=== PATIENT | female | born 1950 | race Caucasian/White ===

== ENCOUNTER 2018-08-28 10:23 | Inpatient (IN) ==
[2018-08-28] MEDS ORDERED: fentaNYL 100 MCG/2 ML VIAL IV PRN (11:18)
[2018-08-28] MEDS ORDERED: 0.9 % SODIUM CHLORIDE 1,000 ML IV SCH (11:30)
[2018-08-28] MEDS ORDERED: FLUCONAZOLE 200 MG/100 ML BAG IV SCH (11:30)
[2018-08-28 12:35] LABS: ALT/SGPT 15 U/l (0-40); Albumin 3.6 gm/dL (3.2-5.2); Albumin/Globulin Ratio 1.1 (1.0-2.3); Alkaline Phosphatase 148 U/L (39-117); Blood Urea Nitrogen 41 mg/dl (8-23)
[2018-08-28 12:42] LABS: Basophils # (Auto) 0 K/mcL (0.0-0.3); Basophils % (Auto) 0.2 % (0.0-2.0); Eosinophils # (Auto) 0.2 K/mcL (0.0-0.7); Eosinophils % (Auto) 0.9 % (0.0-7.0); Granulocytes % (Auto) 79.1 % (38.0-78.0); Lymphocytes # (Auto) 2.8 K/mcL (1.5-4.8); Lymphocytes % (Auto) 11.7 % (15.5-49.0); Mean Cell Volume 90.1 fL (80.0-100.0); Mean Corpuscular HGB Conc 33.9 g/dL (31.0-36.0); Mean Corpuscular Hemoglobin 30.5 pg (26.0-34.0); Monocytes # (Auto) 1.9 K/mcL (0.1-0.9); Monocytes % (Auto) 8.1 % (1.0-12.0); Platelet Count 369 K/mcL (140-440); RBC 3.56 M/mcL (4.00-5.20); Red Cell Distribution Width 12.4 % (11.5-14.5)
[2018-08-28] MEDS ORDERED: cefTRIAXone 1 GM VIAL IV ONE (12:51)
--- NOTE | 2018-08-28 13:04 | Emergency Department Note ---
Skin/Abscess/FB HPI - General Chief complaint: Skin/Abscess/Foreign Body Stated complaint: Cat scratch, sore butt, yeast infection. Time Seen by Provider: 08/28/18 11:17 Source: patient Mode of arrival: ambulatory Limitations: no limitations - History of Present Illness HPI Narrative: 68-year-old female patient was sent over from dialysis for further evaluation. States she has a very bad yeast infection to her pannus. Is very red and tender. This is been going for a few days at least and she is unsure exactly how long because she cannot see underneath it. States she has had yeast infections here before but does not get this very frequently. She also has a red, inflamed area to the right fourth finger, palmar surface distal tip which she believes is infected from a cat scratch. Unclear when this cat scratch occurred. She also has wounds to the right buttocks or some sort of pressure ulcer possibly. Again she cannot see this area but she has a caregiver that comes in a couple times a week and she is concerned about the wound to her buttocks. The caregiver states the patient is way too much work for her to be able to care for at home and she will oftentimes will not allow her to take care of her and the patient is unable to care for herself. No fever or chills. No nausea, vomiting, or diarrhea. No cough or cold symptoms. Patient is due for dialysis this afternoon - Related Data Home Medications Medication Instructions Recorded Confirmed albuterol sulfate 200 mcg capsules 180 mcg INHALATION .Q4-6HR PRN 11/19/1506/07 for inhalation blood sugar diagnostic strips See Dose Instructions .ROUTE 11/19/15 06/07/17 .MEDSUPPLY blood-glucose meter kit See Dose Instructions .ROUTE 11/19/15 06/07/17 .MEDSUPPLY fluoxetine 20 mg capsule 20 mg PO QDAY 11/19/15 06/07/17 lancets See Dose Instructions .ROUTE 11/19/15 06/07/17 .MEDSUPPLY clopidogrel 75 mg tablet 75 mg PO QDAY 90 Days #90 tab 05/16/17 06/07/17 cinacalcet 30 mg tablet 60 mg PO QDAY 30 Days #60 tab 07/26/18 acetaminophen 325 mg tablet 325 mg PO Q4H PRN tab 08/02/18 amlodipine 2.5 mg tablet 2.5 mg PO QDAY 08/02/18 calcium carbonate 200 mg calcium 200 mg PO ONCE PRN tab 08/02/18 (500 mg) chewable tablet cholecalciferol (vitamin D3) 1,000 1,000 unit PO QDAY 08/02/18 unit capsule clonidine HCl 0.1 mg tablet 0.1 mg PO .dialysis day PRN tab 08/02/18 darbepoetin cal 25 mcg/mL in 25 mcg IV QWEEK ml 08/02/18 polysorbate injection hydroxyzine HCl 10 mg tablet 10 mg PO Q6H PRN tab 08/02/18 loperamide 2 mg tablet 2 mg PO Q2-4H PRN 08/02/18 losartan 25 mg tablet 25 mg PO QDAY 08/02/18 mannitol See Label Instructions .ROUTE 08/02/18 .COMPLEX montelukast 10 mg tablet 10 mg PO QPM 08/02/18 niacin 500 mg tablet 500 mg PO QDAY 08/02/18 nut.tx impaired renal function, each PO .3xweekly 08/02/18 soy oral liquid ondansetron HCl 2 mg/mL 4 mg IV ONCE PRN ml 08/02/18 intravenous solution vitamin B complex-vitamin C-folic 1 tab PO QDAY 08/02/18 acid 0.8 mg tablet Previous Rx's Medication Instructions Recorded sevelamer carbonate 800 mg tablet See Label Instructions .ROUTE 07/26/18 .COMPLEX #330 tab Allergies Allergy/AdvReac Type Severity Reaction Status Date / Time ciprofloxacin [From Cipro] Allergy Unknown Unknown Verified 10/01/17 09:53 codeine Allergy Unknown Unknown Verified 10/01/17 09:53 gemfibrozil [From Lopid] Allergy Unknown Unknown Verified 10/01/17 09:53 meperidine [From Demerol] Allergy Unknown Unknown Verified 10/01/17 09:53 Review of Systems All systems ED: reviewed and negative except as stated. Past Medical History - Past Medical History [facility] Narrative: Medical History (Last Reviewed 06/07/17 @ 11:40 by Rbeekah Zaidi CMA) Leukocytosis (Acute) CKD (chronic kidney disease) stage 3, GFR 30-59 ml/min (Acute) Renal osteodystrophy (Chronic) Hyperkalemia (Chronic) Metabolic acidosis (Chronic) Type 2 diabetes mellitus (Chronic) Anemia (Chronic) Hypertensive renal disease (Chronic) Encounter for adjustment or management of vascular access device (Acute) Anxiety and depression (Chronic) Asthma (Chronic) CHF (congestive heart failure) (Chronic) Cellulitis, leg (Chronic) DM (diabetes mellitus), type 2 with peripheral vascular complications (Chronic) Gout (Chronic) Hallux valgus, acquired (Chronic) Hypercholesterolemia (Chronic) Hypertension (Chronic) Hypertensive heart and chronic kidney disease with heart failure and stage 1 through stage 4 chronic kidney disease, or chronic kidney disease (Chronic) Iron deficiency anemia (Chronic) Obesity (Chronic) Onychomycosis (Chronic) Open wound of right buttock (Chronic) Ovarian dysfunction, unspecified (Chronic) PVD (peripheral vascular disease) (Chronic) Paresthesia of both feet (Chronic) Peripheral edema (Chronic) Pneumonia due to other specified infectious organisms (Chronic) Pulmonary hypostasis (Chronic) RLS (restless legs syndrome) (Chronic) Renal failure (Chronic) Tinea pedis (Chronic) Past Surgical History (Last Reviewed 05/16/17 @ 13:21 by Karl Goodman MD) H/O kidney removal (Acute) S/P bilateral breast reduction (Acute) Status post cataract extraction (Acute) Medical history: Reports: DM, hypertension, peripheral artery disease, renal disease, other Surgical history ED: Reports: cataract, other (Breast reduction, dialysis catheter, nephrectomy) - Social History smoking status: Never smoker Alcohol use: Reports: None Drug use: Reports: none Physical Exam Limitations: no limitations General appearance: alert, in no apparent distress Head: atraumatic, normocephalic, normal inspection Eye: Present: normal appearance. Absent: conjunctival injection ENT: mucous membranes moist Chest: Present: symmetric chest wall rise Respiratory: Present: normal lung sounds bilaterally. Absent: respiratory distress, rales/crackles, wheezes, accessory muscle use Cardiovascular: Present: regular rate, normal heart sounds Abdominal: Present: soft, normal bowel sounds, other (large/obese abdomen, underneath panis with beefy red rash and excessive moisture to panis and groins bilat, severe redness and skin breakdown consistent with yeast infection- very tender). Absent: distention External: Present: other (please see urine dip) Neurological: Present: alert, oriented X3 Psychiatric: Present: normal affect, normal mood Skin: Present: warm, dry, normal color, erythema (Please see GI assessment. Right fourth finger distal tip palmar surface with a 1.5 cm area of redness and 1 cm area in the center that has purulent drainage under the skin surface. Tender to palpation. Full range of motion intact the affected finger. Numbed with 1% lidocaine without epi and approximately 1 mm light drainage expelled. Culture obtained, sent, and pending), other (Right medial buttocks with 2 stage II pressure ulcers 3 cm in diameter each. Mild redness around the wound borders. No induration or drainage) Course Course Narrative: At 1420 I did speak with hospitalist, Dr. Camarillo who agrees to accept the patient. Vital Signs Temperature 99.1 F H 08/28/18 10:24 Pulse Rate 84 08/28/18 10:24 Respiratory Rate 18 08/28/18 10:24 Blood Pressure 132/77 08/28/18 10:24 Pulse Oximetry (%) 100 08/28/18 10:24 Temperature 99.1 F H 08/28/18 10:24 Pulse Rate 101 H 08/28/18 14:16 Respiratory Rate 20 08/28/18 14:16 Blood Pressure 130/62 08/28/18 14:16 Pulse Oximetry (%) 99 08/28/18 14:16 Skin/Abscess/Foreign Body - Lab Data Lab results reviewed: Yes I reviewed the patient's lab results. Result diagrams: 08/28/18 12:22 08/28/18 11:37 Lab Results 08/28/18 08/28/18 08/28/18 Range/Units 11:37 11:37 12:22 WBC 23.8 H (4.5-11.0) K/mcL RBC 3.56 L (4.00-5.20) M/mcL Hgb 10.9 L (12.0-15.0) g/dL Hct 32.1 L (36.0-48.0) % MCV 90.1 (80.0-100.0) fL MCH 30.5 (26.0-34.0) pg MCHC 33.9 (31.0-36.0) g/dL RDW 12.4 (11.5-14.5) % Plt Count 369 (140-440) K/mcL MPV 8.0 (7.4-10.4) fL Gran % 79.1 H (38.0-78.0) % Lymph % (Auto) 11.7 L (15.5-49.0) % [place] % (Auto) 8.1 (1.0-12.0) % Eos % (Auto) 0.9 (0.0-7.0) % Baso % (Auto) 0.2 (0.0-2.0) % Gran # 18.8 H (1.8-8.0) K/mcL Lymph # (Auto) 2.8 (1.5-4.8) K/mcL [place] # (Auto) 1.9 H (0.1-0.9) K/mcL Eos # (Auto) 0.2 (0.0-0.7) K/mcL Baso # (Auto) 0 (0.0-0.3) K/mcL VBG Lactic Acid 1.1 (0.5-2.0) mmol/L Sodium 134 (133-145) mmol/L Potassium 4.1 (3.3-5.1) mmol/L Chloride 92 L (96-108) mmol/L Carbon Dioxide 26 (22-30) mmol/L Anion Gap 16.0 (8-16) BUN 41 H (8-23) mg/dl Creatinine 5.7 H* (0.6-1.1) mg/dl GFR Calculation 7 Glucose 92 (70-105) mg/dL Calcium 8.7 (8.6-10.4) mg/dl Total Bilirubin 0.4 (0.0-1.0) mg/dL AST 18 (0-37) U/l ALT 15 (0-40) U/l Alkaline Phosphatase 148 H (39-117) U/L Total Protein 6.8 (5.9-8.4) gm/dL Albumin 3.6 (3.2-5.2) gm/dL Globulin 3.2 (2.2-3.7) gm/dL Albumin/Globulin Ratio 1.1 (1.0-2.3) - Radiology Data Radiology results reviewed: Yes I reviewed the patient's radiology results. Disposition Pt seen by COMMUNICATIONS ENGINEER/PA only: Yes Clinical Impression: Urinary tract infection, Pressure ulcer, buttock, Yeast infection of the skin, Abscess of finger, Self-care deficit for bathing and hygiene Disposition: Xfer As Inpt ([facility]) Condition: Fair Referrals: Apolonia Fernando ARNP [Primary Care Provider] -
--- NOTE | 2018-08-28 14:14 | XRay Report ---
INDICATION: Elevated white blood cell count. Weakness. TECHNIQUE: AP chest x-ray, portable upright COMPARISON: 10/01/2017, 05/17/2017, 11/20/2015 FINDINGS: No focal pulmonary parenchymal infiltrate or mass. No pulmonary congestion. No pulmonary edema. Thelma and mediastinum are negative. No acute abnormality or significant interval change IMPRESSION: Negative AP chest x-ray Interpreted and Authenticated by: Cristian Hidalgo 08/28/18
--- NOTE | 2018-08-28 14:23 | Nephrology Consult Note ---
History of Present Illness - Reason for Consult Patient information: Note initiated : 08/28/18 at 2:21 pm Teri Olson is a 68-year-old female, admitted on 08/28/18. Chief Complaint: Wound Consult date: 08/28/18 end stage renal disease Requesting physician: Homero Montaño - Chief Complaint Wound - History of Present Illness Teri Olson is a 68-year-old female with end-stage renal disease on chronic hemodialysis (through left arm AV graft, at [facility], on MWF, followed by Dr. Wiley) , secondary hyperparathyroidism of renal origin, chronic anemia due to kidney disease, history of renal cell carcinoma s/p left nephrectomy in 2011, diabetes mellitus type 2, hypertension, admitted on 08/28/18. Pannus is red and tender for a few days. She has had yeast infections of pannus. Her right fourth finger is red and tender as well. Review of Systems Constitutional: weakness, no anorexia Nose, mouth and throat: no nasal congestion, no sore throat Cardiovascular: no chest pain, no palpatations Respiratory: no cough, no dyspnea Gastrointestinal: nausea, vomiting, no abdominal pain Genitourinary: no dysuria, no hematuria Musculoskeletal: no back pain, no neck pain Integumentary: wounds, no rash Neurological: no confusion, no focal weakness Psychiatric: no anxiety, no panic attacks Endocrine: no cold intolerance, no heat intolerance Hematologic/Lymphatic: no easy bleeding, no easy bruising Allergic/Immunologic: no tongue swelling, no uticaria Past History Past medical history: Medical History (Last Updated 08/28/18 @ 13:46 by Marshal De La Cruz MD) Leukocytosis (Acute) Renal osteodystrophy (Chronic) Type 2 diabetes mellitus (Chronic) Anemia (Chronic) Encounter for adjustment or management of vascular access device (Acute) Anxiety and depression (Chronic) Asthma (Chronic) CHF (congestive heart failure) (Chronic) Cellulitis, leg (Chronic) DM (diabetes mellitus), type 2 with peripheral vascular complications (Chronic) Gout (Chronic) Hallux valgus, acquired (Chronic) Hypercholesterolemia (Chronic) Hypertension (Chronic) Hypertensive heart and chronic kidney disease with heart failure and stage 1 through stage 4 chronic kidney disease, or chronic kidney disease (Chronic) Iron deficiency anemia (Chronic) Obesity (Chronic) Onychomycosis (Chronic) Open wound of right buttock (Chronic) Ovarian dysfunction, unspecified (Chronic) PVD (peripheral vascular disease) (Chronic) Paresthesia of both feet (Chronic) Peripheral edema (Chronic) Pneumonia due to other specified infectious organisms (Chronic) Pulmonary hypostasis (Chronic) RLS (restless legs syndrome) (Chronic) Renal failure (Chronic) Tinea pedis (Chronic) Past surgical history: Past Surgical History (Last Reviewed 05/16/17 @ 13:21 by Karl Goodman MD) H/O kidney removal (Acute) S/P bilateral breast reduction (Acute) Status post cataract extraction (Acute) Past family history: Family History (Last Reviewed 06/07/17 @ 11:46 by Rebekah Zaidi CMA) Mother Alzheimer's disease Father Malignant neoplasm of lung Glaucoma Past social history: Social History (Last Reviewed 06/07/17 @ 11:46 by Rebekah Zaidi CMA) No Social History Section defined Medications and Allergies Home Medications Medication Instructions Recorded Confirmed Type albuterol sulfate 200 mcg capsules 180 mcg INHALATION .Q4-6HR PRN 11/19/1508/28 History for inhalation blood sugar diagnostic strips See Dose Instructions .ROUTE 11/19/15 06/07/17 History .MEDSUPPLY blood-glucose meter kit See Dose Instructions .ROUTE 11/19/15 06/07/17 History .MEDSUPPLY fluoxetine 20 mg capsule 20 mg PO QDAY 11/19/15 06/07/17 History lancets See Dose Instructions .ROUTE 11/19/15 06/07/17 History .MEDSUPPLY cinacalcet 30 mg tablet 60 mg PO QDAY 30 Days #60 tab 07/26/18 08/28/18 History sevelamer carbonate 800 mg tablet See Label Instructions .ROUTE 07/26/18 Rx .COMPLEX #330 tab acetaminophen 325 mg tablet 325 mg PO Q4H PRN tab 08/02/18 08/28/18 History amlodipine 2.5 mg tablet 2.5 mg PO QDAY 08/02/18 08/28/18 History calcium carbonate 200 mg calcium 200 mg PO ONCE tab 08/02/18 08/28/18 History (500 mg) chewable tablet cholecalciferol (vitamin D3) 1,000 1,000 unit PO QDAY 08/02/18 08/28/18 History unit capsule clonidine HCl 0.1 mg tablet 0.1 mg PO .dialysis day PRN tab 08/02/18 History darbepoetin cal 25 mcg/mL in 25 mcg IV QWEEK ml 08/02/18 History polysorbate injection hydroxyzine HCl 10 mg tablet 10 mg PO Q6H PRN tab 08/02/18 History loperamide 2 mg tablet 2 mg PO Q2-4H PRN 08/02/18 History losartan 25 mg tablet 25 mg PO QDAY 08/02/18 History mannitol See Label Instructions .ROUTE 08/02/18 History .COMPLEX montelukast 10 mg tablet 10 mg PO QPM 08/02/18 History niacin 500 mg tablet 500 mg PO QDAY 08/02/18 History nut.tx impaired renal function, each PO .3xweekly 08/02/18 History soy oral liquid ondansetron HCl 2 mg/mL 4 mg IV ONCE PRN ml 08/02/18 History intravenous solution vitamin B complex-vitamin C-folic 1 tab PO QDAY 08/02/18 History acid 0.8 mg tablet Aspirin [Elias Chewable Aspirin] 81 mg PO DAILY 08/28/18 08/28/18 History Allergies Allergy/AdvReac Type Severity Reaction Status Date / Time ciprofloxacin [From Cipro] Allergy Unknown Unknown Verified 10/01/17 09:53 codeine Allergy Unknown Unknown Verified 10/01/17 09:53 gemfibrozil [From Lopid] Allergy Unknown Unknown Verified 10/01/17 09:53 meperidine [From Demerol] Allergy Unknown Unknown Verified 10/01/17 09:53 Exam - Vital Signs Vital signs: Temp Pulse Resp BP Pulse Ox 99.1 F H 101 H 20 130/62 99 08/28/18 10:24 08/28/18 14:16 08/28/18 14:16 08/28/18 14:16 08/28/18 14:16 - General Appearance General appearance: chronically ill, frail EENT: mucous membranes moist Neck: supple Respiratory: clear Cardiology: no edema Gastrointestinal: no tenderness Integumentary: no rash, ulcer Neurologic: no focal deficit, alert and oriented x3 Musculoskeletal: no deformities Psychiatric: mood/affect appropriate, cooperative Results - Lab Results 08/28/18 12:22 08/28/18 11:37 Most recent lab results Calcium 8.7 mg/dl (8.6-10.4) 08/28/18 11:37 Assessment and Plan (1) ESRD (end stage renal disease) on dialysis Teri Olson is a 68-year-old female with end-stage renal disease on chronic hemodialysis (through left arm AV graft, at [facility], on MWF, followed by Dr. Wiley) , secondary hyperparathyroidism of renal origin, chronic anemia due to kidney disease, history of renal cell carcinoma s/p left nephrectomy in 2011, diabetes mellitus type 2, hypertension, admitted on 08/28/18. Plan: Hemodialysis today with Revaclear 400 dialyzer for 3 hours, QB/QD 400/ 800, dialysate (Potassium 3, Bicarbonate 35, Calcium 2.5, Sodium 140), UF target 2000 ml, Heparin 2000 unit bolus, 1000 unit per hour. Status: Chronic Priority: Medium
[2018-08-28 14:47] LABS: Appearance,Urine HAZY; Bacteria,Urine FEW /hpf (0); Bilirubin,Urine NEG (NEG); Color,Urine YELLOW; Glucose,Urine (UA) NEGATIVE (NEG); Leukocyte Esterase,Urine 500 /uL (NEG); Mucus,Urine FEW /hpf (0); Protein,Urine 100 mg/dL (NEG); Specific Gravity,Urine 1.015 (1.000-1.035); Urine Blood 0.2 mg/dL (<0.03); Urine RBC 48 /hpf (0-1); Urine Squamous Epithelial Cell 1 /hpf (0-4); Urine Transitional Epi Cells 3 /hpf (0-2); Urine WBC > 182 /hpf (0-4); Urobilinogen,Urine NEG (NEG)
[2018-08-28] MEDS ORDERED: PIPERACILLIN SODIUM/TAZOBACTAM 3.375 GM in DEXTROSE 5% IN WATER 50 ML IV SCH (15:00)
--- NOTE | 2018-08-28 15:00 | Internal Med History&Physical ---
Medical - H&P: [facility] Patient information: Note initiated : 08/28/18 at 3:00 pm Service Date, if different from initiated Date: [] Patient: Teri Olson a 68 y/o F admitted on for Cat Scratch, Sore Butt, Yeast Infection. Chief Complaint: [] History of present illness: Ms. Olson is a 68 year old F With diabetes and end-stage renal disease who resides at home and is cared for by home health child caregiver who states to nursing staff and family independence case manager that she is unable to care for this patient given the difficulty with this particular individual in their size. She was brought in today by the urging of the home health child caregiver because of infections in her skin pressure ulcers and infection of the finger. Patient states she was feeling fine until this weekend yesterday specifically and she started to feel weak and fatigued. She did feel like she had some fevers and chills yesterday. She says got a scratch on her finger by her cat on her right fourth finger which is now red and swollen at the tip. She also states she has a yeast infection in between her pannus which is been there for about a week. She states her urine is a little malodorous darker than usual but she does not typically urinate very much anyway. Denies any nausea vomiting chest pain or stomach pain or diarrhea In the ER she was evaluated and also found to have a pressure ulcers on her buttocks. The abscess in the tip of her right finger was incised in 1 mL of purulent drainage was expressed and cultures were obtained. Review of Systems: Positive for generalized weakness and fatigue/fever/chills. Denies headache/ nausea/vomiting/chest or abdominal pain/cough/dyspnea/diarrhea. Remaining 10 point review of systems reviewed negative Medical - H&P: [facility] Medical history: Medical History (Last Updated 08/28/18 @ 13:46 by Marshal De La Cruz MD) Leukocytosis (Acute) Renal osteodystrophy (Chronic) Type 2 diabetes mellitus (Chronic) Anemia (Chronic) Encounter for adjustment or management of vascular access device (Acute) Anxiety and depression (Chronic) Asthma (Chronic) CHF (congestive heart failure) (Chronic) Cellulitis, leg (Chronic) DM (diabetes mellitus), type 2 with peripheral vascular complications (Chronic) Gout (Chronic) Hallux valgus, acquired (Chronic) Hypercholesterolemia (Chronic) Hypertension (Chronic) Hypertensive heart and chronic kidney disease with heart failure and stage 1 through stage 4 chronic kidney disease, or chronic kidney disease (Chronic) Iron deficiency anemia (Chronic) Obesity (Chronic) Onychomycosis (Chronic) Open wound of right buttock (Chronic) Ovarian dysfunction, unspecified (Chronic) PVD (peripheral vascular disease) (Chronic) Paresthesia of both feet (Chronic) Peripheral edema (Chronic) Pneumonia due to other specified infectious organisms (Chronic) Pulmonary hypostasis (Chronic) RLS (restless legs syndrome) (Chronic) Renal failure (Chronic) Tinea pedis (Chronic) Past Surgical History (Last Reviewed 05/16/17 @ 13:21 by Kalr Goodman MD) H/O kidney removal (Acute) S/P bilateral breast reduction (Acute) Status post cataract extraction (Acute) Family History (Last Reviewed 06/07/17 @ 11:46 by Rebekah Zaidi CMA) Mother Alzheimer's disease Father Malignant neoplasm of lung Glaucoma Social History (Last Reviewed 06/07/17 @ 11:46 by Rebekah Zaidi CMA) Denies tobacco, alcohol Ambulates with a walker Lives at home by herself has a home health child caregiver 3 days a week Medical - H&P: Meds Home Medications Medication Instructions Recorded Confirmed Type albuterol sulfate 200 mcg capsules 180 mcg INHALATION .Q4-6HR PRN 11/19/1508/28 History for inhalation blood sugar diagnostic strips See Dose Instructions .ROUTE 11/19/15 06/07/17 History .MEDSUPPLY blood-glucose meter kit See Dose Instructions .ROUTE 11/19/15 06/07/17 History .MEDSUPPLY fluoxetine 20 mg capsule 20 mg PO QDAY 11/19/15 06/07/17 History lancets See Dose Instructions .ROUTE 11/19/15 06/07/17 History .MEDSUPPLY clopidogrel 75 mg tablet 75 mg PO QDAY 90 Days #90 tab 05/16/17 06/07/17 History cinacalcet 30 mg tablet 60 mg PO QDAY 30 Days #60 tab 07/26/18 08/28/18 History sevelamer carbonate 800 mg tablet See Label Instructions .ROUTE 07/26/18 Rx .COMPLEX #330 tab acetaminophen 325 mg tablet 325 mg PO Q4H PRN tab 08/02/18 08/28/18 History amlodipine 2.5 mg tablet 2.5 mg PO QDAY 08/02/18 08/28/18 History calcium carbonate 200 mg calcium 200 mg PO ONCE tab 08/02/18 08/28/18 History (500 mg) chewable tablet cholecalciferol (vitamin D3) 1,000 1,000 unit PO QDAY 08/02/18 08/28/18 History unit capsule clonidine HCl 0.1 mg tablet 0.1 mg PO .dialysis day PRN tab 08/02/18 History darbepoetin cal 25 mcg/mL in 25 mcg IV QWEEK ml 08/02/18 History polysorbate injection hydroxyzine HCl 10 mg tablet 10 mg PO Q6H PRN tab 08/02/18 History loperamide 2 mg tablet 2 mg PO Q2-4H PRN 08/02/18 History losartan 25 mg tablet 25 mg PO QDAY 08/02/18 History mannitol See Label Instructions .ROUTE 08/02/18 History .COMPLEX montelukast 10 mg tablet 10 mg PO QPM 08/02/18 History niacin 500 mg tablet 500 mg PO QDAY 08/02/18 History nut.tx impaired renal function, each PO .3xweekly 08/02/18 History soy oral liquid ondansetron HCl 2 mg/mL 4 mg IV ONCE PRN ml 08/02/18 History intravenous solution vitamin B complex-vitamin C-folic 1 tab PO QDAY 08/02/18 History acid 0.8 mg tablet Allergies Allergy/AdvReac Type Severity Reaction Status Date / Time ciprofloxacin [From Cipro] Allergy Unknown Unknown Verified 10/01/17 09:53 codeine Allergy Unknown Unknown Verified 10/01/17 09:53 gemfibrozil [From Lopid] Allergy Unknown Unknown Verified 10/01/17 09:53 meperidine [From Demerol] Allergy Unknown Unknown Verified 10/01/17 09:53 Medical - H&P: Exam - Constitutional Vitals: Temp Pulse Resp BP Pulse Ox 99.1 F H 101 H 20 130/62 99 08/28/18 10:24 08/28/18 14:16 08/28/18 14:16 08/28/18 14:16 08/28/18 14:16 Exam: General: Alert, Awake, No acute Distress HEENT: EOMI, neck supple, normocephalic atraumatic, dry mucous members CV: RRR, 2/6 SM Pulm: Clear b/l, no wheezing/rhonchi/rales Abd: soft, nontender, +BS x4, obese, intertrigo between the large pannus folds Ext: no clubbing/cyanosis, trace bilateral lower extremity edema, right fourth fingertip with swelling and erythema status post incision and drainage of abscess with 1 cc of purulent drainage per ER notes Neuro: Alert, no focal deficits, moves all extremities Skin: warm/dry Medical - H&P: [facility] - Labs CBC & Chem 7: 08/28/18 12:22 08/28/18 11:37 Labs: Short CBC 08/28/18 Range/Units 12:22 WBC 23.8 H (4.5-11.0) K/mcL Hgb 10.9 L (12.0-15.0) g/dL Hct 32.1 L (36.0-48.0) % Plt Count 369 (140-440) K/mcL BMP 08/28/18 11:37 Sodium 134 Potassium 4.1 Chloride 92 L Carbon Dioxide 26 BUN 41 H Creatinine 5.7 H* Glucose 92 Calcium 8.7 Liver Function 08/28/18 Range/Units 11:37 Total Bilirubin 0.4 (0.0-1.0) mg/dL AST 18 (0-37) U/l ALT 15 (0-40) U/l Alkaline Phosphatase 148 H (39-117) U/L Albumin 3.6 (3.2-5.2) gm/dL Urine 08/28/18 Range/Units 14:23 Urine Color Yellow Urine Appearance Hazy Urine pH 7.0 (5.0-9.0) Ur Specific [place] 1.015 (1.000-1.035) Urine Protein 100 A (NEG) mg/dL Urine Glucose (UA) Negative (NEG) mg/dL Medical - H&P: A/P - Narrative A/P Narrative: A: *Cellulitis of the right fourth finger tip: Status post I&D in the ED *?UTI: Urine dip with leukocytes, patient with malodorous urine *Intertriginous candidiasis: *Sepsis: Secondary to above *Pressure ulcers to the buttocks *Inability to care for self: Also has home health child caregiver he states she is unable to care for the patient at this point *Obesity *Diabetes *End-stage renal disease: Follows with Dr. Wiley -States does not produce much urine *Chronic anemia *PVD: Has seen Dr. Vargas no stents placed *HTN: norvasc/losartan/clonidine at home *Depression *Obesity: P: -[place] with IV fluids -IV antibiotics, Wound blood cultures pending -Ketoconazole cream -Urinalysis -Nephrology for HD -Wound care consult -PT/OT - -Case management for placement -ppx: heparin
[2018-08-28 16:48] LABS: Band Neutrophils % 7 % (0-10); Eosinophils % (Manual) 2 % (0-7); Lymphocytes % 9 % (15-49); Monocytes % (Manual) 5 % (1-12); Platelet Estimate NORMAL (NORMAL); RBC Morphology NORMAL (NORMAL); Segmented Neutrophils % 77 % (38-78)
[2018-08-28] MEDS ORDERED: IPRATROPIUM/ALBUTEROL 3 ML AMPUL.NEB NEB PRN (16:48)
[2018-08-28] MEDS ORDERED: ALBUTEROL SULFATE 1 PUFF INHALER INH PRN (16:55)
[2018-08-28] MEDS ORDERED: cloNIDine HCL 0.1 MG TABLET PO PRN (17:33)
[2018-08-28] MEDS ORDERED: hydrOXYzine 10 MG TABLET PO PRN (17:33)
[2018-08-28] MEDS ORDERED: ACETAMINOPHEN 325 MG TABLET PO PRN (17:33)
[2018-08-28] MEDS: CALCIUM CARBONATE 500 MG TAB.CHEW PO SCH (17:37)
[2018-08-28] MEDS: PIPERACILLIN SODIUM/TAZOBACTAM 2.25 GM in DEXTROSE 5% IN WATER 50 ML IV SCH (17:37)
[2018-08-28] MEDS: SEVELAMER 800 MG TABLET PO SCH (18:31)
[2018-08-28] MEDS: 0.9 % SODIUM CHLORIDE 10 ML SYRINGE IV SCH (22:12)
[2018-08-28] MEDS: HEPARIN 5,000 UNIT/ML VIAL SQ SCH (22:12)
[2018-08-28] MEDS: ACETAMINOPHEN 325 MG TABLET PO PRN (22:25)
--- NOTE | 2018-08-28 22:51 | Emergency Department Note ---
ED Note Addendum Note Addendum: I saw this dialysis patient with Verenice DURAN. I agree with her evaluation management documentation. In particular I saw her yeasty red rash/ panniculitis and recommended admission for her multiple medical issues
[2018-08-29] MEDS: 0.9 % SODIUM CHLORIDE 10 ML SYRINGE IV SCH ×3 (05:04→20:41)
--- NOTE | 2018-08-29 05:38 | Nephrology Progress Note ---
Subjective Patient information: Note initiated : 08/29/18 at 5:36 am Teri Olson is a 68-year-old female, admitted on 08/28/18. Chief Complaint: Wound Principal diagnosis: Sepsis; ESRD on HD Interval history: Hemodialysis on 08/28/18 Pertinent ROS: Multiple wounds Weakness No shortness of breath No abdominal pain Objective - Vital Signs Vital signs: Vital Signs Temp Pulse Pulse Resp BP BP Pulse Ox 08/29/18 04:00 97.8 F 75 16 112/67 97 08/29/18 00:00 98.5 F 88 16 112/50 95 08/28/18 23:41 16 08/28/18 21:44 99.5 F H 80 110/53 08/28/18 21:12 73 128/52 08/28/18 20:43 74 118/49 08/28/18 20:31 105/45 08/28/18 20:16 80 115/48 08/28/18 19:44 80 120/53 08/28/18 19:18 80 122/62 08/28/18 18:45 99.3 F H 80 138/63 08/28/18 18:42 80 138/63 08/28/18 16:48 98.3 F 20 158/65 99 08/28/18 16:11 95 H 114/66 08/28/18 15:54 94 H 20 130/57 96 08/28/18 14:16 101 H 20 130/62 99 08/28/18 12:04 75 18 152/71 98 08/28/18 10:24 99.1 F H 84 18 132/77 100 Intake and Output 08/28/18 08/28/18 08/29/18 13:59 21:59 05:59 Intake Total 100 / 100 540 / 540 240 / 240 Output Total 100 / 100 1600 / 1600 60 / 60 Balance 0 / 0 -1060 / -1060 180 / 180 Intake: IV 100 / 100 300 / 300 Sodium Chloride 0.9% 1,000 ml @ 300 / 300 125 mls/hr IV .Q8H [facility] Rx#: [id number] Oral 240 / 240 240 / 240 Output: Urine Catheter Amount 60 / 60 Void Amount 100 / 100 Uretheral (Ceron) 100 / 100 Hemodialysis UF 1600 / 1600 Other: Meal Dinner Percent of Meal Consumed 75% Feeding Ability Independent Urine Appearance Clear Uretheral (Ceron) Cloudy Cloudy Sediment Sediment Urine Color Straw Uretheral (Ceron) Dark Yellow Dark Yellow Urine Odor Normal Uretheral (Ceron) Strong Strong Weight 185 lb 183 lb Patient Weight 08/29/18 05:59 Weight 183 lb Intake & Output: Intake & Output 08/28/18 08/28/18 08/29/18 13:59 21:59 05:59 Intake Total 100 / 100 540 / 540 240 / 240 Output Total 100 / 100 1600 / 1600 60 / 60 Balance 0 / 0 -1060 / -1060 180 / 180 Weight 185 lb 183 lb Intake: IV 100 / 100 300 / 300 Sodium Chloride 0.9% 1,000 ml @ 300 / 300 125 mls/hr IV .Q8H [facility] Rx#: [id number] Oral 240 / 240 240 / 240 Output: Urine Catheter Amount 60 / 60 Void Amount 100 / 100 Uretheral (Ceron) 100 / 100 Hemodialysis UF 1600 / 1600 Other: Meal Dinner Percent of Meal Consumed 75% Feeding Ability Independent Urine Appearance Clear Uretheral (Ceron) Cloudy Cloudy Sediment Sediment Urine Color Straw Uretheral (Ceron) Dark Yellow Dark Yellow Urine Odor Normal Uretheral (Ceron) Strong Strong - General Appearance General appearance: chronically ill, frail EENT: mucous membranes moist Neck: supple Respiratory: clear Cardiology: no edema Gastrointestinal: no tenderness Integumentary: ulcer Neurologic: no focal deficit, alert and oriented x3 Musculoskeletal: no deformities Psychiatric: mood/affect appropriate, cooperative - Lab 08/28/18 12:22 08/28/18 11:37 Most recent lab results Calcium 8.7 mg/dl (8.6-10.4) 08/28/18 11:37 Assessment and Plan (1) ESRD (end stage renal disease) on dialysis Teri Olson is a 68-year-old female with end-stage renal disease on chronic hemodialysis (through left arm AV graft, at [facility], on MW, followed by Dr. Wiley) , secondary hyperparathyroidism of renal origin, chronic anemia due to kidney disease, history of renal cell carcinoma s/p left nephrectomy in 2011, diabetes mellitus type 2, hypertension, admitted on 08/28/18. Plan: Hemodialysis on MWF Status: Chronic Priority: Medium
[2018-08-29 06:11] LABS: Basophils # (Auto) 0 K/mcL (0.0-0.3); Basophils % (Auto) 0.3 % (0.0-2.0); Eosinophils # (Auto) 0.3 K/mcL (0.0-0.7); Eosinophils % (Auto) 1.8 % (0.0-7.0); Granulocytes % (Auto) 73.5 % (38.0-78.0); Lymphocytes # (Auto) 2.8 K/mcL (1.5-4.8); Mean Cell Volume 89.6 fL (80.0-100.0); Mean Corpuscular HGB Conc 34.1 g/dL (31.0-36.0); Mean Corpuscular Hemoglobin 30.5 pg (26.0-34.0); Monocytes # (Auto) 1.8 K/mcL (0.1-0.9); Monocytes % (Auto) 9.4 % (1.0-12.0); Platelet Count 348 K/mcL (140-440); RBC 3.23 M/mcL (4.00-5.20); Red Cell Distribution Width 12.3 % (11.5-14.5)
[2018-08-29 06:54] LABS: ALT/SGPT 17 U/l (0-40); Albumin 3.2 gm/dL (3.2-5.2); Albumin/Globulin Ratio 1.1 (1.0-2.3); Alkaline Phosphatase 154 U/L (39-117); Bilirubin,Direct < 0.2 mg/dL (0.0-0.3); Blood Urea Nitrogen 17 mg/dl (8-23); Gamma Glutamyl Transpeptidase 21 U/L (5-36); Uric Acid 2.9 mg/dL (2.5-8.0)
--- NOTE | 2018-08-29 07:26 | Internal Med Progress Note ---
Medical - PN: Subj Patient information: Note initiated : 08/29/18 at 7:22 am Service Date, if different from initiated Date: [] Patient: Teri Olson a 68 y/o F admitted on 08/28/18 for Cat Scratch, Sore Butt, Yeast Infection. Chief Complaint: [] Interval history: Ms. Olson is a 68 year old F With diabetes and end-stage renal disease who resides at home and is cared for by home health rn care transition who states to nursing staff and case hardener that she is unable to care for this patient given the difficulty with this particular individual in their size. She was brought in today by the urging of the home health rn care transition because of infections in her skin pressure ulcers and infection of the finger. Patient states she was feeling fine until this weekend yesterday specifically and she started to feel weak and fatigued. She did feel like she had some fevers and chills yesterday. She says got a scratch on her finger by her cat on her right fourth finger which is now red and swollen at the tip. She also states she has a yeast infection in between her pannus which is been there for about a week. She states her urine is a little malodorous darker than usual but she does not typically urinate very much anyway. Denies any nausea vomiting chest pain or stomach pain or diarrhea In the ER she was evaluated and also found to have a pressure ulcers on her buttocks. The abscess in the tip of her right finger was incised in 1 mL of purulent drainage was expressed and cultures were obtained. 08/29 Feeling better, no new complaints other than poor sleep. She states she is not on any diabetic medications that she is diet controlled. Review of Systems: denies headache/fever/chills/nausea/vomiting/chest or abdominal pain/cough/ dyspnea/diarrhea. Otherwise see above. - Constitutional Vitals: Vital Signs Temp Pulse Resp BP Pulse Ox 97.8 F 75 16 112/67 97 08/29/18 04:00 08/29/18 04:00 08/29/18 04:00 08/29/18 04:00 08/29/18 04:00 Period Temp Pulse Resp BP Sys/Barnard Pulse Ox Last 24 Hr 97.8 F-99.5 F 73-101 16-20 105-158/45-77 95-100 Intake and Output 08/28/18 08/29/18 08/29/18 21:59 05:59 13:59 Intake Total 540 / 540 240 / 240 Output Total 1600 / 1600 60 / 60 Balance -1060 / -1060 180 / 180 Weight 83.007 kg Intake & Output: Intake & Output 08/28/18 08/29/18 08/29/18 21:59 05:59 13:59 Intake Total 540 / 540 240 / 240 Output Total 1600 / 1600 60 / 60 Balance -1060 / -1060 180 / 180 Weight 83.007 kg Intake: IV 300 / 300 Sodium Chloride 0.9% 1,000 ml @ 300 / 300 125 mls/hr IV .Q8H [facility] Rx#: [id number] Oral 240 / 240 240 / 240 Output: Urine Catheter Amount 60 / 60 Hemodialysis UF 1600 / 1600 Other: Meal Dinner Percent of Meal Consumed 75% Feeding Ability Independent Urine Appearance Clear Uretheral (Ceron) Cloudy Sediment Urine Color Straw Uretheral (Ceron) Dark Yellow Urine Odor Normal Uretheral (Ceron) Strong Exam: General: Alert, Awake, No acute Distress HEENT: EOMI, neck supple, CV: RRR, 2/6 SM Pulm: Clear b/l, no wheezing/rhonchi/rales Abd: soft, nontender, +BS x4, obese, intertrigo between the large pannus folds Ext: no clubbing/cyanosis, trace bilateral lower extremity edema, right fourth fingertip with swelling and erythema status post incision and drainage Neuro: Alert, no focal deficits, moves all extremities Skin: warm/dry Medical - PN: Obj Da - Labs CBC & Chem 7: 08/29/18 04:40 08/29/18 04:40 Labs: Abnormal Lab Results 08/29/18 08/29/18 08/28/18 04:40 04:40 14:23 WBC 18.7 H RBC 3.23 L Hgb 9.9 L Hct 29.0 L Gran % Lymph % (Auto) 15.0 L Gran # 13.8 H Greene # (Auto) 1.8 H Lymphocytes % Chloride BUN Creatinine 3.1 H Alkaline Phosphatase 154 H Triglycerides 259 H Urine Protein 100 A Urine Occult Blood 0.2 A Ur Leukocyte Esterase 500 A Urine RBC 48 H Urine WBC > 182 H Ur Transition Epith Cell 3 H Urine Bacteria Few A 11/10/0308/28/18 08/28/18 12:22 11:37 11:36 WBC 23.8 H RBC 3.56 L Hgb 10.9 L Hct 32.1 L Gran % 79.1 H Lymph % (Auto) 11.7 L Gran # 18.8 H Greene # (Auto) 1.9 H Lymphocytes % 9 L Chloride 92 L BUN 41 H Creatinine 5.7 H* Alkaline Phosphatase 148 H Triglycerides Urine Protein Urine Occult Blood Ur Leukocyte Esterase Urine RBC Urine WBC Ur Transition Epith Cell Urine Bacteria Meds: Medications Acetaminophen (Tylenol) 650 mg PO Q6HP PRN PRN Reason: PAIN/FEVER > 101 Last Admin: 08/28/18 22:25 Dose: 650 mg Albuterol Sulfate (Ventolin) 1 puff INH Q4HP PRN PRN Reason: Shortness Of Breath Albuterol/Ipratropium (Duoneb) 3 ml NEB Q4HRT PRN PRN Reason: Dyspnea Amlodipine Besylate (Norvasc) 2.5 mg PO DAILY [facility] Aspirin (Aspirin) 81 mg PO DAILY [facility] Calcium Carbonate/Glycine (Tums) 200 mg PO ONCE [facility] Last Admin: 08/28/18 17:37 Dose: 200 mg Cinacalcet (Sensipar) 60 mg PO QDAY [facility] Clonidine HCl (Catapres) 0.1 mg PO DAILYP PRN PRN Reason: DIALYSIS DAYS Fluoxetine HCl (Prozac) 20 mg PO QDAY [facility] Heparin Sodium (Porcine) (Heparin) 5,000 unit SQ Q12 [facility] Last Admin: 08/28/18 22:12 Dose: 5,000 unit Hydroxyzine HCl (Vistaril) 10 mg PO Q6H PRN PRN Reason: Blood Pressure - High Piperacillin Sod/Tazobactam (Sod 2.25 gm/ Dextrose) 50 mls @ 100 mls/hr IV Q12H [facility] Last Admin: 08/28/18 17:37 Dose: 100 mls/hr Ketoconazole (Nizoral 2% Top Crm) 1 dose TOPICAL DAILY [facility] Ondansetron HCl (Zofran) 4 mg IV Q4HP PRN PRN Reason: Nausea And Vomiting Sevelamer Carbonate (Renvela) 2,400 mg PO TIDCC [facility] Last Admin: 08/28/18 18:31 Dose: Not Given Sodium Chloride (Saline Flush) 10 ml IV Q8 [facility] Last Admin: 08/29/18 05:04 Dose: 10 ml Vitamin D (Vitamin D3) 1,000 unit PO DAILY [facility] Medical - PN: A/P - Time Spent With Patient Total time spent is greater than 50% in coordination of care (as documented) at patient's floor/unit and/or counseling patient: - Narrative A/P Narrative: A: *Cellulitis of the right fourth finger tip: Status post I&D in the ED *UTI: *Intertriginous candidiasis: *Sepsis: Secondary to above -leukocytosis improving, no bandemia *Pressure ulcers to the buttocks *Inability to care for self: Also has home health rn care transition he states she is unable to care for the patient at this point *Obesity: *Diabetes II: *End-stage renal disease (h/o RCC w/left nephrectomy 2011): Follows with Dr. Wiley -States does not produce much urine *Chronic anemia: *PVD: Has seen Dr. Vargas, no stents placed *HTN: norvasc/losartan/clonidine at home *Depression *Obesity: P: -Caution with IV fluids -IV antibiotics, WC/BC/UC pending -Ketoconazole cream -Nephrology for HD -Wound care consult -PT/OT -SSI, clarify home DM meds -Case management for placement -ppx: heparin
[2018-08-29] MEDS: SEVELAMER 800 MG TABLET PO SCH ×3 (09:08→17:32)
[2018-08-29] MEDS: HEPARIN 5,000 UNIT/ML VIAL SQ SCH ×2 (09:10→20:40)
[2018-08-29] MEDS: ASPIRIN 81 MG TAB.CHEW PO SCH (09:11)
[2018-08-29] MEDS: CINACALCET 30 MG TABLET PO SCH (09:12)
[2018-08-29] MEDS: FLUoxetine HCL 20 MG CAPSULE PO SCH (09:13)
[2018-08-29] MEDS: VITAMIN D3 1,000 UNIT TABLET PO SCH (09:13)
[2018-08-29] MEDS: PIPERACILLIN SODIUM/TAZOBACTAM 2.25 GM in DEXTROSE 5% IN WATER 50 ML IV SCH (09:13)
[2018-08-29] MEDS: KETOCONAZOLE 2% TOP CRM 15GM TUBE TOPICAL SCH (09:16)
[2018-08-29] MEDS: amLODIPine 5 MG TABLET PO SCH ×2 (10:22→13:31)
[2018-08-29] MEDS: cefTRIAXone 1 GM VIAL IV SCH (11:43)
[2018-08-29] MEDS: LACTOBACILLUS 1 CAPSULE PO SCH ×2 (11:43→20:41)
[2018-08-29] MEDS ORDERED: CLINDAMYCIN 600 MG in DEXTROSE 5% IN WATER 50 ML IV SCH (12:00)
[2018-08-29] MEDS: ONDANSETRON 4 MG/2 ML VIAL IV PRN (12:47)
[2018-08-29] MEDS ORDERED: VANCOMYCIN PER PHARMACY IV SCH (12:52)
[2018-08-29] MEDS: CLINDAMYCIN 600 MG in DEXTROSE 5% IN WATER 50 ML IV SCH ×2 (13:06→20:41)
[2018-08-29] MEDS ORDERED: VANCOMYCIN 1,250 MG in 0.9 % SODIUM CHLORIDE 500 ML IV ONE (13:15)
[2018-08-29] MEDS: CALCIUM CARBONATE 500 MG TAB.CHEW PO SCH (17:31)
[2018-08-29] MEDS: diphenhydrAMINE 25 MG CAPSULE PO PRN (20:41)
[2018-08-30] MEDS: CLINDAMYCIN 600 MG in DEXTROSE 5% IN WATER 50 ML IV SCH ×3 (05:51→22:08)
[2018-08-30] MEDS: 0.9 % SODIUM CHLORIDE 10 ML SYRINGE IV SCH ×3 (05:51→22:01)
--- NOTE | 2018-08-30 07:05 | Nephrology Progress Note ---
Subjective Patient information: Note initiated : 08/30/18 at 7:03 am Teri Olson is a 68-year-old female, admitted on 08/28/18. Chief Complaint: Multiple wounds Principal diagnosis: Sepsis; ESRD on HD Interval history: Hemodialysis on 08/28/18 Pertinent ROS: Multiple wounds Weakness No shortness of breath No abdominal pain Objective - Vital Signs Vital signs: Vital Signs Temp Pulse Resp BP BP Pulse Ox 08/30/18 04:00 97.4 F 79 12 115/61 94 08/30/18 00:00 97.5 F 63 12 112/50 96 08/29/18 20:00 97.7 F 69 12 120/54 97 08/29/18 15:40 97.6 F 75 16 107/53 95 08/29/18 11:59 97.5 F 80 18 121/67 97 08/29/18 07:22 97.4 F 75 14 109/45 96 Intake and Output 08/29/18 08/30/18 08/30/18 21:59 05:59 13:59 Intake Total 174 / 174 300 / 300 54 / 54 Output Total 50 / 50 25 / 25 Balance 124 / 124 275 / 275 54 / 54 Intake: IV 54 / 54 54 / 54 Cleocin 600 mg In Dextrose 5% 54 / 54 54 / 54 in Water 50 ml @ 100 mls/hr IV Q8H [facility] Rx#:[id number] Oral 120 / 120 300 / 300 Output: Urine Catheter Amount 50 / 50 25 / 25 Other: Meal Dinner Percent of Meal Consumed 75% Feeding Ability Independent Urine Appearance Cloudy Clear Uretheral (Ceron) Clear Urine Color Dark Yellow Straw Uretheral (Ceron) Dark Yellow Urine Odor Normal Normal Weight 185 lb Intake & Output: Intake & Output 08/29/18 08/30/18 08/30/18 21:59 05:59 13:59 Intake Total 174 / 174 300 / 300 54 / 54 Output Total 50 / 50 25 / 25 Balance 124 / 124 275 / 275 54 / 54 Weight 185 lb Intake: IV 54 / 54 54 / 54 Cleocin 600 mg In Dextrose 5% 54 / 54 54 / 54 in Water 50 ml @ 100 mls/hr IV Q8H [facility] Rx#:[id number] Oral 120 / 120 300 / 300 Output: Urine Catheter Amount 50 / 50 25 / 25 Other: Meal Dinner Percent of Meal Consumed 75% Feeding Ability Independent Urine Appearance Cloudy Clear Uretheral (Ceron) Clear Urine Color Dark Yellow Straw Uretheral (Ceron) Dark Yellow Urine Odor Normal Normal - General Appearance General appearance: chronically ill, frail EENT: mucous membranes moist Neck: supple Respiratory: clear Cardiology: no edema Gastrointestinal: no tenderness Integumentary: ulcer Neurologic: no focal deficit, alert and oriented x3 Musculoskeletal: no deformities Psychiatric: mood/affect appropriate, cooperative - Lab 08/30/18 07:40 08/30/18 07:40 Most recent lab results Calcium 8.7 mg/dl (8.6-10.4) 08/29/18 04:40 Phosphorus 3.4 mg/dL (2.7-4.5) 08/29/18 04:40 Magnesium 2.0 mg/dL (1.6-2.5) 08/29/18 04:40 Assessment and Plan (1) ESRD (end stage renal disease) on dialysis Teri Olson is a 68-year-old female with end-stage renal disease on chronic hemodialysis (through left arm AV graft, at [facility], on MW, followed by Dr. Wiley) , secondary hyperparathyroidism of renal origin, chronic anemia due to kidney disease, history of renal cell carcinoma s/p left nephrectomy in 2011, diabetes mellitus type 2, hypertension, admitted on 08/28/18. Plan: Hemodialysis today with Revaclear 400 dialyzer for 3 hours, QB/QD 400/ 800, dialysate (Potassium 3, Bicarbonate 35, Calcium 2.5, Sodium 140), UF target 2000 ml, Heparin 2000 unit bolus, 1000 unit per hour. The patient seen and evaluated during hemodialysis at 10:45. Next hemodialysis on tuesday as inpatient or outpatient. Status: Chronic Priority: Medium
--- NOTE | 2018-08-30 07:20 | Internal Med Progress Note ---
Medical - PN: Subj Patient information: Note initiated : 08/30/18 at 7:15 am Service Date, if different from initiated Date: [] Patient: Teri Olson a 68 y/o F admitted on 08/28/18 for UTI, Buttock ulcer, finger abscess. Chief Complaint: [] Interval history: Ms. Olson is a 68 year old F With diabetes and end-stage renal disease who resides at home and is cared for by home health acute care occupational therapist who states to nursing staff and rifle case repairer that she is unable to care for this patient given the difficulty with this particular individual in their size. She was brought in today by the urging of the home health acute care occupational therapist because of infections in her skin pressure ulcers and infection of the finger. Patient states she was feeling fine until this weekend yesterday specifically and she started to feel weak and fatigued. She did feel like she had some fevers and chills yesterday. She says got a scratch on her finger by her cat on her right fourth finger which is now red and swollen at the tip. She also states she has a yeast infection in between her pannus which is been there for about a week. She states her urine is a little malodorous darker than usual but she does not typically urinate very much anyway. Denies any nausea vomiting chest pain or stomach pain or diarrhea In the ER she was evaluated and also found to have a pressure ulcers on her buttocks. The abscess in the tip of her right finger was incised in 1 mL of purulent drainage was expressed and cultures were obtained. 08/29 Feeling better, no new complaints other than poor sleep. She states she is not on any diabetic medications that she is diet controlled. 08/30 Did have a episode of nausea vomiting after medication last evening, but otherwise no events overnight and slept well feeling better. Review of Systems: denies headache/fever/chills/chest or abdominal pain/cough/dyspnea/diarrhea. Otherwise see above. - Constitutional Vitals: Vital Signs Temp Pulse Resp BP Pulse Ox 97.4 F 79 12 115/61 94 08/30/18 04:00 08/30/18 04:00 08/30/18 04:00 08/30/18 04:00 08/30/18 04:00 Period Temp Pulse Resp BP Sys/Barnard Pulse Ox Last 24 Hr 97.4 F-97.7 F 63-80 -18 107-121/45-67 94-97 Intake and Output 08/29/18 08/30/18 08/30/18 21:59 05:59 13:59 Intake Total 174 / 174 300 / 300 54 / 54 Output Total 50 / 50 25 / 25 Balance 124 / 124 275 / 275 54 / 54 Weight 83.915 kg Intake & Output: Intake & Output 08/29/18 08/30/18 08/30/18 21:59 05:59 13:59 Intake Total 174 / 174 300 / 300 54 / 54 Output Total 50 / 50 25 / 25 Balance 124 / 124 275 / 275 54 / 54 Weight 83.915 kg Intake: IV 54 / 54 Cleocin 600 mg In Dextrose 5% 54 54 in Water 50 ml @ 100 mls/hr IV Q8H [facility] Rx#:[id number] Oral 120 / 120 300 / 300 Output: Urine Catheter Amount 50 / 50 25 / 25 Other: Meal Dinner Percent of Meal Consumed 75% Feeding Ability Independent Urine Appearance Cloudy Clear Uretheral (Ceron) Clear Urine Color Dark Yellow Straw Uretheral (Ceron) Dark Yellow Urine Odor Normal Normal Exam: General: Alert, Awake, No acute Distress HEENT: EOMI, neck supple, CV: RRR, 2/6 SM Pulm: Clear b/l, no wheezing/rhonchi/rales Abd: soft, nontender, +BS x4, obese, intertrigo between the large pannus folds improving Ext: no clubbing/cyanosis, trace bilateral lower extremity edema, right fourth fingertip with swelling and erythema status post incision and drainage improving Neuro: Alert, no focal deficits, moves all extremities Skin: warm/dry Medical - PN: Obj Da - Labs CBC & Chem 7: 08/29/18 04:40 08/29/18 04:40 Labs: Abnormal Lab Results 08/29/18 08/29/18 08/28/18 04:40 04:40 14:23 WBC 18.7 H RBC 3.23 L Hgb 9.9 L Hct 29.0 L Gran % Lymph % (Auto) 15.0 L Gran # 13.8 H [place] # (Auto) 1.8 H Lymphocytes % Chloride BUN Creatinine 3.1 H Alkaline Phosphatase 154 H Triglycerides 259 H Urine Protein 100 A Urine Occult Blood 0.2 A Ur Leukocyte Esterase 500 A Urine RBC 48 H Urine WBC > 182 H Ur Transition Epith Cell 3 H Urine Bacteria Few A 08/28/18 08/28/18 08/28/18 12:22 11:37 11:36 WBC 23.8 H RBC 3.56 L Hgb 10.9 L Hct 32.1 L Gran % 79.1 H Lymph % (Auto) 11.7 L Gran # 18.8 H [place] # (Auto) 1.9 H Lymphocytes % 9 L Chloride 92 L BUN 41 H Creatinine 5.7 H* Alkaline Phosphatase 148 H Triglycerides Urine Protein Urine Occult Blood Ur Leukocyte Esterase Urine RBC Urine WBC Ur Transition Epith Cell Urine Bacteria Meds: Medications Acetaminophen (Tylenol) 650 mg PO Q6HP PRN PRN Reason: PAIN/FEVER > 101 Last Admin: 08/28/18 22:25 Dose: 650 mg Albuterol Sulfate (Ventolin) 1 puff INH Q4HP PRN PRN Reason: Shortness Of Breath Albuterol/Ipratropium (Duoneb) 3 ml NEB Q4HRT PRN PRN Reason: Dyspnea Amlodipine Besylate (Norvasc) 2.5 mg PO DAILY [facility] Last Admin: 08/29/18 13:31 Dose: 2.5 mg Aspirin (Aspirin) 81 mg PO DAILY [facility] Last Admin: 08/29/18 09:11 Dose: 81 mg Calcium Carbonate/Glycine (Tums) 200 mg PO ONCE [facility] Last Admin: 08/29/18 17:31 Dose: Not Given Ceftriaxone Sodium (Rocephin) 1 gm IV DAILY [facility] Last Admin: 08/29/18 11:43 Dose: 1 gm Cinacalcet (Sensipar) 60 mg PO QDAY [facility] Last Admin: 08/29/18 09:12 Dose: 60 mg Clonidine HCl (Catapres) 0.1 mg PO DAILYP PRN PRN Reason: DIALYSIS DAYS Diphenhydramine HCl (Benadryl) 25 mg PO HSP PRN PRN Reason: Insomnia Last Admin: 08/29/18 20:41 Dose: 25 mg Fluoxetine HCl (Prozac) 20 mg PO QDAY [facility] Last Admin: 08/29/18 09:13 Dose: 20 mg Heparin Sodium (Porcine) (Heparin) 5,000 unit SQ Q12 [facility] Last Admin: 08/29/18 20:40 Dose: 5,000 unit Hydroxyzine HCl (Vistaril) 10 mg PO Q6H PRN PRN Reason: Blood Pressure - High Clindamycin Phosphate 600 mg/ (Dextrose) 54 mls @ 100 mls/hr IV Q8H [facility] Stop: 08/31/18 11:59 Last Infusion: 08/30/18 06:26 Dose: Infused Ketoconazole (Nizoral 2% Top Crm) 1 dose TOPICAL DAILY [facility] Last Admin: 08/29/18 09:16 Dose: Not Given Lactobacillus Rhamnosus (Culturelle) 1 cap PO BID [facility] Last Admin: 08/29/18 20:41 Dose: 1 cap Ondansetron HCl (Zofran) 4 mg IV Q4HP PRN PRN Reason: Nausea And Vomiting Last Admin: 08/29/18 12:47 Dose: 4 mg Sevelamer Carbonate (Renvela) 2,400 mg PO TIDCC [facility] Last Admin: 08/29/18 17:32 Dose: 2,400 mg Sodium Chloride (Saline Flush) 10 ml IV Q8 [facility] Last Admin: 08/30/18 05:51 Dose: 10 ml Vancomycin HCl (Vancomycin Per Pharmacy) 1 order IV UD [facility] Vitamin D (Vitamin D3) 1,000 unit PO DAILY [facility] Last Admin: 08/29/18 09:13 Dose: 1,000 unit Medical - PN: A/P - Time Spent With Patient Total time spent is greater than 50% in coordination of care (as documented) at patient's floor/unit and/or counseling patient: - Narrative A/P Narrative: A: *Cellulitis of the right fourth finger tip: Status post I&D in the ED -improving *Positive BC (10/18 [facility]): *UTI: *Intertriginous candidiasis: improving *Sepsis: Secondary to above -leukocytosis improving, no bandemia *Pressure ulcers to the buttocks *Inability to care for self: Also has home health acute care occupational therapist he states she is unable to care for the patient at this point *Obesity: *Diabetes II: diet controlled *End-stage renal disease (h/o RCC w/left nephrectomy 2011): Follows with Dr. Wiley -States does not produce much urine *Chronic anemia: *PVD: Has seen Dr. Vargas, no stents placed *HTN: norvasc/losartan/clonidine at home *Depression *Obesity: P: -IV antibiotics, WC/BC/UC pending -echo if BC growing Staph -Ketoconazole cream -Nephrology for HD -Wound care consult -PT/OT -SSI, -Case management for placement -ppx: heparin
[2018-08-30] MEDS: SEVELAMER 800 MG TABLET PO SCH ×3 (08:36→18:11)
[2018-08-30 08:39] LABS: Basophils # (Auto) 0 K/mcL (0.0-0.3); Basophils % (Auto) 0.1 % (0.0-2.0); Eosinophils # (Auto) 0.9 K/mcL (0.0-0.7); Eosinophils % (Auto) 6.6 % (0.0-7.0); Granulocytes % (Auto) 69.4 % (38.0-78.0); Lymphocytes # (Auto) 2.2 K/mcL (1.5-4.8); Lymphocytes % (Auto) 15.8 % (15.5-49.0); Mean Cell Volume 89.6 fL (80.0-100.0); Mean Corpuscular HGB Conc 33.3 g/dL (31.0-36.0); Mean Corpuscular Hemoglobin 29.8 pg (26.0-34.0); Monocytes # (Auto) 1.1 K/mcL (0.1-0.9); Monocytes % (Auto) 8.1 % (1.0-12.0); Platelet Count 340 K/mcL (140-440); RBC 2.93 M/mcL (4.00-5.20); Red Cell Distribution Width 12.4 % (11.5-14.5)
[2018-08-30 08:59] LABS: Vancomycin,Random 21.4 ug/mL
[2018-08-30 09:05] LABS: Blood Urea Nitrogen 31 mg/dl (8-23)
--- NOTE | 2018-08-30 09:24 | Discharge Summary ---
Medical - DS: Prov Patient information: Note initiated : 08/30/18 at 9:22 am Service Date, if different from initiated Date: [] Patient: Teri Olson 68 y/o F admitted on 08/28/18 for UTI, Buttock ulcer, finger abscess. Chief Complaint: [] Date of admission: 08/28/18 16:18 Primary care physician: Apolonia Fernando Consults: 08/28/18 Consult to Physician [CONS] Stat Comment: Consulting Provider: Marshal De La Cruz Reason For Exam: Physician to Consult 08/28/18 14:27 Consult to Physician [CONS] Stat Comment: Consulting Provider: Charli Camarillo Reason For Exam: Physician to Consult Medical - DS: Meds - Discharge Medications Prescriptions: Ketoconazole 2% Top Crm [Nizoral 2% Top Crm] 1 dose TOPICAL DAILY #1 tube Active and Home Medications: Home Medications albuterol sulfate 200 mcg capsules for inhalation 180 mcg INHALATION .Q4-6HR PRN 11/19/15 [History Confirmed 08/28/18 Last Taken 08/26/18 08:00] blood sugar diagnostic strips See Dose Instructions .ROUTE .MEDSUPPLY 11/19/15 [ History Confirmed 08/28/18 Last Taken 08/28/18 06:00] blood-glucose meter kit See Dose Instructions .ROUTE .MEDSUPPLY 11/19/15 [ History Confirmed 08/28/18 Last Taken 08/28/18 06:00] fluoxetine 20 mg capsule 20 mg PO QDAY 11/19/15 [History Confirmed 08/28/18 Last Taken 08/27/18 08:00] lancets See Dose Instructions .ROUTE .MEDSUPPLY 11/19/15 [History Confirmed 10/03 Last Taken 08/28/18 06:00] cinacalcet 30 mg tablet 60 mg PO QDAY 30 Days #60 tab 07/26/18 [History Confirmed 08/28/18 Last Taken 08/27/18 08:00] sevelamer carbonate 800 mg tablet See Label Instructions .ROUTE .COMPLEX #330 tab 07/26/18 [Rx Confirmed 08/28/18 Last Taken 08/27/18 17:00] acetaminophen 325 mg tablet 325 mg PO Q4H PRN tab 08/02/18 [History Confirmed 08/28/18 Last Taken 08/26/18 07:00] amlodipine 2.5 mg tablet 2.5 mg PO QDAY 08/02/18 [History Confirmed 08/28/18 Last Taken 08/27/18 08:00] calcium carbonate 200 mg calcium (500 mg) chewable tablet 200 mg PO ONCE tab [History Confirmed 08/28/18 Last Taken Unknown] cholecalciferol (vitamin D3) 1,000 unit capsule 1,000 unit PO QDAY 08/02/18 [ History Confirmed 08/28/18 Last Taken 08/27/18 08:00] clonidine HCl 0.1 mg tablet 0.1 mg PO .dialysis day PRN tab 08/02/18 [History Confirmed 08/28/18 Last Taken Unknown] darbepoetin cal 25 mcg/mL in polysorbate injection 25 mcg IV QWEEK ml [History Confirmed 08/28/18 Last Taken 08/23/18 17:00] hydroxyzine HCl 10 mg tablet 10 mg PO Q6H PRN tab 08/02/18 [History Confirmed 08/28/18 Last Taken Unknown] loperamide 2 mg tablet 2 mg PO Q2-4H PRN 08/02/18 [History Confirmed 08/28/18 Last Taken Unknown] losartan 25 mg tablet 25 mg PO QDAY 08/02/18 [History Confirmed 08/28/18 Last Taken 08/27/18 08:00] mannitol See Label Instructions .ROUTE .COMPLEX 08/02/18 [History Confirmed 10/03 Last Taken Unknown] nut.tx impaired renal function, soy oral liquid 1 each PO .3xweekly 08/02/18 [ History Confirmed 08/28/18 Last Taken Unknown] vitamin B complex-vitamin C-folic acid 0.8 mg tablet 1 tab PO QDAY 08/02/18 [ History Confirmed 08/28/18 Last Taken 08/27/18 08:00] Aspirin [Elias Chewable Aspirin] 81 mg PO DAILY 08/28/18 [History Confirmed 10/03 Last Taken 08/27/18 08:00] Medical - DS: Hosp Hospital course: Ms. Olson is a 68 year old F With diabetes and end-stage renal disease who resides at home and is cared for by home health pet care assistant who states to nursing staff and binder caser that she is unable to care for this patient given the difficulty with this particular individual in their size. She was brought in today by the urging of the home health pet care assistant because of infections in her skin pressure ulcers and infection of the finger. Patient states she was feeling fine until this weekend yesterday specifically and she started to feel weak and fatigued. She did feel like she had some fevers and chills yesterday. She says got a scratch on her finger by her cat on her right fourth finger which is now red and swollen at the tip. She also states she has a yeast infection in between her pannus which is been there for about a week. She states her urine is a little malodorous darker than usual but she does not typically urinate very much anyway. Denies any nausea vomiting chest pain or stomach pain or diarrhea In the ER she was evaluated and also found to have a pressure ulcers on her buttocks. The abscess in the tip of her right finger was incised in 1 mL of purulent drainage was expressed and cultures were obtained. 08/29 Feeling better, no new complaints other than poor sleep. She states she is not on any diabetic medications that she is diet controlled. 08/30 Did have a episode of nausea vomiting after medication last evening, but otherwise no events overnight and slept well feeling better. 08/31 Discharge diagnosis: Cellulitis of finger UTI sepsis intertrigo - Time Spent with Patient Total time spent providing and/or coordinating discharge services: Greater than 30 minutes Medical - DS: Exam - Constitutional Vitals: Vital Signs Temp Pulse Resp BP BP Pulse Ox 08/30/18 04:00 97.4 F 79 12 115/61 94 08/30/18 00:00 97.5 F 63 12 112/50 96 08/29/18 20:00 97.7 F 69 12 120/54 97 08/29/18 15:40 97.6 F 75 16 107/53 95 08/29/18 11:59 97.5 F 80 18 121/67 97 Intake and Output 08/29/18 08/30/18 08/30/18 21:59 05:59 13:59 Intake Total 174 / 174 300 / 300 54 / 54 Output Total 50 / 50 25 / 25 25 / 25 Balance 124 / 124 275 / 275 29 / 29 Intake: IV 54 54 54 / 54 Cleocin 600 mg In Dextrose 5% 54 / 54 in Water 50 ml @ 100 mls/hr IV Q8H [facility] Rx#:[id number] Oral 120 / 120 300 / 300 Output: Urine Catheter Amount 50 / 50 25 / 25 Void Amount 25 / 25 Other: Meal Dinner Percent of Meal Consumed 75% Feeding Ability Independent Urine Appearance Cloudy Clear Sediment Uretheral (Ceron) Clear Urine Color Dark Yellow Straw Light Yuly Uretheral (Ceron) Dark Yellow Urine Odor Normal Normal Weight 83.915 kg Medical - DS: Data Labs on day of discharge: Labs from last 24 hours 08/30/18 08/30/18 08/30/18 07:40 07:40 07:40 WBC 13.8 H RBC 2.93 L Hgb 8.7 L Hct 26.2 L MCV 89.6 MCH 29.8 MCHC 33.3 RDW 12.4 Plt Count 340 MPV 8.0 Gran % 69.4 Lymph % (Auto) 15.8 [place] % (Auto) 8.1 Eos % (Auto) 6.6 Baso % (Auto) 0.1 Gran # 9.6 H Lymph # (Auto) 2.2 [place] # (Auto) 1.1 H Eos # (Auto) 0.9 H Baso # (Auto) 0 Sodium 134 Potassium 4.1 Chloride 94 L Carbon Dioxide 26 Anion Gap 14.0 BUN 31 H Creatinine 4.9 H GFR Calculation 8 Glucose 83 Calcium 7.8 L Random Vancomycin 21.4 Vancomycin Dose Not Reportable Vanco Last Dose Time Not Reportable Preliminary micro results at discharge 08/28/18 11:37 Wound Culture - Preliminary Finger - Second Staphylococcus aureus Strep pyogenes (grp a) 08/28/18 11:36 Blood Culture - Preliminary Blood Gram positive cocci 08/28/18 12:15 Blood Culture - Preliminary Blood 08/28/18 14:22 Urine Culture - Preliminary Urine - Catheterized Medical - DS: A/P - Patient/Caregiver Discharge Instructions Activity: as per physical therapy Diet: Renal/Consistent Carbs Additional Instructions: f/u with wound care outpt 3-10 days - Follow up Plan Follow up with: Apolonia Fernando ARNP [Primary Care Provider] - Michell Wiley MD [Physician] - Disposition: Xfer SNF Prognosis: Fair Rehab Potential: Fair I certify that the patient requires SNF services: Yes
[2018-08-30] MEDS ORDERED: VANCOMYCIN 500 MG in 0.9 % SODIUM CHLORIDE 100 ML IV ONE (13:00)
[2018-08-30] MEDS: FLUoxetine HCL 20 MG CAPSULE PO SCH (13:10)
[2018-08-30] MEDS: CINACALCET 30 MG TABLET PO SCH (13:10)
[2018-08-30] MEDS: ASPIRIN 81 MG TAB.CHEW PO SCH (13:11)
[2018-08-30] MEDS: VITAMIN D3 1,000 UNIT TABLET PO SCH (13:11)
[2018-08-30] MEDS: amLODIPine 5 MG TABLET PO SCH (13:11)
[2018-08-30] MEDS: LACTOBACILLUS 1 CAPSULE PO SCH ×2 (13:11→21:58)
[2018-08-30] MEDS: cefTRIAXone 1 GM VIAL IV SCH (13:16)
[2018-08-30] MEDS: HEPARIN 5,000 UNIT/ML VIAL SQ SCH ×2 (13:16→22:00)
[2018-08-30] MEDS: KETOCONAZOLE 2% TOP CRM 15GM TUBE TOPICAL SCH (14:25)
[2018-08-30] MEDS: CALCIUM CARBONATE 500 MG TAB.CHEW PO PRN (18:11)
[2018-08-30] MEDS: diphenhydrAMINE 25 MG CAPSULE PO PRN (22:01)
[2018-08-31] MEDS: CLINDAMYCIN 600 MG in DEXTROSE 5% IN WATER 50 ML IV SCH (05:43)
[2018-08-31] MEDS: 0.9 % SODIUM CHLORIDE 10 ML SYRINGE IV SCH ×3 (05:49→20:45)
[2018-08-31 06:30] LABS: Basophils # (Auto) 0.1 K/mcL (0.0-0.3); Basophils % (Auto) 0.4 % (0.0-2.0); Eosinophils # (Auto) 0.7 K/mcL (0.0-0.7); Granulocytes % (Auto) 58.9 % (38.0-78.0); Lymphocytes # (Auto) 3.5 K/mcL (1.5-4.8); Lymphocytes % (Auto) 25.1 % (15.5-49.0); Mean Cell Volume 90.6 fL (80.0-100.0); Mean Corpuscular HGB Conc 33.8 g/dL (31.0-36.0); Mean Corpuscular Hemoglobin 30.6 pg (26.0-34.0); Monocytes # (Auto) 1.5 K/mcL (0.1-0.9); Monocytes % (Auto) 10.6 % (1.0-12.0); Platelet Count 401 K/mcL (140-440); RBC 2.96 M/mcL (4.00-5.20); Red Cell Distribution Width 12.2 % (11.5-14.5)
[2018-08-31 07:39] LABS: Blood Urea Nitrogen 21 mg/dl (8-23)
--- NOTE | 2018-08-31 08:34 | Nephrology Progress Note ---
Subjective Patient information: Note initiated : 08/31/18 at 6:35 am Teri Olson is a 68-year-old female, admitted on 08/28/18. Chief Complaint: Multiple wounds Principal diagnosis: Sepsis; ESRD on HD Interval history: Hemodialysis on 08/28/18 and 08/30/18 Pertinent ROS: Multiple wounds Weakness No shortness of breath No abdominal pain Objective - Vital Signs Vital signs: Vital Signs Temp Pulse Pulse Resp BP BP Pulse Ox 08/31/18 04:00 97.7 F 74 12 121/65 94 08/31/18 00:00 98.2 F 85 12 142/65 93 08/30/18 20:00 98.5 F 79 12 116/57 94 08/30/18 16:00 98.7 F 76 12 121/63 91 08/30/18 12:58 97.8 F 67 120/64 08/30/18 12:10 97.3 F 69 110/47 08/30/18 12:00 97.5 F 60 12 94 08/30/18 11:39 97.6 F 60 117/51 08/30/18 11:08 97.7 F 60 120/58 08/30/18 10:40 97.7 F 60 110/47 08/30/18 10:07 97.6 F 42 L 107/45 08/30/18 09:44 97.4 F 54 L 104/47 08/30/18 08:00 97.6 F 69 12 106/55 94 Intake and Output 08/30/18 08/31/18 08/31/18 21:59 05:59 13:59 Intake Total 514 / 514 454 / 454 54 / 54 Balance 514 / 514 454 / 454 54 / 54 Intake: IV 154 / 154 54 / 54 54 / 54 Cleocin 600 mg In Dextrose 5% 54 / 54 in Water 50 ml @ 100 mls/hr IV Q8H [facility] Rx#:[id number] Oral 360 / 360 400 / 400 Other: Meal Dinner Percent of Meal Consumed 25% Feeding Ability Independent Weight 183 lb Intake & Output: Intake & Output 08/30/18 08/31/18 08/31/18 21:59 05:59 13:59 Intake Total 514 / 514 454 / 454 54 / 54 Balance 514 / 514 454 / 454 54 / 54 Weight 183 lb Intake: IV 154 / 154 54 / 54 54 / 54 Cleocin 600 mg In Dextrose 5% in Water 50 ml @ 100 mls/hr IV Q8H [facility] Rx#:[id number] Oral 360 / 360 400 / 400 Other: Meal Dinner Percent of Meal Consumed 25% Feeding Ability Independent - General Appearance General appearance: chronically ill, fatigue EENT: mucous membranes moist Neck: supple Respiratory: clear Cardiology: edema Gastrointestinal: no tenderness Integumentary: no rash, warm and dry Neurologic: no focal deficit, alert and oriented x3 Musculoskeletal: no deformities Psychiatric: mood/affect appropriate, cooperative - Lab 08/31/18 04:40 08/31/18 04:40 Most recent lab results Calcium 7.8 mg/dl (8.6-10.4) L 08/30/18 07:40 Phosphorus 3.4 mg/dL (2.7-4.5) 08/29/18 04:40 Magnesium 2.0 mg/dL (1.6-2.5) 08/29/18 04:40 Assessment and Plan (1) ESRD (end stage renal disease) on dialysis Teri Olson is a 68-year-old female with end-stage renal disease on chronic hemodialysis (through left arm AV graft, at [facility], on MWF, followed by Dr. iWley) , secondary hyperparathyroidism of renal origin, chronic anemia due to kidney disease, history of renal cell carcinoma s/p left nephrectomy in 2011, diabetes mellitus type 2, hypertension, admitted on 08/28/18. Plan: Next hemodialysis on Tuesday with Revaclear 400 dialyzer for 3 hours, QB/ QD 400/800, dialysate (Potassium 3, Bicarbonate 35, Calcium 2.5, Sodium 140), UF target 2000 ml, Heparin 2000 unit bolus, 1000 unit per hour. Status: Chronic Priority: Medium
--- NOTE | 2018-08-31 08:34 | Internal Med Progress Note ---
Medical - PN: Subj Patient information: Note initiated : 08/31/18 at 7:19 am Service Date, if different from initiated Date: [] Patient: Teri Olson a 68 y/o F admitted on 08/28/18 for UTI, Buttock ulcer, finger abscess. Chief Complaint: [] Interval history: Ms. Olson is a 68 year old F With diabetes and end-stage renal disease who resides at home and is cared for by home health care partner who states to nursing staff and manager of case management that she is unable to care for this patient given the difficulty with this particular individual in their size. She was brought in today by the urging of the home health care partner because of infections in her skin pressure ulcers and infection of the finger. Patient states she was feeling fine until this weekend yesterday specifically and she started to feel weak and fatigued. She did feel like she had some fevers and chills yesterday. She says got a scratch on her finger by her cat on her right fourth finger which is now red and swollen at the tip. She also states she has a yeast infection in between her pannus which is been there for about a week. She states her urine is a little malodorous darker than usual but she does not typically urinate very much anyway. Denies any nausea vomiting chest pain or stomach pain or diarrhea In the ER she was evaluated and also found to have a pressure ulcers on her buttocks. The abscess in the tip of her right finger was incised in 1 mL of purulent drainage was expressed and cultures were obtained. 08/29 Feeling better, no new complaints other than poor sleep. She states she is not on any diabetic medications that she is diet controlled. 08/30 Did have a episode of nausea vomiting after medication last evening, but otherwise no events overnight and slept well feeling better. 08/31 Both blood culture draws came back with gram-positive cocci yesterday. Otherwise doing well slept well. No overnight events. No new complaints Review of Systems: denies headache/fever/chills/chest or abdominal pain/cough/dyspnea/diarrhea. Otherwise see above. - Constitutional Vitals: Vital Signs Temp Pulse Resp BP Pulse Ox 97.7 F 74 12 121/65 94 08/31/18 04:00 08/31/18 04:00 08/31/18 04:00 08/31/18 04:00 08/31/18 04:00 Period Temp Pulse Resp BP Sys/Barnard Pulse Ox Last 24 Hr 97.3 F-98.7 F 42-85 12-12 104-142/45-65 91-94 Intake and Output 08/30/18 08/31/18 08/31/18 21:59 05:59 13:59 Intake Total 514 / 514 454 / 454 54 / 54 Balance 514 / 514 454 / 454 54 / 54 Weight 83.007 kg Intake & Output: Intake & Output 08/30/18 08/31/18 08/31/18 21:59 05:59 13:59 Intake Total 514 / 514 454 / 454 54 / 54 Balance 514 / 514 454 / 454 54 / 54 Weight 83.007 kg Intake: IV 154 / 154 / 54 54 / 54 Cleocin 600 mg In Dextrose 5% 54 54 / 54 in Water 50 ml @ 100 mls/hr IV Q8H [facility] Rx#:[id number] Oral 360 / 360 400 / 400 Other: Meal Dinner Percent of Meal Consumed 25% Feeding Ability Independent Exam: General: Alert, Awake, No acute Distress HEENT: EOMI, neck supple, CV: RRR, 2/6 SM Pulm: Clear b/l, no wheezing/rhonchi/rales Abd: soft, nontender, +BS x4, obese, intertrigo between the large pannus folds improving Ext: no clubbing/cyanosis, trace bilateral lower extremity edema, right fourth fingertip with swelling and erythema status post incision and drainage now healing well Neuro: Alert, no focal deficits, moves all extremities Skin: warm/dry Medical - PN: Obj Da - Labs CBC & Chem 7: 08/31/18 04:40 08/31/18 04:40 Labs: Abnormal Lab Results 08/31/18 08/30/18 08/30/18 04:40 07:40 07:40 WBC 14.1 H 13.8 H RBC 2.96 L 2.93 L Hgb 9.1 L 8.7 L Hct 26.8 L 26.2 L Gran % Lymph % (Auto) Gran # 8.3 H 9.6 H Brown # (Auto) 1.5 H 1.1 H Eos # (Auto) 0.9 H Lymphocytes % Chloride 94 L BUN 31 H Creatinine 4.9 H Calcium 7.8 L Alkaline Phosphatase Triglycerides Urine Protein Urine Occult Blood Ur Leukocyte Esterase Urine RBC Urine WBC Ur Transition Epith Cell Urine Bacteria 08/29/18 08/29/18 08/28/18 04:40 04:40 14:23 WBC 18.7 H RBC 3.23 L Hgb 9.9 L Hct 29.0 L Gran % Lymph % (Auto) 15.0 L Gran # 13.8 H Brown # (Auto) 1.8 H Eos # (Auto) Lymphocytes % Chloride BUN Creatinine 3.1 H Calcium Alkaline Phosphatase 154 H Triglycerides 259 H Urine Protein 100 A Urine Occult Blood 0.2 A Ur Leukocyte Esterase 500 A Urine RBC 48 H Urine WBC > 182 H Ur Transition Epith Cell 3 H Urine Bacteria Few A 08/28/18 08/28/18 08/28/18 12:22 11:37 11:36 WBC 23.8 H RBC 3.56 L Hgb 10.9 L Hct 32.1 L Gran % 79.1 H Lymph % (Auto) 11.7 L Gran # 18.8 H Brown # (Auto) 1.9 H Eos # (Auto) Lymphocytes % 9 L Chloride 92 L BUN 41 H Creatinine 5.7 H* Calcium Alkaline Phosphatase 148 H Triglycerides Urine Protein Urine Occult Blood Ur Leukocyte Esterase Urine RBC Urine WBC Ur Transition Epith Cell Urine Bacteria Meds: Medications Acetaminophen (Tylenol) 650 mg PO Q6HP PRN PRN Reason: PAIN/FEVER > 101 Last Admin: 08/28/18 22:25 Dose: 650 mg Albuterol Sulfate (Ventolin) 1 puff INH Q4HP PRN PRN Reason: Shortness Of Breath Albuterol/Ipratropium (Duoneb) 3 ml NEB Q4HRT PRN PRN Reason: Dyspnea Amlodipine Besylate (Norvasc) 2.5 mg PO DAILY [facility] Last Admin: 08/30/18 13:11 Dose: 2.5 mg Aspirin (Aspirin) 81 mg PO DAILY [facility] Last Admin: 08/30/18 13:11 Dose: 81 mg Calcium Carbonate/Glycine (Tums) 500 mg PO PRN PRN PRN Reason: Heartburn Last Admin: 08/30/18 18:11 Dose: 500 mg Ceftriaxone Sodium (Rocephin) 1 gm IV DAILY [facility] Last Admin: 08/30/18 13:16 Dose: 1 gm Cinacalcet (Sensipar) 60 mg PO QDAY [facility] Last Admin: 08/30/18 13:10 Dose: 60 mg Clonidine HCl (Catapres) 0.1 mg PO DAILYP PRN PRN Reason: DIALYSIS DAYS Diphenhydramine HCl (Benadryl) 25 mg PO HSP PRN PRN Reason: Insomnia Last Admin: 08/30/18 22:01 Dose: 25 mg Fluoxetine HCl (Prozac) 20 mg PO QDAY [facility] Last Admin: 08/30/18 13:10 Dose: 20 mg Heparin Sodium (Porcine) (Heparin) 5,000 unit SQ Q12 [facility] Last Admin: 08/30/18 22:00 Dose: 5,000 unit Hydroxyzine HCl (Vistaril) 10 mg PO Q6H PRN PRN Reason: Blood Pressure - High Clindamycin Phosphate 600 mg/ (Dextrose) 54 mls @ 100 mls/hr IV Q8H [facility] Stop: 08/31/18 11:59 Last Infusion: 08/31/18 06:33 Dose: Infused Lactobacillus Rhamnosus (Culturelle) 1 cap PO BID [facility] Last Admin: 08/30/18 21:58 Dose: 1 cap Ondansetron HCl (Zofran) 4 mg IV Q4HP PRN PRN Reason: Nausea And Vomiting Last Admin: 08/29/18 12:47 Dose: 4 mg Sevelamer Carbonate (Renvela) 2,400 mg PO TIDCC [facility] Last Admin: 08/30/18 18:11 Dose: 2,400 mg Sodium Chloride (Saline Flush) 10 ml IV Q8 [facility] Last Admin: 08/31/18 05:49 Dose: 10 ml Vancomycin HCl (Vancomycin Per Pharmacy) 1 order IV UD [facility] Vitamin D (Vitamin D3) 1,000 unit PO DAILY [facility] Last Admin: 08/30/18 13:11 Dose: 1,000 unit Medical - PN: A/P - Time Spent With Patient Total time spent is greater than 50% in coordination of care (as documented) at patient's floor/unit and/or counseling patient: - Narrative A/P Narrative: A: *Cellulitis of the right fourth finger tip: Status post I&D in the ED -improved -culture growing Staph aureua and Strep pyogenes *Bacteremia (GPC): 2/2 above *UTI: *Intertriginous candidiasis: improving *Sepsis: Secondary to above, Improved -leukocytosis improving, no bandemia *Pressure ulcers to the buttocks *Inability to care for self: Also has home health care partner he states she is unable to care for the patient at this point *Obesity: *Diabetes II: diet controlled *End-stage renal disease (h/o RCC w/left nephrectomy 2011): Follows with Dr. Wiley -States does not produce much urine *Chronic anemia: *PVD: Has seen Dr. Vargas, no stents placed *HTN: norvasc/losartan/clonidine at home *Depression *Obesity: P: -IV Vanco/Rocephin, d/c clinda, WC/BC/UC pending -echo if BC growing Staph then 2 weeks IV therapy, awaiting repeat negative BC's -Ketoconazole cream -Nephrology for HD -Wound care consult -PT/OT -SSI, -Case management for placement -ppx: heparin
[2018-08-31] MEDS: amLODIPine 5 MG TABLET PO SCH (09:51)
[2018-08-31] MEDS: LACTOBACILLUS 1 CAPSULE PO SCH ×2 (09:52→20:48)
[2018-08-31] MEDS: ASPIRIN 81 MG TAB.CHEW PO SCH (09:52)
[2018-08-31] MEDS: VITAMIN D3 1,000 UNIT TABLET PO SCH (09:52)
[2018-08-31] MEDS: CINACALCET 30 MG TABLET PO SCH (09:52)
[2018-08-31] MEDS: FLUoxetine HCL 20 MG CAPSULE PO SCH (09:52)
[2018-08-31] MEDS: cefTRIAXone 1 GM VIAL IV SCH (09:52)
[2018-08-31] MEDS: SEVELAMER 800 MG TABLET PO SCH ×3 (09:52→16:52)
[2018-08-31] MEDS: HEPARIN 5,000 UNIT/ML VIAL SQ SCH ×2 (09:56→20:48)
[2018-08-31] MEDS ORDERED: ceFAZolin 1 GM VIAL IV SCH (13:30)
--- NOTE | 2018-08-31 17:25 | Infectious Disease Consult ---
History of Present Illness Patient information: Note initiated : 08/31/18 at 5:17 pm Service Date, if different from initiated Date: [] Patient: Teri Olson 68 y/o F admitted on 08/28/18 for UTI, Buttock ulcer, finger abscess. Chief Complaint: [] Consult date: 08/31/18 Requesting Physician: Charli Camarillo Reason for Consult: Staph aureus bacteremia Chief complaint: I had a finger wound infection History of present illness: 68-year-old lady with past medical history pertinent for: ESRD on intermittent hemodialysis through left arm AV graft, follows with Dr. Wiley Type 2 diabetes Obesity Patient was admitted on 08/28 from the ER where she had gone because of swelling of the right ring finger tip. Patient was scratched by her cat in that area a few days ago following which the fingertip swelled up. Patient endorsed having some fevers and chills at home. In addition she was concerned about having a yeast infection in between her belly skin folds for last week and her urine having a foul smell. Patient denied any nausea, vomiting, diarrhea, belly pain. She makes very little urine because of her end-stage renal disease. Patient was admitted to [facility] for multiple medical issues. In the ED she was also found to have a pressure sore on her buttocks. The tip of the right ring finger was incised and drained with culture sent for microbiology. 2 sets of blood cultures were also sent. The wound cultures came back positive for MSSA and group A strep, while the 1 out of 2 blood cultures came back positive for staph aureus with negative mecA gene, and other positive for staph epidermidis. Patient was started on IV vancomycin on 08/29 and ceftriaxone 1 g every 24 hours. ID was consulted to help with management of staph aureus bacteremia . Patient confirmed the above history, added she does not have any pain or redness or swelling around the area of left AV graft and it has been working fine during dialysis. She did mention that a few months ago it had gotten clotted but got better after treatment. She denies any joint pain except for right knee which is chronic due to osteoarthritis. Review of Systems All systems PM: reviewed and no additional remarkable complaints except as stated Past History Past medical history: Secondary hyper parathyroidism Chronic anemia due to kidney disease History of RCC status post left nephrectomy in 2011 Hypertension Past family history: Not pertinent to current medical presentation Medications and Allergies Home Medications Medication Instructions Recorded Confirmed Type albuterol sulfate 200 mcg capsules 180 mcg INHALATION .Q4-6HR PRN 11/19/1508/28 History for inhalation blood sugar diagnostic strips See Dose Instructions .ROUTE 11/19/15 08/28/18 History .MEDSUPPLY blood-glucose meter kit See Dose Instructions .ROUTE 11/19/15 08/28/18 History .MEDSUPPLY fluoxetine 20 mg capsule 20 mg PO QDAY 11/19/15 08/28/18 History lancets See Dose Instructions .ROUTE 11/19/15 08/28/18 History .MEDSUPPLY cinacalcet 30 mg tablet 60 mg PO QDAY 30 Days #60 tab 07/26/18 08/28/18 History sevelamer carbonate 800 mg tablet See Label Instructions .ROUTE 07/26/18 Rx .COMPLEX #330 tab acetaminophen 325 mg tablet 325 mg PO Q4H PRN tab 08/02/18 08/28/18 History amlodipine 2.5 mg tablet 2.5 mg PO QDAY 08/02/18 08/28/18 History calcium carbonate 200 mg calcium 200 mg PO ONCE tab 08/02/18 08/28/18 History (500 mg) chewable tablet cholecalciferol (vitamin D3) 1,000 1,000 unit PO QDAY 08/02/18 08/28/18 History unit capsule clonidine HCl 0.1 mg tablet 0.1 mg PO .dialysis day PRN tab 08/02/18 08/28/18 History darbepoetin cal 25 mcg/mL in 25 mcg IV QWEEK ml 08/02/18 08/28/18 History polysorbate injection hydroxyzine HCl 10 mg tablet 10 mg PO Q6H PRN tab 08/02/18 08/28/18 History loperamide 2 mg tablet 2 mg PO Q2-4H PRN 08/02/18 08/28/18 History losartan 25 mg tablet 25 mg PO QDAY 08/02/18 08/28/18 History mannitol See Label Instructions .ROUTE 08/02/18 08/28/18 History .COMPLEX nut.tx impaired renal function, 1 each PO .3xweekly 08/02/18 08/28/18 History soy oral liquid vitamin B complex-vitamin C-folic 1 tab PO QDAY 08/02/18 08/28/18 History acid 0.8 mg tablet Aspirin [Elias Chewable Aspirin] 81 mg PO DAILY 08/28/18 08/28/18 History Ketoconazole 2% Top Crm [Nizoral 1 dose TOPICAL DAILY #1 tube 08/30/18 Rx 2% Top Crm] Allergies Allergy/AdvReac Type Severity Reaction Status Date / Time codeine Allergy Intermediate Hives Verified 08/28/18 17:02 gemfibrozil [From Lopid] Allergy Intermediate Muscle Pain Verified 08/28/18 17: 02 meperidine [From Demerol] Allergy Intermediate Hives Verified 08/28/18 17:02 ciprofloxacin [From Cipro] Allergy Mild Nausea Verified 08/28/18 17:02 Physical Examination Vital signs: Temp Pulse Resp BP Pulse Ox 36.5 C 69 12 115/65 95 08/31/18 16:00 08/31/18 16:00 08/31/18 16:00 08/31/18 16:00 08/31/18 16:00 General appearance: no acute distress Eyes pulmonary: nonicteric ENT: oropharynx moist Auscultation: bilateral: clear Cardiovascular: regular rate and rhythm, murmur noted (Has a ejection systolic murmur at the right second intercostal space without any radiation to the neck) , other (JVD elevated up until the middle of the neck) Gastrointestinal: normoactive bowel sounds Integumentary: normal Extremities: no cyanosis, no edema, pink and warm, other (Right ring finger: The tip is still red and slightly swollen but there is no pus drainage on expression or otherwise, nontender. The AV graft in the left arm has both palpable and auscultated bruit with no local signs of inflammation) Results - Laboratory Findings CBC and BMP: 09/01/18 05:00 09/01/18 05:00 Abnormal lab findings: Abnormal Labs 08/28/18 08/28/18 08/28/18 11:36 11:37 12:22 WBC 23.8 H RBC 3.56 L Hgb 10.9 L Hct 32.1 L Gran % 79.1 H Lymph % (Auto) 11.7 L Gran # 18.8 H Warrick # (Auto) 1.9 H Eos # (Auto) Lymphocytes % 9 L Chloride 92 L BUN 41 H Creatinine 5.7 H* Calcium Alkaline Phosphatase 148 H Triglycerides Urine Protein Urine Occult Blood Ur Leukocyte Esterase Urine RBC Urine WBC Ur Transition Epith Cell Urine Bacteria 08/28/18 08/29/18 08/29/18 14:23 04:40 04:40 WBC 18.7 H RBC 3.23 L Hgb 9.9 L Hct 29.0 L Gran % Lymph % (Auto) 15.0 L Gran # 13.8 H Warrick # (Auto) 1.8 H Eos # (Auto) Lymphocytes % Chloride BUN Creatinine 3.1 H Calcium Alkaline Phosphatase 154 H Triglycerides 259 H Urine Protein 100 A Urine Occult Blood 0.2 A Ur Leukocyte Esterase 500 A Urine RBC 48 H Urine WBC > 182 H Ur Transition Epith Cell 3 H Urine Bacteria Few A 08/30/18 08/30/18 08/31/18 07:40 07:40 04:40 WBC 13.8 H 14.1 H RBC 2.93 L 2.96 L Hgb 8.7 L 9.1 L Hct 26.2 L 26.8 L Gran % Lymph % (Auto) Gran # 9.6 H 8.3 H Warrick # (Auto) 1.1 H 1.5 H Eos # (Auto) 0.9 H Lymphocytes % Chloride 94 L BUN 31 H Creatinine 4.9 H Calcium 7.8 L Alkaline Phosphatase Triglycerides Urine Protein Urine Occult Blood Ur Leukocyte Esterase Urine RBC Urine WBC Ur Transition Epith Cell Urine Bacteria 08/31/18 04:40 WBC RBC Hgb Hct Gran % Lymph % (Auto) Gran # Warrick # (Auto) Eos # (Auto) Lymphocytes % Chloride 95 L BUN Creatinine 3.6 H Calcium 7.9 L Alkaline Phosphatase Triglycerides Urine Protein Urine Occult Blood Ur Leukocyte Esterase Urine RBC Urine WBC Ur Transition Epith Cell Urine Bacteria Microbiology: Microbiology 08/28/18 12:15 Blood Blood Culture - Preliminary Staphylococcus aureus 08/28/18 11:37 Finger - Second Gram Stain - Final 08/28/18 11:37 Finger - Second Wound Culture - Final Staphylococcus aureus Strep pyogenes (grp a) 08/30/18 11:39 Blood Blood Culture - Preliminary 08/30/18 11:33 Blood Blood Culture - Preliminary 08/28/18 14:22 Urine - Catheterized Urine Culture - Final Strep agalactiae - (group b) 08/28/18 11:36 Blood Blood Culture - Preliminary Gram positive cocci Assessment and Plan - Narrative A/P Narrative: Assessment: 1. Staph aureus bacteremia with right ring finger tip abscess: Status post drainage of abscess Likely source of bacteremia is the right finger abscess Repeat blood cultures from 08/30 and 08/31 are no growth till date 2. No sepsis Recommendations: As both the staph aureus isolates are mecA gene negative; vancomycin can be stopped -Repeat blood cultures every other day until negative. Will ask dialysis techs to send a blood culture from the AV graft as well on dialysis day -Will start patient on IV cefazolin 2 g after HD on Tuesday, 2 g after HD on Tuesday and 3 g after HD on Tuesday. Will give her a 2 gm dose of Cefazolin tonight Once negative cultures were obtained, will add rifampin 300 mg twice daily to be continued for the same duration of cefazolin Recommend doing a TTE Recommend doing an ultrasound and Doppler study of left upper extremity AV graft to rule out any concern for infection Will discuss with spudder about options of leaving the AV graft in while treating the patient for at least 4 weeks with IV antibiotics, and repeating cultures off antibiotics to demonstrate that patient does not have seeding of AV graft. Alternatively will also bring up the option of AV graft removal, if patient continues to have persistent bacteremia or symptoms of AV graft infection -Will order a MRSA nasal PCR We will follow while inpatient Lamont Aldridge MD Infectious disease
[2018-08-31] MEDS ORDERED: ceFAZolin 1 GM VIAL IV ONE (18:00)
--- NOTE | 2018-08-31 18:37 | Ultrasound Report ---
CLINICAL INFORMATION: Renal failure with arteriovenous fistula. Bacteremia TECHNIQUE: Grayscale and color flow Doppler spectral imaging COMPARISON: None. FINDINGS: There is a dialysis arteriovenous graft extending from the left brachial artery to the axillary vein. This graft is patent without thrombus or stenosis. The anastomoses are normal. No anastomotic stenosis. There is no pseudoaneurysm. There is a small complex collection adjacent to the graft in the upper arm. This measures 2.0 x 1.3 cm. This appears to be at the puncture site. Appearance is most consistent with a small hematoma. There is no flow within this. Small abscess is not excluded based upon its sonographic appearance. No other focal abnormality. IMPRESSION: 1. Patent dialysis graft from the left brachial artery to the axillary vein. No stenosis, occlusion, or pseudoaneurysm 2. 2 cm complex abnormality adjacent to the graft. This appears to be at the puncture site. This is nonspecific and probably represents a small hematoma. Abscess is not excluded based only upon its sonographic appearance. Interpreted and Authenticated by: Cristian Hidalgo 08/31/18
[2018-08-31] MEDS: CALCIUM CARBONATE 500 MG TAB.CHEW PO PRN (19:46)
[2018-08-31] MEDS: diphenhydrAMINE 25 MG CAPSULE PO PRN (20:48)
[2018-09-01] MEDS: 0.9 % SODIUM CHLORIDE 10 ML SYRINGE IV SCH ×3 (06:00→21:41)
[2018-09-01 06:28] LABS: Basophils # (Auto) 0 K/mcL (0.0-0.3); Basophils % (Auto) 0.3 % (0.0-2.0); Eosinophils # (Auto) 0.5 K/mcL (0.0-0.7); Eosinophils % (Auto) 4.4 % (0.0-7.0); Granulocytes % (Auto) 61.7 % (38.0-78.0); Lymphocytes # (Auto) 3.1 K/mcL (1.5-4.8); Lymphocytes % (Auto) 24.5 % (15.5-49.0); Mean Cell Volume 89.3 fL (80.0-100.0); Mean Corpuscular Hemoglobin 30.4 pg (26.0-34.0); Monocytes # (Auto) 1.1 K/mcL (0.1-0.9); Monocytes % (Auto) 9.1 % (1.0-12.0); Platelet Count 400 K/mcL (140-440); RBC 2.94 M/mcL (4.00-5.20); Red Cell Distribution Width 12.2 % (11.5-14.5)
--- NOTE | 2018-09-01 06:34 | Nephrology Progress Note ---
Subjective Patient information: Note initiated : 09/01/18 at 6:32 am Teri Olson is a 68-year-old female, admitted on 08/28/18. Chief Complaint: Multiple wounds Principal diagnosis: Sepsis; ESRD on HD Interval history: Hemodialysis on 08/28/18 and 08/30/18 Pertinent ROS: Multiple wounds Weakness No shortness of breath No abdominal pain Objective - Vital Signs Vital signs: Vital Signs Temp Pulse Resp BP Pulse Ox 09/01/18 04:00 97.6 F 68 18 97/45 95 09/01/18 00:00 97.7 F 76 18 118/51 95 08/31/18 20:00 98 F 68 20 122/54 98 08/31/18 16:00 97.7 F 69 12 115/65 95 08/31/18 12:00 97.5 F 65 12 109/63 96 08/31/18 08:00 97.3 F 69 12 112/61 94 Intake and Output 08/31/18 09/01/18 09/01/18 21:59 05:59 13:59 Intake Total 220 / 220 200 / 200 Output Total 25 / 25 75 / 75 Balance 195 / 195 125 / 125 Intake: Oral 220 / 220 200 / 200 Output: Void Amount 25 / 25 75 / 75 Other: Meal Dinner Percent of Meal Consumed 50% Urine Appearance Clear Urine Color Dark Yellow # Bowel Movements 1 Weight 182 lb Intake & Output: Intake & Output 08/31/18 09/01/18 09/01/18 21:59 05:59 13:59 Intake Total 220 / 220 200 / 200 Output Total 25 / 25 75 / 75 Balance 195 / 195 125 / 125 Weight 182 lb Intake: Oral 220 / 220 200 / 200 Output: Void Amount 25 / 25 75 / 75 Other: Meal Dinner Percent of Meal Consumed 50% Urine Appearance Clear Urine Color Dark Yellow # Bowel Movements 1 - General Appearance General appearance: chronically ill, frail EENT: mucous membranes moist Neck: supple Respiratory: clear Cardiology: edema Gastrointestinal: no tenderness Integumentary: warm and dry Neurologic: no focal deficit, alert and oriented x3 Musculoskeletal: no deformities Psychiatric: mood/affect appropriate, cooperative - Lab 09/01/18 05:00 09/01/18 05:00 Most recent lab results Calcium 7.9 mg/dl (8.6-10.4) L 08/31/18 04:40 Phosphorus 3.4 mg/dL (2.7-4.5) 08/29/18 04:40 Magnesium 2.0 mg/dL (1.6-2.5) 08/29/18 04:40 Assessment and Plan (1) ESRD (end stage renal disease) on dialysis Teri Olson is a 68-year-old female with end-stage renal disease on chronic hemodialysis (through left arm AV graft, at [facility], on MWF, followed by Dr. Wiley) , secondary hyperparathyroidism of renal origin, chronic anemia due to kidney disease, history of renal cell carcinoma s/p left nephrectomy in 2011, diabetes mellitus type 2, hypertension, admitted on 08/28/18. Progress: MSSA bacteremia with a small collection near the left arm AV graft. Plan: Hemodialysis today with Revaclear 400 dialyzer for 3 hours, QB/QD 400/ 800, dialysate (Potassium 3, Bicarbonate 35, Calcium 2.5, Sodium 140), UF target 2000 ml, Heparin 2000 unit bolus, 1000 unit per hour. The patient seen and evaluated during hemodialysis at 9:35. ID would like to tap the collection near left arm AV graft. I will ask Dr. Vega (vascular surgery) his input. Status: Chronic Priority: Medium
[2018-09-01 06:55] LABS: Vancomycin,Random 19.5 ug/mL
[2018-09-01 06:56] LABS: ALT/SGPT 9 U/l (0-40); Alkaline Phosphatase 123 U/L (39-117); Bilirubin,Direct < 0.2 mg/dL (0.0-0.3); Blood Urea Nitrogen 29 mg/dl (8-23); Gamma Glutamyl Transpeptidase 24 U/L (5-36); Uric Acid 4.9 mg/dL (2.5-8.0)
[2018-09-01] MEDS: CINACALCET 30 MG TABLET PO SCH (08:08)
[2018-09-01] MEDS: SEVELAMER 800 MG TABLET PO SCH ×3 (08:08→17:15)
[2018-09-01] MEDS: LACTOBACILLUS 1 CAPSULE PO SCH ×2 (08:08→21:30)
[2018-09-01] MEDS: FLUoxetine HCL 20 MG CAPSULE PO SCH (08:08)
[2018-09-01] MEDS: HEPARIN 5,000 UNIT/ML VIAL SQ SCH ×2 (08:08→21:30)
[2018-09-01] MEDS: VITAMIN D3 1,000 UNIT TABLET PO SCH (08:09)
[2018-09-01] MEDS: ASPIRIN 81 MG TAB.CHEW PO SCH (08:09)
[2018-09-01] MEDS: amLODIPine 5 MG TABLET PO SCH (08:09)
--- NOTE | 2018-09-01 11:53 | Internal Med Progress Note ---
Medical - PN: Subj Patient information: Note initiated : 09/01/18 at 11:51 am Service Date, if different from initiated Date: [] Patient: Teri Olson a 68 y/o F admitted on 08/28/18 for UTI, Buttock ulcer, finger abscess. Chief Complaint: [] Interval history: Ms. Olson is a 68 year old F With diabetes and end-stage renal disease who resides at home and is cared for by home health health care facilities inspector who states to nursing staff and lining caser that she is unable to care for this patient given the difficulty with this particular individual in their size. She was brought in today by the urging of the home health health care facilities inspector because of infections in her skin pressure ulcers and infection of the finger. Patient states she was feeling fine until this weekend yesterday specifically and she started to feel weak and fatigued. She did feel like she had some fevers and chills yesterday. She says got a scratch on her finger by her cat on her right fourth finger which is now red and swollen at the tip. She also states she has a yeast infection in between her pannus which is been there for about a week. She states her urine is a little malodorous darker than usual but she does not typically urinate very much anyway. Denies any nausea vomiting chest pain or stomach pain or diarrhea In the ER she was evaluated and also found to have a pressure ulcers on her buttocks. The abscess in the tip of her right finger was incised in 1 mL of purulent drainage was expressed and cultures were obtained. 08/29 Feeling better, no new complaints other than poor sleep. She states she is not on any diabetic medications that she is diet controlled. 08/30 Did have a episode of nausea vomiting after medication last evening, but otherwise no events overnight and slept well feeling better. 08/31 Both blood culture draws came back with gram-positive cocci yesterday. Otherwise doing well slept well. No overnight events. No new complaints 09/01 patient seen and examined, she has staph aureus positive blood cultures. Echo results pending, duplex ultrasound of the left arm graft shows a 2 cm collection, likely hematoma but cannot rule out an abscess especially in light of bacteremia. Plan of care reviewed with Dr. Aldridge and Dr. De La Cruz. Plan is to see if he can tap the fluid collection, the free lance artist will consult with vascular surgeon to see if he has any other suggestions. The patient has no chest pain shortness of breath no fever no chills. Pertinent ROS: Denies headache, dizziness Denies chest pain, palpitations Denies cough or shortness of breath Denies abdominal pain, nausea or vomiting. - Constitutional Vitals: Vital Signs Temp Pulse Resp BP Pulse Ox 97.6 F 68 18 134/64 96 09/01/18 10:33 09/01/18 11:31 09/01/18 08:00 09/01/18 11:31 09/01/18 08:00 Period Temp Pulse Resp BP Sys/Barnard Pulse Ox Last 24 Hr 97.5 F-98 F 60-77 12-20 97-137/45-65 95-98 Intake and Output 08/31/18 09/01/18 09/01/18 21:59 05:59 13:59 Intake Total 220 / 220 200 / 200 Output Total 25 / 25 75 / 75 Balance 195 / 195 125 / 125 Weight 182 lb 182 lb Patient Weight 09/02/18 05:59 Weight 182 lb Intake & Output: Intake & Output 08/31/18 09/01/18 09/01/18 21:59 05:59 13:59 Intake Total 220 / 220 200 / 200 Output Total 25 / 25 75 / 75 Balance 195 / 195 125 / 125 Weight 182 lb 182 lb Intake: Oral 220 / 220 200 / 200 Output: Void Amount 25 / 25 75 / 75 Other: Meal Dinner Percent of Meal Consumed 50% Urine Appearance Clear Urine Color Dark Yellow # Bowel Movements 1 Exam: Constitutional; Afebrile, cooperative, alert, not in distress. Respiratory system: Air Entry equal on both sides, No crackles or wheezing, no rhonchi. CVS- Rate rhythm regular, S1,S2 heard, no gallop, no rub. Abdomen- Soft nontender abdomen, no organomegaly, no tenderness, no guarding or rigidity, RN ACCESS- AOOx3, moving all extremities, no gross focal deficit noted. Right hand finger/ infection much resolved Medical - PN: Obj Da - Labs CBC & Chem 7: 09/01/18 05:00 09/01/18 05:00 Labs: Abnormal Lab Results 09/01/18 09/01/18 08/31/18 05:00 05:00 04:40 WBC 12.5 H RBC 2.94 L Hgb 8.9 L Hct 26.3 L Gran # Desha # (Auto) 1.1 H Eos # (Auto) Chloride 94 L 95 L BUN 29 H Creatinine 4.8 H 3.6 H Calcium 7.9 L 7.9 L Alkaline Phosphatase 123 H Albumin 3.0 L Triglycerides 246 H 08/31/18 08/30/18 08/30/18 04:40 07:40 07:40 WBC 14.1 H 13.8 H RBC 2.96 L 2.93 L Hgb 9.1 L 8.7 L Hct 26.8 L 26.2 L Gran # 8.3 H 9.6 H Desha # (Auto) 1.5 H 1.1 H Eos # (Auto) 0.9 H Chloride 94 L BUN 31 H Creatinine 4.9 H Calcium 7.8 L Alkaline Phosphatase Albumin Triglycerides Meds: Medications Acetaminophen (Tylenol) 650 mg PO Q6HP PRN PRN Reason: PAIN/FEVER > 101 Last Admin: 08/28/18 22:25 Dose: 650 mg Albuterol Sulfate (Ventolin) 1 puff INH Q4HP PRN PRN Reason: Shortness Of Breath Albuterol/Ipratropium (Duoneb) 3 ml NEB Q4HRT PRN PRN Reason: Dyspnea Amlodipine Besylate (Norvasc) 2.5 mg PO DAILY [facility] Last Admin: 09/01/18 08:09 Dose: 2.5 mg Aspirin (Aspirin) 81 mg PO DAILY [facility] Last Admin: 09/01/18 08:09 Dose: 81 mg Calcium Carbonate/Glycine (Tums) 500 mg PO PRN PRN PRN Reason: Heartburn Last Admin: 08/31/18 19:46 Dose: 500 mg Cefazolin Sodium (Ancef) 2 gm IV MoWe@1600 [facility] Cefazolin Sodium (Ancef) 3 gm IV Fr@1600 [facility] Cinacalcet (Sensipar) 60 mg PO QDAY [facility] Last Admin: 09/01/18 08:08 Dose: 60 mg Clonidine HCl (Catapres) 0.1 mg PO DAILYP PRN PRN Reason: DIALYSIS DAYS Diphenhydramine HCl (Benadryl) 25 mg PO HSP PRN PRN Reason: Insomnia Last Admin: 08/31/18 20:48 Dose: 25 mg Fluoxetine HCl (Prozac) 20 mg PO QDAY [facility] Last Admin: 09/01/18 08:08 Dose: 20 mg Heparin Sodium (Porcine) (Heparin) 5,000 unit SQ Q12 [facility] Last Admin: 09/01/18 08:08 Dose: 5,000 unit Hydroxyzine HCl (Vistaril) 10 mg PO Q6H PRN PRN Reason: Blood Pressure - High Lactobacillus Rhamnosus (Culturelle) 1 cap PO BID [facility] Last Admin: 09/01/18 08:08 Dose: 1 cap Ondansetron HCl (Zofran) 4 mg IV Q4HP PRN PRN Reason: Nausea And Vomiting Last Admin: 08/29/18 12:47 Dose: 4 mg Sevelamer Carbonate (Renvela) 2,400 mg PO TIDCC [facility] Last Admin: 09/01/18 08:08 Dose: 2,400 mg Sodium Chloride (Saline Flush) 10 ml IV Q8 [facility] Last Admin: 09/01/18 06:00 Dose: 10 ml Vitamin D (Vitamin D3) 1,000 unit PO DAILY [facility] Last Admin: 09/01/18 08:09 Dose: 1,000 unit Medical - PN: A/P - Time Spent With Patient Total time spent is greater than 50% in coordination of care (as documented) at patient's floor/unit and/or counseling patient: - Narrative A/P Narrative: A: Cellulitis of the right fourth finger tip: Status post I&D in the ED -improved -culture growing Staph aureua and Strep pyogenes - on anceph per ID, (MSSA) Bacteremia (GPC): 2/2 above, MSSA bactermia, on anceph per ID Fluid collection near left arm- Plan to aspirate same, if hematoma (which is more likely ) will just complete course, if abscess will need to be transferred to another center. Await input from Dr De La Cruz/Dr Vega. Intertriginous candidiasis: improving Sepsis: Secondary to above, Improved -leukocytosis improving, no bandemia Pressure ulcers to the buttocks Inability to care for self: Also has home health health care facilities inspector he states she is unable to care for the patient at this point, wound care to follow Obesity: outpatient follow up Diabetes II: diet controlled End-stage renal disease (h/o RCC w/left nephrectomy 2011): Follows with Dr. Wiley -States does not produce much urine Chronic anemia: due to anemia, infection PVD: Has seen Dr. Vargas, no stents placed HTN: norvasc/losartan/clonidine at home Depression stable DVT hep sq Full code.
[2018-09-01] MEDS ORDERED: ceFAZolin 1 GM VIAL IV SCH (16:00)
--- NOTE | 2018-09-01 16:37 | Infectious Disease Prog Note ---
Subjective Patient information: Note initiated : 09/01/18 at 4:34 pm Service Date, if different from initiated Date: [] Patient: Teri Olson 68 y/o F admitted on 08/28/18 for UTI, Buttock ulcer, finger abscess. Chief Complaint: [] Principal diagnosis: Sepsis; ESRD on HD Interval history: Pt doing well. denied any fever, chills, n/v, diarrhea. Undergoing dialysis at time of visit through left arm AVF. Pt denied any symptoms at site of AVF. Objective Objective Narrative: ao x 3, in nad no thrush chest cta s1 s2 normal, +2/6 chapis murmur at Rt 2nd ICS bs ++ nttd Lt arm AVF beng used for HD at time of visit - Vital Signs Vital signs: Vital Signs Temp Pulse Pulse Resp BP BP Pulse Ox 09/01/18 12:26 36.4 C 66 121/55 09/01/18 12:00 117/46 09/01/18 11:59 36.4 C 60 117/46 09/01/18 11:31 68 134/64 09/01/18 11:00 60 137/55 09/01/18 10:33 36.4 C 60 137/55 09/01/18 10:02 36.4 C 66 136/62 09/01/18 09:38 36.4 C 77 123/50 09/01/18 08:00 36.4 C 18 122/62 96 09/01/18 04:00 36.4 C 68 18 97/45 95 09/01/18 00:00 36.5 C 76 18 118/51 95 08/31/18 20:00 36.6 C 68 20 122/54 98 Intake and Output 09/01/18 09/01/18 09/01/18 05:59 13:59 21:59 Intake Total 200 / 200 Output Total 75 / 75 2500 / 2500 Balance 125 / 125 -2500 / -2500 Intake: Oral 200 / 200 Output: Void Amount 75 / 75 Hemodialysis UF 2500 / 2500 Other: Weight 82.554 kg Patient Weight 09/02/18 05:59 Weight 82.554 kg Intake & Output: Intake & Output 09/01/18 09/01/18 09/01/18 05:59 13:59 21:59 Intake Total 200 / 200 Output Total 75 / 75 2500 / 2500 Balance 125 / 125 -2500 / -2500 Weight 82.554 kg Intake: Oral 200 / 200 Output: Void Amount 75 / 75 Hemodialysis UF 2500 / 2500 - Lab 09/01/18 05:00 09/01/18 05:00 Most recent lab results Calcium 7.9 mg/dl (8.6-10.4) L 09/01/18 05:00 Phosphorus 3.3 mg/dL (2.7-4.5) 09/01/18 05:00 Magnesium 2.2 mg/dL (1.6-2.5) 09/01/18 05:00 Microbiology 08/31/18 14:02 Blood Blood Culture - Preliminary 08/31/18 13:14 Blood Blood Culture - Preliminary 08/30/18 11:39 Blood Blood Culture - Preliminary 08/30/18 11:33 Blood Blood Culture - Preliminary 08/31/18 19:25 Nose - Both Right and Left MRSA (PCR) - Final 08/28/18 12:15 Blood Blood Culture - Preliminary Staphylococcus aureus 08/28/18 11:37 Finger - Second Gram Stain - Final 08/28/18 11:37 Finger - Second Wound Culture - Final Staphylococcus aureus Strep pyogenes (grp a) 08/28/18 14:22 Urine - Catheterized Urine Culture - Final Strep agalactiae - (group b) 08/28/18 11:36 Blood Blood Culture - Preliminary Gram positive cocci Medications Active Medications: Acetaminophen (Tylenol) 650 mg PO Q6HP PRN PRN Reason: PAIN/FEVER > 101 Last Admin: 08/28/18 22:25 Dose: 650 mg Albuterol Sulfate (Ventolin) 1 puff INH Q4HP PRN PRN Reason: Shortness Of Breath Albuterol/Ipratropium (Duoneb) 3 ml NEB Q4HRT PRN PRN Reason: Dyspnea Amlodipine Besylate (Norvasc) 2.5 mg PO DAILY [facility] Last Admin: 09/01/18 08:09 Dose: 2.5 mg Admin: 08/31/18 09:51 Dose: 2.5 mg Admin: 08/30/18 13:11 Dose: 2.5 mg Admin: 08/29/18 13:31 Dose: 2.5 mg Admin: 08/29/18 10:22 Dose: Not Given Non-Admin Reason: Decreased Blood Pressure Aspirin (Aspirin) 81 mg PO DAILY [facility] Last Admin: 09/01/18 08:09 Dose: 81 mg Admin: 08/31/18 09:52 Dose: 81 mg Admin: 08/30/18 13:11 Dose: 81 mg Admin: 08/29/18 09:11 Dose: 81 mg Calcium Carbonate/Glycine (Tums) 500 mg PO PRN PRN PRN Reason: Heartburn Last Admin: 08/31/18 19:46 Dose: 500 mg Admin: 08/30/18 18:11 Dose: 500 mg Cefazolin Sodium (Ancef) 2 gm IV MoWe@1600 [facility] Cefazolin Sodium (Ancef) 3 gm IV Fr@1600 [facility] Cinacalcet (Sensipar) 60 mg PO QDAY [facility] Last Admin: 09/01/18 08:08 Dose: 60 mg Admin: 08/31/18 09:52 Dose: 60 mg Admin: 08/30/18 13:10 Dose: 60 mg Admin: 08/29/18 09:12 Dose: 60 mg Clonidine HCl (Catapres) 0.1 mg PO DAILYP PRN PRN Reason: DIALYSIS DAYS Diphenhydramine HCl (Benadryl) 25 mg PO HSP PRN PRN Reason: Insomnia Last Admin: 08/31/18 20:48 Dose: 25 mg Admin: 08/30/18 22:01 Dose: 25 mg Admin: 08/29/18 20:41 Dose: 25 mg Fluoxetine HCl (Prozac) 20 mg PO QDAY [facility] Last Admin: 09/01/18 08:08 Dose: 20 mg Admin: 08/31/18 09:52 Dose: 20 mg Admin: 08/30/18 13:10 Dose: 20 mg Admin: 08/29/18 09:13 Dose: 20 mg Heparin Sodium (Porcine) (Heparin) 5,000 unit SQ Q12 [facility] Last Admin: 09/01/18 08:08 Dose: 5,000 unit Admin: 08/31/18 20:48 Dose: 5,000 unit Admin: 08/31/18 09:56 Dose: 5,000 unit Admin: 08/30/18 22:00 Dose: 5,000 unit Admin: 08/30/18 13:16 Dose: 5,000 unit Admin: 08/29/18 20:40 Dose: 5,000 unit Admin: 08/29/18 09:10 Dose: 5,000 unit Admin: 08/28/18 22:12 Dose: 5,000 unit Hydroxyzine HCl (Vistaril) 10 mg PO Q6H PRN PRN Reason: Blood Pressure - High Lactobacillus Rhamnosus (Culturelle) 1 cap PO BID [facility] Last Admin: 09/01/18 08:08 Dose: 1 cap Admin: 08/31/18 20:48 Dose: 1 cap Admin: 08/31/18 09:52 Dose: 1 cap Admin: 08/30/18 21:58 Dose: 1 cap Admin: 08/30/18 13:11 Dose: 1 cap Admin: 08/29/18 20:41 Dose: 1 cap Admin: 08/29/18 11:43 Dose: 1 cap Ondansetron HCl (Zofran) 4 mg IV Q4HP PRN PRN Reason: Nausea And Vomiting Last Admin: 08/29/18 12:47 Dose: 4 mg Sevelamer Carbonate (Renvela) 2,400 mg PO TIDCC [facility] Last Admin: 09/01/18 14:14 Dose: 2,400 mg Admin: 09/01/18 08:08 Dose: 2,400 mg Admin: 08/31/18 16:52 Dose: 2,400 mg Admin: 08/31/18 12:54 Dose: 2,400 mg Admin: 08/31/18 09:52 Dose: 2,400 mg Admin: 08/30/18 18:11 Dose: 2,400 mg Admin: 08/30/18 13:10 Dose: 2,400 mg Admin: 08/30/18 08:36 Dose: 2,400 mg Admin: 08/29/18 17:32 Dose: 2,400 mg Admin: 08/29/18 12:46 Dose: 2,400 mg Admin: 08/29/18 09:08 Dose: 2,400 mg Admin: 08/28/18 18:31 Dose: Sodium Chloride (Saline Flush) 10 ml IV Q8 [facility] Last Admin: 09/01/18 14:15 Dose: 10 ml Admin: 09/01/18 06:00 Dose: 10 ml Admin: 08/31/18 20:45 Dose: 10 ml Admin: 08/31/18 13:30 Dose: 10 ml Admin: 08/31/18 05:49 Dose: 10 ml Admin: 08/30/18 22:01 Dose: 10 ml Admin: 08/30/18 15:39 Dose: 10 ml Admin: 08/30/18 05:51 Dose: 10 ml Admin: 08/29/18 20:41 Dose: 10 ml Admin: 08/29/18 12:50 Dose: 10 ml Admin: 08/29/18 05:04 Dose: 10 ml Admin: 08/28/18 22:12 Dose: 10 ml Vitamin D (Vitamin D3) 1,000 unit PO DAILY [facility] Last Admin: 09/01/18 08:09 Dose: 1,000 unit Admin: 08/31/18 09:52 Dose: 1,000 unit Admin: 08/30/18 13:11 Dose: 1,000 unit Admin: 08/29/18 09:13 Dose: 1,000 unit Assessment and Plan - Narrative A/P Narrative: Assessment: 1. MSSA bacteremia with right ring finger tip abscess: Status post drainage of abscess Likely source of bacteremia is the right finger abscess Repeat blood cultures from 08/30 and 08/31 are no growth till date 2. Lt AV graft hematoma, 2cm on Ultrasound: - no signs of infection externally - Recommendations: - Continue IV cefazolin 2 g after HD on Tuesday, 2 g after HD on Tuesday and 3 g after HD on Tuesday. will suggest adding rifampin 300 mg twice daily to be continued for the same duration of cefazolin await TTE Ideally the hematoma around the AVF should be aspirated to r/o any seeding which is quite common with Staph aureus. If AVF continues to be in situ, will plan for at least 4 weeks of IV antibiotics, and repeating cultures off antibiotics to demonstrate that patient does not have seeding of AV graft. will follow Lamont Aldridge MD Infectious disease
[2018-09-01] MEDS ORDERED: LIDOCAINE 1% 20 ML VIAL SQ ONE (16:58)
--- NOTE | 2018-09-01 17:04 | Ultrasound Report ---
CLINICAL INFORMATION: Small complex abnormality near the access point of this patient's dialysis graft. Patient has a history of bacteremia TECHNIQUE: Informed consent was obtained. Routine ChloraPrep skin cleansing. 1% lidocaine injected. Ultrasound guidance was utilized. There is a small hypoechoic abnormality consistent with fluid. An 18-gauge needle was placed within this small abnormality. Approximately 2 mL bloody material was removed. Some of this clotted. Was added to a small amount of saline and sent to the laboratory for culture and sensitivity. Purulent material was not aspirated IMPRESSION: 1. Ultrasound-guided aspiration of a small complex cyst abnormality at the access point to the dialysis graft 2. Small amount of bloody material was removed and sent to the laboratory Interpreted and Authenticated by: Cristian Hidalgo 09/01/18
[2018-09-01] MEDS: diphenhydrAMINE 25 MG CAPSULE PO PRN (21:41)
[2018-09-02] MEDS: 0.9 % SODIUM CHLORIDE 10 ML SYRINGE IV SCH ×3 (05:30→21:01)
[2018-09-02 06:20] LABS: Basophils # (Auto) 0 K/mcL (0.0-0.3); Basophils % (Auto) 0.3 % (0.0-2.0); Eosinophils # (Auto) 0.5 K/mcL (0.0-0.7); Eosinophils % (Auto) 3.4 % (0.0-7.0); Granulocytes % (Auto) 63.3 % (38.0-78.0); Lymphocytes # (Auto) 3.2 K/mcL (1.5-4.8); Lymphocytes % (Auto) 21.9 % (15.5-49.0); Mean Corpuscular HGB Conc 33.3 g/dL (31.0-36.0); Monocytes # (Auto) 1.6 K/mcL (0.1-0.9); Monocytes % (Auto) 11.1 % (1.0-12.0); Platelet Count 428 K/mcL (140-440); RBC 3.18 M/mcL (4.00-5.20); Red Cell Distribution Width 12.1 % (11.5-14.5)
[2018-09-02 06:31] LABS: ALT/SGPT < 5 U/l (0-40); Albumin 3.3 gm/dL (3.2-5.2); Albumin/Globulin Ratio 1.1 (1.0-2.3); Alkaline Phosphatase 134 U/L (39-117); Bilirubin,Direct < 0.2 mg/dL (0.0-0.3); Blood Urea Nitrogen 16 mg/dl (8-23); Gamma Glutamyl Transpeptidase 30 U/L (5-36); Uric Acid 3.2 mg/dL (2.5-8.0)
[2018-09-02] MEDS ORDERED: RIFAMPIN 300 MG CAPSULE PO SCH (07:00)
--- NOTE | 2018-09-02 07:06 | Nephrology Progress Note ---
Subjective Patient information: Note initiated : 09/02/18 at 7:04 am Teri Olson is a 68-year-old female, admitted on 08/28/18. Chief Complaint: Multiple wounds Principal diagnosis: Sepsis; ESRD on HD Interval history: Hemodialysis on 08/28/18, 08/30/18 and 09/01/18 Pertinent ROS: Feeling better Multiple wounds Weakness No shortness of breath No abdominal pain Objective - Vital Signs Vital signs: Vital Signs Temp Pulse Pulse Resp BP BP Pulse Ox 09/02/18 06:51 97.3 F 65 14 119/57 95 09/02/18 03:47 97.4 F 62 16 118/57 93 09/01/18 23:53 97.9 F 70 16 139/67 95 09/01/18 20:00 97.9 F 74 18 134/63 99 09/01/18 16:00 97.7 F 20 140/65 97 09/01/18 12:26 97.6 F 66 121/55 09/01/18 12:00 117/46 09/01/18 11:59 97.6 F 60 117/46 09/01/18 11:31 68 134/64 09/01/18 11:00 60 137/55 09/01/18 10:33 97.6 F 60 137/55 09/01/18 10:02 97.6 F 66 136/62 09/01/18 09:38 97.6 F 77 123/50 09/01/18 08:00 97.6 F 18 122/62 96 Intake and Output 09/01/18 09/02/18 09/02/18 21:59 05:59 13:59 Intake Total 500 / 500 50 / 50 Output Total 50 / 50 Balance 450 / 450 50 / 50 Intake: Oral 500 / 500 50 / 50 Output: Void Amount 50 / 50 Other: Meal Dinner Percent of Meal Consumed 25% Urine Color Bright Yellow Stool Size Moderate Stool Color Brown Stool Consistency Formed # Voids 1 # Bowel Movements 1 Weight 184 lb Intake & Output: Intake & Output 09/01/18 09/02/18 09/02/18 21:59 05:59 13:59 Intake Total 500 / 500 50 / 50 Output Total 50 / 50 Balance 450 / 450 50 / 50 Weight 184 lb Intake: Oral 500 / 500 50 / 50 Output: Void Amount 50 / 50 Other: Meal Dinner Percent of Meal Consumed 25% Urine Color Bright Yellow Stool Size Moderate Stool Color Brown Stool Consistency Formed # Voids 1 # Bowel Movements 1 - General Appearance General appearance: chronically ill, fatigue EENT: mucous membranes moist Neck: supple Respiratory: clear Cardiology: no edema Gastrointestinal: no tenderness Integumentary: warm and dry, ulcer Neurologic: no focal deficit, alert and oriented x3 Musculoskeletal: no deformities Psychiatric: mood/affect appropriate, cooperative - Lab 09/02/18 04:50 09/02/18 04:50 Most recent lab results Calcium 8.2 mg/dl (8.6-10.4) L 09/02/18 04:50 Phosphorus 2.5 mg/dL (2.7-4.5) L 09/02/18 04:50 Magnesium 2.1 mg/dL (1.6-2.5) 09/02/18 04:50 Assessment and Plan (1) ESRD (end stage renal disease) on dialysis Teri Olson is a 68-year-old female with end-stage renal disease on chronic hemodialysis (through left arm AV graft, at [facility], on MWF, followed by Dr. Wiley) , secondary hyperparathyroidism of renal origin, chronic anemia due to kidney disease, history of renal cell carcinoma s/p left nephrectomy in 2011, diabetes mellitus type 2, hypertension, admitted on 08/28/18. Progress: MSSA bacteremia with a small collection near the left arm AV graft which was tapped and sent for culture on 09/01/18. I sent a message to Dr. Vega (vascular surgeon). Plan: Next hemodialysis on Tuesday. Status: Chronic Priority: Medium
[2018-09-02] MEDS: LACTOBACILLUS 1 CAPSULE PO SCH ×2 (09:05→21:01)
[2018-09-02] MEDS: HEPARIN 5,000 UNIT/ML VIAL SQ SCH ×2 (09:05→21:01)
[2018-09-02] MEDS: CINACALCET 30 MG TABLET PO SCH (09:05)
[2018-09-02] MEDS: VITAMIN D3 1,000 UNIT TABLET PO SCH (09:05)
[2018-09-02] MEDS: amLODIPine 5 MG TABLET PO SCH (09:05)
[2018-09-02] MEDS: FLUoxetine HCL 20 MG CAPSULE PO SCH (09:05)
[2018-09-02] MEDS: ASPIRIN 81 MG TAB.CHEW PO SCH (09:05)
[2018-09-02] MEDS: SEVELAMER 800 MG TABLET PO SCH ×3 (09:05→17:50)
[2018-09-02] MEDS: ONDANSETRON 4 MG/2 ML VIAL IV PRN (12:27)
--- NOTE | 2018-09-02 13:06 | Internal Med Progress Note ---
Medical - PN: Subj Patient information: Note initiated : 09/02/18 at 1:03 pm Service Date, if different from initiated Date: [] Patient: Teri Olson a 68 y/o F admitted on 08/28/18 for UTI, Buttock ulcer, finger abscess. Chief Complaint: [] Interval history: Ms. Olson is a 68 year old F With diabetes and end-stage renal disease who resides at home and is cared for by home health urgent care physician assistant who states to nursing staff and showcase trimmer that she is unable to care for this patient given the difficulty with this particular individual in their size. She was brought in today by the urging of the home health urgent care physician assistant because of infections in her skin pressure ulcers and infection of the finger. Patient states she was feeling fine until this weekend yesterday specifically and she started to feel weak and fatigued. She did feel like she had some fevers and chills yesterday. She says got a scratch on her finger by her cat on her right fourth finger which is now red and swollen at the tip. She also states she has a yeast infection in between her pannus which is been there for about a week. She states her urine is a little malodorous darker than usual but she does not typically urinate very much anyway. Denies any nausea vomiting chest pain or stomach pain or diarrhea In the ER she was evaluated and also found to have a pressure ulcers on her buttocks. The abscess in the tip of her right finger was incised in 1 mL of purulent drainage was expressed and cultures were obtained. 08/29 Feeling better, no new complaints other than poor sleep. She states she is not on any diabetic medications that she is diet controlled. 08/30 Did have a episode of nausea vomiting after medication last evening, but otherwise no events overnight and slept well feeling better. 08/31 Both blood culture draws came back with gram-positive cocci yesterday. Otherwise doing well slept well. No overnight events. No new complaints 09/01 patient seen and examined, she has staph aureus positive blood cultures. Echo results pending, duplex ultrasound of the left arm graft shows a 2 cm collection, likely hematoma but cannot rule out an abscess especially in light of bacteremia. Plan of care reviewed with Dr. Aldridge and Dr. De La Cruz. Plan is to see if he can tap the fluid collection, the dismantler will consult with vascular surgeon to see if he has any other suggestions. The patient has no chest pain shortness of breath no fever no chills. 09/02 Pt seen examine,d no acute overnight issues fluid around AV graft tapped, no wbc noted, culture pending. pt on IV anceph Rifampin was tried, but did not tolerate the medication and vomited after taking same. will hold off for now. Await nephrology input regards to future plans for AV graft . Pt otherwise has no acute complaints or concerns. Pertinent ROS: Denies headache, dizziness Denies chest pain, palpitations Denies cough or shortness of breath Denies abdominal pain, nausea or vomiting. - Constitutional Vitals: Vital Signs Temp Pulse Resp BP Pulse Ox 98.2 F 70 16 120/59 96 09/02/18 11:32 09/02/18 11:32 09/02/18 11:32 09/02/18 11:32 09/02/18 11:32 Period Temp Pulse Resp BP Sys/Barnard Pulse Ox Last 24 Hr 97.3 F-98.2 F 62-74 14-20 118-140/57-67 93-99 Intake and Output 09/01/18 09/02/18 09/02/18 21:59 05:59 13:59 Intake Total 500 / 500 50 / 50 Output Total 50 / 50 325 / 325 Balance 450 / 450 50 / 50 -325 / -325 Weight 184 lb Intake & Output: Intake & Output 09/01/18 09/02/18 09/02/18 21:59 05:59 13:59 Intake Total 500 / 500 50 / 50 Output Total 50 / 50 325 / 325 Balance 450 / 450 50 / 50 -325 / -325 Weight 184 lb Intake: Oral 500 / 500 50 / 50 Output: Void Amount 50 / 50 125 / 125 Emesis 200 / 200 Other: Meal Dinner Percent of Meal Consumed 25% Urine Color Bright Yellow Stool Size Moderate Large Stool Color Brown Brown Stool Consistency Formed Soft # Voids 1 # Bowel Movements 1 Exam: Constitutional; Afebrile, cooperative, alert, not in distress. Respiratory system: Air Entry equal on both sides, No crackles or wheezing, no rhonchi. CVS- Rate rhythm regular, S1,S2 heard, no gallop, no rub. Abdomen- Soft nontender abdomen, no organomegaly, no tenderness, no guarding or rigidity, SAFETY SITTER- AOOx3, moving all extremities, no gross focal deficit noted. Medical - PN: Obj Da - Labs CBC & Chem 7: 09/02/18 04:50 09/02/18 04:50 Labs: Abnormal Lab Results 09/02/18 09/02/18 09/01/18 04:50 04:50 05:00 WBC 14.7 H RBC 3.18 L Hgb 9.5 L Hct 28.6 L Gran # 9.3 H [place] # (Auto) 1.6 H Chloride 95 L 94 L BUN 29 H Creatinine 3.3 H 4.8 H Calcium 8.2 L 7.9 L Phosphorus 2.5 L Alkaline Phosphatase 134 H 123 H Albumin 3.0 L Triglycerides 234 H 246 H 09/01/18 08/31/18 08/31/18 05:00 04:40 04:40 WBC 12.5 H 14.1 H RBC 2.94 L 2.96 L Hgb 8.9 L 9.1 L Hct 26.3 L 26.8 L Gran # 8.3 H [place] # (Auto) 1.1 H 1.5 H Chloride 95 L BUN Creatinine 3.6 H Calcium 7.9 L Phosphorus Alkaline Phosphatase Albumin Triglycerides Meds: Medications Acetaminophen (Tylenol) 650 mg PO Q6HP PRN PRN Reason: PAIN/FEVER > 101 Last Admin: 08/28/18 22:25 Dose: 650 mg Albuterol Sulfate (Ventolin) 1 puff INH Q4HP PRN PRN Reason: Shortness Of Breath Albuterol/Ipratropium (Duoneb) 3 ml NEB Q4HRT PRN PRN Reason: Dyspnea Amlodipine Besylate (Norvasc) 2.[address] [facility] Last Admin: 09/02/18 09:05 Dose: 2.5 mg Aspirin (Aspirin) [address] [facility] Last Admin: 09/02/18 09:05 Dose: 81 mg Calcium Carbonate/Glycine (Tums) 500 mg PO PRN PRN PRN Reason: Heartburn Last Admin: 08/31/18 19:46 Dose: 500 mg Cefazolin Sodium (Ancef) 2 gm IV MoWe@1600 LIANA Cefazolin Sodium (Ancef) 3 gm IV Fr@1600 [facility] Last Admin: 09/01/18 17:12 Dose: 3 gm Cinacalcet (Sensipar) [address] [facility] Last Admin: 09/02/18 09:05 Dose: 60 mg Clonidine HCl (Catapres) 0.1 mg PO DAILYP PRN PRN Reason: DIALYSIS DAYS Diphenhydramine HCl (Benadryl) 25 mg PO HSP PRN PRN Reason: Insomnia Last Admin: 09/01/18 21:41 Dose: 25 mg Fluoxetine HCl (Prozac) [address] [facility] Last Admin: 09/02/18 09:05 Dose: 20 mg Heparin Sodium (Porcine) (Heparin) 5,[address] [facility] Last Admin: 09/02/18 09:05 Dose: 5,000 unit Hydroxyzine HCl (Vistaril) 10 mg PO Q6H PRN PRN Reason: Blood Pressure - High Lactobacillus Rhamnosus (Culturelle) [address] [facility] Last Admin: 09/02/18 09:05 Dose: 1 cap Ondansetron HCl (Zofran) 4 mg IV Q4HP PRN PRN Reason: Nausea And Vomiting Last Admin: 09/02/18 12:27 Dose: 4 mg Sevelamer Carbonate (Renvela) 2,[address] [facility] Last Admin: 09/02/18 09:05 Dose: 2,400 mg Sodium Chloride (Saline Flush) [address] [facility] Last Admin: 09/02/18 05:30 Dose: Not Given Vitamin D (Vitamin D3) 1,[address] [facility] Last Admin: 09/02/18 09:05 Dose: 1,000 unit Medical - PN: A/P - Time Spent With Patient Total time spent is greater than 50% in coordination of care (as documented) at patient's floor/unit and/or counseling patient: - Narrative A/P Narrative: A: Cellulitis of the right fourth finger tip: Status post I&D in the ED -improved -culture growing Staph aureua and Strep pyogenes - on anceph per ID, (MSSA) -She did not tolerate Rifampicin. Bacteremia (GPC): 2/2 above, MSSA bactermia, on anceph per ID Fluid collection near left arm- s/p Aspiration if hematoma (which is more likely ) will just complete course, if abscess will need to be transferred to another center. Await input from Dr De La Cruz/Dr Vega. Intertriginous candidiasis: improving Sepsis: Secondary to above, Improved -leukocytosis improving, no bandemia Pressure ulcers to the buttocks Inability to care for self: Also has home health urgent care physician assistant he states she is unable to care for the patient at this point, wound care to follow Obesity: outpatient follow up Diabetes II: diet controlled End-stage renal disease (h/o RCC w/left nephrectomy 2011): Follows with Dr. Wiley -States does not produce much urine Chronic anemia: due to anemia, infection PVD: Has seen Dr. Vargas, no stents placed HTN: norvasc/losartan/clonidine at home Depression stable DVT hep sq Full code.
[2018-09-02] MEDS: diphenhydrAMINE 25 MG CAPSULE PO PRN (21:01)
[2018-09-03] MEDS: 0.9 % SODIUM CHLORIDE 10 ML SYRINGE IV SCH ×3 (04:58→21:14)
[2018-09-03 05:16] LABS: Basophils # (Auto) 0.1 K/mcL (0.0-0.3); Basophils % (Auto) 0.4 % (0.0-2.0); Eosinophils # (Auto) 0.6 K/mcL (0.0-0.7); Eosinophils % (Auto) 3.8 % (0.0-7.0); Granulocytes % (Auto) 63.5 % (38.0-78.0); Lymphocytes # (Auto) 3.4 K/mcL (1.5-4.8); Lymphocytes % (Auto) 21.8 % (15.5-49.0); Mean Cell Volume 89.3 fL (80.0-100.0); Mean Corpuscular Hemoglobin 30.4 pg (26.0-34.0); Monocytes # (Auto) 1.6 K/mcL (0.1-0.9); Monocytes % (Auto) 10.5 % (1.0-12.0); Platelet Count 421 K/mcL (140-440); RBC 3.04 M/mcL (4.00-5.20); Red Cell Distribution Width 12.3 % (11.5-14.5)
[2018-09-03 05:41] LABS: ALT/SGPT < 5 U/l (0-40); Alkaline Phosphatase 131 U/L (39-117); Bilirubin,Direct < 0.2 mg/dL (0.0-0.3); Blood Urea Nitrogen 28 mg/dl (8-23); Gamma Glutamyl Transpeptidase 27 U/L (5-36); Uric Acid 5.1 mg/dL (2.5-8.0)
--- NOTE | 2018-09-03 07:28 | Nephrology Progress Note ---
Subjective Patient information: Note initiated : 09/03/18 at 7:26 am Teri Olson is a 68-year-old female, admitted on 08/28/18. Chief Complaint: Multiple wounds Principal diagnosis: Sepsis; ESRD on HD Interval history: Hemodialysis on 08/28/18, 08/30/18 and 09/01/18 Pertinent ROS: Feeling better Multiple wounds Weakness No shortness of breath No abdominal pain Objective - Vital Signs Vital signs: Vital Signs Temp Pulse Resp BP Pulse Ox 09/03/18 06:31 96.5 F L 73 16 123/63 95 09/03/18 04:35 97.7 F 70 12 127/56 93 09/02/18 23:21 97.6 F 66 10 L 116/56 98 09/02/18 20:05 98.1 F 66 12 118/57 98 09/02/18 16:00 97.8 F 81 16 124/73 96 09/02/18 11:32 98.2 F 70 16 120/59 96 Intake and Output 09/02/18 09/03/18 09/03/18 21:59 05:59 13:59 Intake Total 100 / 100 Balance 100 / 100 Intake: Oral 100 / 100 Other: Weight 182 lb 8 oz Intake & Output: Intake & Output 09/02/18 09/03/18 09/03/18 21:59 05:59 13:59 Intake Total 100 / 100 Balance 100 / 100 Weight 182 lb 8 oz Intake: Oral 100 / 100 - General Appearance General appearance: chronically ill, frail EENT: mucous membranes moist Neck: supple Respiratory: clear Cardiology: no edema Gastrointestinal: no tenderness Integumentary: warm and dry Neurologic: no focal deficit, alert and oriented x3 Musculoskeletal: no deformities Psychiatric: mood/affect appropriate, cooperative - Lab 09/03/18 04:30 09/03/18 04:30 Most recent lab results Calcium 7.9 mg/dl (8.6-10.4) L 09/03/18 04:30 Phosphorus 3.1 mg/dL (2.7-4.5) 09/03/18 04:30 Magnesium 2.3 mg/dL (1.6-2.5) 09/03/18 04:30 Assessment and Plan (1) ESRD (end stage renal disease) on dialysis Teri Olson is a 68-year-old female with end-stage renal disease on chronic hemodialysis (through left arm AV graft, at [facility], on MWF, followed by Dr. Wiley) , secondary hyperparathyroidism of renal origin, chronic anemia due to kidney disease, history of renal cell carcinoma s/p left nephrectomy in 2011, diabetes mellitus type 2, hypertension, admitted on 08/28/18. Progress: MSSA bacteremia with a small collection near the left arm AV graft which was tapped and sent for culture on 09/01/18. Plan: Hemodialysis on Tuesday. Status: Chronic Priority: Medium
[2018-09-03] MEDS: amLODIPine 5 MG TABLET PO SCH (10:57)
[2018-09-03] MEDS: VITAMIN D3 1,000 UNIT TABLET PO SCH (10:57)
[2018-09-03] MEDS: SEVELAMER 800 MG TABLET PO SCH ×3 (10:57→17:23)
[2018-09-03] MEDS: CINACALCET 30 MG TABLET PO SCH (10:57)
[2018-09-03] MEDS: FLUoxetine HCL 20 MG CAPSULE PO SCH (10:57)
[2018-09-03] MEDS: LACTOBACILLUS 1 CAPSULE PO SCH ×2 (10:57→21:04)
[2018-09-03] MEDS: ACETAMINOPHEN 325 MG TABLET PO PRN (10:57)
[2018-09-03] MEDS: ASPIRIN 81 MG TAB.CHEW PO SCH (10:58)
[2018-09-03] MEDS: HEPARIN 5,000 UNIT/ML VIAL SQ SCH ×2 (10:58→21:04)
--- NOTE | 2018-09-03 13:40 | Internal Med Progress Note ---
Medical - PN: Subj Patient information: Note initiated : 09/03/18 at 1:36 pm Service Date, if different from initiated Date: [] Patient: Teri Olson a 68 y/o F admitted on 08/28/18 for UTI, Buttock ulcer, finger abscess. Chief Complaint: [] Interval history: Ms. Olson is a 68 year old F With diabetes and end-stage renal disease who resides at home and is cared for by home health director of critical care who states to nursing staff and foster care case manager that she is unable to care for this patient given the difficulty with this particular individual in their size. She was brought in today by the urging of the home health director of critical care because of infections in her skin pressure ulcers and infection of the finger. Patient states she was feeling fine until this weekend yesterday specifically and she started to feel weak and fatigued. She did feel like she had some fevers and chills yesterday. She says got a scratch on her finger by her cat on her right fourth finger which is now red and swollen at the tip. She also states she has a yeast infection in between her pannus which is been there for about a week. She states her urine is a little malodorous darker than usual but she does not typically urinate very much anyway. Denies any nausea vomiting chest pain or stomach pain or diarrhea In the ER she was evaluated and also found to have a pressure ulcers on her buttocks. The abscess in the tip of her right finger was incised in 1 mL of purulent drainage was expressed and cultures were obtained. 08/29 Feeling better, no new complaints other than poor sleep. She states she is not on any diabetic medications that she is diet controlled. 08/30 Did have a episode of nausea vomiting after medication last evening, but otherwise no events overnight and slept well feeling better. 08/31 Both blood culture draws came back with gram-positive cocci yesterday. Otherwise doing well slept well. No overnight events. No new complaints 09/01 patient seen and examined, she has staph aureus positive blood cultures. Echo results pending, duplex ultrasound of the left arm graft shows a 2 cm collection, likely hematoma but cannot rule out an abscess especially in light of bacteremia. Plan of care reviewed with Dr. Aldridge and Dr. De La Cruz. Plan is to see if he can tap the fluid collection, the kitchen help handyman will consult with vascular surgeon to see if he has any other suggestions. The patient has no chest pain shortness of breath no fever no chills. 09/02 Pt seen examine,d no acute overnight issues fluid around AV graft tapped, no wbc noted, culture pending. pt on IV anceph Rifampin was tried, but did not tolerate the medication and vomited after taking same. will hold off for now. Await nephrology input regards to future plans for AV graft . Pt otherwise has no acute complaints or concerns. 09/03 Pt seen examined no complaints wbc trending up, on iv antibiotics. microbiology from fluid collection is neg so far. HD planned tomorrow. if remains stable could be discharged tomorrow if cleared by ID/Nephrology Pertinent ROS: Denies headache, dizziness Denies chest pain, palpitations Denies cough or shortness of breath Denies abdominal pain, nausea or vomiting. - Constitutional Vitals: Vital Signs Temp Pulse Resp BP Pulse Ox 96.9 F L 81 16 126/74 96 09/03/18 11:40 09/03/18 11:40 09/03/18 11:40 09/03/18 11:40 09/03/18 11:40 Period Temp Pulse Resp BP Sys/Barnard Pulse Ox Last 24 Hr 96.5 F-98.1 F 66-81 10-16 116-127/56-74 93-98 Intake and Output 09/02/18 09/03/18 09/03/18 21:59 05:59 13:59 Intake Total 100 / 100 Output Total 150 / 150 Balance 100 / 100 -150 / -150 Weight 182 lb 8 oz Intake & Output: Intake & Output 09/02/18 09/03/18 09/03/18 21:59 05:59 13:59 Intake Total 100 / 100 Output Total 150 / 150 Balance 100 / 100 -150 / -150 Weight 182 lb 8 oz Intake: Oral 100 / 100 Output: Void Amount 150 / 150 Other: Meal Breakfast Percent of Meal Consumed 75% Feeding Ability Independent # Voids 1 Exam: Constitutional; Afebrile, cooperative, alert, not in distress. Respiratory system: Air Entry equal on both sides, No crackles or wheezing, no rhonchi. CVS- Rate rhythm regular, S1,S2 heard, no gallop, no rub. Abdomen- Soft nontender abdomen, no organomegaly, no tenderness, no guarding or rigidity, STATIONARY STEAM ENGINEER- AOOx3, moving all extremities, no gross focal deficit noted. Medical - PN: Obj Da - Labs CBC & Chem 7: 09/03/18 04:30 09/03/18 04:30 Labs: Abnormal Lab Results 09/03/18 09/03/18 09/02/18 04:30 04:30 04:50 WBC 15.7 H RBC 3.04 L Hgb 9.3 L Hct 27.2 L Gran # 10.0 H [place] # (Auto) 1.6 H Chloride 94 L 95 L BUN 28 H Creatinine 4.6 H 3.3 H Calcium 7.9 L 8.2 L Phosphorus 2.5 L Alkaline Phosphatase 131 H 134 H Albumin 3.0 L Triglycerides 217 H 234 H 09/02/18 09/01/18 09/01/18 04:50 05:00 05:00 WBC 14.7 H 12.5 H RBC 3.18 L 2.94 L Hgb 9.5 L 8.9 L Hct 28.6 L 26.3 L Gran # 9.3 H [place] # (Auto) 1.6 H 1.1 H Chloride 94 L BUN 29 H Creatinine 4.8 H Calcium 7.9 L Phosphorus Alkaline Phosphatase 123 H Albumin 3.0 L Triglycerides 246 H Meds: Medications Acetaminophen (Tylenol) 650 mg PO Q6HP PRN PRN Reason: PAIN/FEVER > 101 Last Admin: 09/03/18 10:57 Dose: 650 mg Albuterol Sulfate (Ventolin) 1 puff INH Q4HP PRN PRN Reason: Shortness Of Breath Albuterol/Ipratropium (Duoneb) 3 ml NEB Q4HRT PRN PRN Reason: Dyspnea Amlodipine Besylate (Norvasc) 2.5 mg PO DAILY [facility] Last Admin: 09/03/18 10:57 Dose: 2.5 mg Aspirin (Aspirin) 81 mg PO DAILY [facility] Last Admin: 09/03/18 10:58 Dose: 81 mg Calcium Carbonate/Glycine (Tums) 500 mg PO PRN PRN PRN Reason: Heartburn Last Admin: 08/31/18 19:46 Dose: 500 mg Cefazolin Sodium (Ancef) 2 gm IV MoWe@1600 LIANA Cefazolin Sodium (Ancef) 3 gm IV Fr@1600 [facility] Last Admin: 09/01/18 17:12 Dose: 3 gm Cinacalcet (Sensipar) 60 mg PO QDAY [facility] Last Admin: 09/03/18 10:57 Dose: 60 mg Clonidine HCl (Catapres) 0.1 mg PO DAILYP PRN PRN Reason: DIALYSIS DAYS Diphenhydramine HCl (Benadryl) 25 mg PO HSP PRN PRN Reason: Insomnia Last Admin: 09/02/18 21:01 Dose: 25 mg Fluoxetine HCl (Prozac) 20 mg PO QDAY [facility] Last Admin: 09/03/18 10:57 Dose: 20 mg Heparin Sodium (Porcine) (Heparin) 5,000 unit SQ Q12 [facility] Last Admin: 09/03/18 10:58 Dose: 5,000 unit Hydroxyzine HCl (Vistaril) 10 mg PO Q6H PRN PRN Reason: Blood Pressure - High Lactobacillus Rhamnosus (Culturelle) 1 cap PO BID [facility] Last Admin: 09/03/18 10:57 Dose: 1 cap Ondansetron HCl (Zofran) 4 mg IV Q4HP PRN PRN Reason: Nausea And Vomiting Last Admin: 09/02/18 12:27 Dose: 4 mg Sevelamer Carbonate (Renvela) 2,400 mg PO TIDCC [facility] Last Admin: 09/03/18 10:57 Dose: 2,400 mg Sodium Chloride (Saline Flush) 10 ml IV Q8 [facility] Last Admin: 09/03/18 04:58 Dose: Not Given Vitamin D (Vitamin D3) 1,000 unit PO DAILY [facility] Last Admin: 09/03/18 10:57 Dose: 1,000 unit Medical - PN: A/P - Time Spent With Patient Total time spent is greater than 50% in coordination of care (as documented) at patient's floor/unit and/or counseling patient: - Narrative A/P Narrative: A: Cellulitis of the right fourth finger tip: Status post I&D in the ED -improved -culture growing Staph aureua and Strep pyogenes - on anceph per ID, (MSSA) -She did not tolerate Rifampicin. Bacteremia (GPC): 2/2 above, MSSA bactermia, on anceph per ID Fluid collection near left arm- s/p Aspiration if hematoma (which is more likely ) will just complete course, if abscess will need to be transferred to another center. Await input from Dr De La Cruz/Dr Vega. Intertriginous candidiasis: improving Sepsis: Secondary to above, Improved -leukocytosis improving, no bandemia Pressure ulcers to the buttocks Inability to care for self: Also has home health director of critical care he states she is unable to care for the patient at this point, wound care to follow Obesity: outpatient follow up Diabetes II: diet controlled End-stage renal disease (h/o RCC w/left nephrectomy 2011): Follows with Dr. Wiely -States does not produce much urine Chronic anemia: due to anemia, infection PVD: Has seen Dr. Vargas, no stents placed HTN: norvasc/losartan/clonidine at home Depression stable DVT hep sq Full code.
[2018-09-03] MEDS: diphenhydrAMINE 25 MG CAPSULE PO PRN (21:04)
[2018-09-04 06:24] LABS: Basophils # (Auto) 0 K/mcL (0.0-0.3); Basophils % (Auto) 0.2 % (0.0-2.0); Eosinophils # (Auto) 0.7 K/mcL (0.0-0.7); Eosinophils % (Auto) 4.3 % (0.0-7.0); Granulocytes % (Auto) 62.8 % (38.0-78.0); Lymphocytes # (Auto) 3.6 K/mcL (1.5-4.8); Lymphocytes % (Auto) 23.4 % (15.5-49.0); Mean Cell Volume 90.3 fL (80.0-100.0); Mean Corpuscular HGB Conc 33.9 g/dL (31.0-36.0); Mean Corpuscular Hemoglobin 30.6 pg (26.0-34.0); Monocytes # (Auto) 1.4 K/mcL (0.1-0.9); Monocytes % (Auto) 9.3 % (1.0-12.0); Platelet Count 442 K/mcL (140-440); RBC 3.01 M/mcL (4.00-5.20); Red Cell Distribution Width 12.2 % (11.5-14.5)
[2018-09-04 06:57] LABS: ALT/SGPT < 5 U/l (0-40); Albumin/Globulin Ratio 0.9 (1.0-2.3); Alkaline Phosphatase 144 U/L (39-117); Bilirubin,Direct < 0.2 mg/dL (0.0-0.3); Blood Urea Nitrogen 43 mg/dl (8-23); Gamma Glutamyl Transpeptidase 27 U/L (5-36); Uric Acid 6.5 mg/dL (2.5-8.0)
[2018-09-04] MEDS: 0.9 % SODIUM CHLORIDE 10 ML SYRINGE IV SCH ×2 (07:12→14:51)
--- NOTE | 2018-09-04 07:23 | Nephrology Progress Note ---
Subjective Patient information: Note initiated : 09/04/18 at 7:21 am Teri Olson is a 68-year-old female, admitted on 08/28/18. Chief Complaint: Multiple wounds Principal diagnosis: Sepsis; ESRD on HD Interval history: Hemodialysis on 08/28/18, 08/30/18 and 09/01/18 Pertinent ROS: Feeling better Multiple wounds Weakness No shortness of breath Objective - Vital Signs Vital signs: Vital Signs Temp Pulse Resp BP Pulse Ox 09/04/18 03:40 98.5 F 66 12 121/54 94 09/03/18 23:00 98.3 F 68 16 118/64 93 09/03/18 15:24 97.9 F 16 102/63 100 09/03/18 11:40 96.9 F L 81 16 126/74 96 09/03/18 08:00 81 16 Intake and Output 09/03/18 09/04/18 09/04/18 21:59 05:59 13:59 Intake Total 360 / 360 0 / 0 Output Total 100 / 100 Balance 260 / 260 0 / 0 Intake: Oral 360 / 360 0 / 0 Output: Void Amount 100 / 100 Other: Meal Dinner Percent of Meal Consumed 100% Feeding Ability Independent Urine Appearance Clear Urine Color Straw Urine Odor Normal Stool Size Moderate # Bowel Movements 1 Weight 185 lb Intake & Output: Intake & Output 09/03/18 09/04/18 09/04/18 21:59 05:59 13:59 Intake Total 360 / 360 0 / 0 Output Total 100 / 100 Balance 260 / 260 0 / 0 Weight 185 lb Intake: Oral 360 / 360 0 / 0 Output: Void Amount 100 / 100 Other: Meal Dinner Percent of Meal Consumed 100% Feeding Ability Independent Urine Appearance Clear Urine Color Straw Urine Odor Normal Stool Size Moderate # Bowel Movements 1 - General Appearance General appearance: chronically ill, fatigue EENT: mucous membranes moist Neck: supple Respiratory: clear Cardiology: edema Gastrointestinal: no tenderness Integumentary: warm and dry Neurologic: no focal deficit, alert and oriented x3 Musculoskeletal: no deformities Psychiatric: mood/affect appropriate, cooperative - Lab 09/04/18 04:25 09/04/18 04:25 Most recent lab results Calcium 7.8 mg/dl (8.6-10.4) L 09/04/18 04:25 Phosphorus 3.6 mg/dL (2.7-4.5) 09/04/18 04:25 Magnesium 2.5 mg/dL (1.6-2.5) 09/04/18 04:25 Assessment and Plan (1) ESRD (end stage renal disease) on dialysis Teri Olson is a 68-year-old female with end-stage renal disease on chronic hemodialysis (through left arm AV graft, at [facility], on MWF, followed by Dr. Wiley) , secondary hyperparathyroidism of renal origin, chronic anemia due to kidney disease, history of renal cell carcinoma s/p left nephrectomy in 2011, diabetes mellitus type 2, hypertension, admitted on 08/28/18. Progress: MSSA bacteremia with a small collection near the left arm AV graft which was tapped and sent for culture on 09/01/18. Plan: Hemodialysis today as outpatient. Status: Chronic Priority: Medium
[2018-09-04] MEDS: SEVELAMER 800 MG TABLET PO SCH ×2 (08:51→11:17)
[2018-09-04] MEDS: LACTOBACILLUS 1 CAPSULE PO SCH (08:52)
[2018-09-04] MEDS: ASPIRIN 81 MG TAB.CHEW PO SCH (08:52)
[2018-09-04] MEDS: HEPARIN 5,000 UNIT/ML VIAL SQ SCH (08:52)
[2018-09-04] MEDS: FLUoxetine HCL 20 MG CAPSULE PO SCH (08:52)
[2018-09-04] MEDS: VITAMIN D3 1,000 UNIT TABLET PO SCH (08:52)
[2018-09-04] MEDS: CINACALCET 30 MG TABLET PO SCH (08:52)
[2018-09-04] MEDS: amLODIPine 5 MG TABLET PO SCH (08:59)
[2018-09-04] MEDS ORDERED: RIFAMPIN 300 MG CAPSULE PO ONE (09:13)
[2018-09-04] MEDS ORDERED: 0.9 % SODIUM CHLORIDE 10 ML SYRINGE IV PRN (09:27)
--- NOTE | 2018-09-04 10:31 | Infectious Disease Prog Note ---
Subjective Patient information: Note initiated : 09/04/18 at 10:29 am Service Date, if different from initiated Date: [] Patient: Teri Olson 68 y/o F admitted on 08/28/18 for UTI, Buttock ulcer, finger abscess. Chief Complaint: [] Principal diagnosis: Sepsis; ESRD on HD Interval history: Patient is doing better. Underwent aspiration of the fluid collection around the left AV graft on . She vomited yesterday after taking oral rifampin. Denies any shortness of breath, nausea, vomiting, diarrhea. Discussed with her the plan to do 4 weeks of IV antibiotics, followed by repeating cultures a week after stopping antibiotics to make sure she does not have any residual infection. On exam patient had a small boil, patient counseled not to pick on it and apply Bactroban cream. Objective Objective Narrative: Alert, oriented x3 No thrush Chest clear to auscultation Heart sounds normal Bowel sounds present No edema Has a small pustule over anterior chest without any signs of inflammation Right fingertip wound: Almost healed with some dry skin, mild redness - Vital Signs Vital signs: Vital Signs Temp Pulse Resp BP Pulse Ox 09/04/18 08:21 36.3 C 60 18 129/66 97 09/04/18 03:40 36.9 C 66 12 121/54 94 09/03/18 23:00 36.8 C 68 16 118/64 93 09/03/18 15:24 36.6 C 16 102/63 100 09/03/18 11:40 36.1 C L 81 16 126/74 96 Intake and Output 09/03/18 09/04/18 09/04/18 21:59 05:59 13:59 Intake Total 360 / 360 0 / 0 Output Total 100 / 100 50 / 50 Balance 260 / 260 0 / 0 -50 / -50 Intake: Oral 360 / 360 0 / 0 Output: Void Amount 100 / 100 50 / 50 Other: Meal Dinner Percent of Meal Consumed 100% Feeding Ability Independent Urine Appearance Clear Urine Color Straw Urine Odor Normal Stool Size Moderate Small Stool Color Brown Stool Consistency Loose # Bowel Movements 1 1 Weight 83.915 kg Intake & Output: Intake & Output 09/03/18 09/04/18 09/04/18 21:59 05:59 13:59 Intake Total 360 / 360 0 / 0 Output Total 100 / 100 50 / 50 Balance 260 / 260 0 / 0 -50 / -50 Weight 83.915 kg Intake: Oral 360 / 360 0 / 0 Output: Void Amount 100 / 100 50 / 50 Other: Meal Dinner Percent of Meal Consumed 100% Feeding Ability Independent Urine Appearance Clear Urine Color Straw Urine Odor Normal Stool Size Moderate Small Stool Color Brown Stool Consistency Loose # Bowel Movements 1 1 - Lab 09/04/18 04:25 09/04/18 04:25 Most recent lab results Calcium 7.8 mg/dl (8.6-10.4) L 09/04/18 04:25 Phosphorus 3.6 mg/dL (2.7-4.5) 09/04/18 04:25 Magnesium 2.5 mg/dL (1.6-2.5) 09/04/18 04:25 Microbiology 08/28/18 11:36 Blood Blood Culture - Final Coagulase negative staph 08/31/18 14:02 Blood Blood Culture - Preliminary 08/31/18 13:14 Blood Blood Culture - Preliminary 08/30/18 11:39 Blood Blood Culture - Preliminary 08/30/18 11:33 Blood Blood Culture - Preliminary 09/01/18 17:03 Aspirate - Upper Left Gram Stain - Final 09/01/18 17:03 Aspirate - Upper Left Body Fluid Culture - Final 08/31/18 19:25 Nose - Both Right and Left MRSA (PCR) - Final 08/28/18 12:15 Blood Blood Culture - Preliminary Staphylococcus aureus 08/28/18 11:37 Finger - Second Gram Stain - Final 08/28/18 11:37 Finger - Second Wound Culture - Final Staphylococcus aureus Strep pyogenes (grp a) 08/28/18 14:22 Urine - Catheterized Urine Culture - Final Strep agalactiae - (group b) Medications Active Medications: Acetaminophen (Tylenol) 650 mg PO Q6HP PRN PRN Reason: PAIN/FEVER > 101 Last Admin: 09/03/18 10:57 Dose: 650 mg Admin: 08/28/18 22:25 Dose: 650 mg Albuterol Sulfate (Ventolin) 1 puff INH Q4HP PRN PRN Reason: Shortness Of Breath Albuterol/Ipratropium (Duoneb) 3 ml NEB Q4HRT PRN PRN Reason: Dyspnea Amlodipine Besylate (Norvasc) 2.5 mg PO DAILY LIANA Last Admin: 09/04/18 08:59 Dose: Admin: 09/03/18 10:57 Dose: 2.5 mg Admin: 09/02/18 09:05 Dose: 2.5 mg Admin: 09/01/18 08:09 Dose: 2.5 mg Admin: 08/31/18 09:51 Dose: 2.5 mg Admin: 08/30/18 13:11 Dose: 2.5 mg Admin: 08/29/18 13:31 Dose: 2.5 mg Admin: 08/29/18 10:22 Dose: Not Given Non-Admin Reason: Decreased Blood Pressure Aspirin (Aspirin) 81 mg PO DAILY REPLACED BY [facility] Last Admin: 09/04/18 08:52 Dose: 81 mg Admin: 09/03/18 10:58 Dose: 81 mg Admin: 09/02/18 09:05 Dose: 81 mg Admin: 09/01/18 08:09 Dose: 81 mg Admin: 08/31/18 09:52 Dose: 81 mg Admin: 08/30/18 13:11 Dose: 81 mg Admin: 08/29/18 09:11 Dose: 81 mg Calcium Carbonate/Glycine (Tums) 500 mg PO PRN PRN PRN Reason: Heartburn Last Admin: 08/31/18 19:46 Dose: 500 mg Admin: 08/30/18 18:11 Dose: 500 mg Cefazolin Sodium (Ancef) 2 gm IV MoWe@1600 REPLACED BY [facility] Cefazolin Sodium (Ancef) 3 gm IV Fr@1600 REPLACED BY [facility] Last Admin: 09/01/18 17:12 Dose: 3 gm Cinacalcet (Sensipar) 60 mg PO QDAY REPLACED BY [facility] Last Admin: 09/04/18 08:52 Dose: 60 mg Admin: 09/03/18 10:57 Dose: 60 mg Admin: 09/02/18 09:05 Dose: 60 mg Admin: 09/01/18 08:08 Dose: 60 mg Admin: 08/31/18 09:52 Dose: 60 mg Admin: 08/30/18 13:10 Dose: 60 mg Admin: 08/29/18 09:12 Dose: 60 mg Clonidine HCl (Catapres) 0.1 mg PO DAILYP PRN PRN Reason: DIALYSIS DAYS Diphenhydramine HCl (Benadryl) 25 mg PO HSP PRN PRN Reason: Insomnia Last Admin: 09/03/18 21:04 Dose: 25 mg Admin: 09/02/18 21:01 Dose: 25 mg Admin: 09/01/18 21:41 Dose: 25 mg Admin: 08/31/18 20:48 Dose: 25 mg Admin: 08/30/18 22:01 Dose: 25 mg Admin: 08/29/18 20:41 Dose: 25 mg Fluoxetine HCl (Prozac) 20 mg PO QDAY REPLACED BY [facility] Last Admin: 09/04/18 08:52 Dose: 20 mg Admin: 09/03/18 10:57 Dose: 20 mg Admin: 09/02/18 09:05 Dose: 20 mg Admin: 09/01/18 08:08 Dose: 20 mg Admin: 08/31/18 09:52 Dose: 20 mg Admin: 08/30/18 13:10 Dose: 20 mg Admin: 08/29/18 09:13 Dose: 20 mg Heparin Sodium (Porcine) (Heparin) 5,000 unit SQ Q12 REPLACED BY [facility] Last Admin: 09/04/18 08:52 Dose: 5,000 unit Admin: 09/03/18 21:04 Dose: 5,000 unit Admin: 09/03/18 10:58 Dose: 5,000 unit Admin: 09/02/18 21:01 Dose: 5,000 unit Admin: 09/02/18 09:05 Dose: 5,000 unit Admin: 09/01/18 21:30 Dose: 5,000 unit Admin: 09/01/18 08:08 Dose: 5,000 unit Admin: 08/31/18 20:48 Dose: 5,000 unit Admin: 08/31/18 09:56 Dose: 5,000 unit Admin: 08/30/18 22:00 Dose: 5,000 unit Admin: 08/30/18 13:16 Dose: 5,000 unit Admin: 08/29/18 20:40 Dose: 5,000 unit Admin: 08/29/18 09:10 Dose: 5,000 unit Admin: 08/28/18 22:12 Dose: 5,000 unit Heparin Sodium (Porcine) (Heparin Flush) 2 ml IV Q12 REPLACED BY [facility] Hydroxyzine HCl (Vistaril) 10 mg PO Q6H PRN PRN Reason: Blood Pressure - High Lactobacillus Rhamnosus (Culturelle) 1 cap PO BID REPLACED BY [facility] Last Admin: 09/04/18 08:52 Dose: 1 cap Admin: 09/03/18 21:04 Dose: 1 cap Admin: 09/03/18 10:57 Dose: 1 cap Admin: 09/02/18 21:01 Dose: 1 cap Admin: 09/02/18 09:05 Dose: 1 cap Admin: 09/01/18 21:30 Dose: 1 cap Admin: 09/01/18 08:08 Dose: 1 cap Admin: 08/31/18 20:48 Dose: 1 cap Admin: 08/31/18 09:52 Dose: 1 cap Admin: 08/30/18 21:58 Dose: 1 cap Admin: 08/30/18 13:11 Dose: 1 cap Admin: 08/29/18 20:41 Dose: 1 cap Admin: 08/29/18 11:43 Dose: 1 cap Ondansetron HCl (Zofran) 4 mg IV Q4HP PRN PRN Reason: Nausea And Vomiting Last Admin: 09/02/18 12:27 Dose: 4 mg Admin: 08/29/18 12:47 Dose: 4 mg Sevelamer Carbonate (Renvela) 2,400 mg PO TIDCC REPLACED BY [facility] Last Admin: 09/04/18 08:51 Dose: 2,400 mg Admin: 09/03/18 17:23 Dose: 2,400 mg Admin: 09/03/18 10:57 Dose: 2,400 mg Admin: 09/02/18 17:50 Dose: 2,400 mg Admin: 09/02/18 14:25 Dose: Not Given Non-Admin Reason: Nausea Admin: 09/02/18 09:05 Dose: 2,400 mg Admin: 09/01/18 17:15 Dose: 2,400 mg Admin: 09/01/18 14:14 Dose: 2,400 mg Admin: 09/01/18 08:08 Dose: 2,400 mg Admin: 08/31/18 16:52 Dose: 2,400 mg Admin: 08/31/18 12:54 Dose: 2,400 mg Admin: 08/31/18 09:52 Dose: 2,400 mg Admin: 08/30/18 18:11 Dose: 2,400 mg Admin: 08/30/18 13:10 Dose: 2,400 mg Admin: 08/30/18 08:36 Dose: 2,400 mg Admin: 08/29/18 17:32 Dose: 2,400 mg Admin: 08/29/18 12:46 Dose: 2,400 mg Admin: 08/29/18 09:08 Dose: 2,400 mg Admin: 08/28/18 18:31 Dose: Sodium Chloride (Saline Flush) 10 ml IV Q8 REPLACED BY [facility] Last Admin: 09/04/18 07:12 Dose: Admin: 09/03/18 21:14 Dose: Admin: 09/03/18 13:54 Dose: Admin: 09/03/18 04:58 Dose: Admin: 09/02/18 21:01 Dose: 10 ml Admin: 09/02/18 13:00 Dose: 10 ml Admin: 09/02/18 05:30 Dose: Admin: 09/01/18 21:41 Dose: 10 ml Admin: 09/01/18 14:15 Dose: 10 ml Admin: 09/01/18 06:00 Dose: 10 ml Admin: 08/31/18 20:45 Dose: 10 ml Admin: 08/31/18 13:30 Dose: 10 ml Admin: 08/31/18 05:49 Dose: 10 ml Admin: 08/30/18 22:01 Dose: 10 ml Admin: 08/30/18 15:39 Dose: 10 ml Admin: 08/30/18 05:51 Dose: 10 ml Admin: 08/29/18 20:41 Dose: 10 ml Admin: 08/29/18 12:50 Dose: 10 ml Admin: 08/29/18 05:04 Dose: 10 ml Admin: 08/28/18 22:12 Dose: 10 ml Sodium Chloride (Saline Flush) 10 ml IV UD PRN PRN Reason: FLUSH Sodium Chloride (Saline Flush) 10 ml IV Q12 REPLACED BY [facility] Vitamin D (Vitamin D3) 1,000 unit PO DAILY REPLACED BY [facility] Last Admin: 09/04/18 08:52 Dose: 1,000 unit Admin: 09/03/18 10:57 Dose: 1,000 unit Admin: 09/02/18 09:05 Dose: 1,000 unit Admin: 09/01/18 08:09 Dose: 1,000 unit Admin: 08/31/18 09:52 Dose: 1,000 unit Admin: 08/30/18 13:11 Dose: 1,000 unit Admin: 08/29/18 09:13 Dose: 1,000 unit Assessment and Plan - Narrative A/P Narrative: Assessment: 1. MSSA bacteremia with right ring finger tip abscess: Status post drainage of abscess Likely source of bacteremia is the right finger abscess Repeat blood cultures from 08/30 and 08/31 are no growth till date. Will count 08/30 as first day of therapy -TTE on 08/31/18 negative for any findings of infective endocarditis 2. Lt AV graft hematoma, 2cm on Ultrasound: - no signs of infection externally -Given cultures are no growth, it suggest no evident abscess. Nevertheless given there is a small possibility of seeding of prosthetic AV graft by staph aureus, will plan for 4 weeks of intravenous antibiotics Recommendations: - Continue IV cefazolin 2 g after HD on Tuesday, 2 g after HD on Tuesday and 3 g after HD on Tuesday Continue oral rifampin 300 mg twice daily For both above antibiotics: Start date: 08/30/2018 Stop date: 09/27/18 Follow-up labs: CBC and CMP once weekly, results to be faxed to PCP -Recommend that set of blood cultures repeated week after stopping antibiotics to make sure patient does not have any residual bacteremia since AV graft is still in situ. Had spoken with Dr. De La Cruz about it Consider local application of Bactroban cream over the pustule over her anterior chest and the right ring finger area [where patient had abscess] Lamont Aldridge MD Infectious disease
--- NOTE | 2018-09-04 11:06 | Discharge Summary ---
Medical - DS: Prov Patient information: Note initiated : 09/04/18 at 11:01 am Service Date, if different from initiated Date: [] Patient: Teri Olson 68 y/o F admitted on 08/28/18 for UTI, Buttock ulcer, finger abscess. Chief Complaint: [] Date of admission: 08/28/18 16:18 Discharge date: 09/04/18 Primary care physician: Apolonia Fernando Admitting clinician: Jaelyn Naylor Consults: 08/28/18 Consult to Physician [CONS] Stat Comment: Consulting Provider: Marshal De La Cruz Reason For Exam: Physician to Consult 08/28/18 14:27 Consult to Physician [CONS] Stat Comment: Consulting Provider: Charli Camarillo Reason For Exam: Physician to Consult 08/31/18 12:16 Consult to Infectious Disease [CONS] Routine Comment: bactermia, staph Consulting Provider: Lamont Aldridge Reason For Exam: Physician to Consult Discharging clinician: Jaelyn Naylor Medical - DS: Meds - Discharge Medications Prescriptions: Ketoconazole 2% Top Crm [Nizoral 2% Top Crm] 1 dose TOPICAL DAILY #1 tube Mupirocin Oint 2% [Bactroban Oint 2%] 1 dose TOPICAL BID #1 tube Rifampin 300 mg PO BID@0700,1999 #60 capsule Active and Home Medications: Home Medications albuterol sulfate 200 mcg capsules for inhalation 180 mcg INHALATION .Q4-6HR PRN 11/19/15 [History Confirmed 08/28/18 Last Taken 08/26/18 08:00] blood sugar diagnostic strips See Dose Instructions .ROUTE .MEDSUPPLY 11/19/15 [ History Confirmed 08/28/18 Last Taken 08/28/18 06:00] blood-glucose meter kit See Dose Instructions .ROUTE .MEDSUPPLY 11/19/15 [ History Confirmed 08/28/18 Last Taken 08/28/18 06:00] fluoxetine 20 mg capsule 20 mg PO QDAY 11/19/15 [History Confirmed 08/28/18 Last Taken 08/27/18 08:00] lancets See Dose Instructions .ROUTE .MEDSUPPLY 11/19/15 [History Confirmed 10/03 Last Taken 08/28/18 06:00] cinacalcet 30 mg tablet 60 mg PO QDAY 30 Days #60 tab 07/26/18 [History Confirmed 08/28/18 Last Taken 08/27/18 08:00] sevelamer carbonate 800 mg tablet See Label Instructions .ROUTE .COMPLEX #330 tab 07/26/18 [Rx Confirmed 08/28/18 Last Taken 08/27/18 17:00] acetaminophen 325 mg tablet 325 mg PO Q4H PRN tab 08/02/18 [History Confirmed 08/28/18 Last Taken 08/26/18 07:00] amlodipine 2.5 mg tablet 2.5 mg PO QDAY 08/02/18 [History Confirmed 08/28/18 Last Taken 08/27/18 08:00] calcium carbonate 200 mg calcium (500 mg) chewable tablet 200 mg PO ONCE tab [History Confirmed 08/28/18 Last Taken Unknown] cholecalciferol (vitamin D3) 1,000 unit capsule 1,000 unit PO QDAY 08/02/18 [ History Confirmed 08/28/18 Last Taken 08/27/18 08:00] clonidine HCl 0.1 mg tablet 0.1 mg PO .dialysis day PRN tab 08/02/18 [History Confirmed 08/28/18 Last Taken Unknown] darbepoetin cal 25 mcg/mL in polysorbate injection 25 mcg IV QWEEK ml [History Confirmed 08/28/18 Last Taken 08/23/18 17:00] hydroxyzine HCl 10 mg tablet 10 mg PO Q6H PRN tab 08/02/18 [History Confirmed 08/28/18 Last Taken Unknown] loperamide 2 mg tablet 2 mg PO Q2-4H PRN 08/02/18 [History Confirmed 08/28/18 Last Taken Unknown] losartan 25 mg tablet 25 mg PO QDAY 08/02/18 [History Confirmed 08/28/18 Last Taken 08/27/18 08:00] mannitol See Label Instructions .ROUTE .COMPLEX 08/02/18 [History Confirmed 10/03 Last Taken Unknown] nut.tx impaired renal function, soy oral liquid 1 each PO .3xweekly 08/02/18 [ History Confirmed 08/28/18 Last Taken Unknown] vitamin B complex-vitamin C-folic acid 0.8 mg tablet 1 tab PO QDAY 08/02/18 [ History Confirmed 08/28/18 Last Taken 08/27/18 08:00] Aspirin [Elias Chewable Aspirin] 81 mg PO DAILY 08/28/18 [History Confirmed 10/03 Last Taken 08/27/18 08:00] Ketoconazole 2% Top Crm [Nizoral 2% Top Crm] 1 dose TOPICAL DAILY #1 tube [Rx Last Taken Unknown] Medical - DS: Hosp Hospital course: Ms. Olson is a 68 year old F With diabetes (not on any meds) and end-stage renal disease who resides at home and is cared for by home health congregational care pastor who states to nursing staff and registered nurse hh case manager that she is unable to care for this patient given the difficulty with this particular individual in their size. She was brought in today by the urging of the home health congregational care pastor because of infections in her skin pressure ulcers and infection of the finger. Patient states she was feeling fine until this weekend yesterday specifically and she started to feel weak and fatigued. She did feel like she had some fevers and chills yesterday. She says got a scratch on her finger by her cat on her right fourth finger which is now red and swollen at the tip. She also states she has a yeast infection in between her pannus which is been there for about a week. She states her urine is a little malodorous darker than usual but she does not typically urinate very much anyway. Denies any nausea vomiting chest pain or stomach pain or diarrhea In the ER she was evaluated and also found to have a pressure ulcers on her buttocks. The abscess in the tip of her right finger was incised in 1 mL of purulent drainage was expressed and cultures were obtained. Cellulitis of the right fourth finger tip: Status post I&D in the ED -improved -culture growing Staph aureua and Strep pyogenes - on anceph per ID, (MSSA), On Rifampin per ID - CBC / CMP to be done weekly to be followed by PCP, ID physician will be on vacation. Bacteremia (GPC): due to above, MSSA bactermia, on anceph per ID Fluid collection near left arm- s/p Aspiration appears to be hematoma Intertriginous candidiasis: improving Sepsis: Secondary to above, Improved -leukocytosis improving, no bandemia Pressure ulcers to the buttocks - Wound care, outpatient follow up Diabetes II: diet controlled End-stage renal disease (h/o RCC w/left nephrectomy 2011): Follows with Dr. Wiley -States does not produce much urine -Outpatient dialysis on MWF schedule The rest of the stay in the hospital was uneventful, no changes made to her chronic home medication regime. Discharge diagnosis: bactermia, - Time Spent with Patient Total time spent providing and/or coordinating discharge services: Greater than 30 minutes Medical - DS: Exam - Constitutional Vitals: Vital Signs Temp Pulse Resp BP Pulse Ox 09/04/18 08:21 97.4 F 60 18 129/66 97 09/04/18 03:40 98.5 F 66 12 121/54 94 09/03/18 23:00 98.3 F 68 16 118/64 93 09/03/18 15:24 97.9 F 16 102/63 100 09/03/18 11:40 96.9 F L 81 16 126/74 96 Intake and Output 09/03/18 09/04/18 09/04/18 21:59 05:59 13:59 Intake Total 360 / 360 0 / 0 Output Total 100 / 100 50 / 50 Balance 260 / 260 0 / 0 -50 / -50 Intake: Oral 360 / 360 0 / 0 Output: Void Amount 100 / 100 50 / 50 Other: Meal Dinner Percent of Meal Consumed 100% Feeding Ability Independent Urine Appearance Clear Urine Color Straw Urine Odor Normal Stool Size Moderate Small Stool Color Brown Stool Consistency Loose # Bowel Movements 1 1 Weight 185 lb Medical - DS: Data Labs on day of discharge: Labs from last 24 hours 09/04/18 09/04/18 04:25 04:25 WBC 15.2 H RBC 3.01 L Hgb 9.2 L Hct 27.2 L MCV 90.3 MCH 30.6 MCHC 33.9 RDW 12.2 Plt Count 442 H MPV 7.6 Gran % 62.8 Lymph % (Auto) 23.4 Churchill % (Auto) 9.3 Eos % (Auto) 4.3 Baso % (Auto) 0.2 Gran # 9.5 H Lymph # (Auto) 3.6 Churchill # (Auto) 1.4 H Eos # (Auto) 0.7 Baso # (Auto) 0 Sodium 135 Potassium 4.5 Chloride 93 L Carbon Dioxide 26 Anion Gap 16.0 BUN 43 H Creatinine 5.6 H* GFR Calculation 7 Glucose 65 L Uric Acid 6.5 Calcium 7.8 L Phosphorus 3.6 Magnesium 2.5 Total Bilirubin < 0.2 Direct Bilirubin < 0.2 GGT 27 AST 23 ALT < 5 Alkaline Phosphatase 144 H Lactate Dehydrogenase 227 Total Protein 6.3 Albumin 3.0 L Globulin 3.3 Albumin/Globulin Ratio 0.9 L Triglycerides 217 H Preliminary micro results at discharge 08/31/18 14:02 Blood Culture - Preliminary Blood 08/31/18 13:14 Blood Culture - Preliminary Blood 08/30/18 11:39 Blood Culture - Preliminary Blood 08/30/18 11:33 Blood Culture - Preliminary Blood 08/28/18 12:15 Blood Culture - Preliminary Blood Staphylococcus aureus Medical - DS: A/P - Patient/Caregiver Discharge Instructions Activity: as per physical therapy Diet: Renal/Consistent Carbs Additional Instructions: f/u with wound care outpt 3-10 days Antibiotics Recommendations: - Continue IV cefazolin 2 g after HD on Tuesday, 2 g after HD on Tuesday and 3 g after HD on Tuesday Continue oral rifampin 300 mg twice daily Stop date for both antibiotics is 09/27/18 Follow-up labs: CBC and CMP once weekly, results to be faxed to PCP -Recommend that set of blood cultures repeated week after stopping antibiotics to make sure patient does not have any residual bacteremia since AV graft is still in situ. application of Bactroban ointment twice daily over the pustule over her anterior chest and the right ring finger area [where patient had abscess -PICC Line care as per facility protocol. Wound care instructions Abdominal/ groin folds: Cleanse with soap and water, dry well. Apply InterDry sheets to reddened areas. Right gluteal: cleanse gently with saline. Dress with bordered foam. OFFLOAD this area with pillow or wedge. Float heels when in bed. Use seat cushion in chair. Go to the ER if worsening condition, chest pain, fever, shortness of breath or any other acute concern. Prescriptions: Ketoconazole 2% Top Crm [Nizoral 2% Top Crm] 1 dose TOPICAL DAILY #1 tube - Follow up Plan Follow up with: Michell Wiley MD [Physician] - Apolonia Fernando ARNP [Primary Care Provider] - Disposition: Xfer SNF Prognosis: Fair Rehab Potential: Fair I certify that the patient requires SNF services: Yes Overall status at discharge: patient is progressing back to baseline
[2018-09-04] MEDS ORDERED: ceFAZolin 1 GM VIAL IV SCH (16:00)
[2018-09-04] MEDS ORDERED: 0.9 % SODIUM CHLORIDE 10 ML SYRINGE IV SCH (21:00)
== END 2018-09-04 09:55 | DRG 871 ==
LOC: ED 10:23 → MEDSUR 16:18
PROVIDERS: ADMIT Internal Medicine; ATTEND Internal Medicine
CPT/HCPCS: 87149; 90935; 97161; 97166; 99223; 99231; A6213; J0690; J0696; J1450; J1644; J2405; J2543; J3370; J7030; J7040; J7050; J7060

== ENCOUNTER 2018-12-15 11:45 | Inpatient (IN) ==
[2018-12-15] MEDS ORDERED: IOPAMIDOL 100 ML BOTTLE IV ONE (11:46)
--- NOTE | 2018-12-15 12:05 | Emergency Department Note ---
Nausea/Vomiting/Diarrhea HPI - General Chief complaint: Nausea/Vomiting/Diarrhea Stated complaint: nauea, diarrhea, fever Time Seen by Provider: 12/15/18 11:49 Source: patient Mode of arrival: ambulatory Limitations: no limitations - History of Present Illness HPI Narrative: This pleasant 68-year-old female lives at [facility] where she is been at least a month. She describes nausea onset yesterday, vomited twice since last night her last night, and had one episode of diarrhea. She was brought in because of this. She had blood in her stool she reports has a slight amount. No previous history of blood in her stool. She reports she has hemorrhoids but does not feel like they are inflamed. No recent antibiotics. No previous diagnosis of C. difficile colitis that she knows of. No Crohn's or ulcerative colitis that she knows of. Patient is at [facility] because she has been unable to properly care for herself. She reports fever of 102.6 this morning. Has felt some chills now and today with some chronic feeling cold. Has had no sweats. REVIEW OF SYSTEMS: No chest pain. Occasional palpitations in the past No cough. Has mild shortness of breath. No wheezing. Has a history of CHF with a recent diagnosis/exacerbation but does not feel that is a problem currently. Some abdominal discomfort but only because of her vomiting she says. No dysuria. No back pain No rashes Mild headache, weakness and dizziness. Some chronic anxiety. Denies depression. - Related Data Home Medications Medication Instructions Recorded Confirmed albuterol sulfate 200 mcg capsules 180 mcg INHALATION .Q4-6HR PRN 11/19/15 08/28/18 for inhalation blood sugar diagnostic strips See Dose Instructions .ROUTE 11/19/15 08/28/18 .MEDSUPPLY blood-glucose meter kit See Dose Instructions .ROUTE 11/19/15 08/28/18 .MEDSUPPLY fluoxetine 20 mg capsule 20 mg PO QDAY 11/19/15 12/15/18 lancets See Dose Instructions .ROUTE 11/19/15 08/28/18 .MEDSUPPLY cinacalcet 30 mg tablet 60 mg PO QDAY 30 Days #60 tab 07/26/18 08/28/18 acetaminophen 325 mg tablet 650 mg PO Q6HP PRN tab 08/02/18 12/15/18 amlodipine 2.5 mg tablet 2.5 mg PO QDAY 08/02/18 12/15/18 calcium carbonate 200 mg calcium 200 mg PO ONCE tab 08/02/18 12/15/18 (500 mg) chewable tablet cholecalciferol (vitamin D3) 1,000 1,000 unit PO QDAY 08/02/18 08/28/18 unit capsule clonidine HCl 0.1 mg tablet 0.1 mg PO .dialysis day PRN tab 08/02/18 08/28/18 darbepoetin cal 25 mcg/mL in 25 mcg IV QWEEK ml 08/02/18 08/28/18 polysorbate injection hydroxyzine HCl 10 mg tablet 10 mg PO Q6H PRN tab 08/02/18 08/28/18 loperamide 2 mg tablet 2 mg PO Q2-4H PRN 08/02/18 12/15/18 losartan 25 mg tablet 25 mg PO QDAY 08/02/18 12/15/18 nut.tx impaired renal function, 1 each PO .3xweekly 08/02/18 08/28/18 soy oral liquid vitamin B complex-vitamin C-folic 1 tab PO QDAY 08/02/18 08/28/18 acid 0.8 mg tablet Aspirin [Elias Chewable Aspirin] 81 mg PO DAILY 08/28/18 12/15/18 Albuterol Sulfate [Proair Hfa] 1 - 2 puff IH Q4H 12/15/18 12/15/18 Bisacodyl [Laxative Suppository] 10 mg RC PRN PRN 12/15/18 12/15/18 Clopidogrel Bisulfate [Plavix] 75 mg PO DAILY 12/15/18 12/15/18 Folic Acid/Vit Bcomp,C 0.8 mg PO DAILY 12/15/18 12/15/18 [Nephro-Milagro Tablet] Niacinamide [Niacin] 500 mg PO DAILY 12/15/18 12/15/18 Ondansetron [Zofran ODT] 4 mg SL Q6HP PRN 12/15/18 12/15/18 Pravastatin [Pravachol] 40 mg PO DAILY 12/15/18 12/15/18 Sennosides/Docusate Sodium [Cvs 1 each PO PRN PRN 12/15/18 12/15/18 Stool Softener-Stim Lax Tb] Previous Rx's Medication Instructions Recorded sevelamer carbonate 800 mg tablet See Rx Instructions .ROUTE 07/26/18 .COMPLEX #330 tab Ketoconazole 2% Top Crm [Nizoral 1 dose TOPICAL DAILY #1 tube 08/30/18 2% Top Crm] Lactobacillus [Culturelle] 1 cap PO BID capsule 09/04/18 Mupirocin Oint 2% [Bactroban Oint 1 dose TOPICAL BID #1 tube 09/04/18 2%] Rifampin 300 mg PO BID@0700,2000 #60 cap 09/04/18 ceFAZolin [Ancef] 2 gm IV MoWe@1600 vial 09/04/18 ceFAZolin [Ancef] 3 gm IV Fr@1600 vial 09/04/18 lidocaine-prilocaine 2.5 %-2.5 % 1 applic TOPICAL .3x week #30 g 10/30/18 topical cream furosemide 40 mg tablet 40 mg PO QDAY #30 tab 11/20/18 Allergies Allergy/AdvReac Type Severity Reaction Status Date / Time codeine Allergy Intermediate Hives Verified 08/28/18 17:02 gemfibrozil [From Lopid] Allergy Intermediate Muscle Pain Verified 08/28/18 17:02 meperidine [From Demerol] Allergy Intermediate Hives Verified 08/28/18 17:02 ciprofloxacin [From Cipro] Allergy Mild Nausea Verified 08/28/18 17:02 Past Medical History - Past Medical History [facility] Narrative: Medical History (Last Updated 12/15/18 @ 11:57 by Raffi Gonzalez DO) Type 2 diabetes mellitus (Chronic) Hypertension, essential (Chronic) Anemia, chronic renal failure (Chronic) ESRD (end stage renal disease) on dialysis (Chronic) Renal osteodystrophy (Chronic) History of fracture (Resolved) Obesity (BMI 30-39.9) (Chronic) Self-care deficit for bathing and hygiene (Chronic) Asthma, chronic (Chronic) Anxiety, generalized (Chronic) History of gout (Chronic) Encounter for adjustment or management of vascular access device (Acute) Anxiety and depression (Chronic) Asthma (Chronic) CHF (congestive heart failure) (Chronic) Cellulitis, leg (Chronic) DM (diabetes mellitus), type 2 with peripheral vascular complications (Chronic) Gout (Chronic) Hallux valgus, acquired (Chronic) Hypercholesterolemia (Chronic) Hypertension (Chronic) Hypertensive heart and chronic kidney disease with heart failure and stage 1 through stage 4 chronic kidney disease, or chronic kidney disease (Chronic) Iron deficiency anemia (Chronic) Obesity (Chronic) Onychomycosis (Chronic) Open wound of right buttock (Chronic) Ovarian dysfunction, unspecified (Chronic) PVD (peripheral vascular disease) (Chronic) Paresthesia of both feet (Chronic) Peripheral edema (Chronic) Pneumonia due to other specified infectious organisms (Chronic) Pulmonary hypostasis (Chronic) RLS (restless legs syndrome) (Chronic) Renal failure (Chronic) Tinea pedis (Chronic) Pressure ulcer, buttock (Resolved) Past Surgical History (Last Reviewed 05/16/17 @ 13:21 by Karl Goodman MD) H/O kidney removal (Acute) S/P bilateral breast reduction (Acute) Status post cataract extraction (Acute) Family History (Last Reviewed 06/07/17 @ 11:46 by Rebekah Zaidi CMA) Mother Alzheimer's disease Father Malignant neoplasm of lung Glaucoma Medical history: Reports: DM, hypertension, peripheral artery disease, renal disease, other Psychiatric history: Reports: anxiety. Denies: depression Surgical history ED: Reports: cataract, other (Breast reduction, dialysis catheter, nephrectomy) - Social History smoking status: Never smoker Alcohol use: Reports: None Drug use: Reports: none. Denies: marijuana Physical Exam Limitations: no limitations General appearance: alert, in no apparent distress Head: atraumatic, normocephalic Eye: Present: normal appearance, EOMI. Absent: scleral icterus, conjunctival injection ENT: normal oropharynx, mucous membranes dry Respiratory: Present: normal lung sounds bilaterally. Absent: respiratory distress, wheezes, stridor, accessory muscle use, prolonged expiratory phase Cardiovascular: Present: regular rate, normal rhythm. Absent: systolic murmur, diastolic murmur Abdominal: Present: soft. Absent: distention, tenderness, guarding, rebound, rigidity, organomegaly, mass Extremities: Absent: pedal edema, pretibial edema, calf tenderness Back: Absent: CVA tenderness (R), CVA tenderness (L), spinous process tenderness Neurological: Present: alert, CN II-XII intact Psychiatric: Present: normal affect, normal mood, other (But serious facies.) Skin: Present: warm, dry Course Vital Signs Temperature 99.1 F H 12/15/18 11:46 Pulse Rate 98 H 12/15/18 11:46 Respiratory Rate 16 12/15/18 11:46 Blood Pressure 159/59 12/15/18 11:46 Pulse Oximetry (%) 94 12/15/18 11:46 Temperature 100.1 F H 12/15/18 13:09 Pulse Rate 83 12/15/18 14:30 Respiratory Rate 14 12/15/18 14:30 Blood Pressure 147/63 12/15/18 14:16 Pulse Oximetry (%) 95 12/15/18 14:30 Nausea/Vomiting/Diarrhea - [facility] Narrative Medical decision making narrative: 12:08 PM Onset of nausea, vomiting, diarrhea last evening with a single episode of small amount of hematochezia here for evaluation. We will do basic labs. 1:05 PM Labs are fairly unremarkable except for a white count of 31.8. Lactate and CRP are actually low. She feels a bit warm, temperature 99.6. This was about a half an hour ago. She is given acetaminophen 650 mg orally. Because of this white count and low-grade temp, will do a catheterized urine specimen and then discuss with bisque grader or hospitalist. 2:25 PM I spoke with Dr. Wiley, bisque grader, who strongly encourages that this patient be admitted, blood cultures, antibiotics because of this elevated white count. She has a history of previous bacteremia/sepsis and there could be self-care gaps in her facility or her own abilities and this is too high of a white count. 2:30 PM I spoke with Dr. Charli Camarillo who kindly accepts this patient for additional inpatient observation and treatment. Zosyn initiated. Blood cultures obtained. Urine culture ordered. Abdominal 2 view ordered. - Lab Data Lab results reviewed: Yes I reviewed the patient's lab results. Result diagrams: 12/15/18 12:18 12/15/18 12:18 Lab Results 12/15/18 12/15/18 12/15/18 Range/Units 12:18 12:18 12:18 WBC 31.9 H* (4.5-11.0) K/mcL RBC 3.03 L (4.00-5.20) M/mcL Hgb 9.0 L (12.0-15.0) g/dL Hct 27.5 L (36.0-48.0) % MCV 90.7 (80.0-100.0) fL MCH 29.6 (26.0-34.0) pg MCHC 32.7 (31.0-36.0) g/dL RDW 14.8 H (11.5-14.5) % Plt Count 356 (140-440) K/mcL MPV 6.2 L (7.4-10.4) fL Gran % 85.6 H (38.0-78.0) % Lymph % (Auto) 6.6 L (15.5-49.0) % [place] % (Auto) 7.8 (1.0-12.0) % Eos % (Auto) 0 (0.0-7.0) % Baso % (Auto) 0 (0.0-2.0) % Gran # 27.3 H (1.8-8.0) K/mcL Lymph # (Auto) 2.1 (1.5-4.8) K/mcL [place] # (Auto) 2.5 H (0.1-0.9) K/mcL Eos # (Auto) 0 (0.0-0.7) K/mcL Baso # (Auto) 0 (0.0-0.3) K/mcL VBG Lactic Acid 0.8 (0.5-2.0) mmol/L Sodium 132 L (133-145) mmol/L Potassium 4.1 (3.3-5.1) mmol/L Chloride 92 L (96-108) mmol/L Carbon Dioxide 29 (22-30) mmol/L Anion Gap 11.0 (8-16) BUN 23 (8-23) mg/dl Creatinine 5.3 H* (0.6-1.1) mg/dl GFR Calculation 8 Glucose 100 (70-105) mg/dL Calcium 7.5 L (8.6-10.4) mg/dl Total Bilirubin 0.4 (0.0-1.0) mg/dL AST 14 (0-37) U/l ALT 7 (0-40) U/l Alkaline Phosphatase 104 (39-117) U/L C-Reactive Protein 9.3 H (0.0-0.8) mg/dl Total Protein 6.3 (5.9-8.4) gm/dL Albumin 3.4 (3.2-5.2) gm/dL Globulin 2.9 (2.2-3.7) gm/dL Albumin/Globulin Ratio 1.2 (1.0-2.3) Beta-Hydroxybutyrate (< 0.27) mmol/L 12/15/18 Range/Units 12:18 WBC (4.5-11.0) K/mcL RBC (4.00-5.20) M/mcL Hgb (12.0-15.0) g/dL Hct (36.0-48.0) % MCV (80.0-100.0) fL MCH (26.0-34.0) pg MCHC (31.0-36.0) g/dL RDW (11.5-14.5) % Plt Count (140-440) K/mcL MPV (7.4-10.4) fL Gran % (38.0-78.0) % Lymph % (Auto) (15.5-49.0) % [place] % (Auto) (1.0-12.0) % Eos % (Auto) (0.0-7.0) % Baso % (Auto) (0.0-2.0) % Gran # (1.8-8.0) K/mcL Lymph # (Auto) (1.5-4.8) K/mcL [place] # (Auto) (0.1-0.9) K/mcL Eos # (Auto) (0.0-0.7) K/mcL Baso # (Auto) (0.0-0.3) K/mcL VBG Lactic Acid (0.5-2.0) mmol/L Sodium (133-145) mmol/L Potassium (3.3-5.1) mmol/L Chloride (96-108) mmol/L Carbon Dioxide (22-30) mmol/L Anion Gap (8-16) BUN (8-23) mg/dl Creatinine (0.6-1.1) mg/dl GFR Calculation Glucose (70-105) mg/dL Calcium (8.6-10.4) mg/dl Total Bilirubin (0.0-1.0) mg/dL AST (0-37) U/l ALT (0-40) U/l Alkaline Phosphatase (39-117) U/L C-Reactive Protein (0.0-0.8) mg/dl Total Protein (5.9-8.4) gm/dL Albumin (3.2-5.2) gm/dL Globulin (2.2-3.7) gm/dL Albumin/Globulin Ratio (1.0-2.3) Beta-Hydroxybutyrate 0.41 H (< 0.27) mmol/L Disposition Pt seen by VP CARE MANAGEMENT/PA only: No Clinical Impression: Elevated beta-hydroxybutyrate Leukocytosis, unspecified Qualifiers: Leukocytosis type: leukemoid reaction Qualified Code(s): D72.823 - Leukemoid reaction UTI (urinary tract infection) Qualifiers: Urinary tract infection type: site unspecified Hematuria presence: without hematuria Qualified Code(s): N39.0 - Urinary tract infection, site not specified Fever Qualifiers: Fever type: due to other condition Qualified Code(s): R50.81 - Fever presenting with conditions classified elsewhere Summary: See MEDICAL DECISION MAKING above. Of interest is that patient's lactic acid and CRP were unremarkable. Patient still at significant risk of major disease/infectious concerns. Of interest is her beta hydroxybutyrate being 0.41 but she is not acidotic nor with an anion gap. Dr. Camarillo was made aware of this. Disposition: Xfer As Inpt ([facility]) Referrals: Apolonia Fernando ARNP [Primary Care Provider] -
[2018-12-15 12:53] LABS: Basophils # (Auto) 0 K/mcL (0.0-0.3); Basophils % (Auto) 0 % (0.0-2.0); Eosinophils # (Auto) 0 K/mcL (0.0-0.7); Eosinophils % (Auto) 0 % (0.0-7.0); Granulocytes % (Auto) 85.6 % (38.0-78.0); Lymphocytes # (Auto) 2.1 K/mcL (1.5-4.8); Lymphocytes % (Auto) 6.6 % (15.5-49.0); Mean Cell Volume 90.7 fL (80.0-100.0); Mean Corpuscular HGB Conc 32.7 g/dL (31.0-36.0); Monocytes # (Auto) 2.5 K/mcL (0.1-0.9); Monocytes % (Auto) 7.8 % (1.0-12.0); Platelet Count 356 K/mcL (140-440); RBC 3.03 M/mcL (4.00-5.20); Red Cell Distribution Width 14.8 % (11.5-14.5)
[2018-12-15] MEDS ORDERED: ACETAMINOPHEN 325 MG TABLET PO ONE (13:05)
[2018-12-15 13:06] LABS: Beta Hydroxybutyrate 0.41 mmol/L (< 0.27)
[2018-12-15 13:08] LABS: ALT/SGPT 7 U/l (0-40); Albumin 3.4 gm/dL (3.2-5.2); Albumin/Globulin Ratio 1.2 (1.0-2.3); Alkaline Phosphatase 104 U/L (39-117); Blood Urea Nitrogen 23 mg/dl (8-23); C-Reactive Protein 9.3 mg/dl (0.0-0.8)
--- NOTE | 2018-12-15 13:35 | XRay Report ---
CLINICAL INFORMATION: Elevated white blood cell count COMPARISON: 11/20/2018 FINDINGS: Moderate cardiomegaly is unchanged. Mediastinum is unremarkable. Is mild distention upper lobe pulmonary vasculature. No edema and no infiltrates. There is minor bibasilar atelectasis. Tiny bilateral pleural effusions noted IMPRESSION: Mild CHF - improved. Tiny bilateral pleural effusions also improved Interpreted and Authenticated by: Cristian Uriostegui 12/15/18
[2018-12-15] MEDS ORDERED: PIPERACILLIN SODIUM/TAZOBACTAM 3.375 GM in DEXTROSE 5% IN WATER 50 ML IV ONE (14:31)
[2018-12-15 14:56] LABS: Lymphocytes % 4 % (15-49); Monocytes % (Manual) 4 % (1-12); Platelet Estimate NORMAL (NORMAL); RBC Morphology NORMAL (NORMAL); Segmented Neutrophils % 87 % (38-78)
[2018-12-15 15:41] LABS: Appearance,Urine HAZY; Bacteria,Urine MOD /hpf (0); Bilirubin,Urine NEG (NEG); Color,Urine YELLOW; Glucose,Urine (UA) 100 mg/dL (NEG); Ictotest,Urine NEG (NEG); Leukocyte Esterase,Urine 2+ (MODERATE) /uL (NEG); PH,Urine 8.5 (5.0-9.0); Protein,Urine >=300 mg/dL (NEG); Urine Blood TRACE ery/mcL (<5); Urine RBC 99 /hpf (0-1); Urine Squamous Epithelial Cell 0 /hpf (0-4); Urine Transitional Epi Cells 2 /hpf (0-2); Urine WBC > 182 /hpf (0-4); Urobilinogen,Urine NORM (NEG)
--- NOTE | 2018-12-15 17:00 | Nephrology Consult Note ---
History of Present Illness - Reason for Consult Patient information: Note initiated : 12/15/18 at 4:55 pm Service Date, if different from initiated Date: [] Patient: Teri Olson a 68 y/o F admitted on for Nausea, Diarrhea, Fever. Chief Complaint: [] Consult date: 12/15/18 end stage renal disease Requesting physician: Raffi Gonzalez - Chief Complaint nausea, vomiting, diarrhea - History of Present Illness Patient is a 68 y/o pleasant white female significant for ESRD on HD who presented to the ED today with c/o nausea, vomiting, diarrhea and fever She states that she has not been feeling well for the last 2 days, she started having nausea, vomiting (2 episodes) yesterday and one episode of diarrhea last night. She has no appetite and has not ate much since yesterday. She also complaints of subjective fever for one day. She is noted to have a perineal wound and possible abscess and this is is been further investigated. On evaluation she is also noted to have WBC count of 31 thousand and elevated pro calcitonin but no other s/o sepsis. She denies CP, SOB, dizziness, edema She was due for dialysis today and she has missed this She denies any other concerns She will get CT scan with IV contrast to ensure no abscess or other concerns in perineal area/abdomen given her symptoms and WBC count, she has recived a dose of zosyn Review of Systems All systems PM: reviewed and no additional remarkable complaints except as stated (as in HPI) Past History Past medical history: esrd on HD h/op horse shoe kidney DM type 2 HTN copd dyslipidemia anemia of CKD secondary hyperparathyroidism recent MSSA bacteremia from abscess on finger chronically elevated white count, had been referred to hematology and was not seen as thought to be secondary to chronic UTI recent history of CHF Past surgical history: H/O avg for dialysis and TCC Past family history: BROTHER had s/o ESRD/CHF Past social history: NO ADDICTIONS, lives in assisted living facility Medications and Allergies Home Medications Medication Instructions Recorded Confirmed Type albuterol sulfate 200 mcg capsules 180 mcg INHALATION .Q4-6HR PRN 11/19/15 08/28/18 History for inhalation blood sugar diagnostic strips See Dose Instructions .ROUTE 11/19/15 08/28/18 History .MEDSUPPLY blood-glucose meter kit See Dose Instructions .ROUTE 11/19/15 08/28/18 History .MEDSUPPLY fluoxetine 20 mg capsule 20 mg PO QDAY 11/19/15 12/15/18 History lancets See Dose Instructions .ROUTE 11/19/15 08/28/18 History .MEDSUPPLY cinacalcet 30 mg tablet 60 mg PO QDAY 30 Days #60 tab 07/26/18 08/28/18 History sevelamer carbonate 800 mg tablet See Rx Instructions .ROUTE 07/26/18 08/28/18 Rx .COMPLEX #330 tab acetaminophen 325 mg tablet 650 mg PO Q6HP PRN tab 08/02/18 12/15/18 History amlodipine 2.5 mg tablet 2.5 mg PO QDAY 08/02/18 12/15/18 History calcium carbonate 200 mg calcium 200 mg PO ONCE tab 08/02/18 12/15/18 History (500 mg) chewable tablet cholecalciferol (vitamin D3) 1,000 1,000 unit PO QDAY 08/02/18 08/28/18 History unit capsule clonidine HCl 0.1 mg tablet 0.1 mg PO .dialysis day PRN tab 08/02/18 08/28/18 History darbepoetin cal 25 mcg/mL in 25 mcg IV QWEEK ml 08/02/18 08/28/18 History polysorbate injection hydroxyzine HCl 10 mg tablet 10 mg PO Q6H PRN tab 08/02/18 08/28/18 History loperamide 2 mg tablet 2 mg PO Q2-4H PRN 08/02/18 12/15/18 History losartan 25 mg tablet 25 mg PO QDAY 08/02/18 12/15/18 History nut.tx impaired renal function, 1 each PO .3xweekly 08/02/18 08/28/18 History soy oral liquid vitamin B complex-vitamin C-folic 1 tab PO QDAY 08/02/18 08/28/18 History acid 0.8 mg tablet Aspirin [Elias Chewable Aspirin] 81 mg PO DAILY 08/28/18 12/15/18 History Ketoconazole 2% Top Crm [Nizoral 1 dose TOPICAL DAILY #1 tube 08/30/18 12/15/18 Rx 2% Top Crm] Lactobacillus [Culturelle] 1 cap PO BID capsule 09/04/18 Rx Mupirocin Oint 2% [Bactroban Oint 1 dose TOPICAL BID #1 tube 09/04/18 Rx 2%] Rifampin 300 mg PO BID@0700,1999 #60 cap 09/04/18 Rx ceFAZolin [Ancef] 2 gm IV MoWe@1600 vial 09/04/18 Rx ceFAZolin [Ancef] 3 gm IV Fr@1600 vial 09/04/18 Rx lidocaine-prilocaine 2.5 %-2.5 % 1 applic TOPICAL .3x week #30 g 10/30/18 Rx topical cream furosemide 40 mg tablet 40 mg PO QDAY #30 tab 11/20/18 12/15/18 Rx Albuterol Sulfate [Proair Hfa] 1 - 2 puff IH Q4H 12/15/18 12/15/18 History Bisacodyl [Laxative Suppository] 10 mg RC PRN PRN 12/15/18 12/15/18 History Clopidogrel Bisulfate [Plavix] 75 mg PO DAILY 12/15/18 12/15/18 History Folic Acid/Vit Bcomp,C 0.8 mg PO DAILY 12/15/18 12/15/18 History [Nephro-Milagro Tablet] Niacinamide [Niacin] 500 mg PO DAILY 12/15/18 12/15/18 History Ondansetron [Zofran ODT] 4 mg SL Q6HP PRN 12/15/18 12/15/18 History Pravastatin [Pravachol] 40 mg PO DAILY 12/15/18 12/15/18 History Sennosides/Docusate Sodium [Cvs 1 each PO PRN PRN 12/15/18 12/15/18 History Stool Softener-Stim Lax Tb] Allergies Allergy/AdvReac Type Severity Reaction Status Date / Time codeine Allergy Intermediate Hives Verified 08/28/18 17:02 gemfibrozil [From Lopid] Allergy Intermediate Muscle Pain Verified 08/28/18 17:02 meperidine [From Demerol] Allergy Intermediate Hives Verified 08/28/18 17:02 ciprofloxacin [From Cipro] Allergy Mild Nausea Verified 08/28/18 17:02 Exam - Vital Signs Vital signs: Temp Pulse Resp BP Pulse Ox 100.1 F H 89 16 134/65 95 12/15/18 13:09 12/15/18 15:03 12/15/18 15:01 12/15/18 15:03 12/15/18 15:03 - General Appearance General appearance: appears started age, obese EENT: mucous membranes moist Neck: no JVD Respiratory: clear Cardiology: no rub, no edema, normal S1, normal S2 Gastrointestinal: no tenderness, no guarding Integumentary: warm and dry (has erythema, open wound in perineal area ) Neurologic: alert and oriented x3 Musculoskeletal: no erythema, no cyanosis Psychiatric: mood/affect appropriate Results - Lab Results 12/15/18 12:18 12/15/18 12:18 Most recent lab results Calcium 7.5 mg/dl (8.6-10.4) L 12/15/18 12:18 Assessment and Plan (1) Leukocytosis, unspecified Status: Acute Qualifiers: Leukocytosis type: leukemoid reaction Qualified Code(s): D72.823 - Leukemoid reaction (2) Anemia, chronic renal failure Status: Chronic (3) ESRD (end stage renal disease) on dialysis Status: Chronic Priority: Medium - Narrative A/P Narrative: Patient has no emergent need for ASSEMBLER ADJUSTER today but she will get IV contrast to further evaluate her GI symptoms and r/o possible abscess/track perineal area given her recent history of CHF will do HD to dialyse off the contrast tonight HD for 3 hrs using revaclear dialyser, [id number], qd 800ml/min, UF goal to dry weight, 3K/2.5ca dialysate will monitor for additional HD needs during hospital stay Anemia: chronic, will ct with weekly aranesp elevated white count with possible perineal infection and GI symptoms, further evaluation and management per hospitalist team will follow along
--- NOTE | 2018-12-15 18:30 | Cat Scan Report ---
CLINICAL INFORMATION: Elevated white blood cell count, fever and nausea COMPARISON: None. TECHNIQUE: Following enteric contrast, 80 cc of Isovue-300 were injected intravenously, and 60 seconds later, 0.625 mm helical slices were obtained from the mid heart through the subtrochanteric regions. Following reconstruction, 2.5 mm sagittal, coronal and axial reformatted images were processed and reviewed at bone, lung and soft tissue windows. Five minutes later, 0.625 mm helical slices were obtained from the mid heart through the kidneys and viewed at soft tissue windows.The exam was performed using radiation dose optimization techniques including, but not limited to, automated exposure control, adjustment of the mA and/or kV according to patient size and use of iterative reconstruction technique. FINDINGS: The heart is moderately enlarged with a small pericardial effusion. There is mild calcification in the mitral valve.. Lung bases show minor scattered scarring or atelectasis. Small left pleural effusion noted. Images through the abdomen show minimal fatty change of the liver, but no focal lesions. There are 2-3 small stones layering dependently within the gallbladder. The gallbladder and bile ducts are of otherwise normal colon CBD is 5 mm. There is a 16 mm low-attenuation lesion in the uncinate process of the pancreas is likely a cyst. A 6 mm simple appearing cyst in the anterior pancreatic body. Left kidney surgically absent. Mild atrophy of the right kidney noted with a 1 cm simple cyst inferior pole right kidney. Aorta including aortic branches and spleen are normal. No free air, free fluid or adenopathy. The stomach, small large bowel are unremarkable. Ceron catheter is properly positioned in the urinary bladder. There is no evidence of abscess in the left perineal region which was suspected physical exam. No free air, free fluid no adenopathy. A 2.2 cm periumbilical hernia and mesenteric fat. Bone windows show no acute osseous abnormality. IMPRESSION: 1. No evidence of perineal abscess or other source of infection. 2. Cholelithiasis. Gallbladder and bile ducts are otherwise normal 3. Small pericardial effusion 4. Small hiatal hernia 5. Small periumbilical hernia caning only mesenteric fat. 6. 17 mm low-attenuation lesion in the uncinate process of the pancreas and 6 mm low-attenuation lesion lesion in the anterior pancreatic neck. These are likely cysts. Consider abdominal MRI MRCP Interpreted and Authenticated by: Cristian Uriostegui 12/15/18
--- NOTE | 2018-12-15 18:41 | Internal Med History&Physical ---
Medical - H&P: [facility] Patient information: Note initiated : 12/15/18 at 6:33 pm Service Date, if different from initiated Date: [] Patient: Teri Olson a 68 y/o F admitted on for Nausea, Diarrhea, Fever. Chief Complaint: [] Chief complaint: Fever, diarrhea History of present illness: Ms. Olson is a 68 year old F with a history of diabetes/ESRD on hemodialysis who presents to the ER with profound weakness involving over the last week, fever, loss of appetite and not feeling well. She has had few episodes of diarrhea in the last 48 hours and also noted a boil at her bottom which has gradually increased in size with increasing tenderness and swelling. She complains of associated chills however denies body aches/nausea. Initial workup was consistent with severe sepsis with white count 31,300 on examination (area revealed induration with a central opening that started oozing pus when probed with a Q-tip) She underwent CT with contrast abdomen and pelvis did not show a definite abscesses. Hospitalist service is consulted with nephrology At time evaluation patient is alert oriented. She denies any active distress. Her pain is improved. She endorses to chills and sweats but denies abdominal pain, bloody stool, nausea vomiting, myalgia headache or photophobia. Review of systems 10 point review systems was performed and is negative except for as discussed above Medical - H&P: PM Medical history: Type 2 diabetes mellitus (Chronic) Hypertension, essential (Chronic) Anemia, chronic renal failure (Chronic) ESRD (end stage renal disease) on dialysis (Chronic) Renal osteodystrophy (Chronic) History of fracture (Resolved) Obesity (BMI 30-39.9) (Chronic) Self-care deficit for bathing and hygiene (Chronic) Asthma, chronic (Chronic) Anxiety, generalized (Chronic) History of gout (Chronic) Encounter for adjustment or management of vascular access device (Acute) Anxiety and depression (Chronic) Asthma (Chronic) CHF (congestive heart failure) (Chronic) Cellulitis, leg (Chronic) DM (diabetes mellitus), type 2 with peripheral vascular complications (Chronic) Gout (Chronic) Hallux valgus, acquired (Chronic) Hypercholesterolemia (Chronic) Hypertension (Chronic) Hypertensive heart and chronic kidney disease with heart failure and stage 1 through stage 4 chronic kidney disease, or chronic kidney disease (Chronic) Iron deficiency anemia (Chronic) Obesity (Chronic) Onychomycosis (Chronic) Open wound of right buttock (Chronic) Ovarian dysfunction, unspecified (Chronic) PVD (peripheral vascular disease) (Chronic) Paresthesia of both feet (Chronic) Peripheral edema (Chronic) Pneumonia due to other specified infectious organisms (Chronic) Pulmonary hypostasis (Chronic) RLS (restless legs syndrome) (Chronic) Renal failure (Chronic) Tinea pedis (Chronic) Pressure ulcer, buttock (Resolved) Past Surgical History H/O kidney removal (Acute) S/P bilateral breast reduction (Acute) Status post cataract extraction (Acute) Family History Mother Alzheimer's disease Father Malignant neoplasm of lung Glaucoma Social history: No history of smoking or alcoholism Medical - H&P: Meds Home Medications Medication Instructions Recorded Confirmed Type fluoxetine 20 mg capsule 20 mg PO QDAY 11/19/15 12/15/18 History acetaminophen 325 mg tablet 650 mg PO Q6HP PRN tab 08/02/18 12/15/18 History amlodipine 2.5 mg tablet 2.5 mg PO QDAY 08/02/18 12/15/18 History calcium carbonate 200 mg calcium 200 mg PO ONCE tab 08/02/18 12/15/18 History (500 mg) chewable tablet loperamide 2 mg tablet 2 mg PO Q2-4H PRN 08/02/18 12/15/18 History losartan 25 mg tablet 25 mg PO QDAY 08/02/18 12/15/18 History Aspirin [Elias Chewable Aspirin] 81 mg PO DAILY 08/28/18 12/15/18 History Ketoconazole 2% Top Crm [Nizoral 1 dose TOPICAL DAILY #1 tube 08/30/18 12/15/18 Rx 2% Top Crm] furosemide 40 mg tablet 40 mg PO QDAY #30 tab 11/20/18 12/15/18 Rx Albuterol Sulfate [Proair Hfa] 1 - 2 puff IH Q4H 12/15/18 12/15/18 History Bisacodyl [Laxative Suppository] 10 mg RC PRN PRN 12/15/18 12/15/18 History Clopidogrel Bisulfate [Plavix] 75 mg PO DAILY 12/15/18 12/15/18 History Folic Acid/Vit Bcomp,C 0.8 mg PO DAILY 12/15/18 12/15/18 History [Nephro-Milagro Tablet] Niacinamide [Niacin] 500 mg PO DAILY 12/15/18 12/15/18 History Ondansetron [Zofran ODT] 4 mg SL Q6HP PRN 12/15/18 12/15/18 History Pravastatin [Pravachol] 40 mg PO DAILY 12/15/18 12/15/18 History Sennosides/Docusate Sodium [Cvs 1 each PO PRN PRN 12/15/18 12/15/18 History Stool Softener-Stim Lax Tb] Allergies Allergy/AdvReac Type Severity Reaction Status Date / Time codeine Allergy Intermediate Hives Verified 08/28/18 17:02 gemfibrozil [From Lopid] Allergy Intermediate Muscle Pain Verified 08/28/18 17:02 meperidine [From Demerol] Allergy Intermediate Hives Verified 08/28/18 17:02 ciprofloxacin [From Cipro] Allergy Mild Nausea Verified 08/28/18 17:02 Medical - H&P: Exam - Constitutional Vitals: Temp Pulse Resp BP Pulse Ox 97.6 F 85 16 127/64 99 12/15/18 13:54 12/15/18 15:50 12/15/18 15:01 12/15/18 17:31 12/15/18 15:50 General appearance: morbidly obese Exam: Alert oriented Eye movements symmetrical oral cavity dry Noear-old nose Discharge head normocephalic neck lymphadenopathy S1 and S2 irregular rhythm Diminished breath sounds bases Abdomen soft Perineal examination significant induration/erythema S4 3 cm with central opening on the left lateral aspect of the anal orifice Skin otherwise is no suspicious lesion Psych alert cooperative Neuro nonfocal Medical - H&P: Reslt - Labs CBC & Chem 7: 12/16/18 04:00 12/16/18 04:00 Labs: Short CBC 12/15/18 Range/Units 12:18 WBC 31.9 H* (4.5-11.0) K/mcL Hgb 9.0 L (12.0-15.0) g/dL Hct 27.5 L (36.0-48.0) % Plt Count 356 (140-440) K/mcL BMP 12/15/18 12:18 Sodium 132 L Potassium 4.1 Chloride 92 L Carbon Dioxide 29 BUN 23 Creatinine 5.3 H* Glucose 100 Calcium 7.5 L Liver Function 12/15/18 Range/Units 12:18 Total Bilirubin 0.4 (0.0-1.0) mg/dL AST 14 (0-37) U/l ALT 7 (0-40) U/l Alkaline Phosphatase 104 (39-117) U/L Albumin 3.4 (3.2-5.2) gm/dL Urine 12/15/18 Range/Units 14:02 Urine Color Yellow Urine Appearance Hazy Urine pH 8.5 (5.0-9.0) Ur Specific [place] 1.020 (1.003-1.030) Urine Protein >=300 (NEG) mg/dL Urine Glucose (UA) 100 A (NEG) mg/dL Medical - H&P: A/P (1) Severe sepsis Current visit: Yes Status: Acute * Severe sepsis with leukemoid reaction- white count over 30,000. Source possibilities perineal cellulitis, however no evidence of fistula/pelvic abscess on CT. Surgery consult if inadequate response to antibiotic, initiate broad antibiotic coverage. Cultures pending, Gram stain GNR/GPC * Perineal cellulitis-empiric coverage for anaerobes/MRSA/gram negatives * Diarrhea-rule out C. difficile * Acute cystitis with pyuria-await cultures. Empiric antibiotic coverage * ESRD on hemodialysis-nephrology consult * History of hypertension gradually resume clonidine/amlodipine/valsartan once systolics over 120 * Anxiety disorder on fluoxetine * History of CAD on Plavix/statin/aspirin * Full code * Prophylaxis heparin Plan * Broad antibiotic coverage * Nephrology/surgery consult * Prior medical condition management as above * Inpatient telemetry admit, anticipate minimum 2 midnight stay in light of leukemoid reaction/ESRD on dialysis and high risk admission
[2018-12-15] MEDS ORDERED: ONDANSETRON 4 MG/2 ML VIAL IV PRN (19:12)
[2018-12-15] MEDS ORDERED: VANCOMYCIN PER PHARMACY IV ONE (19:12)
[2018-12-15] MEDS ORDERED: VANCOMYCIN 1,000 MG in 0.9 % SODIUM CHLORIDE 250 ML IV ONE (21:00)
[2018-12-15] MEDS: ACETAMINOPHEN 325 MG TABLET PO PRN (21:39)
[2018-12-15] MEDS: 0.9 % SODIUM CHLORIDE 10 ML SYRINGE IV SCH (22:08)
[2018-12-15] MEDS ORDERED: ACETAMINOPHEN 325 MG TABLET PO PRN (22:21)
[2018-12-15] MEDS ORDERED: LOPERAMIDE 2 MG CAPSULE PO PRN (22:21)
[2018-12-15] MEDS ORDERED: SENNOSIDES/DOCUSATE SODIUM 1 TAB TABLET PO PRN (22:21)
[2018-12-15] MEDS ORDERED: ONDANSETRON 4 MG ODT TABLET SL PRN (22:21)
[2018-12-15] MEDS ORDERED: CALCIUM CARBONATE 500 MG TAB.CHEW PO SCH (22:30)
[2018-12-16] MEDS: ALBUTEROL SULFATE 1 PUFF INHALER IH SCH ×6 (00:03→21:21)
[2018-12-16] MEDS: SENNOSIDES/DOCUSATE SODIUM 1 TAB TABLET PO SCH ×2 (00:05→21:20)
[2018-12-16] MEDS: DOCUSATE SODIUM 100 MG CAPSULE PO SCH ×3 (00:05→21:19)
[2018-12-16] MEDS: HEPARIN 5,000 UNIT/ML VIAL SQ SCH ×3 (00:05→20:50)
[2018-12-16] MEDS ORDERED: CALCIUM CARBONATE 500 MG TAB.CHEW ONE (00:06)
[2018-12-16] MEDS: PIPERACILLIN SODIUM/TAZOBACTAM 2.25 GM in DEXTROSE 5% IN WATER 50 ML IV SCH ×2 (00:07→09:16)
[2018-12-16 05:54] LABS: Mean Cell Volume 91.7 fL (80.0-100.0); Mean Corpuscular HGB Conc 32.6 g/dL (31.0-36.0); Platelet Count 312 K/mcL (140-440); RBC 2.97 M/mcL (4.00-5.20); Red Cell Distribution Width 14.9 % (11.5-14.5)
[2018-12-16 06:02] LABS: ALT/SGPT 7 U/l (0-40); Albumin 2.9 gm/dL (3.2-5.2); Albumin/Globulin Ratio 0.9 (1.0-2.3); Alkaline Phosphatase 115 U/L (39-117); Bilirubin,Direct < 0.2 mg/dL (0.0-0.3); Blood Urea Nitrogen 9 mg/dl (8-23); Gamma Glutamyl Transpeptidase 10 U/L (5-36); Uric Acid 2.4 mg/dL (2.5-8.0)
[2018-12-16] MEDS: 0.9 % SODIUM CHLORIDE 10 ML SYRINGE IV SCH ×3 (06:04→21:20)
[2018-12-16 06:24] LABS: Band Neutrophils % 11 % (0-10); Lymphocytes % 4 % (15-49); Monocytes % (Manual) 7 % (1-12); Platelet Estimate NORMAL (NORMAL); RBC Morphology ABNORM (NORMAL); Segmented Neutrophils % 75 % (38-78)
[2018-12-16] MEDS ORDERED: VANCOMYCIN PER PHARMACY IV SCH (07:30)
[2018-12-16] MEDS ORDERED: BISACODYL 10 MG SUPP.RECT PR PRN (07:30)
[2018-12-16] MEDS ORDERED: VANCOMYCIN ORAL SOL 1,000 MG/10 ML BOTTLE PO SCH (09:00)
[2018-12-16] MEDS: VANCOMYCIN ORAL SOL 1,000 MG/10 ML BOTTLE PO SCH ×4 (09:00→20:53)
[2018-12-16] MEDS: amLODIPine 5 MG TABLET PO SCH (09:11)
[2018-12-16] MEDS: MULTIVIT,THER IRON,CA,FA & MIN 1 TABLET PO SCH (09:11)
[2018-12-16] MEDS: CLOPIDOGREL 75 MG TABLET PO SCH (09:12)
[2018-12-16] MEDS: CALCIUM CARBONATE 500 MG TAB.CHEW PO SCH (09:12)
[2018-12-16] MEDS: FLUoxetine HCL 20 MG CAPSULE PO SCH (09:12)
[2018-12-16] MEDS: ASPIRIN 81 MG TAB.CHEW PO SCH (09:12)
[2018-12-16] MEDS: KETOCONAZOLE 2% TOP CRM 15GM TUBE TOPICAL SCH (09:13)
[2018-12-16] MEDS: FUROSEMIDE 40 MG TABLET PO SCH (09:20)
[2018-12-16] MEDS: FOLIC ACID/VITAMIN B COMP W-C 1 TAB TABLET PO SCH (09:20)
--- NOTE | 2018-12-16 10:49 | Internal Med Progress Note ---
Medical - PN: Subj Patient information: Note initiated : 12/16/18 at 10:45 am Service Date, if different from initiated Date: [] Patient: Teri Olson a 68 y/o F admitted on 12/15/18 for Nausea, Diarrhea, Fever. Chief Complaint: [] Interval history: Ms. Olson is a 68 year old F with a history of diabetes/ESRD on hemodialysis who presents to the ER with profound weakness involving over the last week, fever, loss of appetite and not feeling well. She has had few episodes of diarrhea in the last 48 hours and also noted a boil at her bottom which has gradually increased in size with increasing tenderness and swelling. She complains of associated chills however denies body aches/nausea. Initial workup was consistent with severe sepsis with white count 31,300 on examination (area revealed induration with a central opening that started oozing pus when probed with a Q-tip) She underwent CT with contrast abdomen and pelvis did not show a definite abscesses. /- patient doing well. However white count around 40,000, C. difficile positive, on vancomycin 500 every 6, diarrhea improved, underwent hemodialysis. De-escalate antibiotics. Perineal swelling and tenderness improving - Constitutional Vitals: Vital Signs Temp Pulse Resp BP Pulse Ox 99.6 F H 96 H 18 148/66 91 12/16/18 07:17 12/16/18 07:17 12/16/18 07:17 12/16/18 07:17 12/16/18 07:17 Period Temp Pulse Resp BP Sys/Barnard Pulse Ox Last 24 Hr 97.6 F-102 F 80-98 14-22 92-159/45-71 91-100 Intake and Output 12/15/18 12/16/18 12/16/18 21:59 05:59 13:59 Intake Total 290 240 50 Output Total 900 Balance 290 -660 50 Weight 169 lb Intake & Output: Intake & Output 12/15/18 12/16/18 12/16/18 21:59 05:59 13:59 Intake Total 290 240 50 Output Total 900 Balance 290 -660 50 Weight 169 lb Intake: IV 50 50 Zosyn 2.25 gm In Dextrose 5% in 50 Water 50 ml @ 100 mls/hr IV Q12H [facility] Rx#:[id number] Zosyn 3.375 gm In Dextrose 5% 50 in Water 50 ml @ 100 mls/hr IV ONCE ONE Rx#:[id number] Oral 240 240 Output: Hemodialysis UF 900 Other: Percent of Meal Consumed 100% Stool Size Large Large Stool Color Brown Yellow Green Stool Consistency Liquid Liquid # of times incontinent of 1 Bowels General appearance: no acute distress Exam: Nonlabored breathing No anxiety Resting comfortably No fever or telemetry events Medical - PN: Obj Da - Labs CBC & Chem 7: 12/16/18 04:00 12/16/18 04:00 Labs: Abnormal Lab Results 12/16/18 12/16/18 12/15/18 04:00 04:00 14:02 WBC 39.9 H* RBC 2.97 L Hgb 8.9 L Hct 27.2 L RDW 14.9 H MPV 6.5 L Gran % Lymph % (Auto) Gran # [place] # (Auto) Seg Neutrophils % Band Neutrophils % 11 H Lymphocytes % 4 L Reactive Lymphocytes 3 H RBC Morphology Abnorm A Polychromasia 1+ A Sodium Chloride 94 L Carbon Dioxide 31 H Creatinine 2.6 H Uric Acid 2.4 L Calcium 7.8 L Phosphorus 2.2 L C-Reactive Protein Albumin 2.9 L Albumin/Globulin Ratio 0.9 L Beta-Hydroxybutyrate Urine Glucose (UA) 100 A Urine Occult Blood Trace A Urine RBC 99 H Urine WBC > 182 H Urine Bacteria Mod A 12/15/18 12/15/18 12/15/18 12:18 12:18 12:18 WBC RBC Hgb Hct RDW MPV Gran % Lymph % (Auto) Gran # [place] # (Auto) Seg Neutrophils % 87 H Band Neutrophils % Lymphocytes % 4 L Reactive Lymphocytes 5 H RBC Morphology Polychromasia Sodium 132 L Chloride 92 L Carbon Dioxide Creatinine 5.3 H* Uric Acid Calcium 7.5 L Phosphorus C-Reactive Protein 9.3 H Albumin Albumin/Globulin Ratio Beta-Hydroxybutyrate 0.41 H Urine Glucose (UA) Urine Occult Blood Urine RBC Urine WBC Urine Bacteria 12/15/18 12:18 WBC 31.9 H* RBC 3.03 L Hgb 9.0 L Hct 27.5 L RDW 14.8 H MPV 6.2 L Gran % 85.6 H Lymph % (Auto) 6.6 L Gran # 27.3 H [place] # (Auto) 2.5 H Seg Neutrophils % Band Neutrophils % Lymphocytes % Reactive Lymphocytes RBC Morphology Polychromasia Sodium Chloride Carbon Dioxide Creatinine Uric Acid Calcium Phosphorus C-Reactive Protein Albumin Albumin/Globulin Ratio Beta-Hydroxybutyrate Urine Glucose (UA) Urine Occult Blood Urine RBC Urine WBC Urine Bacteria Meds: Medications Acetaminophen (Tylenol) 650 mg PO Q4-6HP PRN PRN Reason: PAIN/FEVER > 101 Last Admin: 12/15/18 21:39 Dose: 650 mg Documented by: Albuterol Sulfate (Ventolin) 1 - 2 puff IH Q4H [facility] Last Admin: 12/16/18 09:20 Dose: Not Given Documented by: Amlodipine Besylate (Norvasc) 2.5 mg PO DAILY [facility] Last Admin: 12/16/18 09:11 Dose: 2.5 mg Documented by: Aspirin (Aspirin) 81 mg PO DAILY [facility] Last Admin: 12/16/18 09:12 Dose: 81 mg Documented by: Bisacodyl (Dulcolax) 10 mg [place] DAILYP PRN PRN Reason: Constipation Calcium Carbonate/Glycine (Tums) 200 mg PO DAILY [facility] Last Admin: 12/16/18 09:12 Dose: 200 mg Documented by: Clopidogrel Bisulfate (Plavix) 75 mg PO DAILY [facility] Last Admin: 12/16/18 09:12 Dose: 75 mg Documented by: Docusate Sodium (Colace) 100 mg PO BID [facility] Last Admin: 12/16/18 09:13 Dose: Not Given Documented by: Fluoxetine HCl (Prozac) 20 mg PO QDAY [facility] Last Admin: 12/16/18 09:12 Dose: 20 mg Documented by: Furosemide (Lasix) 40 mg PO QDAY [facility] Last Admin: 12/16/18 09:20 Dose: 40 mg Documented by: Heparin Sodium (Porcine) (Heparin) 5,000 unit SQ Q12 [facility] Last Admin: 12/16/18 09:12 Dose: 5,000 unit Documented by: Piperacillin Sod/Tazobactam (Sod 2.25 gm/ Dextrose) 50 mls @ 100 mls/hr IV Q12H [facility] Last Admin: 12/16/18 09:16 Dose: 100 mls/hr Documented by: Iron Carb/Multivit/[place]/Folic Acid (Multivitamin W/Minerals) 1 tab PO DAILY [facility] Last Admin: 12/16/18 09:11 Dose: 1 tab Documented by: Ketoconazole (Nizoral 2% Top [facility]) 1 dose TOPICAL DAILY [facility] Last Admin: 12/16/18 09:13 Dose: Not Given Documented by: Loperamide HCl (Imodium) 2 mg PO Q2-4HP PRN PRN Reason: Diarrhea Multivit/Ca Carb/B Cmplx/FA/Prenat (Diatx) 1 tab PO DAILY [facility] Last Admin: 12/16/18 09:20 Dose: 1 tab Documented by: Niacin (Niacin) 500 mg PO [facility] Ondansetron HCl (Zofran) 4 mg IV Q4-6HP PRN PRN Reason: Nausea And Vomiting Last Admin: 12/15/18 22:07 Dose: 4 mg Documented by: Ondansetron HCl (Zofran Odt) 4 mg SL Q6HP PRN PRN Reason: Nausea Senna/Docusate Sodium (Senna Plus Tablet) 1 tab PO HS [facility] Last Admin: 12/16/18 00:05 Dose: Not Given Documented by: Simvastatin (Zocor) 20 mg PO [facility] Sodium Chloride (Saline Flush) 10 ml IV Q8 [facility] Last Admin: 12/16/18 06:04 Dose: 10 ml Documented by: Vancomycin HCl (Vancomycin Oral Brenna) 500 mg PO QID [facility] Last Admin: 12/16/18 09:00 Dose: 500 mg Documented by: Vancomycin HCl (Vancomycin Per Pharmacy) 1 order IV UD [facility] Medical - PN: A/P - Time Spent With Patient Total time spent is greater than 50% in coordination of care (as documented) at patient's floor/unit and/or counseling patient: 25 - 35 minutes (1) Severe sepsis Status: Acute Assessment and plan: * Severe sepsis with leukemoid reaction- white count 39,000. Likely secondary to C. difficile. Continue broad antibiotic coverage. Cultures pending, Gram stain GNR/GPC * Perineal cellulitis-empiric coverage for anaerobes/MRSA/gram negatives, wound surgery consulted. Start sitz bath, no evidence of fistula/pelvic abscess on CT. * Diarrhea-secondary to C. difficile. Continue vancomycin 500 every 6 * Acute cystitis with pyuria-await cultures. Continue antibiotic coverage * ESRD on hemodialysis-nephrology * History of hypertension - continue clonidine/amlodipine/valsartan with holding parameters * Anxiety disorder on fluoxetine * History of CAD on Plavix/statin/aspirin * Full code * Prophylaxis heparin Plan * De-escalate IV antibiotics * Continue oral vancomycin 506 hourly * Wound surgery consult * He would ask for nephrology * Prior medical condition management as above Current Visit: Yes Medical - PN: Qual - VTE Deep Vein Thrombosis/Pulmonary Embolism Present on Admission: No
--- NOTE | 2018-12-16 11:09 | General Surgery Consult Note ---
History of Present Illness Patient information: Note initiated : 12/16/18 at 11:03 am Service Date, if different from initiated Date: [] Patient: Teri Olson 68 y/o F admitted on 12/15/18 for Nausea, Diarrhea, Fever. Chief Complaint: [] Consult date: 12/16/18 Requesting physician: Jakob Campos (Wound Care. ) History of present illness: I saw this lady along with Mandy MARTINEZ in room 116 . Consulted for leucocytosis and boil / skin lesion around genitalia and perineal region. Patient is c diff positive Medications and Allergies Home Medications Medication Instructions Recorded Confirmed Type fluoxetine 20 mg capsule 20 mg PO QDAY 11/19/15 12/15/18 History acetaminophen 325 mg tablet 650 mg PO Q6HP PRN tab 08/02/18 12/15/18 History amlodipine 2.5 mg tablet 2.5 mg PO QDAY 08/02/18 12/15/18 History calcium carbonate 200 mg calcium 200 mg PO ONCE tab 08/02/18 12/15/18 History (500 mg) chewable tablet loperamide 2 mg tablet 2 mg PO Q2-4H PRN 08/02/18 12/15/18 History losartan 25 mg tablet 25 mg PO QDAY 08/02/18 12/15/18 History Aspirin [Elias Chewable Aspirin] 81 mg PO DAILY 08/28/18 12/15/18 History Ketoconazole 2% Top Crm [Nizoral 1 dose TOPICAL DAILY #1 tube 08/30/18 12/15/18 Rx 2% Top Crm] furosemide 40 mg tablet 40 mg PO QDAY #30 tab 11/20/18 12/15/18 Rx Albuterol Sulfate [Proair Hfa] 1 - 2 puff IH Q4H 12/15/18 12/15/18 History Bisacodyl [Laxative Suppository] 10 mg RC PRN PRN 12/15/18 12/15/18 History Clopidogrel Bisulfate [Plavix] 75 mg PO DAILY 12/15/18 12/15/18 History Folic Acid/Vit Bcomp,C 0.8 mg PO DAILY 12/15/18 12/15/18 History [Nephro-Milagro Tablet] Niacinamide [Niacin] 500 mg PO DAILY 12/15/18 12/15/18 History Ondansetron [Zofran ODT] 4 mg SL Q6HP PRN 12/15/18 12/15/18 History Pravastatin [Pravachol] 40 mg PO DAILY 12/15/18 12/15/18 History Sennosides/Docusate Sodium [Cvs 1 each PO PRN PRN 12/15/18 12/15/18 History Stool Softener-Stim Lax Tb] Allergies Allergy/AdvReac Type Severity Reaction Status Date / Time codeine Allergy Intermediate Hives Verified 08/28/18 17:02 gemfibrozil [From Lopid] Allergy Intermediate Muscle Pain Verified 08/28/18 17:02 meperidine [From Demerol] Allergy Intermediate Hives Verified 08/28/18 17:02 ciprofloxacin [From Cipro] Allergy Mild Nausea Verified 08/28/18 17:02 Exam Temp Pulse Resp BP Pulse Ox 99.6 F H 96 H 18 148/66 91 12/16/18 07:17 12/16/18 07:17 12/16/18 07:17 12/16/18 07:17 12/16/18 07:17 - General physical appearance well developed, well nourished, obese, other (Ambulating with walker and with PT. Ceron catheter draining clear urine.) - Eyes PERRL, normal ocular movement - ENT normal pinna, normal nares, normal mucosa, no congestion - Head Head exam IM: Present: atraumatic, normal inspection, normocephalic - Neck no masses, no bruits, trachea midline, no venous distension - Cardiovascular Cardiovascular exam IM: Present: normal rate and rhythm - Respiratory normal respiratory effort, clear to auscultation - Abdomen Abdomen: Present: soft, non tender, bowel sounds - Genitourinary Present: other (Inflammed Left labia and bartholinitis. Tender over inferior skin fold. NO fluctuance. Dry fecal matter. ) - Rectum Rectum: Present: normal sphincter tone, no bleeding, other (NO evidence of perianal fistula or abscess) - Integumentary Present: other (Local inflammation without fluctuance or suppuration of labia and inferior skin fold. Left > Right) - Neurologic Present: normal coordination (Ambulating well with walker) - Musculoskeletal Present: normal gait - Psychiatric Present: oriented to time, oriented to person, oriented to place, speech is no rmal Results - Labs 12/16/18 04:00 12/16/18 04:00 Abnormal lab results 12/15/18 12/15/18 12/15/18 Range/Units 12:18 12:18 12:18 WBC 31.9 H* (4.5-11.0) K/mcL RBC 3.03 L (4.00-5.20) M/mcL Hgb 9.0 L (12.0-15.0) g/dL Hct 27.5 L (36.0-48.0) % RDW 14.8 H (11.5-14.5) % MPV 6.2 L (7.4-10.4) fL Gran % 85.6 H (38.0-78.0) % Lymph % (Auto) 6.6 L (15.5-49.0) % Gran # 27.3 H (1.8-8.0) K/mcL [place] # (Auto) 2.5 H (0.1-0.9) K/mcL Seg Neutrophils % (38-78) % Band Neutrophils % (0-10) % Lymphocytes % (15-49) % Reactive Lymphocytes (0-2) % RBC Morphology (NORMAL) Polychromasia (NONE SEEN) Sodium 132 L (133-145) mmol/L Chloride 92 L (96-108) mmol/L Carbon Dioxide (22-30) mmol/L Creatinine 5.3 H* (0.6-1.1) mg/dl Uric Acid (2.5-8.0) mg/dL Calcium 7.5 L (8.6-10.4) mg/dl Phosphorus (2.7-4.5) mg/dL C-Reactive Protein 9.3 H (0.0-0.8) mg/dl Albumin (3.2-5.2) gm/dL Albumin/Globulin Ratio (1.0-2.3) Beta-Hydroxybutyrate 0.41 H (< 0.27) mmol/L Urine Glucose (UA) (NEG) mg/dL Urine Occult Blood (<5) jayna/mcL Urine RBC (0-1) /hpf Urine WBC (0-4) /hpf Urine Bacteria (0) /hpf 12/15/18 12/15/18 12/16/18 Range/Units 12:18 14:02 04:00 WBC 39.9 H* (4.5-11.0) K/mcL RBC 2.97 L (4.00-5.20) M/mcL Hgb 8.9 L (12.0-15.0) g/dL Hct 27.2 L (36.0-48.0) % RDW 14.9 H (11.5-14.5) % MPV 6.5 L (7.4-10.4) fL Gran % (38.0-78.0) % Lymph % (Auto) (15.5-49.0) % Gran # (1.8-8.0) K/mcL [place] # (Auto) (0.1-0.9) K/mcL Seg Neutrophils % 87 H (38-78) % Band Neutrophils % 11 H (0-10) % Lymphocytes % 4 L 4 L (15-49) % Reactive Lymphocytes 5 H 3 H (0-2) % RBC Morphology Abnorm A (NORMAL) Polychromasia 1+ A (NONE SEEN) Sodium (133-145) mmol/L Chloride (96-108) mmol/L Carbon Dioxide (22-30) mmol/L Creatinine (0.6-1.1) mg/dl Uric Acid (2.5-8.0) mg/dL Calcium (8.6-10.4) mg/dl Phosphorus (2.7-4.5) mg/dL C-Reactive Protein (0.0-0.8) mg/dl Albumin (3.2-5.2) gm/dL Albumin/Globulin Ratio (1.0-2.3) Beta-Hydroxybutyrate (< 0.27) mmol/L Urine Glucose (UA) 100 A (NEG) mg/dL Urine Occult Blood Trace A (<5) jayna/mcL Urine RBC 99 H (0-1) /hpf Urine WBC > 182 H (0-4) /hpf Urine Bacteria Mod A (0) /hpf 12/16/18 Range/Units 04:00 WBC (4.5-11.0) K/mcL RBC (4.00-5.20) M/mcL Hgb (12.0-15.0) g/dL Hct (36.0-48.0) % RDW (11.5-14.5) % MPV (7.4-10.4) fL Gran % (38.0-78.0) % Lymph % (Auto) (15.5-49.0) % Gran # (1.8-8.0) K/mcL [place] # (Auto) (0.1-0.9) K/mcL Seg Neutrophils % (38-78) % Band Neutrophils % (0-10) % Lymphocytes % (15-49) % Reactive Lymphocytes (0-2) % RBC Morphology (NORMAL) Polychromasia (NONE SEEN) Sodium (133-145) mmol/L Chloride 94 L (96-108) mmol/L Carbon Dioxide 31 H (22-30) mmol/L Creatinine 2.6 H (0.6-1.1) mg/dl Uric Acid 2.4 L (2.5-8.0) mg/dL Calcium 7.8 L (8.6-10.4) mg/dl Phosphorus 2.2 L (2.7-4.5) mg/dL C-Reactive Protein (0.0-0.8) mg/dl Albumin 2.9 L (3.2-5.2) gm/dL Albumin/Globulin Ratio 0.9 L (1.0-2.3) Beta-Hydroxybutyrate (< 0.27) mmol/L Urine Glucose (UA) (NEG) mg/dL Urine Occult Blood (<5) jayna/mcL Urine RBC (0-1) /hpf Urine WBC (0-4) /hpf Urine Bacteria (0) /hpf Diabetes panel 12/15/18 12/16/18 Range/Units 12:18 04:00 Sodium 132 L 135 (133-145) mmol/L Potassium 4.1 3.4 (3.3-5.1) mmol/L Chloride 92 L 94 L (96-108) mmol/L Carbon Dioxide 29 31 H (22-30) mmol/L BUN 23 9 (8-23) mg/dl Creatinine 5.3 H* 2.6 H (0.6-1.1) mg/dl Glucose 100 95 (70-105) mg/dL Calcium 7.5 L 7.8 L (8.6-10.4) mg/dl AST 14 17 (0-37) U/l ALT 7 7 (0-40) U/l Alkaline Phosphatase 104 115 (39-117) U/L Total Protein 6.3 6.0 (5.9-8.4) gm/dL Albumin 3.4 2.9 L (3.2-5.2) gm/dL Triglycerides 91 (<150) mg/dl Calcium panel 12/15/18 12/16/18 Range/Units 12:18 04:00 Calcium 7.5 L 7.8 L (8.6-10.4) mg/dl Phosphorus 2.2 L (2.7-4.5) mg/dL Albumin 3.4 2.9 L (3.2-5.2) gm/dL Pituitary panel 12/15/18 12/16/18 Range/Units 12:18 04:00 Sodium 132 L 135 (133-145) mmol/L Potassium 4.1 3.4 (3.3-5.1) mmol/L Chloride 92 L 94 L (96-108) mmol/L Carbon Dioxide 29 31 H (22-30) mmol/L BUN 23 9 (8-23) mg/dl Creatinine 5.3 H* 2.6 H (0.6-1.1) mg/dl Glucose 100 95 (70-105) mg/dL Calcium 7.5 L 7.8 L (8.6-10.4) mg/dl Adrenal panel 12/15/18 12/16/18 Range/Units 12:18 04:00 Sodium 132 L 135 (133-145) mmol/L Potassium 4.1 3.4 (3.3-5.1) mmol/L Chloride 92 L 94 L (96-108) mmol/L Carbon Dioxide 29 31 H (22-30) mmol/L BUN 23 9 (8-23) mg/dl Creatinine 5.3 H* 2.6 H (0.6-1.1) mg/dl Glucose 100 95 (70-105) mg/dL Calcium 7.5 L 7.8 L (8.6-10.4) mg/dl Total Bilirubin 0.4 0.4 (0.0-1.0) mg/dL AST 14 17 (0-37) U/l ALT 7 7 (0-40) U/l Alkaline Phosphatase 104 115 (39-117) U/L Total Protein 6.3 6.0 (5.9-8.4) gm/dL Albumin 3.4 2.9 L (3.2-5.2) gm/dL All other labs normal. Assessment and Plan (1) Bartholinitis Status: Acute Priority: Medium Comment: See wound care [place] (2) Severe sepsis Status: Acute Priority: Medium Comment: See wound care orders. OTHER causes of leucocytosis to be evaluated and treated as appropriate.
[2018-12-16] MEDS: BACITRACIN TOPICAL OINT 15 GM TUBE TOPICAL SCH ×2 (15:32→20:53)
[2018-12-16] MEDS: NIACIN 250 MG CAP.SR.12H PO SCH (20:48)
[2018-12-16] MEDS: SIMVASTATIN 20 MG TABLET PO SCH (20:52)
[2018-12-17] MEDS: ALBUTEROL SULFATE 1 PUFF INHALER IH SCH ×6 (00:31→20:18)
[2018-12-17 05:21] LABS: Mean Cell Volume 92.3 fL (80.0-100.0); Mean Corpuscular HGB Conc 32.6 g/dL (31.0-36.0); Platelet Count 308 K/mcL (140-440); RBC 2.83 M/mcL (4.00-5.20); Red Cell Distribution Width 15.3 % (11.5-14.5)
[2018-12-17] MEDS: 0.9 % SODIUM CHLORIDE 10 ML SYRINGE IV SCH ×3 (05:23→22:15)
[2018-12-17 05:35] LABS: ALT/SGPT 8 U/l (0-40); Albumin 2.6 gm/dL (3.2-5.2); Albumin/Globulin Ratio 0.8 (1.0-2.3); Alkaline Phosphatase 132 U/L (39-117); Bilirubin,Direct < 0.2 mg/dL (0.0-0.3); Blood Urea Nitrogen 25 mg/dl (8-23); Gamma Glutamyl Transpeptidase 10 U/L (5-36); Uric Acid 4.6 mg/dL (2.5-8.0)
[2018-12-17 05:52] LABS: Eosinophils % (Manual) 3 % (0-7); Lymphocytes % 6 % (15-49); Monocytes % (Manual) 6 % (1-12); Platelet Estimate NORMAL (NORMAL); RBC Morphology NORMAL (NORMAL); Segmented Neutrophils % 85 % (38-78)
[2018-12-17] MEDS: KETOCONAZOLE 2% TOP CRM 15GM TUBE TOPICAL SCH (08:49)
[2018-12-17] MEDS: VANCOMYCIN ORAL SOL 1,000 MG/10 ML BOTTLE PO SCH ×4 (08:50→20:21)
[2018-12-17] MEDS: BACITRACIN TOPICAL OINT 15 GM TUBE TOPICAL SCH ×3 (08:50→20:20)
[2018-12-17] MEDS: amLODIPine 5 MG TABLET PO SCH (08:55)
[2018-12-17] MEDS: CLOPIDOGREL 75 MG TABLET PO SCH (08:55)
[2018-12-17] MEDS: FOLIC ACID/VITAMIN B COMP W-C 1 TAB TABLET PO SCH (08:55)
[2018-12-17] MEDS: FUROSEMIDE 40 MG TABLET PO SCH (08:55)
[2018-12-17] MEDS: FLUoxetine HCL 20 MG CAPSULE PO SCH (08:55)
[2018-12-17] MEDS: CALCIUM CARBONATE 500 MG TAB.CHEW PO SCH (08:56)
[2018-12-17] MEDS: HEPARIN 5,000 UNIT/ML VIAL SQ SCH ×2 (08:56→20:17)
[2018-12-17] MEDS: MULTIVIT,THER IRON,CA,FA & MIN 1 TABLET PO SCH (08:56)
[2018-12-17] MEDS: ASPIRIN 81 MG TAB.CHEW PO SCH (08:56)
[2018-12-17] MEDS: DOCUSATE SODIUM 100 MG CAPSULE PO SCH ×2 (08:57→20:21)
--- NOTE | 2018-12-17 09:09 | Internal Med Progress Note ---
Medical - PN: Subj Patient information: Note initiated : 12/17/18 at 9:06 am Service Date, if different from initiated Date: [] Patient: Teri Olson a 68 y/o F admitted on 12/15/18 for Nausea, Diarrhea, Fever. Chief Complaint: [] Interval history: Ms. Olson is a 68 year old F with a history of diabetes/ESRD on hemodialysis who presents to the ER with profound weakness involving over the last week, fever, loss of appetite and not feeling well. She has had few episodes of diarrhea in the last 48 hours and also noted a boil at her bottom which has gradually increased in size with increasing tenderness and swelling. She complains of associated chills however denies body aches/nausea. Initial workup was consistent with severe sepsis with white count 31,300 on examination (area revealed induration with a central opening that started oozing pus when probed with a Q-tip) She underwent CT with contrast abdomen and pelvis did not show a definite abscesses. 3/- patient doing well. However white count around 40,000, C. difficile positive, on vancomycin 500 every 6, diarrhea improved, underwent hemodialysis. De-escalate antibiotics. Perineal swelling and tenderness improving 3/3-patient clinically improving. White count 32.6. Wound surgeon consulted. Wound care recommendations discontinue antibiotics. On oral vancomycin for C. difficile. Clinically improving. Tolerating diet. Ongoing physical therapy. Ongoing hemodialysis. No concerns per staff. No overnight events - Constitutional Vitals: Vital Signs Temp Pulse Resp BP Pulse Ox 98.2 F 83 16 121/59 92 12/17/18 04:00 12/17/18 04:00 12/17/18 04:00 12/17/18 04:00 12/17/18 04:00 Period Temp Pulse Resp BP Sys/Barnard Pulse Ox Last 24 Hr 98.2 F-99.6 F 78-89 16-18 121-140/51-66 92-97 Intake and Output 12/16/18 12/17/18 12/17/18 21:59 05:59 13:59 Intake Total 480 Output Total 50 Balance 430 Weight 154 lb Intake & Output: Intake & Output 12/16/18 12/17/18 12/17/18 21:59 05:59 13:59 Intake Total 480 Output Total 50 Balance 430 Weight 154 lb Intake: Oral 480 Output: Urine Catheter Amount 50 Other: Meal Dinner Urine Appearance Cloudy Sediment Uretheral (Ceron) Clear Urine Color Straw Uretheral (Ceron) Straw Stool Color Brown Black Stool Consistency Loose # Bowel Movements 1 1 General appearance: no acute distress Exam: alerta and oriented Non albored breathing CTAB No anxiety No telemetry events Medical - PN: Obj Da - Labs CBC & Chem 7: 12/17/18 03:51 12/17/18 03:51 Labs: Abnormal Lab Results 12/17/18 12/17/18 12/16/18 03:51 03:51 04:00 WBC 32.6 H* RBC 2.83 L Hgb 8.5 L Hct 26.1 L RDW 15.3 H MPV 6.6 L Gran % Lymph % (Auto) Gran # [place] # (Auto) Seg Neutrophils % 85 H Band Neutrophils % Lymphocytes % 6 L Reactive Lymphocytes RBC Morphology Polychromasia Sodium Chloride 94 L Carbon Dioxide 31 H BUN 25 H Creatinine 4.3 H 2.6 H Uric Acid 2.4 L Calcium 7.2 L 7.8 L Phosphorus 2.2 L Alkaline Phosphatase 132 H C-Reactive Protein Total Protein 5.8 L Albumin 2.6 L 2.9 L Albumin/Globulin Ratio 0.8 L 0.9 L Beta-Hydroxybutyrate Urine Glucose (UA) Urine Occult Blood Urine RBC Urine WBC Urine Bacteria 12/16/18 12/15/18 12/15/18 04:00 14:02 12:18 WBC 39.9 H* RBC 2.97 L Hgb 8.9 L Hct 27.2 L RDW 14.9 H MPV 6.5 L Gran % Lymph % (Auto) Gran # [place] # (Auto) Seg Neutrophils % 87 H Band Neutrophils % 11 H Lymphocytes % 4 L 4 L Reactive Lymphocytes 3 H 5 H RBC Morphology Abnorm A Polychromasia 1+ A Sodium Chloride Carbon Dioxide BUN Creatinine Uric Acid Calcium Phosphorus Alkaline Phosphatase C-Reactive Protein Total Protein Albumin Albumin/Globulin Ratio Beta-Hydroxybutyrate Urine Glucose (UA) 100 A Urine Occult Blood Trace A Urine RBC 99 H Urine WBC > 182 H Urine Bacteria Mod A 12/15/18 12/15/18 12/15/18 12:18 12:18 12:18 WBC 31.9 H* RBC 3.03 L Hgb 9.0 L Hct 27.5 L RDW 14.8 H MPV 6.2 L Gran % 85.6 H Lymph % (Auto) 6.6 L Gran # 27.3 H [place] # (Auto) 2.5 H Seg Neutrophils % Band Neutrophils % Lymphocytes % Reactive Lymphocytes RBC Morphology Polychromasia Sodium 132 L Chloride 92 L Carbon Dioxide BUN Creatinine 5.3 H* Uric Acid Calcium 7.5 L Phosphorus Alkaline Phosphatase C-Reactive Protein 9.3 H Total Protein Albumin Albumin/Globulin Ratio Beta-Hydroxybutyrate 0.41 H Urine Glucose (UA) Urine Occult Blood Urine RBC Urine WBC Urine Bacteria Meds: Medications Acetaminophen (Tylenol) 650 mg PO Q4-6HP PRN PRN Reason: PAIN/FEVER > 101 Last Admin: 12/15/18 21:39 Dose: 650 mg Documented by: Albuterol Sulfate (Ventolin) 1 - 2 puff IH Q4H [facility] Last Admin: 12/17/18 08:49 Dose: Not Given Documented by: Amlodipine Besylate (Norvasc) 2.5 mg PO DAILY [facility] Last Admin: 12/17/18 08:55 Dose: 2.5 mg Documented by: Aspirin (Aspirin) 81 mg PO DAILY [facility] Last Admin: 12/17/18 08:56 Dose: 81 mg Documented by: Bacitracin (Bacitracin Topical Oint) 1 dose TOPICAL TID [facility] Last Admin: 12/17/18 08:50 Dose: 1 dose Documented by: Bisacodyl (Dulcolax) 10 mg [place] DAILYP PRN PRN Reason: Constipation Calcium Carbonate/Glycine (Tums) 200 mg PO DAILY [facility] Last Admin: 12/17/18 08:56 Dose: 200 mg Documented by: Clopidogrel Bisulfate (Plavix) 75 mg PO DAILY [facility] Last Admin: 12/17/18 08:55 Dose: 75 mg Documented by: Docusate Sodium (Colace) 100 mg PO BID [facility] Last Admin: 12/17/18 08:57 Dose: Not Given Documented by: Fluoxetine HCl (Prozac) 20 mg PO QDAY [facility] Last Admin: 12/17/18 08:55 Dose: 20 mg Documented by: Furosemide (Lasix) 40 mg PO QDAY [facility] Last Admin: 12/17/18 08:55 Dose: 40 mg Documented by: Heparin Sodium (Porcine) (Heparin) 5,000 unit SQ Q12 [facility] Last Admin: 12/17/18 08:56 Dose: 5,000 unit Documented by: Iron Carb/Multivit/[place]/Folic Acid (Multivitamin W/Minerals) 1 tab PO DAILY [facility] Last Admin: 12/17/18 08:56 Dose: 1 tab Documented by: Ketoconazole (Nizoral 2% Top Crm) 1 dose TOPICAL DAILY [facility] Last Admin: 12/17/18 08:49 Dose: Not Given Documented by: Loperamide HCl (Imodium) 2 mg PO Q2-4HP PRN PRN Reason: Diarrhea Multivit/Ca Carb/B Cmplx/FA/Prenat (Diatx) 1 tab PO DAILY [facility] Last Admin: 12/17/18 08:55 Dose: 1 tab Documented by: Niacin (Niacin) 500 mg PO [facility] Last Admin: 12/16/18 20:48 Dose: 500 mg Documented by: Ondansetron HCl (Zofran) 4 mg IV Q4-6HP PRN PRN Reason: Nausea And Vomiting Last Admin: 12/15/18 22:07 Dose: 4 mg Documented by: Ondansetron HCl (Zofran Odt) 4 mg SL Q6HP PRN PRN Reason: Nausea Senna/Docusate Sodium (Senna Plus Tablet) 1 tab PO [facility] Last Admin: 12/16/18 21:20 Dose: Not Given Documented by: Simvastatin (Zocor) 20 mg PO [facility] Last Admin: 12/16/18 20:52 Dose: 20 mg Documented by: Sodium Chloride (Saline Flush) 10 ml IV Q8 [facility] Last Admin: 12/17/18 05:23 Dose: 10 ml Documented by: Vancomycin HCl (Vancomycin Oral Brenna) 500 mg PO QID [facility] Last Admin: 12/17/18 08:50 Dose: 500 mg Documented by: Medical - PN: A/P - Time Spent With Patient Total time spent is greater than 50% in coordination of care (as documented) at patient's floor/unit and/or counseling patient: 25 - 35 minutes (1) Severe sepsis Problem details: See wound care orders. OTHER causes of leucocytosis to be evaluated and treated as appropriate. Status: Acute Assessment and plan: * Severe sepsis with leukemoid reaction- white count trending down now at 32.6 secondary to C. difficile. Continue oral vancomycin. * Perineal cellulitis/Bartholin cyst-wound care ongoing/sitz bath. DC IV antibiotics no evidence of fistula/pelvic abscess on CT. * Diarrhea-secondary to C. difficile. Platelet improved * Acute cystitis with pyuria-await cultures. Off antibiotics * ESRD on hemodialysis-managed by nephrology * History of hypertension - continue clonidine/amlodipine/valsartan with holding parameters * Anxiety disorder on fluoxetine * History of CAD on Plavix/statin/aspirin * Full code * Prophylaxis heparin Plan * Continue oral vancomycin * Wound care/sitz bath * Hemodialysis per nephrology * Prior medical condition management as above Current Visit: Yes Medical - PN: Qual - VTE Deep Vein Thrombosis/Pulmonary Embolism Present on Admission: No
--- NOTE | 2018-12-17 17:54 | General Surgery Progress Note ---
Subjective Narrative: Note initiated : 12/17/18 at 5:52 pm Service Date, if different from initiated Date: [] Patient: Teri Olson 68 y/o F admitted on 12/15/18 for Nausea, Diarrhea, Fever. Chief Complaint: [] Patient seen. Progress reviewed with Caitlyn RN. No concerns per staff and patient. Denies External Genital and perineal pain and discomfort. Getting Sitz baths and topical bacitracin ointment as ordered. Objective Temp Pulse Resp BP Pulse Ox 99.5 F H 80 20 141/54 100 12/17/18 16:00 12/17/18 08:00 12/17/18 16:00 12/17/18 16:00 12/17/18 16:00 AVSS, No changes EMIR. Will review wound with wound nurse tomorrow AM - Additional Data Intake & Output - Last 24 hours: Intake & Output 12/15/18 12/16/18 12/17/18 12/18/18 05:59 05:59 05:59 05:59 Intake Total 530 770 700 Output Total 900 50 50 Balance -370 720 650 Weight 169 lb 154 lb - Labs 12/17/18 03:51 12/17/18 03:51 Diabetes panel 12/17/18 Range/Units 03:51 Sodium 136 (133-145) mmol/L Potassium 3.4 (3.3-5.1) mmol/L Chloride 96 (96-108) mmol/L Carbon Dioxide 27 (22-30) mmol/L BUN 25 H (8-23) mg/dl Creatinine 4.3 H (0.6-1.1) mg/dl Glucose 79 (70-105) mg/dL Calcium 7.2 L (8.6-10.4) mg/dl AST 18 (0-37) U/l ALT 8 (0-40) U/l Alkaline Phosphatase 132 H (39-117) U/L Total Protein 5.8 L (5.9-8.4) gm/dL Albumin 2.6 L (3.2-5.2) gm/dL Triglycerides 101 (<150) mg/dl Calcium panel 12/17/18 Range/Units 03:51 Calcium 7.2 L (8.6-10.4) mg/dl Phosphorus 3.3 (2.7-4.5) mg/dL Albumin 2.6 L (3.2-5.2) gm/dL Pituitary panel 12/17/18 Range/Units 03:51 Sodium 136 (133-145) mmol/L Potassium 3.4 (3.3-5.1) mmol/L Chloride 96 (96-108) mmol/L Carbon Dioxide 27 (22-30) mmol/L BUN 25 H (8-23) mg/dl Creatinine 4.3 H (0.6-1.1) mg/dl Glucose 79 (70-105) mg/dL Calcium 7.2 L (8.6-10.4) mg/dl Adrenal panel 12/17/18 Range/Units 03:51 Sodium 136 (133-145) mmol/L Potassium 3.4 (3.3-5.1) mmol/L Chloride 96 (96-108) mmol/L Carbon Dioxide 27 (22-30) mmol/L BUN 25 H (8-23) mg/dl Creatinine 4.3 H (0.6-1.1) mg/dl Glucose 79 (70-105) mg/dL Calcium 7.2 L (8.6-10.4) mg/dl Total Bilirubin 0.2 (0.0-1.0) mg/dL AST 18 (0-37) U/l ALT 8 (0-40) U/l Alkaline Phosphatase 132 H (39-117) U/L Total Protein 5.8 L (5.9-8.4) gm/dL Albumin 2.6 L (3.2-5.2) gm/dL Assessment and Plan (1) Bartholinitis Problem details: See wound care ordeers Status: Acute Current Visit: Yes (2) Severe sepsis Problem details: See wound care orders. OTHER causes of leucocytosis to be evaluated and treated as appropriate. Status: Acute Current Visit: Yes - Time Spent With Patient Total time spent is greater than 50% in coordination of care (as documented) at patient's floor/unit and/or counseling patient: Assessment: No acute developments. Progressing well. Plan: Continue current wound care treatment. less than 15 minutes
[2018-12-17] MEDS: ACETAMINOPHEN 325 MG TABLET PO PRN (20:17)
[2018-12-17] MEDS: SIMVASTATIN 20 MG TABLET PO SCH (20:17)
[2018-12-17] MEDS: NIACIN 250 MG CAP.SR.12H PO SCH (20:17)
[2018-12-17] MEDS: SENNOSIDES/DOCUSATE SODIUM 1 TAB TABLET PO SCH (20:21)
[2018-12-18] MEDS: ALBUTEROL SULFATE 1 PUFF INHALER IH SCH ×5 (00:19→15:52)
[2018-12-18] MEDS ORDERED: POTASSIUM CHLORIDE 20 MEQ PACKET PO ONE (01:30)
[2018-12-18] MEDS ORDERED: METOPROLOL TARTRATE 5 MG/5 ML VIAL IV ONE (01:33)
[2018-12-18] MEDS ORDERED: POTASSIUM CHLORIDE 20 MEQ PACKET ONE (01:33)
[2018-12-18] MEDS ORDERED: METOPROLOL TARTRATE 25 MG TABLET ONE (01:33)
[2018-12-18] MEDS: METOPROLOL TARTRATE 25 MG TABLET PO SCH ×3 (01:37→20:32)
[2018-12-18] MEDS: METOPROLOL TARTRATE 5 MG/5 ML VIAL IV SCH (02:30)
[2018-12-18 05:15] LABS: Mean Cell Volume 92.2 fL (80.0-100.0); Mean Corpuscular HGB Conc 32.2 g/dL (31.0-36.0); Platelet Count 326 K/mcL (140-440); RBC 2.93 M/mcL (4.00-5.20); Red Cell Distribution Width 14.9 % (11.5-14.5)
[2018-12-18] MEDS: 0.9 % SODIUM CHLORIDE 10 ML SYRINGE IV SCH ×3 (05:28→22:00)
[2018-12-18 06:06] LABS: ALT/SGPT 10 U/l (0-40); Albumin 2.4 gm/dL (3.2-5.2); Albumin/Globulin Ratio 0.7 (1.0-2.3); Alkaline Phosphatase 146 U/L (39-117); Bilirubin,Direct < 0.2 mg/dL (0.0-0.3); Blood Urea Nitrogen 28 mg/dl (8-23); Gamma Glutamyl Transpeptidase 12 U/L (5-36); Uric Acid 6.6 mg/dL (2.5-8.0)
[2018-12-18 06:26] LABS: Band Neutrophils % 4 % (0-10); Eosinophils % (Manual) 2 % (0-7); Lymphocytes % 13 % (15-49); Monocytes % (Manual) 4 % (1-12); Platelet Estimate NORMAL (NORMAL); RBC Morphology NORMAL (NORMAL); Segmented Neutrophils % 77 % (38-78)
--- NOTE | 2018-12-18 09:06 | Internal Med Progress Note ---
Medical - PN: Subj Patient information: Note initiated : 12/18/18 at 9:03 am Service Date, if different from initiated Date: [] Patient: Teri Olson a 68 y/o F admitted on 12/15/18 for Nausea, Diarrhea, Fever. Chief Complaint: [] Interval history: Ms. Olson is a 68 year old F with a history of diabetes/ESRD on hemodialysis who presents to the ER with profound weakness involving over the last week, fever, loss of appetite and not feeling well. She has had few episodes of diarrhea in the last 48 hours and also noted a boil at her bottom which has gradually increased in size with increasing tenderness and swelling. She complains of associated chills however denies body aches/nausea. Initial workup was consistent with severe sepsis with white count 31,300 on examination (area revealed induration with a central opening that started oozing pus when probed with a Q-tip) She underwent CT with contrast abdomen and pelvis did not show a definite abscesses. 3/2- patient doing well. However white count around 40,000, C. difficile positive, on vancomycin 500 every 6, diarrhea improved, underwent hemodialysis. De-escalate antibiotics. Perineal swelling and tenderness improving 3/3-patient clinically improving. White count 32.6. Wound surgeon consulted. Wound care recommendations discontinue antibiotics. On oral vancomycin for C. difficile. Clinically improving. Tolerating diet. Ongoing physical therapy. Ongoing hemodialysis. No concerns per staff. No overnight events 3/4-MAXIMUM TEMPERATURE 103, overnight intermittent atrial tachycardia started on beta blu, white count downtrending from 39.9-19.7. IV antibiotics continue. Surgery on board. Improved perineal cellulitis. Resolved. Tolerating diet. Ongoing hemodialysis per nephrology. - Constitutional Vitals: Vital Signs Temp Pulse Resp BP Pulse Ox 98.1 F 75 18 134/49 91 12/18/18 07:21 12/18/18 07:21 12/18/18 07:21 12/18/18 07:21 12/18/18 07:21 Period Temp Pulse Resp BP Sys/Barnard Pulse Ox Last 24 Hr 97.5 F-103.0 F 71-86 1-20 121-147/44-76 91-100 Intake and Output 12/17/18 12/18/18 12/18/18 21:59 05:59 13:59 Intake Total 580 200 Output Total 50 50 Balance 530 150 Weight 178 lb 1.6 oz Intake & Output: Intake & Output 12/17/18 12/18/18 12/18/18 21:59 05:59 13:59 Intake Total 580 200 Output Total 50 50 Balance 530 150 Weight 178 lb 1.6 oz Intake: Oral 580 200 Output: Urine Catheter Amount 50 50 Other: Meal Dinner Percent of Meal Consumed 25% Feeding Ability Independent Urine Appearance Clear Cloudy Uretheral (Ceron) Clear Urine Color Dark Yellow Straw Light Yuly Uretheral (Ceron) Straw Urine Odor Normal # Voids 1 # Bowel Movements 2 General appearance: no acute distress Exam: Resting comfortably Nonlabored breathing Intermittent A. fib tachycardia on telemetry No anxiety Medical - PN: Obj Da - Labs CBC & Chem 7: 12/18/18 03:41 12/18/18 03:41 Labs: Abnormal Lab Results 12/18/18 12/18/18 12/17/18 03:41 03:41 03:51 WBC 19.7 H RBC 2.93 L Hgb 8.7 L Hct 27.0 L RDW 14.9 H MPV 6.6 L Gran % Lymph % (Auto) Gran # [place] # (Auto) Seg Neutrophils % Band Neutrophils % Lymphocytes % 13 L Reactive Lymphocytes RBC Morphology Polychromasia Sodium Chloride Carbon Dioxide BUN 28 H 25 H Creatinine 5.8 H* 4.3 H Uric Acid Calcium 7.4 L 7.2 L Phosphorus Alkaline Phosphatase 146 H 132 H Lactate Dehydrogenase 347 H C-Reactive Protein Total Protein 5.8 L Albumin 2.4 L 2.6 L Albumin/Globulin Ratio 0.7 L 0.8 L Beta-Hydroxybutyrate Urine Glucose (UA) Urine Occult Blood Urine RBC Urine WBC Urine Bacteria 12/17/18 12/16/18 12/16/18 03:51 04:00 04:00 WBC 32.6 H* 39.9 H* RBC 2.83 L 2.97 L Hgb 8.5 L 8.9 L Hct 26.1 L 27.2 L RDW 15.3 H 14.9 H MPV 6.6 L 6.5 L Gran % Lymph % (Auto) Gran # [place] # (Auto) Seg Neutrophils % 85 H Band Neutrophils % 11 H Lymphocytes % 6 L 4 L Reactive Lymphocytes 3 H RBC Morphology Abnorm A Polychromasia 1+ A Sodium Chloride 94 L Carbon Dioxide 31 H BUN Creatinine 2.6 H Uric Acid 2.4 L Calcium 7.8 L Phosphorus 2.2 L Alkaline Phosphatase Lactate Dehydrogenase C-Reactive Protein Total Protein Albumin 2.9 L Albumin/Globulin Ratio 0.9 L Beta-Hydroxybutyrate Urine Glucose (UA) Urine Occult Blood Urine RBC Urine WBC Urine Bacteria 12/15/18 12/15/18 12/15/18 14:02 12:18 12:18 WBC RBC Hgb Hct RDW MPV Gran % Lymph % (Auto) Gran # [place] # (Auto) Seg Neutrophils % 87 H Band Neutrophils % Lymphocytes % 4 L Reactive Lymphocytes 5 H RBC Morphology Polychromasia Sodium Chloride Carbon Dioxide BUN Creatinine Uric Acid Calcium Phosphorus Alkaline Phosphatase Lactate Dehydrogenase C-Reactive Protein Total Protein Albumin Albumin/Globulin Ratio Beta-Hydroxybutyrate 0.41 H Urine Glucose (UA) 100 A Urine Occult Blood Trace A Urine RBC 99 H Urine WBC > 182 H Urine Bacteria Mod A 12/15/18 12/15/18 12:18 12:18 WBC 31.9 H* RBC 3.03 L Hgb 9.0 L Hct 27.5 L RDW 14.8 H MPV 6.2 L Gran % 85.6 H Lymph % (Auto) 6.6 L Gran # 27.3 H [place] # (Auto) 2.5 H Seg Neutrophils % Band Neutrophils % Lymphocytes % Reactive Lymphocytes RBC Morphology Polychromasia Sodium 132 L Chloride 92 L Carbon Dioxide BUN Creatinine 5.3 H* Uric Acid Calcium 7.5 L Phosphorus Alkaline Phosphatase Lactate Dehydrogenase C-Reactive Protein 9.3 H Total Protein Albumin Albumin/Globulin Ratio Beta-Hydroxybutyrate Urine Glucose (UA) Urine Occult Blood Urine RBC Urine WBC Urine Bacteria Meds: Medications Acetaminophen (Tylenol) 650 mg PO Q4-6HP PRN PRN Reason: PAIN/FEVER > 101 Last Admin: 12/17/18 20:17 Dose: 650 mg Documented by: Albuterol Sulfate (Ventolin) 1 - 2 puff IH Q4H [facility] Last Admin: 12/18/18 05:28 Dose: Not Given Documented by: Amlodipine Besylate (Norvasc) 2.5 mg PO DAILY [facility] Last Admin: 12/17/18 08:55 Dose: 2.5 mg Documented by: Aspirin (Aspirin) 81 mg PO DAILY [facility] Last Admin: 12/17/18 08:56 Dose: 81 mg Documented by: Bacitracin (Bacitracin Topical Oint) 1 dose TOPICAL TID [facility] Last Admin: 12/17/18 20:20 Dose: 1 dose Documented by: Bisacodyl (Dulcolax) 10 mg [place] DAILYP PRN PRN Reason: Constipation Calcium Carbonate/Glycine (Tums) 200 mg PO DAILY [facility] Last Admin: 12/17/18 08:56 Dose: 200 mg Documented by: Clopidogrel Bisulfate (Plavix) 75 mg PO DAILY [facility] Last Admin: 12/17/18 08:55 Dose: 75 mg Documented by: Docusate Sodium (Colace) 100 mg PO BID [facility] Last Admin: 12/17/18 20:21 Dose: Not Given Documented by: Fluoxetine HCl (Prozac) 20 mg PO QDAY [facility] Last Admin: 12/17/18 08:55 Dose: 20 mg Documented by: Furosemide (Lasix) 40 mg PO QDAY [facility] Last Admin: 12/17/18 08:55 Dose: 40 mg Documented by: Heparin Sodium (Porcine) (Heparin) 5,000 unit SQ Q12 [facility] Last Admin: 12/17/18 20:17 Dose: 5,000 unit Documented by: Iron Carb/Multivit/[employer]/Folic Acid (Multivitamin W/Minerals) 1 tab PO DAILY [facility] Last Admin: 12/17/18 08:56 Dose: 1 tab Documented by: Ketoconazole (Nizoral 2% Top Crm) 1 dose TOPICAL DAILY [facility] Last Admin: 12/17/18 08:49 Dose: Not Given Documented by: Loperamide HCl (Imodium) 2 mg PO Q2-4HP PRN PRN Reason: Diarrhea Metoprolol Tartrate (Lopressor) 12.5 mg PO BID [facility] Last Admin: 12/18/18 01:37 Dose: Not Given Documented by: Multivit/Ca Carb/B Cmplx/FA/Prenat (Diatx) 1 tab PO DAILY [facility] Last Admin: 12/17/18 08:55 Dose: 1 tab Documented by: Niacin (Niacin) 500 mg PO [facility] Last Admin: 12/17/18 20:17 Dose: 500 mg Documented by: Ondansetron HCl (Zofran) 4 mg IV Q4-6HP PRN PRN Reason: Nausea And Vomiting Last Admin: 12/15/18 22:07 Dose: 4 mg Documented by: Ondansetron HCl (Zofran Odt) 4 mg SL Q6HP PRN PRN Reason: Nausea Senna/Docusate Sodium (Senna Plus Tablet) 1 tab PO [facility] Last Admin: 12/17/18 20:21 Dose: Not Given Documented by: Simvastatin (Zocor) 20 mg PO [facility] Last Admin: 12/17/18 20:17 Dose: 20 mg Documented by: Sodium Chloride (Saline Flush) 10 ml IV Q8 [facility] Last Admin: 12/18/18 05:28 Dose: 10 ml Documented by: Vancomycin HCl (Vancomycin Oral Brenna) 500 mg PO QID [facility] Last Admin: 12/17/18 20:21 Dose: 500 mg Documented by: Medical - PN: A/P - Time Spent With Patient Total time spent is greater than 50% in coordination of care (as documented) at patient's floor/unit and/or counseling patient: 25 - 35 minutes (1) Severe sepsis Problem details: See wound care orders. OTHER causes of leucocytosis to be ev aluated and treated as appropriate. Status: Acute Assessment and plan: * Severe sepsis with leukemoid reaction- white count trending down now at 19.7 secondary to C. difficile. Continue oral vancomycin. * Perineal cellulitis/Bartholin cyst-staph aureus on culture. Wound care per surgery, ongoing/sitz bath. no evidence of fistula/pelvic abscess on CT. discontinue antibiotics * Narrow complex [id number]. Currently on beta blu * Diarrhea-secondary to C. difficile. * Acute cystitis with pyuria-await cultures. Off antibiotics * ESRD on hemodialysis-managed by nephrology * History of hypertension - continue clonidine/amlodipine/valsartan with holding parameters * Anxiety disorder on fluoxetine * History of CAD on Plavix/statin/aspirin * Full code * Prophylaxis heparin Plan * Continue oral vancomycin * Wound care/sitz bath * Hemodialysis per nephrology * Prior medical condition management as above Current Visit: Yes Medical - PN: Qual - VTE Deep Vein Thrombosis/Pulmonary Embolism Present on Admission: No
[2018-12-18] MEDS: VANCOMYCIN ORAL SOL 1,000 MG/10 ML BOTTLE PO SCH ×4 (09:25→20:29)
[2018-12-18] MEDS: BACITRACIN TOPICAL OINT 15 GM TUBE TOPICAL SCH ×3 (09:25→22:23)
[2018-12-18] MEDS: CLOPIDOGREL 75 MG TABLET PO SCH (09:30)
[2018-12-18] MEDS: FOLIC ACID/VITAMIN B COMP W-C 1 TAB TABLET PO SCH (09:30)
[2018-12-18] MEDS: amLODIPine 5 MG TABLET PO SCH (09:30)
[2018-12-18] MEDS: FUROSEMIDE 40 MG TABLET PO SCH (09:30)
[2018-12-18] MEDS: MULTIVIT,THER IRON,CA,FA & MIN 1 TABLET PO SCH (09:30)
[2018-12-18] MEDS: HEPARIN 5,000 UNIT/ML VIAL SQ SCH ×3 (09:30→20:33)
[2018-12-18] MEDS: FLUoxetine HCL 20 MG CAPSULE PO SCH (09:30)
[2018-12-18] MEDS: DOCUSATE SODIUM 100 MG CAPSULE PO SCH (09:31)
[2018-12-18] MEDS: CALCIUM CARBONATE 500 MG TAB.CHEW PO SCH (09:31)
[2018-12-18] MEDS: ASPIRIN 81 MG TAB.CHEW PO SCH (09:31)
[2018-12-18] MEDS: KETOCONAZOLE 2% TOP CRM 15GM TUBE TOPICAL SCH (09:31)
--- NOTE | 2018-12-18 16:20 | Nephrology Progress Note ---
Subjective Patient information: Note initiated : 12/18/18 at 4:18 pm Service Date, if different from initiated Date: [] Patient: Teri Olson 68 y/o F admitted on 12/15/18 for Nausea, Diarrhea, Fever. Chief Complaint: [] Principal diagnosis: cdiff colitis Interval history: Patient states she feels a little better per nursing staff diarrhea is a little better, still with loose stools though also has cellulitis in perineal region no SOB, CP no edema eating well now per pt no other concerns Pertinent ROS: as above Objective - Vital Signs Vital signs: Vital Signs Temp Pulse Pulse Resp BP BP Pulse Ox 12/18/18 16:00 98.3 F 79 16 136/51 94 12/18/18 15:56 64 141/62 12/18/18 15:22 68 149/64 12/18/18 14:58 60 144/55 12/18/18 14:30 66 114/97 12/18/18 14:00 97.6 F 66 123/55 12/18/18 12:00 98.8 F 69 18 142/67 96 12/18/18 08:00 96 12/18/18 07:21 98.1 F 75 18 134/49 91 12/18/18 03:49 98.5 F 71 1 L 129/48 97 12/18/18 00:00 97.5 F 80 16 133/76 94 12/17/18 21:26 98.1 F 12/17/18 21:02 98.1 F 12/17/18 20:17 103.0 F H 12/17/18 20:00 103 F H 86 16 147/44 95 Intake and Output 12/18/18 12/18/18 12/18/18 05:59 13:59 21:59 Intake Total 200 480 Output Total 50 Balance 150 480 Intake: Oral 200 480 Output: Urine Catheter Amount 50 Other: Meal Lunch Percent of Meal Consumed 75% Urine Appearance Cloudy Uretheral (Ceron) Clear Urine Color Straw Light Yuly Uretheral (Ceron) Straw Stool Size Moderate Stool Color Brown Stool Consistency Soft # Voids 1 # Bowel Movements 2 Intake & Output: Intake & Output 12/18/18 12/18/18 12/18/18 05:59 13:59 21:59 Intake Total 200 480 Output Total 50 Balance 150 480 Intake: Oral 200 480 Output: Urine Catheter Amount 50 Other: Meal Lunch Percent of Meal Consumed 75% Urine Appearance Cloudy Uretheral (Ceron) Clear Urine Color Straw Light Yuly Uretheral (Ceron) Straw Stool Size Moderate Stool Color Brown Stool Consistency Soft # Voids 1 # Bowel Movements 2 - General Appearance General appearance: appears started age, chronically ill EENT: mucous membranes moist Neck: no JVD Respiratory: clear Cardiology: no rub, regular rate, regular rhythm Gastrointestinal: no tenderness, no guarding Integumentary: warm and dry Neurologic: alert and oriented x3 Musculoskeletal: no erythema, no cyanosis Psychiatric: mood/affect appropriate - Lab 12/18/18 03:41 12/18/18 03:41 Most recent lab results Calcium 7.4 mg/dl (8.6-10.4) L 12/18/18 03:41 Phosphorus 3.5 mg/dL (2.7-4.5) 12/18/18 03:41 Magnesium 2.2 mg/dL (1.6-2.5) 12/18/18 03:41 Assessment and Plan (1) Leukocytosis, unspecified Status: Acute Qualifiers: Leukocytosis type: leukemoid reaction Qualified Code(s): D72.823 - Le ukemoid reaction (2) Anemia, chronic renal failure Status: Chronic (3) ESRD (end stage renal disease) on dialysis Status: Chronic Priority: Medium - Narrative A/P Narrative: HD for 3.5 hrs using revaclear dialyser, [id number], qd 800ml/min, UF goal of 1-1.5L, 3K/2.5ca dialysate will monitor for additional HD needs during hospital stay, NEXT hd ON tuesday Anemia: chronic, will ct with weekly aranesp cdiff colitis and cellulitis in perineal region been managed by hospitalist corrected calcium is normal so will ct sensipar low albumin with trend downwards, will add nepro bid will follow along
[2018-12-18] MEDS ORDERED: VANCOMYCIN PER PHARMACY IV SCH (20:00)
[2018-12-18] MEDS ORDERED: VANCOMYCIN 1,500 MG in 0.9 % SODIUM CHLORIDE 500 ML IV ONE (20:15)
[2018-12-18] MEDS: SIMVASTATIN 20 MG TABLET PO SCH (20:31)
[2018-12-18] MEDS: NIACIN 250 MG CAP.SR.12H PO SCH (20:33)
[2018-12-18] MEDS: ACETAMINOPHEN 325 MG TABLET PO PRN (22:08)
[2018-12-19] MEDS: SENNOSIDES/DOCUSATE SODIUM 1 TAB TABLET PO SCH ×2 (01:36→21:22)
[2018-12-19] MEDS: DOCUSATE SODIUM 100 MG CAPSULE PO SCH ×3 (01:36→21:21)
[2018-12-19] MEDS: ALBUTEROL SULFATE 1 PUFF INHALER IH SCH ×7 (01:39→21:21)
[2018-12-19] MEDS: 0.9 % SODIUM CHLORIDE 10 ML SYRINGE IV SCH ×3 (06:05→21:27)
[2018-12-19 06:39] LABS: Mean Cell Volume 91.8 fL (80.0-100.0); Mean Corpuscular HGB Conc 32.2 g/dL (31.0-36.0); Platelet Count 342 K/mcL (140-440); RBC 2.67 M/mcL (4.00-5.20); Red Cell Distribution Width 15.1 % (11.5-14.5)
[2018-12-19 07:12] LABS: ALT/SGPT 12 U/l (0-40); Albumin 2.5 gm/dL (3.2-5.2); Albumin/Globulin Ratio 0.8 (1.0-2.3); Alkaline Phosphatase 108 U/L (39-117); Bilirubin,Direct < 0.2 mg/dL (0.0-0.3); Blood Urea Nitrogen 10 mg/dl (8-23); Gamma Glutamyl Transpeptidase 10 U/L (5-36); Uric Acid 3.4 mg/dL (2.5-8.0)
[2018-12-19 08:54] LABS: Anisocytosis FEW (NONE SEEN); Band Neutrophils % 1 % (0-10); Eosinophils % (Manual) 2 % (0-7); Hypochromasia FEW (NONE SEEN); Lymphocytes % 23 % (15-49); Monocytes % (Manual) 14 % (1-12); Platelet Estimate NORMAL (NORMAL); RBC Morphology ABNORM (NORMAL); Segmented Neutrophils % 60 % (38-78)
[2018-12-19] MEDS: CALCIUM CARBONATE 500 MG TAB.CHEW PO SCH (09:27)
[2018-12-19] MEDS: METOPROLOL TARTRATE 25 MG TABLET PO SCH ×2 (09:27→21:19)
[2018-12-19] MEDS: MULTIVIT,THER IRON,CA,FA & MIN 1 TABLET PO SCH (09:27)
[2018-12-19] MEDS: CLOPIDOGREL 75 MG TABLET PO SCH (09:27)
[2018-12-19] MEDS: FLUoxetine HCL 20 MG CAPSULE PO SCH (09:28)
[2018-12-19] MEDS: amLODIPine 5 MG TABLET PO SCH (09:28)
[2018-12-19] MEDS: ASPIRIN 81 MG TAB.CHEW PO SCH (09:28)
[2018-12-19] MEDS: FOLIC ACID/VITAMIN B COMP W-C 1 TAB TABLET PO SCH (09:28)
[2018-12-19] MEDS: FUROSEMIDE 40 MG TABLET PO SCH (09:28)
[2018-12-19] MEDS: BACITRACIN TOPICAL OINT 15 GM TUBE TOPICAL SCH ×3 (09:29→21:26)
[2018-12-19] MEDS: VANCOMYCIN ORAL SOL 1,000 MG/10 ML BOTTLE PO SCH ×4 (09:29→21:17)
[2018-12-19] MEDS ORDERED: POTASSIUM CHLORIDE 10 MEQ TABLET PO ONE (09:29)
[2018-12-19] MEDS: HEPARIN 5,000 UNIT/ML VIAL SQ SCH ×2 (09:30→21:21)
[2018-12-19] MEDS: KETOCONAZOLE 2% TOP CRM 15GM TUBE TOPICAL SCH (09:30)
--- NOTE | 2018-12-19 09:39 | Internal Med Progress Note ---
Medical - PN: Subj Patient information: Note initiated : 12/19/18 at 9:36 am Service Date, if different from initiated Date: [] Patient: Teri Olson a 68 y/o F admitted on 12/15/18 for Nausea, Diarrhea, Fever. Chief Complaint: [] Interval history: Ms. Olson is a 68 year old F with a history of diabetes/ESRD on hemodialysis who presents to the ER with profound weakness involving over the last week, fever, loss of appetite and not feeling well. She has had few episodes of diarrhea in the last 48 hours and also noted a boil at her bottom which has gradually increased in size with increasing tenderness and swelling. She complains of associated chills however denies body aches/nausea. Initial workup was consistent with severe sepsis with white count 31,300 on examination (area revealed induration with a central opening that started oozing pus when probed with a Q-tip) She underwent CT with contrast abdomen and pelvis did not show a definite abscesses. 3/2- patient doing well. However white count around 40,000, C. difficile positive, on vancomycin 500 every 6, diarrhea improved, underwent hemodialysis. De-escalate antibiotics. Perineal swelling and tenderness improving 3/3-patient clinically improving. White count 32.6. Wound surgeon consulted. Wound care recommendations discontinue antibiotics. On oral vancomycin for C. difficile. Clinically improving. Tolerating diet. Ongoing physical therapy. Ongoing hemodialysis. No concerns per staff. No overnight events 3/-MAXIMUM TEMPERATURE 103, overnight intermittent atrial tachycardia started on beta blu, white count downtrending from 39.9-19.7. IV antibiotics continue. Surgery on board. Improved perineal cellulitis. Resolved. Tolerating diet. Ongoing hemodialysis per nephrology. /-patient doing well. MAXIMUM TEMPERATURE 102, white count 17.1, surgery consulted for perineal cellulitis/possible abscess after wound care teams concerns. Patient started on IV vancomycin as staph aureus on cultures. Tolerating diet, hemodialysis - Constitutional Vitals: Vital Signs Temp Pulse Resp BP Pulse Ox 100.0 F H 77 16 137/63 93 12/19/18 08:00 12/19/18 08:27 12/19/18 08:00 12/19/18 08:27 12/19/18 08:00 Period Temp Pulse Resp BP Sys/Barnard Pulse Ox Last 24 Hr 97 F-101.8 F 60-82 16-20 87-151/50-97 91-96 Intake and Output 12/18/18 12/19/18 12/19/18 21:59 05:59 13:59 Intake Total 795 980 Output Total 1600 25 Balance -805 955 Weight 179 lb Intake & Output: Intake & Output 12/18/18 12/19/18 12/19/18 21:59 05:59 13:59 Intake Total 795 980 Output Total 1600 25 Balance -805 955 Weight 179 lb Intake: IV 500 Oral 795 480 Output: Urine Catheter Amount 100 25 Hemodialysis UF 1500 Other: Meal Dinner Percent of Meal Consumed 15% Urine Appearance Clear Uretheral (Ceron) Clear Urine Color Dark Yellow Bright Yellow Uretheral (Ceron) Bright Yellow Stool Size Smear Stool Color Brown Stool Consistency Soft General appearance: no acute distress Exam: Alert oriented Nonlabored breathing Extensive redness and erythema/redness cellulitis now expanding On the left perineal body Medical - PN: Obj Da - Labs CBC & Chem 7: 12/19/18 03:45 12/19/18 03:45 Labs: Abnormal Lab Results 12/19/18 12/19/18 12/19/18 03:45 03:45 03:45 WBC 17.1 H RBC 2.67 L Hgb 7.9 L Hct 24.5 L RDW 15.1 H MPV 6.8 L Seg Neutrophils % Lymphocytes % Monocytes % (Manual) 14 H RBC Morphology Abnorm A Hypochromasia Few A Anisocytosis Few A Potassium 3.2 L BUN Creatinine 3.3 H Calcium 7.5 L Phosphorus 2.0 L Iron 21 L TIBC 155 L Transferrin % Sat 13 L Ferritin 1406.0 H Alkaline Phosphatase Lactate Dehydrogenase Total Protein 5.8 L Albumin 2.5 L Albumin/Globulin Ratio 0.8 L 12/18/18 12/18/18 12/17/18 03:41 03:41 03:51 WBC 19.7 H RBC 2.93 L Hgb 8.7 L Hct 27.0 L RDW 14.9 H MPV 6.6 L Seg Neutrophils % Lymphocytes % 13 L Monocytes % (Manual) RBC Morphology Hypochromasia Anisocytosis Potassium BUN 28 H 25 H Creatinine 5.8 H* 4.3 H Calcium 7.4 L 7.2 L Phosphorus Iron TIBC Transferrin % Sat Ferritin Alkaline Phosphatase 146 H 132 H Lactate Dehydrogenase 347 H Total Protein 5.8 L Albumin 2.4 L 2.6 L Albumin/Globulin Ratio 0.7 L 0.8 L 12/17/18 03:51 WBC 32.6 H* RBC 2.83 L Hgb 8.5 L Hct 26.1 L RDW 15.3 H MPV 6.6 L Seg Neutrophils % 85 H Lymphocytes % 6 L Monocytes % (Manual) RBC Morphology Hypochromasia Anisocytosis Potassium BUN Creatinine Calcium Phosphorus Iron TIBC Transferrin % Sat Ferritin Alkaline Phosphatase Lactate Dehydrogenase Total Protein Albumin Albumin/Globulin Ratio Meds: Medications Acetaminophen (Tylenol) 650 mg PO Q4-6HP PRN PRN Reason: PAIN/FEVER > 101 Last Admin: 12/18/18 22:08 Dose: 650 mg Documented by: Albuterol Sulfate (Ventolin) 1 - 2 puff IH Q4H [facility] Last Admin: 12/19/18 06:59 Dose: Not Given Documented by: Amlodipine Besylate (Norvasc) 2.5 mg PO DAILY [facility] Last Admin: 12/19/18 09:28 Dose: 2.5 mg Documented by: Aspirin (Aspirin) 81 mg PO DAILY [facility] Last Admin: 12/19/18 09:28 Dose: 81 mg Documented by: Bacitracin (Bacitracin Topical Oint) 1 dose TOPICAL TID [facility] Last Admin: 12/19/18 09:29 Dose: 1 dose Documented by: Bisacodyl (Dulcolax) 10 mg MD DAILYP PRN PRN Reason: Constipation Calcium Carbonate/Glycine (Tums) 200 mg PO DAILY [facility] Last Admin: 12/19/18 09:27 Dose: 200 mg Documented by: Clopidogrel Bisulfate (Plavix) 75 mg PO DAILY [facility] Last Admin: 12/19/18 09:27 Dose: 75 mg Documented by: Diagnostic Test (Pha) (Accu-Chek) 1 each FS ACHS [facility] Last Admin: 12/19/18 08:23 Dose: 1 each Documented by: Docusate Sodium (Colace) 100 mg PO BID [facility] Last Admin: 12/19/18 09:30 Dose: Not Given Documented by: Fluoxetine HCl (Prozac) 20 mg PO QDAY [facility] Last Admin: 12/19/18 09:28 Dose: 20 mg Documented by: Furosemide (Lasix) 40 mg PO QDAY [facility] Last Admin: 12/19/18 09:28 Dose: 40 mg Documented by: Heparin Sodium (Porcine) (Heparin) 5,000 unit SQ Q12 [facility] Last Admin: 12/19/18 09:30 Dose: Not Given Documented by: Iron Carb/Multivit/Imperial/Folic Acid (Multivitamin W/Minerals) 1 tab PO DAILY [facility] Last Admin: 12/19/18 09:27 Dose: 1 tab Documented by: Ketoconazole (Nizoral 2% Top Crm) 1 dose TOPICAL DAILY [facility] Last Admin: 12/19/18 09:30 Dose: Not Given Documented by: Loperamide HCl (Imodium) 2 mg PO Q2-4HP PRN PRN Reason: Diarrhea Last Admin: 12/18/18 20:33 Dose: 2 mg Documented by: Metoprolol Tartrate (Lopressor) 12.5 mg PO BID [facility] Last Admin: 12/19/18 09:27 Dose: 12.5 mg Documented by: Multivit/Ca Carb/B Cmplx/FA/Prenat (Diatx) 1 tab PO DAILY [facility] Last Admin: 12/19/18 09:28 Dose: 1 tab Documented by: Niacin (Niacin) 500 mg PO [facility] Last Admin: 12/18/18 20:33 Dose: 500 mg Documented by: Ondansetron HCl (Zofran) 4 mg IV Q4-6HP PRN PRN Reason: Nausea And Vomiting Last Admin: 12/15/18 22:07 Dose: 4 mg Documented by: Ondansetron HCl (Zofran Odt) 4 mg SL Q6HP PRN PRN Reason: Nausea Potassium Chloride (Kdur) 10 meq PO ONCE ONE Stop: 12/19/18 09:30 Senna/Docusate Sodium (Senna Plus Tablet) 1 tab PO [facility] Last Admin: 12/19/18 01:36 Dose: Not Given Documented by: Simvastatin (Zocor) 20 mg PO [facility] Last Admin: 12/18/18 20:31 Dose: 20 mg Documented by: Sodium Chloride (Saline Flush) 10 ml IV Q8 [facility] Last Admin: 12/19/18 06:05 Dose: 10 ml Documented by: Vancomycin HCl (Vancomycin Oral Brenna) 500 mg PO QID [facility] Last Admin: 12/19/18 09:29 Dose: 500 mg Documented by: Vancomycin HCl (Vancomycin Per Pharmacy) 1 order IV UD [facility] Medical - PN: A/P - Time Spent With Patient Total time spent is greater than 50% in coordination of care (as documented) at patient's floor/unit and/or counseling patient: 25 - 35 minutes (1) Severe sepsis Problem details: See wound care orders. OTHER causes of leucocytosis to be evaluated and treated as appropriate. Status: Acute Assessment and plan: * Severe sepsis with leukemoid reaction- white count trending gradually downtrending to 17.1. Secondary to C. difficile. Continue oral vancomycin. * Perineal cellulitis/Bartholin cyst-staph aureus on culture. On IV vancomycin. Wound care and recommend surgical consult. MSSA on wound culture * Narrow complex [id number]. Stable on beta blu * Diarrhea-secondary to C. difficile. Resolved * Acute cystitis -group B streptococcus, on IV vancomycin * ESRD on hemodialysis-managed by nephrology * History of hypertension - continue clonidine/amlodipine/valsartan with holding parameters * Anxiety disorder on fluoxetine * History of CAD on Plavix/statin/aspirin * Full code * Prophylaxis heparin Plan * Continue oOIV vancomycin for perineal cellulitis/group B streptococcus UTI * Surgery consult * Hemodialysis per nephrology * Prior medical condition management as above Current Visit: Yes Medical - PN: Qual - VTE Deep Vein Thrombosis/Pulmonary Embolism Present on Admission: No
--- NOTE | 2018-12-19 12:48 | Ultrasound Report ---
History: Prolonged bleeding following renal dialysis FINDINGS: There is an anastomosis in the left arm between the distal brachial artery and the basilic vein using a graft. The graft is patent and there is no evidence of thrombosis or stenosis. Both the proximal and distal anastomosis are normal. In the brachial artery, above the level of the graft the flow velocity is 206 cm/s. At the anastomosis it is 252 cm/s. Within the graft measures up to 395 cm/s. The graft measures 7 mm in diameter. There is normal blood flow in the forearm through the radial and ulnar arteries. No hematoma or mass are seen in the arm around the graft. IMPRESSION: Normal exam with a functioning arteriovenous dialysis graft Interpreted and Authenticated by: Michael Orosco 12/19/18
--- NOTE | 2018-12-19 16:38 | Nephrology Progress Note ---
Subjective Patient information: Note initiated : 12/19/18 at 4:35 pm Service Date, if different from initiated Date: [] Patient: Teri Olson 68 y/o F admitted on 12/15/18 for Nausea, Diarrhea, Fever. Chief Complaint: [] Principal diagnosis: cdiff colitis Interval history: patient on IV vancomycin for worsening of her perineal wound her diarrhea is improving denies SOB, CP oral intake ok she did have prolonged bleeding post HD yesterday and will obtain a AVF US for this Pertinent ROS: as above Objective - Vital Signs Vital signs: Vital Signs Temp Pulse Pulse Pulse Pulse Pulse Pulse 12/19/18 16:00 97.2 F 12/19/18 12:00 97.0 F 12/19/18 08:27 77 74 80 12/19/18 08:00 100.0 F H 74 12/19/18 04:00 98.3 F 73 12/18/18 23:45 97.9 F 79 12/18/18 22:53 97.9 F 12/18/18 22:08 101.8 F H 12/18/18 20:35 12/18/18 20:30 12/18/18 20:00 101.8 F H 82 12/18/18 17:20 97 F 79 12/18/18 16:55 79 Resp BP BP BP BP BP BP 12/19/18 16:00 18 137/55 12/19/18 12:00 20 130/52 12/19/18 08:27 137/63 122/71 137/63 12/19/18 08:00 16 137/63 12/19/18 04:00 16 132/50 132/50 12/18/18 23:45 18 151/58 12/18/18 22:53 12/18/18 22:08 12/18/18 20:35 125/55 12/18/18 20:30 87/53 12/18/18 20:00 20 111/50 12/18/18 17:20 131/66 12/18/18 16:55 132/66 Pulse Ox 12/19/18 16:00 91 12/19/18 12:00 94 12/19/18 08:27 12/19/18 08:00 94 12/19/18 04:00 91 12/18/18 23:45 93 12/18/18 22:53 12/18/18 22:08 12/18/18 20:35 12/18/18 20:30 12/18/18 20:00 95 12/18/18 17:20 12/18/18 16:55 Intake and Output 12/19/18 12/19/18 12/19/18 05:59 13:59 21:59 Intake Total 980 480 245 Output Total 25 Balance 955 480 245 Intake: IV 500 Oral 480 480 GI Tube Flush 245 Output: Urine Catheter Amount 25 Other: Meal Breakfast Lunch Percent of Meal Consumed 50% 25% Feeding Ability Assist with Tray Set Up Assist with Tray Set Up Urine Appearance Clear Uretheral (Ceron) Cloudy Urine Color Bright Yellow Uretheral (Ceron) Pale Stool Size Smear Smear Stool Color Brown Brown Stool Consistency Soft Soft # of times incontinent of 1 Bowels Intake & Output: Intake & Output 12/19/18 12/19/18 12/19/18 05:59 13:59 21:59 Intake Total 980 480 245 Output Total 25 Balance 955 480 245 Intake: IV 500 Oral 480 480 GI Tube Flush 245 Output: Urine Catheter Amount 25 Other: Meal Breakfast Lunch Percent of Meal Consumed 50% 25% Feeding Ability Assist with Tray Set Up Assist with Tray Set Up Urine Appearance Clear Uretheral (Ceron) Cloudy Urine Color Bright Yellow Uretheral (Ceron) Pale Stool Size Smear Smear Stool Color Brown Brown Stool Consistency Soft Soft # of times incontinent of 1 Bowels - General Appearance General appearance: appears started age, chronically ill EENT: mucous membranes moist Neck: no JVD Respiratory: clear Cardiology: no rub, no edema, normal S1, normal S2 Gastrointestinal: no tenderness, no guarding Integumentary: warm and dry Neurologic: alert and oriented x3 Psychiatric: mood/affect appropriate - Lab 12/19/18 03:45 12/19/18 03:45 Most recent lab results Calcium 7.5 mg/dl (8.6-10.4) L 12/19/18 03:45 Phosphorus 2.0 mg/dL (2.7-4.5) L 12/19/18 03:45 Magnesium 2.0 mg/dL (1.6-2.5) 12/19/18 03:45 Assessment and Plan (1) Leukocytosis, unspecified Status: Acute Qualifiers: Leukocytosis type: leukemoid reaction Qualified Code(s): D72.823 - Leukemoid reaction (2) Anemia, chronic renal failure Status: Chronic (3) ESRD (end stage renal disease) on dialysis Status: Chronic Priority: Medium - Narrative A/P Narrative: no indication for HD today AVG US normal with no stenosis anemia with decline in Hb, low tsat but elevated ferritin at 1400 so no need for IV iron will give aranesp with HD tomorrow low K given one dose of K supplement, low dose HD tomorrow appreciate hospitalist help with managing this patient
--- NOTE | 2018-12-19 16:45 | General Surgery Consult Note ---
History of Present Illness Patient information: Note initiated : 12/19/18 at 4:42 pm Service Date, if different from initiated Date: [] Patient: Teri Olson 68 y/o F admitted on 12/15/18 for Nausea, Diarrhea, Fever. Chief Complaint: [] Reason for consult: other (perineal cellulitis) Requesting physician: Jakob Campos History of present illness: 60-year-old female admitted on 15 December with evidence of sepsis and severe leukocytosis. Evaluation reveals that she had severe perineal cellulitis and moderately severe panniculitis involving her lower abdominal wall. She has MSSA bacteremia and has positive C. difficile. She has group B strep UTI. All of this is under treatment and she is improving clinically. A CT scan of her perineum and pelvis was done and there was no evidence of drainable pus. She does have swelling of her left labia majora but there is moderate induration without suppuration or fluctuance. There are some superficial skin lesions wh ich are draining but they appear to be confined to the skin and superficial subcutaneous tissue which is not compatible with Bartholin's cyst infection. Patient states that she feels better since she has been under treatment and her perineum is less uncomfortable. Her white blood count is down to 17,000 from 31,000 at the time of admission. Review of Systems - Constitutional chills, fatigue, malaise, night sweats, weakness, weight gain - EENT Nose, mouth and throat: abnormal hearing, dizziness - Cardiovascular no chest pain with activity, no dyspnea on exertion, no palpatations, no syncope - Respiratory dyspnea on exertion, no as per HPI, no cough, no wheezing - Gastrointestinal abdominal pain, bloating, change in bowel habits, change in stool character, cramping, diarrhea, nausea - Genitourinary Genitourinary: change in urinary stream, difficulty urinating, genital lesions, genital pruritis, nocturia, pelvic pain, urinary frequency, urinary hesitancy, urinary incontinence, urinary urgency - Musculoskeletal abnormal gait, back pain, joint swelling, stiffness - Integumentary new lesions, sores, other ( severe panniculitis and perineal and perianal inflammation) - Neurological abnormal gait, dizziness, lack of coordination, restless legs, weakness, no confusion - Psychiatric anxiety, behavioral changes, depression - Endocrine polyuria, no fatigue, no palpitations - Hematologic/Lymphatic no easy bleeding, no easy bruising, no lymphadenopathy - Allergic/Immunologic no tongue swelling, no throat swelling, no uticaria, no wheezing, no lip swelling Past History Past medical history: End-stage renal disease on dialysis History of renal cell cancer left kidney status post left nephrectomy Anxiety with depression History of congestive heart failure Diabetes mellitus type 2 with peripheral vascular pathology Hypertension Iron deficiency anemia Peripheral neuropathy Past surgical history: Bilateral reduction mammoplasty Left nephrectomy for carcinoma Past family history: Alzheimer's dementia Lung cancer Past social history: Denies tobacco use Denies alcohol use Lives at home with health care provider assistance Medications and Allergies Home Medications Medication Instructions Recorded Confirmed Type fluoxetine 20 mg capsule 20 mg PO QDAY 11/19/15 12/15/18 History acetaminophen 325 mg tablet 650 mg PO Q6HP PRN tab 08/02/18 12/15/18 History amlodipine 2.5 mg tablet 2.5 mg PO QDAY 08/02/18 12/15/18 History calcium carbonate 200 mg calcium 200 mg PO ONCE tab 08/02/18 12/15/18 History (500 mg) chewable tablet loperamide 2 mg tablet 2 mg PO Q2-4H PRN 08/02/18 12/15/18 History losartan 25 mg tablet 25 mg PO QDAY 08/02/18 12/15/18 History Aspirin [Elias Chewable Aspirin] 81 mg PO DAILY 08/28/18 12/15/18 History Ketoconazole 2% Top Crm [Nizoral 1 dose TOPICAL DAILY #1 tube 08/30/18 12/15/18 Rx 2% Top Crm] furosemide 40 mg tablet 40 mg PO QDAY #30 tab 11/20/18 12/15/18 Rx Albuterol Sulfate [Proair Hfa] 1 - 2 puff IH Q4H 12/15/18 12/15/18 History Bisacodyl [Laxative Suppository] 10 mg RC PRN PRN 12/15/18 12/15/18 History Clopidogrel Bisulfate [Plavix] 75 mg PO DAILY 12/15/18 12/15/18 History Folic Acid/Vit Bcomp,C 0.8 mg PO DAILY 12/15/18 12/15/18 History [Nephro-Milagro Tablet] Niacinamide [Niacin] 500 mg PO DAILY 12/15/18 12/15/18 History Ondansetron [Zofran ODT] 4 mg SL Q6HP PRN 12/15/18 12/15/18 History Pravastatin [Pravachol] 40 mg PO DAILY 12/15/18 12/15/18 History Sennosides/Docusate Sodium [[facility] 1 each PO PRN PRN 12/15/18 12/15/18 History Stool Softener-Stim Lax Tb] Allergies Allergy/AdvReac Type Severity Reaction Status Date / Time codeine Allergy Intermediate Hives Verified 08/28/18 17:02 meperidine [From Demerol] Allergy Intermediate Hives Verified 08/28/18 17:02 gemfibrozil [From Lopid] AdvReac Intermediate Muscle Pain Verified 12/17/18 08:50 ciprofloxacin [From Cipro] AdvReac Mild Nausea Verified 12/17/18 08:50 Exam Temp Pulse Resp BP Pulse Ox 97.2 F 77 18 137/55 91 12/19/18 16:00 12/19/18 08:27 12/19/18 16:00 12/19/18 16:00 12/19/18 16:00 - General physical appearance well developed, well nourished, no distress - Eyes PERRL, normal ocular movement - ENT normal pinna, normal nares, normal mucosa, no hearing loss, no congestion - Head Head exam IM: Present: atraumatic, normal inspection, normocephalic - Neck no masses, no bruits, trachea midline, no lymphadenopathy, no venous distension - Cardiovascular Cardiovascular exam IM: Present: normal rate and rhythm, +S1, +S2. Absent: JVD, tachycardia - Respiratory normal expansion, normal respiratory effort, clear to auscultation - Abdomen Abdomen: Present: soft, non tender, bowel sounds Hernia: Present: none - Genitourinary Present: normal external genitalia, other (severe inflammation of perineum and perianal area; thickening and induration of bilateral labia but more prominent on the left; no evidence of Bartholin's gland abscess or cyst but diffuse inflammation of labia majora more posterior than anterior) - Rectum Rectum: Present: normal sphincter tone, no hemorrhoids, no tenderness, no masses, no bleeding, other ( perianal inflammation due to frequent soiling) - Integumentary Present: other ( inflammatory changes in lower pannus fold; severe perineal and perianal inflammation is noted above) - Neurologic Present: normal coordination - Musculoskeletal Present: normal posture, other ( unsteady gait with poor standing ability without assistance) - Psychiatric Present: oriented to time, oriented to person, oriented to place, speech is normal, memory intact Results - Labs 12/19/18 03:45 12/19/18 03:45 Abnormal lab results 12/19/18 12/19/18 12/19/18 Range/Units 03:45 03:45 03:45 WBC 17.1 H (4.5-11.0) K/mcL RBC 2.67 L (4.00-5.20) M/mcL Hgb 7.9 L (12.0-15.0) g/dL Hct 24.5 L (36.0-48.0) % RDW 15.1 H (11.5-14.5) % MPV 6.8 L (7.4-10.4) fL Monocytes % (Manual) 14 H (1-12) % RBC Morphology Abnorm A (NORMAL) Hypochromasia Few A (NONE SEEN) Anisocytosis Few A (NONE SEEN) Potassium 3.2 L (3.3-5.1) mmol/L Creatinine 3.3 H (0.6-1.1) mg/dl Calcium 7.5 L (8.6-10.4) mg/dl Phosphorus 2.0 L (2.7-4.5) mg/dL Iron 21 L (37-145) mcg/dl TIBC 155 L (228-428) ug/dl Transferrin % Sat 13 L (15-50) % Ferritin 1406.0 H (30-400) ng/ml Total Protein 5.8 L (5.9-8.4) gm/dL Albumin 2.5 L (3.2-5.2) gm/dL Albumin/Globulin Ratio 0.8 L (1.0-2.3) Diabetes panel 12/19/18 Range/Units 03:45 Sodium 135 (133-145) mmol/L Potassium 3.2 L (3.3-5.1) mmol/L Chloride 96 (96-108) mmol/L Carbon Dioxide 27 (22-30) mmol/L BUN 10 (8-23) mg/dl Creatinine 3.3 H (0.6-1.1) mg/dl Glucose 80 (70-105) mg/dL Calcium 7.5 L (8.6-10.4) mg/dl AST 24 (0-37) U/l ALT 12 (0-40) U/l Alkaline Phosphatase 108 (39-117) U/L Total Protein 5.8 L (5.9-8.4) gm/dL Albumin 2.5 L (3.2-5.2) gm/dL Triglycerides 92 (<150) mg/dl Calcium panel 12/19/18 Range/Units 03:45 Calcium 7.5 L (8.6-10.4) mg/dl Phosphorus 2.0 L (2.7-4.5) mg/dL Albumin 2.5 L (3.2-5.2) gm/dL Pituitary panel 12/19/18 Range/Units 03:45 Sodium 135 (133-145) mmol/L Potassium 3.2 L (3.3-5.1) mmol/L Chloride 96 (96-108) mmol/L Carbon Dioxide 27 (22-30) mmol/L BUN 10 (8-23) mg/dl Creatinine 3.3 H (0.6-1.1) mg/dl Glucose 80 (70-105) mg/dL Calcium 7.5 L (8.6-10.4) mg/dl Adrenal panel 12/19/18 Range/Units 03:45 Sodium 135 (133-145) mmol/L Potassium 3.2 L (3.3-5.1) mmol/L Chloride 96 (96-108) mmol/L Carbon Dioxide 27 (22-30) mmol/L BUN 10 (8-23) mg/dl Creatinine 3.3 H (0.6-1.1) mg/dl Glucose 80 (70-105) mg/dL Calcium 7.5 L (8.6-10.4) mg/dl Total Bilirubin 0.2 (0.0-1.0) mg/dL AST 24 (0-37) U/l ALT 12 (0-40) U/l Alkaline Phosphatase 108 (39-117) U/L Total Protein 5.8 L (5.9-8.4) gm/dL Albumin 2.5 L (3.2-5.2) gm/dL All other labs normal. Assessment and Plan (1) Cellulitis of perineum The patient has diffuse severe inflammation of her perineum with more prominent swelling and induration of her left labia majora. I do not feel a definite nodularity to the labia to suggest abscess. Operative drainage or marsupialization is not indicated in this process and she should respond to antibiotic treatment with increased perineal hygiene. Status: Acute (2) UTI (urinary tract infection) Status: Acute Qualifiers: Urinary tract infection type: site unspecified Hematuria presence: without hematuria Qualified Code(s): N39.0 - Urinary tract infection, site not specified (3) Severe sepsis Status: Acute Priority: Medium Comment: See wound care orders. OTHER causes of leucocytosis to be evaluated and treated as appropriate. (4) UTI (urinary tract infection), bacterial Status: Acute (5) Bacteremia due to coagulase-negative Staphylococcus Status: Acute (6) Type 2 diabetes mellitus Status: Chronic Comment: stop metformin given current egfr keep blood glucose log will start meds if indicated last A1C is 5.1 Qualifiers: Diabetes mellitus mcfp insulin use: without exterminator helper use Diabetes mellitus complication status: with kidney complications Diabetes mellitus complication detail: with chronic kidney disease Chronic kidney disease stage: on chronic dialysis Qualified Code(s): E11.22 - Type 2 diabetes mellitus with diabetic chronic kidney disease; N18.6 - End stage renal disease; Z99.2 - Dependence on renal dialysis
--- NOTE | 2018-12-19 20:10 | General Surgery Progress Note ---
Subjective Narrative: Note initiated : 12/19/18 at 8:07 pm Service Date, if different from initiated Date: [] Patient: Teri Olson 68 y/o F admitted on 12/15/18 for Nausea, Diarrhea, Fever. Chief Complaint: [] Patient seen this morning with Caitlyn RN,. Progress reviewed. Appreciate Dr. Goodman's input. Objective Temp Pulse Resp BP Pulse Ox 97.2 F 77 18 137/55 91 12/19/18 16:00 12/19/18 08:27 12/19/18 16:00 12/19/18 16:00 12/19/18 16:00 - Additional Data Intake & Output - Last 24 hours: Intake & Output 12/17/18 12/18/18 12/19/18 12/20/18 05:59 05:59 05:59 05:59 Intake Total 770 1020 2255 725 Output Total 50 100 1625 Balance 720 920 630 725 Weight 154 lb 178 lb 1.6 oz 179 lb - Labs 12/19/18 03:45 12/19/18 03:45 Diabetes panel 12/19/18 Range/Units 03:45 Sodium 135 (133-145) mmol/L Potassium 3.2 L (3.3-5.1) mmol/L Chloride 96 (96-108) mmol/L Carbon Dioxide 27 (22-30) mmol/L BUN 10 (8-23) mg/dl Creatinine 3.3 H (0.6-1.1) mg/dl Glucose 80 (70-105) mg/dL Calcium 7.5 L (8.6-10.4) mg/dl AST 24 (0-37) U/l ALT 12 (0-40) U/l Alkaline Phosphatase 108 (39-117) U/L Total Protein 5.8 L (5.9-8.4) gm/dL Albumin 2.5 L (3.2-5.2) gm/dL Triglycerides 92 (<150) mg/dl Calcium panel 12/19/18 Range/Units 03:45 Calcium 7.5 L (8.6-10.4) mg/dl Phosphorus 2.0 L (2.7-4.5) mg/dL Albumin 2.5 L (3.2-5.2) gm/dL Pituitary panel 12/19/18 Range/Units 03:45 Sodium 135 (133-145) mmol/L Potassium 3.2 L (3.3-5.1) mmol/L Chloride 96 (96-108) mmol/L Carbon Dioxide 27 (22-30) mmol/L BUN 10 (8-23) mg/dl Creatinine 3.3 H (0.6-1.1) mg/dl Glucose 80 (70-105) mg/dL Calcium 7.5 L (8.6-10.4) mg/dl Adrenal panel 12/19/18 Range/Units 03:45 Sodium 135 (133-145) mmol/L Potassium 3.2 L (3.3-5.1) mmol/L Chloride 96 (96-108) mmol/L Carbon Dioxide 27 (22-30) mmol/L BUN 10 (8-23) mg/dl Creatinine 3.3 H (0.6-1.1) mg/dl Glucose 80 (70-105) mg/dL Calcium 7.5 L (8.6-10.4) mg/dl Total Bilirubin 0.2 (0.0-1.0) mg/dL AST 24 (0-37) U/l ALT 12 (0-40) U/l Alkaline Phosphatase 108 (39-117) U/L Total Protein 5.8 L (5.9-8.4) gm/dL Albumin 2.5 L (3.2-5.2) gm/dL Assessment and Plan (1) Bartholinitis Problem details: See wound care ordeers Status: Acute Current Visit: Yes (2) Severe sepsis Problem details: See wound care orders. OTHER causes of leucocytosis to be evaluated and treated as appropriate. Status: Acute Current Visit: Yes - Time Spent With Patient Total time spent is greater than 50% in coordination of care (as documented) at patient's floor/unit and/or counseling patient: Assessment: Perineal cellulitis, Responding to conservative treatment. Plan: Continue current treatment. less than 15 minutes
[2018-12-19] MEDS: SIMVASTATIN 20 MG TABLET PO SCH (21:20)
[2018-12-19] MEDS: NIACIN 250 MG CAP.SR.12H PO SCH (21:22)
[2018-12-20] MEDS: ALBUTEROL SULFATE 1 PUFF INHALER IH SCH ×6 (00:52→17:45)
[2018-12-20] MEDS: 0.9 % SODIUM CHLORIDE 10 ML SYRINGE IV SCH ×3 (04:54→21:39)
[2018-12-20 06:44] LABS: Mean Cell Volume 91.9 fL (80.0-100.0); Mean Corpuscular HGB Conc 32.8 g/dL (31.0-36.0); Platelet Count 362 K/mcL (140-440); RBC 2.55 M/mcL (4.00-5.20)
[2018-12-20 07:38] LABS: ALT/SGPT 12 U/l (0-40); Albumin 2.7 gm/dL (3.2-5.2); Albumin/Globulin Ratio 0.9 (1.0-2.3); Alkaline Phosphatase 94 U/L (39-117); Bilirubin,Direct < 0.2 mg/dL (0.0-0.3); Blood Urea Nitrogen 25 mg/dl (8-23); Gamma Glutamyl Transpeptidase 10 U/L (5-36); Uric Acid 4.9 mg/dL (2.5-8.0)
--- NOTE | 2018-12-20 07:57 | Internal Med Progress Note ---
Medical - PN: Subj Patient information: Note initiated : 12/20/18 at 7:52 am Service Date, if different from initiated Date: [] Patient: Teri Olson a 68 y/o F admitted on 12/15/18 for Nausea, Diarrhea, Fever. Chief Complaint: [] Interval history: Ms. Olson is a 68 year old F with a history of diabetes/ESRD on hemodialysis who presents to the ER with profound weakness involving over the last week, fever, loss of appetite and not feeling well. She has had few episodes of diarrhea in the last 48 hours and also noted a boil at her bottom which has gradually increased in size with increasing tenderness and swelling. She complains of associated chills however denies body aches/nausea. Initial workup was consistent with severe sepsis with white count 31,300 on examination (area revealed induration with a central opening that started oozing pus when probed with a Q-tip) She underwent CT with contrast abdomen and pelvis did not show a definite abscesses. 3/2- patient doing well. However white count around 40,000, C. difficile positive, on vancomycin 500 every 6, diarrhea improved, underwent hemodialysis. De-escalate antibiotics. Perineal swelling and tenderness improving 3/3-patient clinically improving. White count 32.6. Wound surgeon consulted. Wound care recommendations discontinue antibiotics. On oral vancomycin for C. difficile. Clinically improving. Tolerating diet. Ongoing physical therapy. Ongoing hemodialysis. No concerns per staff. No overnight events 3/-MAXIMUM TEMPERATURE 103, overnight intermittent atrial tachycardia started on beta blu, white count downtrending from 39.9-19.7. IV antibiotics continue. Surgery on board. Improved perineal cellulitis. Resolved. Tolerating diet. Ongoing hemodialysis per nephrology. /-patient doing well. MAXIMUM TEMPERATURE 102, white count 17.1, surgery consulted for perineal cellulitis/possible abscess after wound care teams concerns. Patient started on IV vancomycin as staph aureus on cultures. Tolerating diet, hemodialysis /-white count now at 19,000 despite treatment. Case discussed with surgery. Operative drainage not indicated per surgery advised to continue antibiotics. Patient clinically feels better. 2 episodes of diarrhea but denies abdominal pain fever or shortness of breath, ongoing hemodialysis. - Constitutional Vitals: Vital Signs Temp Pulse Resp BP Pulse Ox 98 F 73 16 133/52 93 12/20/18 07:10 12/20/18 07:10 12/20/18 07:10 12/20/18 07:10 12/20/18 07:10 Period Temp Pulse Resp BP Sys/Barnard Pulse Ox Last 24 Hr 97.0 F-100.0 F 73-80 16-20 122-137/50-74 91-94 Intake and Output 12/19/18 12/20/18 12/20/18 21:59 05:59 13:59 Intake Total 365 Balance 365 Weight 178 lb 8 oz Intake & Output: Intake & Output 12/19/18 12/20/18 12/20/18 21:59 05:59 13:59 Intake Total 365 Balance 365 Weight 178 lb 8 oz Intake: Oral 120 GI Tube Flush 245 Other: Meal snack-jello Percent of Meal Consumed 100% Feeding Ability Assist with Tray Set Up Urine Appearance Uretheral (Ceron) Clear Urine Color Uretheral (Ceron) Pale Stool Size Large Stool Color Green Black Stool Consistency Soft # of times incontinent of 1 Bowels General appearance: no acute distress Exam: Alert and oriented nonlabored breathing Nondistended abdomen No Anxiety Medical - PN: Obj Da - Labs CBC & Chem 7: 12/20/18 04:10 12/20/18 04:10 Labs: Abnormal Lab Results 12/20/18 12/20/18 12/19/18 04:10 04:10 03:45 WBC 19.9 H RBC 2.55 L Hgb 7.7 L Hct 23.5 L RDW 15.0 H MPV 6.8 L Lymphocytes % Monocytes % (Manual) RBC Morphology Hypochromasia Anisocytosis Potassium Chloride 93 L BUN 25 H Creatinine 4.7 H Calcium 7.4 L Phosphorus 2.2 L Iron 21 L TIBC 155 L Transferrin % Sat 13 L Ferritin 1406.0 H Alkaline Phosphatase Lactate Dehydrogenase Total Protein 5.8 L Albumin 2.7 L Albumin/Globulin Ratio 0.9 L 12/19/18 12/19/18 12/18/18 03:45 03:45 03:41 WBC 17.1 H RBC 2.67 L Hgb 7.9 L Hct 24.5 L RDW 15.1 H MPV 6.8 L Lymphocytes % Monocytes % (Manual) 14 H RBC Morphology Abnorm A Hypochromasia Few A Anisocytosis Few A Potassium 3.2 L Chloride BUN 28 H Creatinine 3.3 H 5.8 H* Calcium 7.5 L 7.4 L Phosphorus 2.0 L Iron TIBC Transferrin % Sat Ferritin Alkaline Phosphatase 146 H Lactate Dehydrogenase 347 H Total Protein 5.8 L Albumin 2.5 L 2.4 L Albumin/Globulin Ratio 0.8 L 0.7 L 12/18/18 03:41 WBC 19.7 H RBC 2.93 L Hgb 8.7 L Hct 27.0 L RDW 14.9 H MPV 6.6 L Lymphocytes % 13 L Monocytes % (Manual) RBC Morphology Hypochromasia Anisocytosis Potassium Chloride BUN Creatinine Calcium Phosphorus Iron TIBC Transferrin % Sat Ferritin Alkaline Phosphatase Lactate Dehydrogenase Total Protein Albumin Albumin/Globulin Ratio Meds: Medications Acetaminophen (Tylenol) 650 mg PO Q4-6HP PRN PRN Reason: PAIN/FEVER > 101 Last Admin: 12/18/18 22:08 Dose: 650 mg Documented by: Albuterol Sulfate (Ventolin) 1 - 2 puff IH Q4H [facility] Last Admin: 12/20/18 04:54 Dose: Not Given Documented by: Amlodipine Besylate (Norvasc) 2.5 mg PO DAILY [facility] Last Admin: 12/19/18 09:28 Dose: 2.5 mg Documented by: Aspirin (Aspirin) 81 mg PO DAILY [facility] Last Admin: 12/19/18 09:28 Dose: 81 mg Documented by: Bacitracin (Bacitracin Topical Oint) 1 dose TOPICAL TID [facility] Last Admin: 12/19/18 21:26 Dose: 1 dose Documented by: Bisacodyl (Dulcolax) 10 mg AK DAILYP PRN PRN Reason: Constipation Calcium Carbonate/Glycine (Tums) 200 mg PO DAILY [facility] Last Admin: 12/19/18 09:27 Dose: 200 mg Documented by: Clopidogrel Bisulfate (Plavix) 75 mg PO DAILY [facility] Last Admin: 12/19/18 09:27 Dose: 75 mg Documented by: Diagnostic Test (Pha) (Accu-Chek) 1 each FS ACHS [facility] Last Admin: 12/20/18 07:09 Dose: 1 each Documented by: Docusate Sodium (Colace) 100 mg PO BID [facility] Last Admin: 12/19/18 21:21 Dose: Not Given Documented by: Fluoxetine HCl (Prozac) 20 mg PO QDAY [facility] Last Admin: 12/19/18 09:28 Dose: 20 mg Documented by: Furosemide (Lasix) 40 mg PO QDAY [facility] Last Admin: 12/19/18 09:28 Dose: 40 mg Documented by: Heparin Sodium (Porcine) (Heparin) 5,000 unit SQ Q12 [facility] Last Admin: 12/19/18 21:21 Dose: Not Given Documented by: Iron Carb/Multivit/[place]/Folic Acid (Multivitamin W/Minerals) 1 tab PO DAILY [facility] Last Admin: 12/19/18 09:27 Dose: 1 tab Documented by: Ketoconazole (Nizoral 2% Top Crm) 1 dose TOPICAL DAILY [facility] Last Admin: 12/19/18 09:30 Dose: Not Given Documented by: Loperamide HCl (Imodium) 2 mg PO Q2-4HP PRN PRN Reason: Diarrhea Last Admin: 12/18/18 20:33 Dose: 2 mg Documented by: Metoprolol Tartrate (Lopressor) 12.5 mg PO BID [facility] Last Admin: 12/19/18 21:19 Dose: 12.5 mg Documented by: Multivit/Ca Carb/B Cmplx/FA/Prenat (Diatx) 1 tab PO DAILY [facility] Last Admin: 12/19/18 09:28 Dose: 1 tab Documented by: Niacin (Niacin) 500 mg PO [facility] Last Admin: 12/19/18 21:22 Dose: 500 mg Documented by: Ondansetron HCl (Zofran) 4 mg IV Q4-6HP PRN PRN Reason: Nausea And Vomiting Last Admin: 12/15/18 22:07 Dose: 4 mg Documented by: Ondansetron HCl (Zofran Odt) 4 mg SL Q6HP PRN PRN Reason: Nausea Senna/Docusate Sodium (Senna Plus Tablet) 1 tab PO HS [facility] Last Admin: 12/19/18 21:22 Dose: Not Given Documented by: Simvastatin (Zocor) 20 mg PO [facility] Last Admin: 12/19/18 21:20 Dose: 20 mg Documented by: Sodium Chloride (Saline Flush) 10 ml IV Q8 [facility] Last Admin: 12/20/18 04:54 Dose: 10 ml Documented by: Vancomycin HCl (Vancomycin Oral Brenna) 500 mg PO QID [facility] Last Admin: 12/19/18 21:17 Dose: 500 mg Documented by: Vancomycin HCl (Vancomycin Per Pharmacy) 1 order IV UD [facility] Medical - PN: A/P - Time Spent With Patient Total time spent is greater than 50% in coordination of care (as documented) at patient's floor/unit and/or counseling patient: 25 - 35 minutes (1) Severe sepsis Problem details: Status: Acute Assessment and plan: * Severe sepsis with leukemoid reaction-clinically improved. White count down to 19.9 however plateaued. Add IV Flagyl as per surgery recommendations * Perineal cellulitis/Bartholin cyst-staph aureus on culture. No indication for operative drainage at this time. Continue IV vancomycin. Ongoing wound care. * C. difficile enterocolitis-continue oral vancomycin 500 every 6 hour * Narrow complex tachycardia-resolved on beta blu * Diarrhea-secondary to C. difficile. Resolved * Acute cystitis -group B streptococcus on cultures, on IV vancomycin * ESRD on hemodialysis-managed by nephrology * History of hypertension - continue clonidine/amlodipine/valsartan with holding parameters * Anxiety disorder on fluoxetine * History of CAD on Plavix/statin/aspirin * Full code * Prophylaxis heparin Plan * Continue IV vancomycin/Flagyl for perineal cellulitis/group B streptococcus UTI * Hemodialysis per nephrology * Prior medical condition management as above * If persistent leukocytosis further source evaluation Current Visit: Yes Medical - PN: Qual - VTE Deep Vein Thrombosis/Pulmonary Embolism Present on Admission: No
[2018-12-20] MEDS: metroNIDAZOLE 500 MG/100 ML BAG IV SCH (08:10)
[2018-12-20 08:19] LABS: Band Neutrophils % 14 % (0-10); Eosinophils % (Manual) 3 % (0-7); Hypochromasia 1+ (NONE SEEN); Lymphocytes % 17 % (15-49); Monocytes % (Manual) 12 % (1-12); Platelet Estimate NORMAL (NORMAL); RBC Morphology ABNORM (NORMAL); Segmented Neutrophils % 51 % (38-78)
[2018-12-20] MEDS ORDERED: DARBEPOETIN ALFA 100 MCG/ML VIAL IV ONE (08:46)
[2018-12-20] MEDS: VANCOMYCIN ORAL SOL 1,000 MG/10 ML BOTTLE PO SCH ×3 (10:43→17:37)
--- NOTE | 2018-12-20 11:25 | Infectious Disease Consult ---
History of Present Illness Patient information: Note initiated : 12/20/18 at 11:01 am Service Date, if different from initiated Date: [] Patient: Teri Olson 68 y/o F admitted on 12/15/18 for Nausea, Diarrhea, Fever. Chief Complaint: [] Consult date: 12/20/18 Requesting Physician: Jakob Campos Reason for Consult: Elevated white cell count persisting despite antibiotics in light of skin and soft tissue involving perineal area and C. difficile infection Chief complaint: I was feeling weak and had diarrhea before I came to the hospital History of present illness: 68 year old lady familiar to me from her past hospitalization for MSSA bacteremia in 2018. She has past medical history pertinent for: ESRD on hemodialysis through left arm AV graft [had it for almost 3 years] MSSA bacteremia in 2018 without evidence of AV graft involvement, negative echocardiogram Type 2 diabetes Obesity Patient was admitted on 12/15/18 with complaints of loose stools and feeling weak since 12/14. Patient also reports having fever [around 102 F], nausea and vomiting and a boil on the outside of her genitals. She does not know the exact duration for how long the boil has been there but mentions that it has been more sore and draining some pus in the last few days. Patient reports that she lives in a assisted living and few individuals were sick around her. She denies receiving any antibiotics in the last few weeks. At admission her temperature was 100.1, blood pressure 159/59, heart rate 98. White blood cell count was 31.8 with neutrophilic predominance. Hospitalist notes indicate that left vulva and perineal area was inflamed with induration and a central opening that started oozing pus when probed with a Q-tip. Patient underwent CT abdomen and pelvis with IV contrast on day of admission which did not show any evidence of perineal abscess. Patient was started on IV vancomycin and IV Zosyn, blood cultures and urine cultures were sent. Superficial wound cultures from purulent drainage from the perineal wound was also sent. Patient's stool C. difficile testing was positive and she was subsequently started on oral vancomycin 500 milligrams every 6 hour. Subsequently wound care and surgery was also consulted to help with perineal area wound. Patient's blood cultures were negative. Urine cultures grew group B strep [more than 100,000 CFU's per mL] and superficial wound cultures grew MSSA. Zosyn was stopped on 12/16/18. Patient has been on IV Vanco off and on per pharmacy assisted dosing. Her white cell count decreased to about 17,000 on 12/19/18 and went up to 19.9 thousand today. Patient also had a ultrasound duplex of her AV graft which showed normal functioning. At time of visit, patient was lying in a pool of liquid stools, greenish colored. She mentioned that her frequency of stools has decreased to about 1-2 times per day. She expresses a lot of pain in the perineal area. She denied any fever, chills, nausea, vomiting, belly pain. Review of Systems All systems PM: reviewed and no additional remarkable complaints except as stated Past History Past surgical history: AV graft placement 3 years ago Past family history: Not pertinent to current presentation Past social history: Lives at [facility] for last month or so Medications and Allergies Home Medications Medication Instructions Recorded Confirmed Type fluoxetine 20 mg capsule 20 mg PO QDAY 11/19/15 12/15/18 History acetaminophen 325 mg tablet 650 mg PO Q6HP PRN tab 08/02/18 12/15/18 History amlodipine 2.5 mg tablet 2.5 mg PO QDAY 08/02/18 12/15/18 History calcium carbonate 200 mg calcium 200 mg PO ONCE tab 08/02/18 12/15/18 History (500 mg) chewable tablet loperamide 2 mg tablet 2 mg PO Q2-4H PRN 08/02/18 12/15/18 History losartan 25 mg tablet 25 mg PO QDAY 08/02/18 12/15/18 History Aspirin [Elias Chewable Aspirin] 81 mg PO DAILY 08/28/18 12/15/18 History Ketoconazole 2% Top Crm [Nizoral 1 dose TOPICAL DAILY #1 tube 08/30/18 12/15/18 Rx 2% Top Crm] furosemide 40 mg tablet 40 mg PO QDAY #30 tab 11/20/18 12/15/18 Rx Albuterol Sulfate [Proair Hfa] 1 - 2 puff IH Q4H 12/15/18 12/15/18 History Bisacodyl [Laxative Suppository] 10 mg RC PRN PRN 12/15/18 12/15/18 History Clopidogrel Bisulfate [Plavix] 75 mg PO DAILY 12/15/18 12/15/18 History Folic Acid/Vit Bcomp,C 0.8 mg PO DAILY 12/15/18 12/15/18 History [Nephro-Milagro Tablet] Niacinamide [Niacin] 500 mg PO DAILY 12/15/18 12/15/18 History Ondansetron [Zofran ODT] 4 mg SL Q6HP PRN 12/15/18 12/15/18 History Pravastatin [Pravachol] 40 mg PO DAILY 12/15/18 12/15/18 History Sennosides/Docusate Sodium [Cvs 1 each PO PRN PRN 12/15/18 12/15/18 History Stool Softener-Stim Lax Tb] Allergies Allergy/AdvReac Type Severity Reaction Status Date / Time codeine Allergy Intermediate Hives Verified 08/28/18 17:02 meperidine [From Demerol] Allergy Intermediate Hives Verified 08/28/18 17:02 gemfibrozil [From Lopid] AdvReac Intermediate Muscle Pain Verified 12/17/18 08:50 ciprofloxacin [From Cipro] AdvReac Mild Nausea Verified 12/17/18 08:50 Physical Examination Vital signs: Temp Pulse Resp BP Pulse Ox 36.6 C 73 16 133/52 93 12/20/18 07:10 12/20/18 07:10 12/20/18 07:10 12/20/18 07:10 12/20/18 07:10 General appearance: no acute distress Eyes pulmonary: nonicteric Auscultation: bilateral: clear (Some decreased breath sounds at lung bases, rest clear to auscultation) Cardiovascular: other (Patient has irregular heart rate, S1-S2 normal, no murmurs auscultated) Gastrointestinal: normoactive bowel sounds, soft, non-tender Extremities: no edema, other (AV graft has a palpable thrill) Genital area: Patient's left labia majora is swollen, red, indurated, tender. The wound extends from anterior to posterior in the perineal area. There is a single opening with some purulent drainage on pressure. Results - Laboratory Findings CBC and BMP: 12/20/18 04:10 12/20/18 04:10 Abnormal lab findings: Abnormal Labs 12/15/18 12/15/18 12/15/18 12:18 12:18 12:18 WBC 31.9 H* RBC 3.03 L Hgb 9.0 L Hct 27.5 L RDW 14.8 H MPV 6.2 L Gran % 85.6 H Lymph % (Auto) 6.6 L Gran # 27.3 H Ferry # (Auto) 2.5 H Seg Neutrophils % Band Neutrophils % Lymphocytes % Monocytes % (Manual) Reactive Lymphocytes RBC Morphology Polychromasia Hypochromasia Anisocytosis Sodium 132 L Potassium Chloride 92 L Carbon Dioxide BUN Creatinine 5.3 H* Uric Acid Calcium 7.5 L Phosphorus Iron TIBC Transferrin % Sat Ferritin Alkaline Phosphatase Lactate Dehydrogenase C-Reactive Protein 9.3 H Total Protein Albumin Albumin/Globulin Ratio Beta-Hydroxybutyrate 0.41 H Urine Glucose (UA) Urine Occult Blood Urine RBC Urine WBC Urine Bacteria 12/15/18 12/15/18 12/16/18 12:18 14:02 04:00 WBC 39.9 H* RBC 2.97 L Hgb 8.9 L Hct 27.2 L RDW 14.9 H MPV 6.5 L Gran % Lymph % (Auto) Gran # [place]erry # (Auto) Seg Neutrophils % 87 H Band Neutrophils % 11 H Lymphocytes % 4 L 4 L Monocytes % (Manual) Reactive Lymphocytes 5 H 3 H RBC Morphology Abnorm A Polychromasia 1+ A Hypochromasia Anisocytosis Sodium Potassium Chloride Carbon Dioxide BUN Creatinine Uric Acid Calcium Phosphorus Iron TIBC Transferrin % Sat Ferritin Alkaline Phosphatase Lactate Dehydrogenase C-Reactive Protein Total Protein Albumin Albumin/Globulin Ratio Beta-Hydroxybutyrate Urine Glucose (UA) 100 A Urine Occult Blood Trace A Urine RBC 99 H Urine WBC > 182 H Urine Bacteria Mod A 12/16/18 12/17/18 12/17/18 04:00 03:51 03:51 WBC 32.6 H* RBC 2.83 L Hgb 8.5 L Hct 26.1 L RDW 15.3 H MPV 6.6 L Gran % Lymph % (Auto) Gran # [place] # (Auto) Seg Neutrophils % 85 H Band Neutrophils % Lymphocytes % 6 L Monocytes % (Manual) Reactive Lymphocytes RBC Morphology Polychromasia Hypochromasia Anisocytosis Sodium Potassium Chloride 94 L Carbon Dioxide 31 H BUN 25 H Creatinine 2.6 H 4.3 H Uric Acid 2.4 L Calcium 7.8 L 7.2 L Phosphorus 2.2 L Iron TIBC Transferrin % Sat Ferritin Alkaline Phosphatase 132 H Lactate Dehydrogenase C-Reactive Protein Total Protein 5.8 L Albumin 2.9 L 2.6 L Albumin/Globulin Ratio 0.9 L 0.8 L Beta-Hydroxybutyrate Urine Glucose (UA) Urine Occult Blood Urine RBC Urine WBC Urine Bacteria 12/18/18 12/18/18 12/19/18 03:41 03:41 03:45 WBC 19.7 H 17.1 H RBC 2.93 L 2.67 L Hgb 8.7 L 7.9 L Hct 27.0 L 24.5 L RDW 14.9 H 15.1 H MPV 6.6 L 6.8 L Gran % Lymph % (Auto) Gran # [place] # (Auto) Seg Neutrophils % Band Neutrophils % Lymphocytes % 13 L Monocytes % (Manual) 14 H Reactive Lymphocytes RBC Morphology Abnorm A Polychromasia Hypochromasia Few A Anisocytosis Few A Sodium Potassium Chloride Carbon Dioxide BUN 28 H Creatinine 5.8 H* Uric Acid Calcium 7.4 L Phosphorus Iron TIBC Transferrin % Sat Ferritin Alkaline Phosphatase 146 H Lactate Dehydrogenase 347 H C-Reactive Protein Total Protein Albumin 2.4 L Albumin/Globulin Ratio 0.7 L Beta-Hydroxybutyrate Urine Glucose (UA) Urine Occult Blood Urine RBC Urine WBC Urine Bacteria 12/19/18 12/19/18 12/20/18 03:45 03:45 04:10 WBC 19.9 H RBC 2.55 L Hgb 7.7 L Hct 23.5 L RDW 15.0 H MPV 6.8 L Gran % Lymph % (Auto) Gran # [place] # (Auto) Seg Neutrophils % Band Neutrophils % 14 H Lymphocytes % Monocytes % (Manual) Reactive Lymphocytes 3 H RBC Morphology Abnorm A Polychromasia 1+ A Hypochromasia 1+ A Anisocytosis Sodium Potassium 3.2 L Chloride Carbon Dioxide BUN Creatinine 3.3 H Uric Acid Calcium 7.5 L Phosphorus 2.0 L Iron 21 L TIBC 155 L Transferrin % Sat 13 L Ferritin 1406.0 H Alkaline Phosphatase Lactate Dehydrogenase C-Reactive Protein Total Protein 5.8 L Albumin 2.5 L Albumin/Globulin Ratio 0.8 L Beta-Hydroxybutyrate Urine Glucose (UA) Urine Occult Blood Urine RBC Urine WBC Urine Bacteria 12/20/18 04:10 WBC RBC Hgb Hct RDW MPV Gran % Lymph % (Auto) Gran # [place] # (Auto) Seg Neutrophils % Band Neutrophils % Lymphocytes % Monocytes % (Manual) Reactive Lymphocytes RBC Morphology Polychromasia Hypochromasia Anisocytosis Sodium Potassium Chloride 93 L Carbon Dioxide BUN 25 H Creatinine 4.7 H Uric Acid Calcium 7.4 L Phosphorus 2.2 L Iron TIBC Transferrin % Sat Ferritin Alkaline Phosphatase Lactate Dehydrogenase C-Reactive Protein Total Protein 5.8 L Albumin 2.7 L Albumin/Globulin Ratio 0.9 L Beta-Hydroxybutyrate Urine Glucose (UA) Urine Occult Blood Urine RBC Urine WBC Urine Bacteria Microbiology: Microbiology 12/17/18 20:36 Blood Blood Culture - Preliminary 12/17/18 20:24 Blood Blood Culture - Preliminary 12/15/18 14:42 Blood Blood Culture - Preliminary 12/15/18 14:34 Blood Blood Culture - Preliminary 12/15/18 15:25 Buttock - Right Gram Stain - Final 12/15/18 15:25 Buttock - Right Wound Culture - Final Staphylococcus aureus 12/15/18 14:02 Urine - Catheterized Urine Culture - Final Strep agalactiae - (group b) 12/16/18 02:32 Stool C. difficile GDH Antigen & Toxins - Final Assessment and Plan - Narrative A/P Narrative: Assessment: 1. Severe labial cellulitis with extension to perineum Superficial cultures growing MSSA Given lack of improvement despite being on IV vancomycin for last 3 days, concerned about underlying fluid collection Constant exposure of the wound to loose stools also increases risk for infections due to anaerobes and is a risk factor for poor wound healing because of excessive moisture 2. Severe Clostridiodes difficile infection with leukocytosis more than 15,000 On oral vancomycin Overall getting better with decreased frequency of loose stools 3. Persistent leukocytosis: Secondary to (1), some contribution from (2) 4. Persistent MSSA colonization: Patient had a positive wound culture from second finger in August 2018 and now has a positive wound culture from perineal wound With her being on hemodialysis, it could be a risk factor for bacteremia like she had on August 28, 2018 Recommendations: Continue IV vancomycin per pharmacy assisted dosing. Check random levels for hemodialysis, target 10-20 We will change dosing of oral vancomycin to 250 mg every 6 hours for C. difficile treatment Given excellent bioavailability of metronidazole, will switch IV metronidazole to oral metronidazole 500 mg every 8 for anaerobic coverage given perineal wounds exposure to stools Will recommend an ultrasound of the perineum and labia would help rule out underlying abscess If white cell count continues to trend up, oral levofloxacin [renally adjusted] could be added tomorrow for gram-negative coverage. As certain antibiotics are risk factor for causing C. difficile infection, I would like to avoid it if possible Patient would benefit from decolonization with intranasal mupirocin and below neck whole body chlorhexidine around the time of discharge Will follow Lamont Aldridge MD Infectious disease
[2018-12-20] MEDS: DOCUSATE SODIUM 100 MG CAPSULE PO SCH ×2 (13:37→21:38)
[2018-12-20] MEDS: BACITRACIN TOPICAL OINT 15 GM TUBE TOPICAL SCH ×3 (15:03→21:38)
[2018-12-20] MEDS: ASPIRIN 81 MG TAB.CHEW PO SCH (15:03)
[2018-12-20] MEDS: FLUoxetine HCL 20 MG CAPSULE PO SCH (15:04)
[2018-12-20] MEDS: METOPROLOL TARTRATE 25 MG TABLET PO SCH ×2 (15:04→21:36)
[2018-12-20] MEDS: CLOPIDOGREL 75 MG TABLET PO SCH (15:04)
[2018-12-20] MEDS: amLODIPine 5 MG TABLET PO SCH (15:05)
[2018-12-20] MEDS: HEPARIN 5,000 UNIT/ML VIAL SQ SCH ×2 (15:06→21:38)
[2018-12-20] MEDS: FUROSEMIDE 40 MG TABLET PO SCH (15:11)
[2018-12-20] MEDS: FOLIC ACID/VITAMIN B COMP W-C 1 TAB TABLET PO SCH (15:12)
[2018-12-20] MEDS: MULTIVIT,THER IRON,CA,FA & MIN 1 TABLET PO SCH (15:12)
[2018-12-20] MEDS: KETOCONAZOLE 2% TOP CRM 15GM TUBE TOPICAL SCH (15:13)
[2018-12-20] MEDS: metroNIDAZOLE 500 MG TABLET PO SCH ×2 (15:14→21:37)
[2018-12-20] MEDS: CALCIUM CARBONATE 500 MG TAB.CHEW PO SCH (15:14)
[2018-12-20 15:45] LABS: Vancomycin,Random 17.3 ug/mL
--- NOTE | 2018-12-20 17:48 | Nephrology Progress Note ---
Subjective Patient information: Note initiated : 12/20/18 at 5:45 pm Service Date, if different from initiated Date: [] Patient: Teri Olson 68 y/o F admitted on 12/15/18 for Nausea, Diarrhea, Fever. Chief Complaint: [] Principal diagnosis: cdiff colitis Interval history: no overnight events diarrhea has improved but white count still elevated, also concern of perineal wound/infection, ID/wound care/surgery following has some wheezing this am no SOB, edema oral intake slowly improving denies nausea denies any other concerns Pertinent ROS: as above Objective - Vital Signs Vital signs: Vital Signs Temp Pulse Pulse Resp BP BP BP 12/20/18 16:00 97.6 F 18 117/56 12/20/18 14:37 97.5 F 78 102/62 12/20/18 14:23 72 141/61 12/20/18 14:09 72 109/64 12/20/18 13:55 75 103/52 12/20/18 13:40 64 91/45 12/20/18 13:20 65 91/39 12/20/18 13:07 61 95/34 12/20/18 12:35 82 121/58 12/20/18 12:06 80 119/61 12/20/18 12:00 97.3 F 18 125/60 12/20/18 11:37 86 132/70 12/20/18 11:10 97.3 F 80 125/60 12/20/18 07:10 98 F 73 16 133/52 12/20/18 04:00 98.5 F 75 18 126/74 12/20/18 00:00 75 18 132/50 Pulse Ox 12/20/18 16:00 94 12/20/18 14:37 12/20/18 14:23 12/20/18 14:09 12/20/18 13:55 12/20/18 13:40 12/20/18 13:20 12/20/18 13:07 12/20/18 12:35 12/20/18 12:06 12/20/18 12:00 95 12/20/18 11:37 12/20/18 11:10 12/20/18 07:10 93 12/20/18 04:00 93 12/20/18 00:00 94 Intake and Output 12/20/18 12/20/18 12/20/18 05:59 13:59 21:59 Intake Total 300 200 Output Total 1100 Balance 300 -900 Intake: IV 100 Oral 200 200 Output: Hemodialysis UF 1100 Other: Meal Nourishment/Supplement Percent of Meal Consumed 100% Urine Appearance Uretheral (Ceron) Clear Urine Color Uretheral (Ceron) Bright Yellow Stool Size Moderate Large Stool Color Brown Stool Consistency Soft Soft Liquid # Bowel Movements 1 # of times incontinent of 1 Bowels Intake & Output: Intake & Output 12/20/18 12/20/18 12/20/18 05:59 13:59 21:59 Intake Total 300 200 Output Total 1100 Balance 300 -900 Intake: IV 100 Oral 200 200 Output: Hemodialysis UF 1100 Other: Meal Nourishment/Supplement Percent of Meal Consumed 100% Urine Appearance Uretheral (Ceron) Clear Urine Color Uretheral (Ceron) Bright Yellow Stool Size Moderate Large Stool Color Brown Stool Consistency Soft Soft Liquid # Bowel Movements 1 # of times incontinent of 1 Bowels - General Appearance General appearance: appears started age, chronically ill EENT: mucous membranes moist Neck: no JVD Respiratory: clear Cardiology: no rub, no edema, normal S1, normal S2 Gastrointestinal: no tenderness, no guarding Integumentary: warm and dry Neurologic: no asterixis, alert and oriented x3 Musculoskeletal: no cyanosis Psychiatric: mood/affect appropriate - Lab 12/20/18 04:10 12/20/18 04:10 Most recent lab results Calcium 7.4 mg/dl (8.6-10.4) L 12/20/18 04:10 Phosphorus 2.2 mg/dL (2.7-4.5) L 12/20/18 04:10 Magnesium 2.1 mg/dL (1.6-2.5) 12/20/18 04:10 Assessment and Plan (1) Leukocytosis, unspecified Status: Acute Qualifiers: Leukocytosis type: leukemoid reaction Qualified Code(s): D72.823 - Leukemoid reaction (2) Anemia, chronic renal failure Status: Chronic (3) ESRD (end stage renal disease) on dialysis Status: Chronic Priority: Medium - Narrative A/P Narrative: patient will get HD today for 3.5hrs using revaclear dialyser, 3K/2.5ca dialysate, UF goal of 1100ml achieved, QB 350ML/MIN AND QD 800ML/MIN She received aranesp 100mcg IV x 1 for anemia corrected calcium normal low albumin, started on nepro, oral intake improving, should improve as infection/inflammation improves elevated WBC count/cdiff colitis/perineal wound: management per hospitalist/ID/wound care will follow along
[2018-12-20] MEDS: NIACIN 250 MG CAP.SR.12H PO SCH (21:37)
[2018-12-20] MEDS: SIMVASTATIN 20 MG TABLET PO SCH (21:38)
[2018-12-20] MEDS: SENNOSIDES/DOCUSATE SODIUM 1 TAB TABLET PO SCH (21:39)
[2018-12-21] MEDS: VANCOMYCIN ORAL SOL 1,000 MG/10 ML BOTTLE PO SCH ×4 (00:53→17:01)
[2018-12-21] MEDS: ALBUTEROL SULFATE 1 PUFF INHALER IH SCH ×7 (01:00→21:06)
[2018-12-21] MEDS: 0.9 % SODIUM CHLORIDE 10 ML SYRINGE IV SCH ×3 (05:47→21:05)
[2018-12-21] MEDS: metroNIDAZOLE 500 MG TABLET PO SCH ×2 (05:47→21:42)
[2018-12-21 06:49] LABS: Basophils # (Auto) 0 K/mcL (0.0-0.3); Basophils % (Auto) 0.1 % (0.0-2.0); Eosinophils # (Auto) 0.3 K/mcL (0.0-0.7); Eosinophils % (Auto) 1.8 % (0.0-7.0); Granulocytes % (Auto) 67.7 % (38.0-78.0); Lymphocytes % (Auto) 21.4 % (15.5-49.0); Mean Cell Volume 92.7 fL (80.0-100.0); Mean Corpuscular HGB Conc 31.7 g/dL (31.0-36.0); Monocytes # (Auto) 1.7 K/mcL (0.1-0.9); Platelet Count 384 K/mcL (140-440); RBC 2.52 M/mcL (4.00-5.20); Red Cell Distribution Width 14.8 % (11.5-14.5)
--- NOTE | 2018-12-21 09:37 | Ultrasound Report ---
HISTORY: History severe cellulitis of the labia majora FINDINGS: The pelvis was imaged transabdominally and translabial. Endovaginal study was not performed at the patient's request. In the region of the labia there is cellulitis and edema in the subcutaneous tissues. No abscess is identified. The uterus is anteverted. Endometrium is 7 mm in thickness. Neither ovary could be visualized. No intrapelvic abscess or free fluid are seen. The patient was technically difficult to scan due to large body habitus. IMPRESSION: Cellulitis in the labia and no evidence of an abscess Interpreted and Authenticated by: Michael Orosco 12/21/18
--- NOTE | 2018-12-21 09:54 | Infectious Disease Prog Note ---
Subjective Patient information: Note initiated : 12/21/18 at 9:50 am Service Date, if different from initiated Date: [] Patient: Teri Olson 68 y/o F admitted on 12/15/18 for Nausea, Diarrhea, Fever. Chief Complaint: [] Principal diagnosis: cdiff colitis Interval history: Pt feels better compared to yesterday. Endorses pain in the genital area, but better than yesterday. Denied any fevers, chills, n/v, belly pain. Had 1 BM today, with loose consistency. Feel her appetite is getting better. Objective Objective Narrative: ao x 3, in nad chest cta s1 s2 normal bs ++, nttd Left labial fold is swollen, red, tender, with a small opening draining pus. The swelling extends to perineal area no dependent edema Lt arm AV graft looks fine - Vital Signs Vital signs: Vital Signs Temp Pulse Pulse Resp BP BP BP 12/21/18 04:00 36.0 C L 78 18 130/52 12/21/18 00:00 37.2 C 65 16 106/62 12/20/18 20:00 36.5 C 18 110/49 12/20/18 16:00 36.4 C 18 117/56 12/20/18 14:37 36.4 C 78 102/62 12/20/18 14:23 72 141/61 12/20/18 14:09 72 109/64 12/20/18 13:55 75 103/52 12/20/18 13:40 64 91/45 12/20/18 13:20 65 91/39 12/20/18 13:07 61 95/34 12/20/18 12:35 82 121/58 12/20/18 12:06 80 119/61 12/20/18 12:00 36.3 C 18 125/60 12/20/18 11:37 86 132/70 12/20/18 11:10 36.3 C 80 125/60 Pulse Ox 12/21/18 04:00 96 12/21/18 00:00 96 12/20/18 20:00 100 12/20/18 16:00 94 12/20/18 14:37 12/20/18 14:23 12/20/18 14:09 12/20/18 13:55 12/20/18 13:40 12/20/18 13:20 12/20/18 13:07 12/20/18 12:35 12/20/18 12:06 12/20/18 12:00 95 12/20/18 11:37 12/20/18 11:10 Intake and Output 12/20/18 12/21/18 12/21/18 21:59 05:59 13:59 Intake Total 540 360 Output Total 1100 75 Balance -560 285 Intake: Oral 540 360 Output: Urine Catheter Amount 75 Hemodialysis UF 1100 Other: Meal Nourishment/Supplement 2X jello's Percent of Meal Consumed 100% Feeding Ability Assist with Tray Set Up Urine Appearance Cloudy Sediment Uretheral (Cerno) Clear Urine Color Bright Yellow Uretheral (Ceron) Bright Yellow Urine Odor Normal Stool Size Large Stool Color Brown Stool Consistency Soft Liquid # Bowel Movements 1 # of times incontinent of 1 Bowels Weight 81.647 kg Intake & Output: Intake & Output 12/20/18 12/21/18 12/21/18 21:59 05:59 13:59 Intake Total 540 360 Output Total 1100 75 Balance -560 285 Weight 81.647 kg Intake: Oral 540 360 Output: Urine Catheter Amount 75 Hemodialysis UF 1100 Other: Meal Nourishment/Supplement 2X jello's Percent of Meal Consumed 100% Feeding Ability Assist with Tray Set Up Urine Appearance Cloudy Sediment Uretheral (Ceron) Clear Urine Color Bright Yellow Uretheral (Ceron) Bright Yellow Urine Odor Normal Stool Size Large Stool Color Brown Stool Consistency Soft Liquid # Bowel Movements 1 # of times incontinent of 1 Bowels - Lab 12/21/18 03:50 12/20/18 04:10 Most recent lab results Calcium 7.4 mg/dl (8.6-10.4) L 12/20/18 04:10 Phosphorus 2.2 mg/dL (2.7-4.5) L 12/20/18 04:10 Magnesium 2.1 mg/dL (1.6-2.5) 12/20/18 04:10 Microbiology 12/17/18 20:36 Blood Blood Culture - Preliminary 12/17/18 20:24 Blood Blood Culture - Preliminary 12/15/18 14:42 Blood Blood Culture - Final 12/15/18 14:34 Blood Blood Culture - Final 12/15/18 15:25 Buttock - Right Gram Stain - Final 12/15/18 15:25 Buttock - Right Wound Culture - Final Staphylococcus aureus 12/15/18 14:02 Urine - Catheterized Urine Culture - Final Strep agalactiae - (group b) 12/16/18 02:32 Stool C. difficile GDH Antigen & Toxins - Final Medications Active Medications: Acetaminophen (Tylenol) 650 mg PO Q4-6HP PRN PRN Reason: PAIN/FEVER > 101 Last Admin: 12/18/18 22:08 Dose: 650 mg Documented by: LORETTA Cosigned by: YANCI Admin: 12/17/18 20:17 Dose: 650 mg Documented by: [email or web address] Admin: 12/15/18 21:39 Dose: 650 mg Documented by: HIEU Albuterol Sulfate (Ventolin) 1 - 2 puff IH Q4H LIANA Last Admin: 12/21/18 04:52 Dose: Not Given Documented by: TETO Non-Admin Reason: Not In Room Admin: 12/21/18 01:00 Dose: Not Given Documented by: TETO Non-Admin Reason: Not available Admin: 12/20/18 17:45 Dose: Not Given Documented by: [email or web address] Non-Admin Reason: Unavailable Admin: 12/20/18 17:30 Dose: Not Given Documented by: [email or web address] Non-Admin Reason: Unavailable Admin: 12/20/18 15:14 Dose: Not Given Documented by: [email or web address] Non-Admin Reason: Unavailable Admin: 12/20/18 04:54 Dose: Not Given Documented by: MAYCO Non-Admin Reason: Unavailable Admin: 12/20/18 02:43 Dose: Not Given Documented by: KNF Non-Admin Reason: Unavailable Admin: 12/20/18 00:52 Dose: Not Given Documented by: KNF Non-Admin Reason: Unavailable Admin: 12/19/18 21:21 Dose: Not Given Documented by: KNF Non-Admin Reason: Unavailable Admin: 12/19/18 13:12 Dose: Not Given Documented by: [email or web address] Non-Admin Reason: Unavailable Admin: 12/19/18 12:38 Dose: Not Given Documented by: [email or web address] Non-Admin Reason: Unavailable Admin: 12/19/18 06:59 Dose: Not Given Documented by: [email or web address] Non-Admin Reason: Unavailable Admin: 12/19/18 05:20 Dose: Not Given Documented by: LORETTA Non-Admin Reason: Unavailable Admin: 12/19/18 01:40 Dose: Not Given Documented by: LORETTA Non-Admin Reason: Unavailable Admin: 12/19/18 01:39 Dose: Not Given Documented by: LORETTA Non-Admin Reason: Unavailable Admin: 12/18/18 15:52 Dose: Not Given Documented by: [email or web address] Non-Admin Reason: Unavailable Admin: 12/18/18 11:38 Dose: Not Given Documented by: [email or web address] Non-Admin Reason: Unavailable Admin: 12/18/18 05:28 Dose: Not Given Documented by: [email or web address] Non-Admin Reason: Home med, not available Admin: 12/18/18 02:32 Dose: Not Given Documented by: [email or web address] Non-Admin Reason: Home med, not available Admin: 12/18/18 00:19 Dose: Not Given Documented by: [email or web address] Non-Admin Reason: Home med, not available Admin: 12/17/18 20:18 Dose: Not Given Documented by: [email or web address] Non-Admin Reason: Home med, not available Admin: 12/17/18 14:57 Dose: Not Given Documented by: [email or web address] Non-Admin Reason: Unavailable Admin: 12/17/18 10:34 Dose: Not Given Documented by: [email or web address] Non-Admin Reason: Unavailable Admin: 12/17/18 08:49 Dose: Not Given Documented by: [email or web address] Non-Admin Reason: Unavailable Admin: 12/17/18 02:29 Dose: Not Given Documented by: [email or web address] Non-Admin Reason: Home med, not available Admin: 12/17/18 00:31 Dose: Not Given Documented by: [email or web address] Non-Admin Reason: Home med, not available Admin: 12/16/18 21:21 Dose: Not Given Documented by: [email or web address] Non-Admin Reason: Home med, not available Admin: 12/16/18 15:31 Dose: Not Given Documented by: [email or web address] Non-Admin Reason: Unavailable Admin: 12/16/18 11:28 Dose: Not Given Documented by: [email or web address] Non-Admin Reason: Unavailable Admin: 12/16/18 09:20 Dose: Not Given Documented by: [email or web address] Non-Admin Reason: Unavailable Admin: 12/16/18 03:10 Dose: Not Given Documented by: HIEU Non-Admin Reason: Unavailable Admin: 12/16/18 00:03 Dose: Not Given Documented by: HIEU Non-Admin Reason: Unavailable Amlodipine Besylate (Norvasc) 2.5 mg PO DAILY [facility] Admin: 12/20/18 15:05 Dose: 2.5 mg Documented by: [email or web address] Admin: 12/19/18 09:28 Dose: 2.5 mg Documented by: [email or web address] Admin: 12/18/18 09:30 Dose: 2.5 mg Documented by: [email or web address] Admin: 12/17/18 08:55 Dose: 2.5 mg Documented by: [email or web address] Admin: 12/16/18 09:11 Dose: 2.5 mg Documented by: [email or web address] Aspirin (Aspirin) 81 mg PO DAILY [facility] Admin: 12/20/18 15:03 Dose: 81 mg Documented by: [email or web address] Admin: 12/19/18 09:28 Dose: 81 mg Documented by: [email or web address] Admin: 12/18/18 09:31 Dose: 81 mg Documented by: [email or web address] Admin: 12/17/18 08:56 Dose: 81 mg Documented by: [email or web address] Admin: 12/16/18 09:12 Dose: 81 mg Documented by: [email or web address] Bacitracin (Bacitracin Topical Oint) 1 dose TOPICAL TID [facility] Admin: 12/20/18 21:38 Dose: 1 dose Documented by: Admin: 12/20/18 15:07 Dose: 1 dose Documented by: [email or web address] Admin: 12/20/18 15:03 Dose: 1 dose Documented by: [email or web address] Admin: 12/19/18 21:26 Dose: 1 dose Documented by: Admin: 12/19/18 13:11 Dose: 1 dose Documented by: [email or web address] Admin: 12/19/18 09:29 Dose: 1 dose Documented by: [email or web address] Admin: 12/18/18 22:23 Dose: 1 dose Documented by: LORETTA Woodsigned by: YANCI Admin: 12/18/18 15:53 Dose: 1 dose Documented by: [email or web address] Admin: 12/18/18 09:25 Dose: 1 dose Documented by: [email or web address] Admin: 12/17/18 20:20 Dose: 1 dose Documented by: [email or web address] Admin: 12/17/18 14:57 Dose: 1 dose Documented by: [email or web address] Admin: 12/17/18 08:50 Dose: 1 dose Documented by: [email or web address] Admin: 12/16/18 20:53 Dose: 1 dose Documented by: [email or web address] Admin: 12/16/18 15:32 Dose: 1 dose Documented by: [email or web address] Bisacodyl (Dulcolax) 10 mg AK DAILYP PRN PRN Reason: Constipation Calcium Carbonate/Glycine (Tums) 200 mg PO DAILY [facility] Last Admin: 12/20/18 15:14 Dose: 200 mg Documented by: [email or web address] Admin: 12/19/18 09:27 Dose: 200 mg Documented by: [email or web address] Admin: 12/18/18 09:31 Dose: 200 mg Documented by: [email or web address] Admin: 12/17/18 08:56 Dose: 200 mg Documented by: [email or web address] Admin: 12/16/18 09:12 Dose: 200 mg Documented by: [email or web address] Clopidogrel Bisulfate (Plavix) 75 mg PO DAILY [facility] Admin: 12/20/18 15:04 Dose: 75 mg Documented by: [email or web address] Admin: 12/19/18 09:27 Dose: 75 mg Documented by: [email or web address] Admin: 12/18/18 09:30 Dose: 75 mg Documented by: [email or web address] Admin: 12/17/18 08:55 Dose: 75 mg Documented by: [email or web address] Admin: 12/16/18 09:12 Dose: 75 mg Documented by: [email or web address] Diagnostic Test (Pha) (Accu-Chek) 1 each FS ACHS [facility] Admin: 12/21/18 07:22 Dose: 1 each Documented by: [email or web address] Admin: 12/20/18 21:38 Dose: 1 each Documented by: Admin: 12/20/18 17:37 Dose: 1 each Documented by: [email or web address] Admin: 12/20/18 11:42 Dose: 1 each Documented by: [email or web address] Admin: 12/20/18 07:09 Dose: 1 each Documented by: Admin: 12/19/18 21:20 Dose: 1 each Documented by: Admin: 12/19/18 18:00 Dose: 1 each Documented by: [email or web address] Admin: 12/19/18 12:38 Dose: Not Given Documented by: [email or web address] Non-Admin Reason: Patient Refused Admin: 12/19/18 08:23 Dose: 1 each Documented by: [email or web address] Docusate Sodium (Colace) 100 mg PO BID [facility] Last Admin: 12/20/18 21:38 Dose: Not Given Documented by: TETO Non-Admin Reason: Loose Stool Admin: 12/20/18 13:37 Dose: Not Given Documented by: [email or web address] Non-Admin Reason: Loose Stool Admin: 12/19/18 21:21 Dose: Not Given Documented by: MAYCO Non-Admin Reason: Loose Stool Admin: 12/19/18 09:30 Dose: Not Given Documented by: [email or web address] Non-Admin Reason: Loose Stool Admin: 12/19/18 01:36 Dose: Not Given Documented by: LORETTA Non-Admin Reason: Loose Stool Admin: 12/18/18 09:31 Dose: Not Given Documented by: [email or web address] Non-Admin Reason: Loose Stool Admin: 12/17/18 20:21 Dose: Not Given Documented by: [email or web address] Non-Admin Reason: Loose Stool Admin: 12/17/18 08:57 Dose: Not Given Documented by: [email or web address] Non-Admin Reason: Loose Stool Admin: 12/16/18 21:19 Dose: Not Given Documented by: [email or web address] Non-Admin Reason: Loose Stool Admin: 12/16/18 09:13 Dose: Not Given Documented by: [email or web address] Non-Admin Reason: Loose Stool Admin: 12/16/18 00:05 Dose: Not Given Documented by: HIEU Non-Admin Reason: Loose Stool Fluoxetine HCl (Prozac) 20 mg PO QDAY [facility] Last Admin: 12/20/18 15:04 Dose: 20 mg Documented by: [email or web address] Admin: 12/19/18 09:28 Dose: 20 mg Documented by: [email or web address] Admin: 12/18/18 09:30 Dose: 20 mg Documented by: [email or web address] Admin: 12/17/18 08:55 Dose: 20 mg Documented by: [email or web address] Admin: 12/16/18 09:12 Dose: 20 mg Documented by: [email or web address] Furosemide (Lasix) 40 mg PO QDAY [facility] Last Admin: 12/20/18 15:11 Dose: 40 mg Documented by: [email or web address] Admin: 12/19/18 09:28 Dose: 40 mg Documented by: [email or web address] Admin: 12/18/18 09:30 Dose: 40 mg Documented by: [email or web address] Admin: 12/17/18 08:55 Dose: 40 mg Documented by: [email or web address] Admin: 12/16/18 09:20 Dose: 40 mg Documented by: [email or web address] Heparin Sodium (Porcine) (Heparin) 5,000 unit SQ Q12 [facility] Last Admin: 12/20/18 21:38 Dose: 5,000 unit Documented by: Admin: 12/20/18 15:06 Dose: 5,000 unit Documented by: Admin: 12/19/18 21:21 Dose: Not Given Documented by: MAYCO Non-Admin Reason: PER md Admin: 12/19/18 09:30 Dose: Not Given Documented by: [email or web address] Non-Admin Reason: per order Admin: 12/18/18 20:30 Dose: Not Given Documented by: LORETTA Non-Admin Reason: DrBrandin order Admin: 12/18/18 09:30 Dose: 5,000 unit Documented by: [email or web address] Admin: 12/17/18 20:17 Dose: 5,000 unit Documented by: [email or web address] Admin: 12/17/18 08:56 Dose: 5,000 unit Documented by: Admin: 12/16/18 20:50 Dose: 5,000 unit Documented by: [email or web address] Admin: 12/16/18 09:12 Dose: 5,000 unit Documented by: Admin: 12/16/18 00:05 Dose: 5,000 unit Documented by: HIEU Iron Carb/Multivit/[employer] Operator/Folic Acid (Multivitamin W/Minerals) 1 tab PO DAILY [facility] Last Admin: 12/20/18 15:12 Dose: 1 tab Documented by: Admin: 12/19/18 09:27 Dose: 1 tab Documented by: [email or web address] Admin: 12/18/18 09:30 Dose: 1 tab Documented by: [email or web address] Admin: 12/17/18 08:56 Dose: 1 tab Documented by: Admin: 12/16/18 09:11 Dose: 1 tab Documented by: SALAZAR Ketoconazole (Nizoral 2% Top Crm) 1 dose TOPICAL DAILY [facility] Last Admin: 12/20/18 15:13 Dose: Not Given Documented by: LC Non-Admin Reason: Unavailable Admin: 12/19/18 09:30 Dose: Not Given Documented by: [email or web address] Non-Admin Reason: Unavailable Admin: 12/18/18 09:31 Dose: Not Given Documented by: [email or web address] Non-Admin Reason: Unavailable Admin: 12/17/18 08:49 Dose: Not Given Documented by: [email or web address] Non-Admin Reason: Unavailable Admin: 12/16/18 09:13 Dose: Not Given Documented by: SALAZAR Non-Admin Reason: Unavailable Loperamide HCl (Imodium) 2 mg PO Q2-4HP PRN PRN Reason: Diarrhea Last Admin: 12/18/18 20:33 Dose: 2 mg Documented by: LORETTA Cosigned by: YANCI Metoprolol Tartrate (Lopressor) 12.5 mg PO BID [facility] Last Admin: 12/20/18 21:36 Dose: 12.5 mg Documented by: Admin: 12/20/18 15:04 Dose: 12.5 mg Documented by: Admin: 12/19/18 21:19 Dose: 12.5 mg Documented by: Admin: 12/19/18 09:27 Dose: 12.5 mg Documented by: Admin: 12/18/18 20:32 Dose: 12.5 mg Documented by: LORETTA Cosigned by: YANCI Admin: 12/18/18 09:30 Dose: 12.5 mg Documented by: Admin: 12/18/18 01:37 Dose: Not Given Documented by: [email or web address] Non-Admin Reason: Given via Override Metronidazole (Flagyl) 500 mg PO Q8 [facility] Last Admin: 12/21/18 05:47 Dose: 500 mg Documented by: Admin: 12/20/18 21:37 Dose: 500 mg Documented by: Admin: 12/20/18 15:14 Dose: 500 mg Documented by: LC Comments: states not on patient's MAR when scanned Multivit/Ca Carb/B Cmplx/FA/Prenat (Diatx) 1 tab PO DAILY [facility] Last Admin: 12/20/18 15:12 Dose: 1 tab Documented by: Admin: 12/19/18 09:28 Dose: 1 tab Documented by: Admin: 12/18/18 09:30 Dose: 1 tab Documented by: Admin: 12/17/18 08:55 Dose: 1 tab Documented by: [email or web address] Admin: 12/16/18 09:20 Dose: 1 tab Documented by: [email or web address] Niacin (Niacin) 500 mg PO [facility] Last Admin: 12/20/18 21:37 Dose: 500 mg Documented by: Admin: 12/19/18 21:22 Dose: 500 mg Documented by: Admin: 12/18/18 20:33 Dose: 500 mg Documented by: LORETTA Cosigned by: YANCI Admin: 12/17/18 20:17 Dose: 500 mg Documented by: Admin: 12/16/18 20:48 Dose: 500 mg Documented by: WIL Ondansetron HCl (Zofran) 4 mg IV Q4-6HP PRN PRN Reason: Nausea And Vomiting Last Admin: 12/15/18 22:07 Dose: 4 mg Documented by: HIEU Ondansetron HCl (Zofran Odt) 4 mg SL Q6HP PRN PRN Reason: Nausea Senna/Docusate Sodium (Senna Plus Tablet) 1 tab PO [facility] Last Admin: 12/20/18 21:39 Dose: Not Given Documented by: TETO Non-Admin Reason: Loose Stool Admin: 12/19/18 21:22 Dose: Not Given Documented by: MAYCO Non-Admin Reason: Loose Stool Admin: 12/19/18 01:36 Dose: Not Given Documented by: LORETTA Non-Junior Reason: Loose Stool Admin: 12/17/18 20:21 Dose: Not Given Documented by: WIL Non-Admin Reason: Loose Stool Admin: 12/16/18 21:20 Dose: Not Given Documented by: WIL Non-Admin Reason: Loose Stool Admin: 12/16/18 00:05 Dose: Not Given Documented by: HIEU Non-Admin Reason: Loose Stool Simvastatin (Zocor) 20 mg PO [facility] Last Admin: 12/20/18 21:38 Dose: 20 mg Documented by: Admin: 12/19/18 21:20 Dose: 20 mg Documented by: Admin: 12/18/18 20:31 Dose: 20 mg Documented by: LORETTA Cosigned by: YANCI Admin: 12/17/18 20:17 Dose: 20 mg Documented by: Admin: 12/16/18 20:52 Dose: 20 mg Documented by: WIL Sodium Chloride (Saline Flush) 10 ml IV Q8 [facility] Last Admin: 12/21/18 05:47 Dose: 10 ml Documented by: Admin: 12/20/18 21:39 Dose: 10 ml Documented by: Admin: 12/20/18 15:15 Dose: 10 ml Documented by: Admin: 12/20/18 04:54 Dose: 10 ml Documented by: Admin: 12/19/18 21:27 Dose: 10 ml Documented by: Admin: 12/19/18 13:13 Dose: 10 ml Documented by: Admin: 12/19/18 06:05 Dose: 10 ml Documented by: LORETTA Cosigned by: YANCI Admin: 12/18/18 22:00 Dose: 10 ml Documented by: LORETTA Cosigned by: YANCI Admin: 12/18/18 15:51 Dose: 10 ml Documented by: Admin: 12/18/18 05:28 Dose: 10 ml Documented by: Admin: 12/17/18 22:15 Dose: 10 ml Documented by: Admin: 12/17/18 13:00 Dose: 10 ml Documented by: Admin: 12/17/18 05:23 Dose: 10 ml Documented by: Admin: 12/16/18 21:20 Dose: 10 ml Documented by: Admin: 12/16/18 15:31 Dose: 10 ml Documented by: Admin: 12/16/18 06:04 Dose: 10 ml Documented by: Admin: 12/15/18 22:08 Dose: 10 ml Documented by: HIEU Vancomycin HCl (Vancomycin Per Pharmacy) 1 order IV UD LIANA Vancomycin HCl (Vancomycin Oral Brenna) 250 mg PO Q6 [facility] Last Admin: 12/21/18 07:21 Dose: 10 ml Documented by: [email or web address] Admin: 12/21/18 00:53 Dose: 10 ml Documented by: Admin: 12/20/18 17:37 Dose: 2.5 ml Documented by: Admin: 12/20/18 15:11 Dose: 2.5 ml Documented by: LC Assessment and Plan - Narrative A/P Narrative: Assessment: 1. Severe labial cellulitis with extension to perineum Superficial cultures growing MSSA - CT abd/pelvis done at admission did not go down deeper into pelvis at level of labia to assess for an abscess - US of labia done this am neg for any abscess. 2. Severe Clostridiodes difficile infection with leukocytosis more than 15,000 On oral vancomycin Overall getting better: currently with 1-2 BMs a day 3. Persistent leukocytosis: still at 18k - Secondary to (1) 4. Persistent MSSA colonization: Patient had a positive wound culture from second finger in August 2018 and now has a positive wound culture from perineal wound With her being on hemodialysis, it could be a risk factor for bacteremia like she had on August 28, 2018 Recommendations: Continue IV vancomycin per pharmacy assisted dosing. Vanc levels prior to HD yesterday was 17.3 (in range) continue oral vancomycin to 250 mg every 6 hours for C. difficile treatment, day 6/14 continue oral metronidazole 500 mg every 8 hrs - Spoke with Dr. Gann about possibility of superficial I&D of labial area consider decolonization with intranasal mupirocin 2% bid and below neck whole body chlorhexidine 2% once daily x5 days Will follow Lamont Aldridge MD Infectious disease
[2018-12-21] MEDS: BACITRACIN TOPICAL OINT 15 GM TUBE TOPICAL SCH ×3 (10:00→21:03)
[2018-12-21] MEDS: HEPARIN 5,000 UNIT/ML VIAL SQ SCH ×2 (10:01→21:04)
[2018-12-21] MEDS: FUROSEMIDE 40 MG TABLET PO SCH (10:01)
[2018-12-21] MEDS: METOPROLOL TARTRATE 25 MG TABLET PO SCH ×2 (10:01→21:04)
[2018-12-21] MEDS: amLODIPine 5 MG TABLET PO SCH (10:03)
[2018-12-21] MEDS: FOLIC ACID/VITAMIN B COMP W-C 1 TAB TABLET PO SCH (10:03)
[2018-12-21] MEDS: CALCIUM CARBONATE 500 MG TAB.CHEW PO SCH (10:03)
[2018-12-21] MEDS: ASPIRIN 81 MG TAB.CHEW PO SCH (10:03)
[2018-12-21] MEDS: MULTIVIT,THER IRON,CA,FA & MIN 1 TABLET PO SCH (10:03)
[2018-12-21] MEDS: DOCUSATE SODIUM 100 MG CAPSULE PO SCH ×2 (10:04→21:05)
[2018-12-21] MEDS: FLUoxetine HCL 20 MG CAPSULE PO SCH (10:04)
[2018-12-21] MEDS: CLOPIDOGREL 75 MG TABLET PO SCH (10:04)
[2018-12-21 13:18] LABS: ALT/SGPT 12 U/l (0-40); Albumin 2.8 gm/dL (3.2-5.2); Alkaline Phosphatase 82 U/L (39-117); Bilirubin,Direct < 0.2 mg/dL (0.0-0.3); Blood Urea Nitrogen 17 mg/dl (8-23); Gamma Glutamyl Transpeptidase 9 U/L (5-36); Uric Acid 2.8 mg/dL (2.5-8.0)
[2018-12-21] MEDS: metroNIDAZOLE 500 MG/100 ML BAG IV SCH (14:00)
[2018-12-21] MEDS ORDERED: VANCOMYCIN 1,000 MG in 0.9 % SODIUM CHLORIDE 250 ML IV ONE ×2 (14:00→16:42)
--- NOTE | 2018-12-21 15:25 | Internal Med Progress Note ---
Medical - PN: Subj Patient information: Note initiated : 12/21/18 at 3:21 pm Service Date, if different from initiated Date: [] Patient: Teri Olson a 68 y/o F admitted on 12/15/18 for Nausea, Diarrhea, Fever. Chief Complaint: [] Interval history: Ms. Olson is a 68 year old F with a history of diabetes/ESRD on hemodialysis who presents to the ER with profound weakness involving over the last week, fever, loss of appetite and not feeling well. She has had few episodes of diarrhea in the last 48 hours and also noted a boil at her bottom which has gradually increased in size with increasing tenderness and swelling. She complains of associated chills however denies body aches/nausea. Initial workup was consistent with severe sepsis with white count 31,300 on examination (area revealed induration with a central opening that started oozing pus when probed with a Q-tip) She underwent CT with contrast abdomen and pelvis did not show a definite abscesses. 3/2- patient doing well. However white count around 40,000, C. difficile positive, on vancomycin 500 every 6, diarrhea improved, underwent hemodialysis. De-escalate antibiotics. Perineal swelling and tenderness improving 3/-patient clinically improving. White count 32.6. Wound surgeon consulted. Wound care recommendations discontinue antibiotics. On oral vancomycin for C. difficile. Clinically improving. Tolerating diet. Ongoing physical therapy. Ongoing hemodialysis. No concerns per staff. No overnight events 12/18-MAXIMUM TEMPERATURE 103, overnight intermittent atrial tachycardia started on beta blu, white count downtrending from 39.9-19.7. IV antibiotics continue. Surgery on board. Improved perineal cellulitis. Resolved. Tolerating diet. Ongoing hemodialysis per nephrology. 12/19-patient doing well. MAXIMUM TEMPERATURE 102, white count 17.1, surgery consulted for perineal cellulitis/possible abscess after wound care teams concerns. Patient started on IV vancomycin as staph aureus on cultures. Tolerating diet, hemodialysis 12/20-white count now at 19,000 despite treatment. Case discussed with surgery. Operative drainage not indicated per surgery advised to continue antibiotics. Patient clinically feels better. 2 episodes of diarrhea but denies abdominal pain fever or shortness of breath, ongoing hemodialysis. 12/21 pt seen examined, pain still there, wbc count improved, slightly no new complaints or concerns pt did have small opening in the labial region, yellowish pus expressed around 1cc. no obvious fluctuant lesion noted. Pertinent ROS: Denies headache, dizziness Denies chest pain, palpitations Denies cough or shortness of breath Denies abdominal pain, nausea or vomiting. Pelvic pain present - Constitutional Vitals: Vital Signs Temp Pulse Resp BP Pulse Ox 97.2 F 78 18 101/43 96 12/21/18 12:00 12/21/18 08:00 12/21/18 12:00 12/21/18 12:00 12/21/18 12:00 Period Temp Pulse Resp BP Sys/Barnard Pulse Ox Last 24 Hr 96.8 F-99.0 F 65-78 16-18 101-136/43-78 94-100 Intake and Output 12/21/18 12/21/18 12/21/18 05:59 13:59 21:59 Intake Total 360 Output Total 75 Balance 285 Weight 180 lb Patient Weight 12/22/18 05:59 Weight 180 lb Intake & Output: Intake & Output 12/21/18 12/21/18 12/21/18 05:59 13:59 21:59 Intake Total 360 Output Total 75 Balance 285 Weight 180 lb Intake: Oral 360 Output: Urine Catheter Amount 75 Other: Meal 2X jello's Urine Appearance Cloudy Sediment Uretheral (Ceron) Clear Urine Color Bright Yellow Uretheral (Ceron) Bright Yellow Urine Odor Normal Stool Size Moderate Stool Color Brown Stool Consistency Soft Liquid # Bowel Movements 1 Exam: Constitutional; Afebrile, cooperative, alert, not in distress. Respiratory system: Air Entry equal on both sides, No crackles or wheezing, no rhonchi. CVS- Rate rhythm regular, S1,S2 heard, no gallop, no rub. Abdomen- Soft nontender abdomen, no organomegaly, no tenderness, no guarding or rigidity, [address] [employer]- AOOx3, moving all extremities, no gross focal deficit noted. Pelvic exam/ left labia inducrated, cellulitis noted, opening with some pus expressed. Medical - PN: Obj Da - Labs CBC & Chem 7: 12/21/18 03:50 12/21/18 03:50 Labs: Abnormal Lab Results 12/21/18 12/21/18 12/20/18 03:50 03:50 04:10 WBC 18.6 H RBC 2.52 L Hgb 7.4 L Hct 23.3 L RDW 14.8 H MPV 6.8 L Gran # 12.6 H [place] # (Auto) 1.7 H Band Neutrophils % Monocytes % (Manual) Reactive Lymphocytes RBC Morphology Polychromasia Hypochromasia Anisocytosis Potassium Chloride 93 L BUN 25 H Creatinine 2.5 H 4.7 H Calcium 7.9 L 7.4 L Phosphorus 1.8 L 2.2 L Iron TIBC Transferrin % Sat Ferritin Total Protein 5.7 L 5.8 L Albumin 2.8 L 2.7 L Albumin/Globulin Ratio 0.9 L 12/20/18 12/19/18 12/19/18 04:10 03:45 03:45 WBC 19.9 H RBC 2.55 L Hgb 7.7 L Hct 23.5 L RDW 15.0 H MPV 6.8 L Gran # [place] # (Auto) Band Neutrophils % 14 H Monocytes % (Manual) Reactive Lymphocytes 3 H RBC Morphology Abnorm A Polychromasia 1+ A Hypochromasia 1+ A Anisocytosis Potassium 3.2 L Chloride BUN Creatinine 3.3 H Calcium 7.5 L Phosphorus 2.0 L Iron 21 L TIBC 155 L Transferrin % Sat 13 L Ferritin 1406.0 H Total Protein 5.8 L Albumin 2.5 L Albumin/Globulin Ratio 0.8 L 12/19/18 03:45 WBC 17.1 H RBC 2.67 L Hgb 7.9 L Hct 24.5 L RDW 15.1 H MPV 6.8 L Gran # [place] # (Auto) Band Neutrophils % Monocytes % (Manual) 14 H Reactive Lymphocytes RBC Morphology Abnorm A Polychromasia Hypochromasia Few A Anisocytosis Few A Potassium Chloride BUN Creatinine Calcium Phosphorus Iron TIBC Transferrin % Sat Ferritin Total Protein Albumin Albumin/Globulin Ratio Meds: Medications Acetaminophen (Tylenol) 650 mg PO Q4-6HP PRN PRN Reason: PAIN/FEVER > 101 Last Admin: 12/18/18 22:08 Dose: 650 mg Documented by: Albuterol Sulfate (Ventolin) 1 - 2 puff IH Q4H [facility] Last Admin: 12/21/18 13:39 Dose: Not Given Documented by: Amlodipine Besylate (Norvasc) 2.5 mg PO DAILY [facility] Last Admin: 12/21/18 10:03 Dose: 2.5 mg Documented by: Aspirin (Aspirin) 81 mg PO DAILY [facility] Last Admin: 12/21/18 10:03 Dose: 81 mg Documented by: Bacitracin (Bacitracin Topical Oint) 1 dose TOPICAL TID [facility] Last Admin: 12/21/18 13:38 Dose: 1 dose Documented by: Bisacodyl (Dulcolax) 10 mg [place] DAILYP PRN PRN Reason: Constipation Calcium Carbonate/Glycine (Tums) 200 mg PO DAILY [facility] Last Admin: 12/21/18 10:03 Dose: 200 mg Documented by: Clopidogrel Bisulfate (Plavix) 75 mg PO DAILY [facility] Last Admin: 12/21/18 10:04 Dose: 75 mg Documented by: Diagnostic Test (Pha) (Accu-Chek) 1 each FS ACHS [facility] Last Admin: 12/21/18 07:22 Dose: 1 each Documented by: Docusate Sodium (Colace) 100 mg PO BID [facility] Last Admin: 12/21/18 10:04 Dose: Not Given Documented by: Fluoxetine HCl (Prozac) 20 mg PO QDAY [facility] Last Admin: 12/21/18 10:04 Dose: 20 mg Documented by: Furosemide (Lasix) 40 mg PO QDAY [facility] Last Admin: 12/21/18 10:01 Dose: 40 mg Documented by: Heparin Sodium (Porcine) (Heparin) 5,000 unit SQ Q12 [facility] Last Admin: 12/21/18 10:01 Dose: 5,000 unit Documented by: Iron Carb/Multivit/[place]/Folic Acid (Multivitamin W/Minerals) 1 tab PO DAILY [facility] Last Admin: 12/21/18 10:03 Dose: 1 tab Documented by: Ketoconazole (Nizoral 2% Top Crm) 1 dose TOPICAL DAILY [facility] Last Admin: 12/20/18 15:13 Dose: Not Given Documented by: Loperamide HCl (Imodium) 2 mg PO Q2-4HP PRN PRN Reason: Diarrhea Last Admin: 12/18/18 20:33 Dose: 2 mg Documented by: Metoprolol Tartrate (Lopressor) 12.5 mg PO BID [facility] Last Admin: 12/21/18 10:01 Dose: 12.5 mg Documented by: Metronidazole (Flagyl) 500 mg PO Q8 [facility] Last Admin: 12/21/18 05:47 Dose: 500 mg Documented by: Multivit/Ca Carb/B Cmplx/FA/Prenat (Diatx) 1 tab PO DAILY [facility] Last Admin: 12/21/18 10:03 Dose: 1 tab Documented by: Niacin (Niacin) 500 mg PO HS [facility] Last Admin: 12/20/18 21:37 Dose: 500 mg Documented by: Ondansetron HCl (Zofran) 4 mg IV Q4-6HP PRN PRN Reason: Nausea And Vomiting Last Admin: 12/15/18 22:07 Dose: 4 mg Documented by: Ondansetron HCl (Zofran Odt) 4 mg SL Q6HP PRN PRN Reason: Nausea Senna/Docusate Sodium (Senna Plus Tablet) 1 tab PO HS [facility] Last Admin: 12/20/18 21:39 Dose: Not Given Documented by: Simvastatin (Zocor) 20 mg PO HS [facility] Last Admin: 12/20/18 21:38 Dose: 20 mg Documented by: Sodium Chloride (Saline Flush) 10 ml IV Q8 [facility] Last Admin: 12/21/18 05:47 Dose: 10 ml Documented by: Vancomycin HCl (Vancomycin Per Pharmacy) 1 order IV UD [facility] Vancomycin HCl (Vancomycin Oral Brenna) 250 mg PO Q6 [facility] Last Admin: 12/21/18 07:21 Dose: 10 ml Documented by: Medical - PN: A/P - Time Spent With Patient Total time spent is greater than 50% in coordination of care (as documented) at patient's floor/unit and/or counseling patient: - Narrative A/P Narrative: A/P Severe sepsis -sepsis syndrome improving, bp stable, wbc trending sheela Perineal cellulitis/ abscess -USG neg, appreicate ID/Surgyer input -on ABX per ID - Cdiff enterocolitis -Po vancomycin, diarrhea [id number] TAchcyardia/ narrow complex -Resolved on BB -Xfer to med surg status ESRD on HD -Followed by Dr Rae HTN -Stable, continue home meds Anxiety -Stable on fluoxetine CAD -on plavix / asa/statin, no complaints reported DVT -hep sq Full code Medical - PN: Qual - VTE Deep Vein Thrombosis/Pulmonary Embolism Present on Admission: No
[2018-12-21] MEDS: KETOCONAZOLE 2% TOP CRM 15GM TUBE TOPICAL SCH (16:34)
[2018-12-21] MEDS ORDERED: BISACODYL 10 MG SUPP.RECT PR PRN (16:42)
[2018-12-21] MEDS ORDERED: ONDANSETRON 4 MG/2 ML VIAL IV PRN (16:42)
[2018-12-21] MEDS ORDERED: VANCOMYCIN PER PHARMACY IV SCH (16:42)
[2018-12-21] MEDS ORDERED: ACETAMINOPHEN 325 MG TABLET PO PRN (16:42)
[2018-12-21] MEDS ORDERED: ONDANSETRON 4 MG ODT TABLET SL PRN (16:42)
[2018-12-21] MEDS ORDERED: LOPERAMIDE 2 MG CAPSULE PO PRN (16:42)
[2018-12-21] MEDS: NIACIN 250 MG CAP.SR.12H PO SCH (21:00)
[2018-12-21] MEDS: SIMVASTATIN 20 MG TABLET PO SCH (21:04)
[2018-12-21] MEDS: SENNOSIDES/DOCUSATE SODIUM 1 TAB TABLET PO SCH (21:04)
[2018-12-22] MEDS: VANCOMYCIN ORAL SOL 1,000 MG/10 ML BOTTLE PO SCH ×5 (00:11→23:18)
[2018-12-22] MEDS: metroNIDAZOLE 500 MG TABLET PO SCH ×4 (05:13→21:26)
[2018-12-22] MEDS: ALBUTEROL SULFATE 1 PUFF INHALER IH SCH ×5 (05:13→21:45)
[2018-12-22] MEDS: 0.9 % SODIUM CHLORIDE 10 ML SYRINGE IV SCH ×3 (05:44→21:45)
[2018-12-22 06:55] LABS: Basophils # (Auto) 0.1 K/mcL (0.0-0.3); Basophils % (Auto) 0.3 % (0.0-2.0); Eosinophils # (Auto) 0.4 K/mcL (0.0-0.7); Eosinophils % (Auto) 2.1 % (0.0-7.0); Granulocytes % (Auto) 66.8 % (38.0-78.0); Lymphocytes # (Auto) 4.2 K/mcL (1.5-4.8); Lymphocytes % (Auto) 22.5 % (15.5-49.0); Mean Cell Volume 92.9 fL (80.0-100.0); Mean Corpuscular HGB Conc 32.6 g/dL (31.0-36.0); Monocytes # (Auto) 1.5 K/mcL (0.1-0.9); Monocytes % (Auto) 8.3 % (1.0-12.0); Platelet Count 459 K/mcL (140-440); RBC 2.55 M/mcL (4.00-5.20); Red Cell Distribution Width 15.2 % (11.5-14.5)
[2018-12-22 07:58] LABS: ALT/SGPT 12 U/l (0-40); Albumin 2.7 gm/dL (3.2-5.2); Albumin/Globulin Ratio 0.9 (1.0-2.3); Alkaline Phosphatase 91 U/L (39-117); Bilirubin,Direct < 0.2 mg/dL (0.0-0.3); Blood Urea Nitrogen 33 mg/dl (8-23); Gamma Glutamyl Transpeptidase 11 U/L (5-36); Uric Acid 4.9 mg/dL (2.5-8.0)
[2018-12-22] MEDS: BACITRACIN TOPICAL OINT 15 GM TUBE TOPICAL SCH ×4 (09:45→21:44)
[2018-12-22] MEDS: ASPIRIN 81 MG TAB.CHEW PO SCH (09:45)
[2018-12-22] MEDS: FUROSEMIDE 40 MG TABLET PO SCH (09:46)
[2018-12-22] MEDS: DOCUSATE SODIUM 100 MG CAPSULE PO SCH ×2 (09:46→21:25)
[2018-12-22] MEDS: CLOPIDOGREL 75 MG TABLET PO SCH (09:47)
[2018-12-22] MEDS: FOLIC ACID/VITAMIN B COMP W-C 1 TAB TABLET PO SCH (09:47)
[2018-12-22] MEDS: FLUoxetine HCL 20 MG CAPSULE PO SCH (09:47)
[2018-12-22] MEDS: MULTIVIT,THER IRON,CA,FA & MIN 1 TABLET PO SCH (09:47)
[2018-12-22] MEDS: amLODIPine 5 MG TABLET PO SCH (09:47)
[2018-12-22] MEDS: METOPROLOL TARTRATE 25 MG TABLET PO SCH ×2 (09:48→21:27)
[2018-12-22] MEDS: CALCIUM CARBONATE 500 MG TAB.CHEW PO SCH (09:48)
[2018-12-22] MEDS: KETOCONAZOLE 2% TOP CRM 15GM TUBE TOPICAL SCH (09:48)
[2018-12-22] MEDS: HEPARIN 5,000 UNIT/ML VIAL SQ SCH ×2 (09:48→21:28)
--- NOTE | 2018-12-22 09:56 | Infectious Disease Prog Note ---
Subjective Patient information: Note initiated : 12/22/18 at 9:54 am Service Date, if different from initiated Date: [] Patient: Teri Olson 68 y/o F admitted on 12/15/18 for Nausea, Diarrhea, Fever. Chief Complaint: [] Principal diagnosis: cdiff colitis Interval history: Patient sitting in the chair, eating breakfast. Denies any vomiting nausea, fever, chills. Feels her diarrhea has improved significantly with only one bowel movement today with softer consistency. Patient also reports that pain in her genital area is also better. Discussed with her that her white cell count is still high and skin and soft tissue infection in the genital area might be contributing to that. Objective Objective Narrative: ao x 3, in nad chest has VBS b/l but decreased to absent BS at b/l lung bases s1 s2 normal The labial wound could not be examined as pt was eating - Vital Signs Vital signs: Vital Signs Temp Pulse Resp BP BP Pulse Ox 12/22/18 08:00 36.3 C 16 129/54 95 12/22/18 04:00 36.9 C 70 16 136/78 94 12/22/18 00:00 36.6 C 72 18 125/72 96 12/21/18 20:00 36.6 C 18 131/52 94 12/21/18 16:00 36.7 C 18 151/74 96 12/21/18 12:00 36.2 C 18 101/43 96 Intake and Output 12/21/18 12/22/18 12/22/18 21:59 05:59 13:59 Intake Total 450 Output Total 100 Balance 450 -100 Intake: IV 350 Vancomycin 1,000 mg In Sodium 250 Chloride 0.9% 250 ml @ 250 mls/ hr IV ONCE ONE Rx#:[id number] Oral 100 Output: Urine Catheter Amount 100 Other: Meal Dinner Percent of Meal Consumed 75% Feeding Ability Independent Urine Appearance Uretheral (Ceron) Clear Urine Color Dark Yuly Uretheral (Ceron) Bright Yellow Weight 82.554 kg Intake & Output: Intake & Output 12/21/18 12/22/18 12/22/18 21:59 05:59 13:59 Intake Total 450 Output Total 100 Balance 450 -100 Weight 82.554 kg Intake: IV 350 Vancomycin 1,000 mg In Sodium 250 Chloride 0.9% 250 ml @ 250 mls/ hr IV ONCE ONE Rx#:[id number] Oral 100 Output: Urine Catheter Amount 100 Other: Meal Dinner Percent of Meal Consumed 75% Feeding Ability Independent Urine Appearance Uretheral (Ceron) Clear Urine Color Dark Yuly Uretheral (Ceron) Bright Yellow - Lab 12/22/18 03:55 12/22/18 03:55 Most recent lab results Calcium 7.7 mg/dl (8.6-10.4) L 12/22/18 03:55 Phosphorus 2.3 mg/dL (2.7-4.5) L 12/22/18 03:55 Magnesium 2.1 mg/dL (1.6-2.5) 12/22/18 03:55 Microbiology 12/17/18 20:36 Blood Blood Culture - Preliminary 12/17/18 20:24 Blood Blood Culture - Preliminary 12/15/18 14:42 Blood Blood Culture - Final 12/15/18 14:34 Blood Blood Culture - Final 12/15/18 15:25 Buttock - Right Gram Stain - Final 12/15/18 15:25 Buttock - Right Wound Culture - Final Staphylococcus aureus 12/15/18 14:02 Urine - Catheterized Urine Culture - Final Strep agalactiae - (group b) 12/16/18 02:32 Stool C. difficile [facility] Antigen & Toxins - Final Medications Active Medications: Acetaminophen (Tylenol) 650 mg PO Q4-6HP PRN PRN Reason: PAIN/FEVER > 101 Albuterol Sulfate (Ventolin) 1 - 2 puff IH Q4H [facility] Last Admin: 12/22/18 05:13 Dose: Not Given Documented by: TETO Non-Admin Reason: Home medical laboratory specialist: 12/22/18 05:13 Dose: Not Given Documented by: RICKONNER Non-Admin Reason: Not In Room Admin: 12/21/18 21:06 Dose: Not Given Documented by: FRANKER Non-Admin Reason: Not In Room Admin: 12/21/18 18:36 Dose: Not Given Documented by: TETO Non-Admin Reason: Not available Amlodipine Besylate (Norvasc) 2.5 mg PO DAILY [facility] Last Admin: 12/22/18 09:47 Dose: 2.5 mg Documented by: AEF4 Aspirin (Aspirin) 81 mg PO DAILY [facility] Last Admin: 12/22/18 09:45 Dose: 81 mg Documented by: AEF4 Bacitracin (Bacitracin Topical Oint) 1 dose TOPICAL TID [facility] Last Admin: 12/22/18 09:46 Dose: 1 dose Documented by: LC Comments: states it was discontinued Admin: 12/21/18 21:03 Dose: 1 dose Documented by: TETO Comments: Wont scan, new status Bisacodyl (Dulcolax) 10 mg [place] DAILYP PRN PRN Reason: Constipation Calcium Carbonate/Glycine (Tums) 200 mg PO DAILY [facility] Last Admin: 12/22/18 09:48 Dose: 200 mg Documented by: AEF4 Clopidogrel Bisulfate (Plavix) 75 mg PO DAILY [facility] Last Admin: 12/22/18 09:47 Dose: 75 mg Documented by: LC Diagnostic Test (Pha) (Accu-Chek) 1 each FS ACHS [facility] Last Admin: 12/22/18 08:30 Dose: 1 each Documented by: AETyrel Admin: 12/21/18 21:02 Dose: 1 each Documented by: Admin: 12/21/18 17:14 Dose: 1 each Documented by: JEANIE Docusate Sodium (Colace) 100 mg PO BID [facility] Last Admin: 12/22/18 09:46 Dose: 100 mg Documented by: AETyrel Admin: 12/21/18 21:05 Dose: Not Given Documented by: TETO Non-Admin Reason: Loose Stool Fluoxetine HCl (Prozac) 20 mg PO QDAY [facility] Last Admin: 12/22/18 09:47 Dose: 20 mg Documented by: AEF4 Furosemide (Lasix) 40 mg PO QDAY [facility] Last Admin: 12/22/18 09:46 Dose: 40 mg Documented by: LC Heparin Sodium (Porcine) (Heparin) 5,000 unit SQ Q12 [facility] Last Admin: 12/22/18 09:48 Dose: 5,000 unit Documented by: AETyrel Admin: 12/21/18 21:04 Dose: 5,000 unit Documented by: TETO Iron Carb/Multivit/[place]/Folic Acid (Multivitamin W/Minerals) 1 tab PO DAILY [facility] Last Admin: 12/22/18 09:47 Dose: 1 tab Documented by: AETyrel Ketoconazole (Nizoral 2% Top Crm) 1 dose TOPICAL DAILY [facility] Last Admin: 12/22/18 09:48 Dose: Not Given Documented by: AETyrel Non-Admin Reason: Unavailable Loperamide HCl (Imodium) 2 mg PO Q2-4HP PRN PRN Reason: Diarrhea Metoprolol Tartrate (Lopressor) 12.5 mg PO BID [facility] Last Admin: 12/22/18 09:48 Dose: 12.5 mg Documented by: [email or web address] Admin: 12/21/18 21:04 Dose: 12.5 mg Documented by: TETO Metronidazole (Flagyl) 500 mg PO Q8 [facility] Last Admin: 12/22/18 05:43 Dose: 500 mg Documented by: TETO Comments: wont scan Admin: 12/21/18 21:42 Dose: 500 mg Documented by: BERLIN Comments: unable to scan error msg "medication does not exist" Multivit/Ca Carb/B Cmplx/FA/Prenat (Diatx) 1 tab PO DAILY [facility] Last Admin: 12/22/18 09:47 Dose: 1 tab Documented by: LC Niacin (Niacin) 500 mg PO [facility] Last Admin: 12/21/18 21:00 Dose: 500 mg Documented by: TETO Ondansetron HCl (Zofran) 4 mg IV Q4-6HP PRN PRN Reason: Nausea And Vomiting Ondansetron HCl (Zofran Odt) 4 mg SL Q6HP PRN PRN Reason: Nausea Senna/Docusate Sodium (Senna Plus Tablet) 1 tab PO [facility] Last Admin: 12/21/18 21:04 Dose: Not Given Documented by: TETO Non-Admin Reason: Loose Stool Simvastatin (Zocor) 20 mg PO [facility] Last Admin: 12/21/18 21:04 Dose: 20 mg Documented by: TETO Sodium Chloride (Saline Flush) 10 ml IV Q8 [facility] Last Admin: 12/22/18 05:44 Dose: 10 ml Documented by: Admin: 12/21/18 21:05 Dose: 10 ml Documented by: TETO Vancomycin HCl (Vancomycin Oral Brenna) 250 mg PO Q6 [facility] Last Admin: 12/22/18 05:43 Dose: 250 mg Documented by: Admin: 12/22/18 00:11 Dose: 250 mg Documented by: Admin: 12/21/18 17:01 Dose: 250 mg Documented by: JEANIE Vancomycin HCl (Vancomycin Per Pharmacy) 1 order IV UD [facility] Assessment and Plan - Narrative A/P Narrative: Assessment: 1. Severe labial cellulitis with extension to perineum: slowly improving Superficial cultures growing MSSA - CT abd/pelvis done at admission did not go down deeper into pelvis at level of labia to assess for an abscess - US of labia done this am neg for any abscess. 2. Severe Clostridiodes difficile infection with leukocytosis more than 15,000 On oral vancomycin Overall getting better: currently with 1-2 BMs a day 3. Persistent leukocytosis: still at ~18k - Secondary to (1) 4. Persistent MSSA colonization: Patient had a positive wound culture from second finger in August 2018 and now has a positive wound culture from perineal wound With her being on hemodialysis, it could be a risk factor for bacteremia like she had on August 28, 2018 5. B/l atlectesis: might also be contributing to elev WBCs - CXR neg for signif infiltrate Recommendations: Continue IV vancomycin per pharmacy assisted dosing. Vanc levels prior to HD 17.3 (in range). will recommend a stop date of 12/29/18 continue oral vancomycin to 250 mg every 6 hours for C. difficile treatment, day 7/14. Stop date of 12/29/18 stop oral metronidazole at discharge - consider decolonization with intranasal mupirocin 2% bid and below neck whole body chlorhexidine 2% once daily x5 days - consider surgical evaluation for superficial I&D of labial skin-soft tissue infection given drainage of pus actively - local genital wound care - a tagged WBC scan would be optimal imaging modaility to investigate elev WBC in a patient who is otherwise getting better. Alternatively a rodríguez CT could be considered (if tagged WBC can not be done). Lamont Aldridge MD Infectious disease
--- NOTE | 2018-12-22 11:11 | XRay Report ---
HISTORY: Elevated white blood cell count and fever FINDINGS: The lungs are clear and well-expanded, without evidence of pneumonia. The heart is mildly enlarged with left ventricular prominence. No congestive heart failure, pleural effusion or adenopathy are present. The engorged pulmonary vessel seen on 12/15/18 have resolved. The cardiomegaly remains stable.. IMPRESSION: No evidence of pneumonia Interpreted and Authenticated by: Michael Orosco 12/22/18
--- NOTE | 2018-12-22 13:05 | Internal Med Progress Note ---
Medical - PN: Subj Patient information: Note initiated : 12/22/18 at 1:03 pm Service Date, if different from initiated Date: [] Patient: Teri Olson a 68 y/o F admitted on 12/15/18 for Nausea, Diarrhea, Fever. Chief Complaint: [] Interval history: Ms. Olson is a 68 year old F with a history of diabetes/ESRD on hemodialysis who presents to the ER with profound weakness involving over the last week, fever, loss of appetite and not feeling well. She has had few episodes of diarrhea in the last 48 hours and also noted a boil at her bottom which has gradually increased in size with increasing tenderness and swelling. She complains of associated chills however denies body aches/nausea. Initial workup was consistent with severe sepsis with white count 31,300 on examination (area revealed induration with a central opening that started oozing pus when probed with a Q-tip) She underwent CT with contrast abdomen and pelvis did not show a definite abscesses. 3/2- patient doing well. However white count around 40,000, C. difficile positive, on vancomycin 500 every 6, diarrhea improved, underwent hemodialysis. De-escalate antibiotics. Perineal swelling and tenderness improving 3/-patient clinically improving. White count 32.6. Wound surgeon consulted. Wound care recommendations discontinue antibiotics. On oral vancomycin for C. difficile. Clinically improving. Tolerating diet. Ongoing physical therapy. Ongoing hemodialysis. No concerns per staff. No overnight events 3/-MAXIMUM TEMPERATURE 103, overnight intermittent atrial tachycardia started on beta blu, white count downtrending from 39.9-19.7. IV antibiotics continue. Surgery on board. Improved perineal cellulitis. Resolved. Tolerating diet. Ongoing hemodialysis per nephrology. 12/19-patient doing well. MAXIMUM TEMPERATURE 102, white count 17.1, surgery consulted for perineal cellulitis/possible abscess after wound care teams concerns. Patient started on IV vancomycin as staph aureus on cultures. Tolerating diet, hemodialysis 12/20-white count now at 19,000 despite treatment. Case discussed with surgery. Operative drainage not indicated per surgery advised to continue antibiotics. Patient clinically feels better. 2 episodes of diarrhea but denies abdominal pain fever or shortness of breath, ongoing hemodialysis. 12/21 pt seen examined, pain still there, wbc count improved, slightly no new complaints or concerns pt did have small opening in the labial region, yellowish pus expressed around 1cc. no obvious fluctuant lesion noted. 12/22 Pt seen examined no acute overnight issues, wbc still in 18K, Reviewed previous WBC values, have been high, for quite a while with few normal readings in between Procalcitonin is 2.48 worse since previous. Patient perineum examined in presence of chaparone, improving erythema and induration, no obvious pocket of pus noted, lesion draining well, Infectious disease consult has been requesting Incision and drainage of this lesion, I reviewed this with Dr Goodman who will reassess today to determine if any surgical drainage is warranted. Pt feels great and at baseline, has 1-2 episodes of diarrhea x ray chest is negative. Pertinent ROS: Denies headache, dizziness Denies chest pain, palpitations Denies cough or shortness of breath Denies abdominal pain, nausea or vomiting. - Constitutional Vitals: Vital Signs Temp Pulse Resp BP Pulse Ox 97.1 F 70 16 124/45 96 12/22/18 11:50 12/22/18 04:00 12/22/18 11:50 12/22/18 11:50 12/22/18 11:50 Period Temp Pulse Resp BP Sys/Barnard Pulse Ox Last 24 Hr 97.1 F-98.4 F 70-72 16-18 124-151/45-78 94-96 Intake and Output 12/21/18 12/22/18 12/22/18 21:59 05:59 13:59 Intake Total 450 Output Total 100 Balance 450 -100 Weight 182 lb Intake & Output: Intake & Output 12/21/18 12/22/18 12/22/18 21:59 05:59 13:59 Intake Total 450 Output Total 100 Balance 450 -100 Weight 182 lb Intake: IV 350 Vancomycin 1,000 mg In Sodium 250 Chloride 0.9% 250 ml @ 250 mls/ hr IV ONCE ONE Rx#:[id number] Oral 100 Output: Urine Catheter Amount 100 Other: Meal Dinner Percent of Meal Consumed 75% Feeding Ability Independent Urine Appearance Uretheral (Ceron) Clear Urine Color Dark Yuly Uretheral (Ceron) Bright Yellow Stool Size Moderate Stool Color Brown Stool Consistency Soft Exam: Constitutional; Afebrile, cooperative, alert, not in distress. Eyes- No icterus, , No periorbital swelling Ears- Ext ear normal, hearing normal to conversation. Neck- Midline trachea, supple Respiratory system: Air Entry equal on both sides, No crackles or wheezing, no rhonchi. CVS- Rate rhythm regular, S1,S2 heard, no gallop, no rub. Abdomen- Soft nontender abdomen, no organomegaly, no tenderness, no guarding or rigidity, [employer]- AOOx3, moving all extremities, no gross focal deficit noted. 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 not much pus expressed from open lesion improved from yesterday Medical - PN: Obj Da - Labs CBC & Chem 7: 12/22/18 03:55 12/22/18 03:55 Labs: Abnormal Lab Results 12/22/18 12/22/18 12/21/18 03:55 03:55 03:50 WBC 18.5 H RBC 2.55 L Hgb 7.7 L Hct 23.7 L RDW 15.2 H Plt Count 459 H MPV 6.8 L Gran # 12.4 H Dixon # (Auto) 1.5 H Band Neutrophils % Reactive Lymphocytes RBC Morphology Polychromasia Hypochromasia Chloride BUN 33 H Creatinine 4.1 H 2.5 H Calcium 7.7 L 7.9 L Phosphorus 2.3 L 1.8 L Total Protein 5.7 L 5.7 L Albumin 2.7 L 2.8 L Albumin/Globulin Ratio 0.9 L 12/21/18 12/20/18 12/20/18 03:50 04:10 04:10 WBC 18.6 H 19.9 H RBC 2.52 L 2.55 L Hgb 7.4 L 7.7 L Hct 23.3 L 23.5 L RDW 14.8 H 15.0 H Plt Count MPV 6.8 L 6.8 L Gran # 12.6 H Dixon # (Auto) 1.7 H Band Neutrophils % 14 H Reactive Lymphocytes 3 H RBC Morphology Abnorm A Polychromasia 1+ A Hypochromasia 1+ A Chloride 93 L BUN 25 H Creatinine 4.7 H Calcium 7.4 L Phosphorus 2.2 L Total Protein 5.8 L Albumin 2.7 L Albumin/Globulin Ratio 0.9 L Meds: Medications Acetaminophen (Tylenol) 650 mg PO Q4-6HP PRN PRN Reason: PAIN/FEVER > 101 Albuterol Sulfate (Ventolin) 1 - 2 puff IH Q4H [facility] Last Admin: 12/22/18 05:13 Dose: Not Given Documented by: Amlodipine Besylate (Norvasc) 2.5 mg PO DAILY [facility] Last Admin: 12/22/18 09:47 Dose: 2.5 mg Documented by: Aspirin (Aspirin) 81 mg PO DAILY [facility] Last Admin: 12/22/18 09:45 Dose: 81 mg Documented by: Bacitracin (Bacitracin Topical Oint) 1 dose TOPICAL TID [facility] Last Admin: 12/22/18 09:46 Dose: 1 dose Documented by: Bisacodyl (Dulcolax) 10 mg NV DAILYP PRN PRN Reason: Constipation Calcium Carbonate/Glycine (Tums) 200 mg PO DAILY [facility] Last Admin: 12/22/18 09:48 Dose: 200 mg Documented by: Clopidogrel Bisulfate (Plavix) 75 mg PO DAILY [facility] Last Admin: 12/22/18 09:47 Dose: 75 mg Documented by: Diagnostic Test (Pha) (Accu-Chek) 1 each FS ACHS [facility] Last Admin: 12/22/18 08:30 Dose: 1 each Documented by: Docusate Sodium (Colace) 100 mg PO BID [facility] Last Admin: 12/22/18 09:46 Dose: 100 mg Documented by: Fluoxetine HCl (Prozac) 20 mg PO QDAY [facility] Last Admin: 12/22/18 09:47 Dose: 20 mg Documented by: Furosemide (Lasix) 40 mg PO QDAY [facility] Last Admin: 12/22/18 09:46 Dose: 40 mg Documented by: Heparin Sodium (Porcine) (Heparin) 5,000 unit SQ Q12 [facility] Last Admin: 12/22/18 09:48 Dose: 5,000 unit Documented by: Iron Carb/Multivit/[place]/Folic Acid (Multivitamin W/Minerals) 1 tab PO DAILY [facility] Last Admin: 12/22/18 09:47 Dose: 1 tab Documented by: Ketoconazole (Nizoral 2% Top Crm) 1 dose TOPICAL DAILY [facility] Last Admin: 12/22/18 09:48 Dose: Not Given Documented by: Loperamide HCl (Imodium) 2 mg PO Q2-4HP PRN PRN Reason: Diarrhea Metoprolol Tartrate (Lopressor) 12.5 mg PO BID [facility] Last Admin: 12/22/18 09:48 Dose: 12.5 mg Documented by: Metronidazole (Flagyl) 500 mg PO Q8 [facility] Last Admin: 12/22/18 05:43 Dose: 500 mg Documented by: Multivit/Ca Carb/B Cmplx/FA/Prenat (Diatx) 1 tab PO DAILY [facility] Last Admin: 12/22/18 09:47 Dose: 1 tab Documented by: Niacin (Niacin) 500 mg PO [facility] Last Admin: 12/21/18 21:00 Dose: 500 mg Documented by: Ondansetron HCl (Zofran) 4 mg IV Q4-6HP PRN PRN Reason: Nausea And Vomiting Ondansetron HCl (Zofran Odt) 4 mg SL Q6HP PRN PRN Reason: Nausea Senna/Docusate Sodium (Senna Plus Tablet) 1 tab PO [facility] Last Admin: 12/21/18 21:04 Dose: Not Given Documented by: Simvastatin (Zocor) 20 mg PO [facility] Last Admin: 12/21/18 21:04 Dose: 20 mg Documented by: Sodium Chloride (Saline Flush) 10 ml IV Q8 [facility] Last Admin: 12/22/18 05:44 Dose: 10 ml Documented by: Vancomycin HCl (Vancomycin Oral Brenna) 250 mg PO Q6 [facility] Last Admin: 12/22/18 05:43 Dose: 250 mg Documented by: Vancomycin HCl (Vancomycin Per Pharmacy) 1 order IV UD [facility] Medical - PN: A/P - Time Spent With Patient Total time spent is greater than 50% in coordination of care (as documented) at patient's floor/unit and/or counseling patient: - Narrative A/P Narrative: A/P Severe sepsis -sepsis syndrome improving, bp stable, wbc elevated but stable -procalcitonin is elevated, but clinically pt appears stable Perineal cellulitis/ abscess -USG neg, appreciate ID/Surgery input, not sure if there is any abscess to be drained, the single small lesion is draining well. CT and USG have been negative for any pus pockets. clinically pt seems to be improving well. -on ABX per ID Leucocytosis -this has been an intermittent chr issue for the patient based on trending her wbc will monitor closely, if trends up, will consider adding gram negative coverage, repeat cultures, consider rodríguez CT. Cdiff enterocolitis -Po vancomycin, diarrhea improving Tachycardia/ narrow complex -Resolved on BB -Xfer to med surg status ESRD on HD -Followed by Dr Rae HTN -Stable, continue home meds Anxiety -Stable on fluoxetine CAD -on plavix / asa/statin, no complaints reported DVT -hep sq Full code Medical - PN: Qual - VTE Deep Vein Thrombosis/Pulmonary Embolism Present on Admission: No
--- NOTE | 2018-12-22 14:05 | Nephrology Progress Note ---
Subjective Patient information: Note initiated : 12/22/18 at 2:03 pm Service Date, if different from initiated Date: [] Patient: Teri Olson 68 y/o F admitted on 12/15/18 for Nausea, Diarrhea, Fever. Chief Complaint: [] Principal diagnosis: cdiff colitis Interval history: Patient denies any new concerns no SOB, CP, edema her perineal wound is been treated with IV antibiotics, no diarrhea, however her white count is still elevated and she may need more work up for this no other concerns Pertinent ROS: as above Objective - Vital Signs Vital signs: Vital Signs Temp Pulse Pulse Resp BP BP BP 12/22/18 13:54 60 155/74 12/22/18 13:25 60 142/63 12/22/18 12:59 96.5 F L 60 153/79 12/22/18 11:50 97.1 F 16 124/45 12/22/18 08:00 97.3 F 16 129/54 12/22/18 04:00 98.4 F 70 16 136/78 12/22/18 00:00 97.9 F 72 18 125/72 12/21/18 20:00 97.8 F 18 131/52 12/21/18 16:00 98.1 F 18 151/74 Pulse Ox 12/22/18 13:54 12/22/18 13:25 12/22/18 12:59 12/22/18 11:50 96 12/22/18 08:00 95 12/22/18 04:00 94 12/22/18 00:00 96 12/21/18 20:00 94 12/21/18 16:00 96 Intake and Output 12/22/18 12/22/18 12/22/18 05:59 13:59 21:59 Output Total 100 Balance -100 Output: Urine Catheter Amount 100 Other: Urine Color Dark Yuly Stool Size Moderate Stool Color Brown Stool Consistency Soft Intake & Output: Intake & Output 12/22/18 12/22/18 12/22/18 05:59 13:59 21:59 Output Total 100 Balance -100 Output: Urine Catheter Amount 100 Other: Urine Color Dark Yuly Stool Size Moderate Stool Color Brown Stool Consistency Soft - General Appearance General appearance: appears started age, obese, frail EENT: mucous membranes moist Neck: no JVD Respiratory: wheezing Gastrointestinal: no tenderness, no guarding Integumentary: warm and dry Neurologic: alert and oriented x3 Musculoskeletal: no cyanosis Psychiatric: mood/affect appropriate - Lab 12/22/18 03:55 12/22/18 03:55 Most recent lab results Calcium 7.7 mg/dl (8.6-10.4) L 12/22/18 03:55 Phosphorus 2.3 mg/dL (2.7-4.5) L 12/22/18 03:55 Magnesium 2.1 mg/dL (1.6-2.5) 12/22/18 03:55 Assessment and Plan (1) Leukocytosis, unspecified Status: Acute Qualifiers: Leukocytosis type: leukemoid reaction Qualified Code(s): D72.823 - Leukemoid reaction (2) Anemia, chronic renal failure Status: Chronic (3) ESRD (end stage renal disease) on dialysis Status: Chronic Priority: Medium - Narrative A/P Narrative: patient will get HD today for 3.5hrs using revaclear dialyser, 3K/2.5ca dialysate, UF goal of 1000ml or less as tolerated, QB 350ML/MIN AND QD 800ML/MIN She received aranesp 100mcg IV x 1 for anemia this week, will follow corrected calcium normal, phos is low, not on binders low albumin, continue on nepro, oral intake improving, should improve as infection/inflammation improves elevated WBC count/cdiff colitis/perineal wound: management per hospitalist/ID/wound care will follow along
--- NOTE | 2018-12-22 14:39 | General Surgery Progress Note ---
Subjective Patient reports: pain is less, flatus, bowel movement, afebrile Narrative: Note initiated : 12/22/18 at 2:34 pm Service Date, if different from initiated Date: [] Patient: Teri Olson 68 y/o F admitted on 12/15/18 for Nausea, Diarrhea, Fever. Chief Complaint: [Patient is reevaluated because of concern that her leukocytosis is related to her perineal inflammation. Clinically the inflammation of her perineum has been improving every day. The right labia is significantly resolved . There is some induration of the posterior aspect of the left labia majora. This is associated with a very superficial inflamed lesion that is actively draining. This is not a Bartholin's cyst or abscess. Since the area is already draining and is quite superficial there is no need for further operative management. To explore the area at this time would potentially allow another source of infection that can spread and create a deeper process. The inflammation noted is not enough to account for her 18,000 white blood count. The more likely source is residual C. difficile infection of the colon Or some other source.] Objective Temp Pulse Resp BP Pulse Ox 96.5 F L 74 16 132/63 96 12/22/18 12:59 12/22/18 14:23 12/22/18 11:50 12/22/18 14:23 12/22/18 11:50 - Additional Data Intake & Output - Last 24 hours: Intake & Output 12/20/18 12/21/18 12/22/18 12/23/18 05:59 05:59 05:59 05:59 Intake Total 845 1200 450 Output Total 1175 100 Balance 845 25 350 Weight 178 lb 8 oz 180 lb 182 lb - Labs 12/22/18 03:55 12/22/18 03:55 Diabetes panel 12/22/18 Range/Units 03:55 Sodium 136 (133-145) mmol/L Potassium 3.5 (3.3-5.1) mmol/L Chloride 97 (96-108) mmol/L Carbon Dioxide 25 (22-30) mmol/L BUN 33 H (8-23) mg/dl Creatinine 4.1 H (0.6-1.1) mg/dl Glucose 73 (70-105) mg/dL Calcium 7.7 L (8.6-10.4) mg/dl AST 22 (0-37) U/l ALT 12 (0-40) U/l Alkaline Phosphatase 91 (39-117) U/L Total Protein 5.7 L (5.9-8.4) gm/dL Albumin 2.7 L (3.2-5.2) gm/dL Triglycerides 101 (<150) mg/dl Calcium panel 12/22/18 Range/Units 03:55 Calcium 7.7 L (8.6-10.4) mg/dl Phosphorus 2.3 L (2.7-4.5) mg/dL Albumin 2.7 L (3.2-5.2) gm/dL Pituitary panel 12/22/18 Range/Units 03:55 Sodium 136 (133-145) mmol/L Potassium 3.5 (3.3-5.1) mmol/L Chloride 97 (96-108) mmol/L Carbon Dioxide 25 (22-30) mmol/L BUN 33 H (8-23) mg/dl Creatinine 4.1 H (0.6-1.1) mg/dl Glucose 73 (70-105) mg/dL Calcium 7.7 L (8.6-10.4) mg/dl Adrenal panel 12/22/18 Range/Units 03:55 Sodium 136 (133-145) mmol/L Potassium 3.5 (3.3-5.1) mmol/L Chloride 97 (96-108) mmol/L Carbon Dioxide 25 (22-30) mmol/L BUN 33 H (8-23) mg/dl Creatinine 4.1 H (0.6-1.1) mg/dl Glucose 73 (70-105) mg/dL Calcium 7.7 L (8.6-10.4) mg/dl Total Bilirubin 0.2 (0.0-1.0) mg/dL AST 22 (0-37) U/l ALT 12 (0-40) U/l Alkaline Phosphatase 91 (39-117) U/L Total Protein 5.7 L (5.9-8.4) gm/dL Albumin 2.7 L (3.2-5.2) gm/dL Assessment and Plan (1) Cellulitis of perineum Status: Acute Assessment and plan: The area of inflammation and induration continued to improve on a daily basis. There is no drainable source of purulence noted. Do not feel that operative management is indicated in this very superficial inflammatory process Current Visit: Yes (2) UTI (urinary tract infection) Status: Acute Current Visit: Yes (3) Severe sepsis Problem details: Status: Acute Current Visit: Yes (4) UTI (urinary tract infection), bacterial Status: Acute Current Visit: Yes (5) Bacteremia due to coagulase-negative Staphylococcus Status: Acute Current Visit: Yes (6) Type 2 diabetes mellitus Problem details: stop metformin given current egfr keep blood glucose log will start meds if indicated last A1C is 5.1 Status: Chronic Current Visit: No - Time Spent With Patient Total time spent is greater than 50% in coordination of care (as documented) at patient's floor/unit and/or counseling patient:
[2018-12-22 17:08] LABS: Vancomycin,Random 16.3 ug/mL
[2018-12-22] MEDS: NIACIN 250 MG CAP.SR.12H PO SCH (21:25)
[2018-12-22] MEDS: SENNOSIDES/DOCUSATE SODIUM 1 TAB TABLET PO SCH (21:26)
[2018-12-22] MEDS: SIMVASTATIN 20 MG TABLET PO SCH (21:26)
[2018-12-22] MEDS: MUPIROCIN OINT 2% 22GM TOPICAL SCH (21:44)
[2018-12-23] MEDS: ALBUTEROL SULFATE 1 PUFF INHALER IH SCH ×6 (01:59→21:07)
[2018-12-23 05:44] LABS: Basophils # (Auto) 0.1 K/mcL (0.0-0.3); Basophils % (Auto) 0.3 % (0.0-2.0); Eosinophils # (Auto) 0.4 K/mcL (0.0-0.7); Eosinophils % (Auto) 1.9 % (0.0-7.0); Granulocytes % (Auto) 68.1 % (38.0-78.0); Mean Cell Volume 92.4 fL (80.0-100.0); Mean Corpuscular HGB Conc 32.1 g/dL (31.0-36.0); Monocytes % (Auto) 9.7 % (1.0-12.0); Platelet Count 507 K/mcL (140-440); RBC 2.66 M/mcL (4.00-5.20); Red Cell Distribution Width 15.2 % (11.5-14.5)
[2018-12-23] MEDS: metroNIDAZOLE 500 MG TABLET PO SCH ×3 (05:54→21:07)
[2018-12-23] MEDS: VANCOMYCIN ORAL SOL 1,000 MG/10 ML BOTTLE PO SCH ×5 (05:54→23:43)
[2018-12-23] MEDS: 0.9 % SODIUM CHLORIDE 10 ML SYRINGE IV SCH ×3 (05:56→20:39)
[2018-12-23 06:15] LABS: ALT/SGPT 13 U/l (0-40); Albumin 2.9 gm/dL (3.2-5.2); Alkaline Phosphatase 82 U/L (39-117); Bilirubin,Direct < 0.2 mg/dL (0.0-0.3); Blood Urea Nitrogen 14 mg/dl (8-23); Gamma Glutamyl Transpeptidase 11 U/L (5-36); Uric Acid 2.6 mg/dL (2.5-8.0)
[2018-12-23] MEDS ORDERED: VANCOMYCIN 1,000 MG in 0.9 % SODIUM CHLORIDE 250 ML IV ONE (09:00)
[2018-12-23] MEDS: BACITRACIN TOPICAL OINT 15 GM TUBE TOPICAL SCH ×3 (09:54→20:46)
[2018-12-23] MEDS: FLUoxetine HCL 20 MG CAPSULE PO SCH (09:55)
[2018-12-23] MEDS: FOLIC ACID/VITAMIN B COMP W-C 1 TAB TABLET PO SCH (09:55)
[2018-12-23] MEDS: amLODIPine 5 MG TABLET PO SCH (09:55)
[2018-12-23] MEDS: METOPROLOL TARTRATE 25 MG TABLET PO SCH ×2 (09:55→20:37)
[2018-12-23] MEDS: ASPIRIN 81 MG TAB.CHEW PO SCH (09:55)
[2018-12-23] MEDS: CLOPIDOGREL 75 MG TABLET PO SCH (09:56)
[2018-12-23] MEDS: MULTIVIT,THER IRON,CA,FA & MIN 1 TABLET PO SCH (09:56)
[2018-12-23] MEDS: DOCUSATE SODIUM 100 MG CAPSULE PO SCH ×3 (09:56→20:39)
[2018-12-23] MEDS: HEPARIN 5,000 UNIT/ML VIAL SQ SCH ×2 (09:56→20:38)
[2018-12-23] MEDS: FUROSEMIDE 40 MG TABLET PO SCH (09:56)
[2018-12-23] MEDS: MUPIROCIN OINT 2% 22GM TOPICAL SCH ×2 (09:57→20:38)
[2018-12-23] MEDS: CALCIUM CARBONATE 500 MG TAB.CHEW PO SCH ×2 (10:41→10:46)
[2018-12-23] MEDS: KETOCONAZOLE 2% TOP CRM 15GM TUBE TOPICAL SCH (10:41)
--- NOTE | 2018-12-23 12:40 | Internal Med Progress Note ---
Medical - PN: Subj Patient information: Note initiated : 12/23/18 at 12:37 pm Service Date, if different from initiated Date: [] Patient: Teri Olson a 68 y/o F admitted on 12/15/18 for Nausea, Diarrhea, Fever. Chief Complaint: [] Interval history: Ms. Olson is a 68 year old F with a history of diabetes/ESRD on hemodialysis who presents to the ER with profound weakness involving over the last week, fever, loss of appetite and not feeling well. She has had few episodes of diarrhea in the last 48 hours and also noted a boil at her bottom which has gradually increased in size with increasing tenderness and swelling. She complains of associated chills however denies body aches/nausea. Initial workup was consistent with severe sepsis with white count 31,300 on examination (area revealed induration with a central opening that started oozing pus when probed with a Q-tip) She underwent CT with contrast abdomen and pelvis did not show a definite abscesses. 3/2- patient doing well. However white count around 40,000, C. difficile positive, on vancomycin 500 every 6, diarrhea improved, underwent hemodialysis. De-escalate antibiotics. Perineal swelling and tenderness improving 3/-patient clinically improving. White count 32.6. Wound surgeon consulted. Wound care recommendations discontinue antibiotics. On oral vancomycin for C. difficile. Clinically improving. Tolerating diet. Ongoing physical therapy. Ongoing hemodialysis. No concerns per staff. No overnight events /-MAXIMUM TEMPERATURE 103, overnight intermittent atrial tachycardia started on beta blu, white count downtrending from 39.9-19.7. IV antibiotics continue. Surgery on board. Improved perineal cellulitis. Resolved. Tolerating diet. Ongoing hemodialysis per nephrology. 12/19-patient doing well. MAXIMUM TEMPERATURE 102, white count 17.1, surgery consulted for perineal cellulitis/possible abscess after wound care teams concerns. Patient started on IV vancomycin as staph aureus on cultures. Tolerating diet, hemodialysis 12/20-white count now at 19,000 despite treatment. Case discussed with surgery. Operative drainage not indicated per surgery advised to continue antibiotics. Patient clinically feels better. 2 episodes of diarrhea but denies abdominal pain fever or shortness of breath, ongoing hemodialysis. 12/21 pt seen examined, pain still there, wbc count improved, slightly no new complaints or concerns pt did have small opening in the labial region, yellowish pus expressed around 1cc. no obvious fluctuant lesion noted. 12/22 Pt seen examined no acute overnight issues, wbc still in 18K, Reviewed previous WBC values, have been high, for quite a while with few normal readings in between Procalcitonin is 2.48 worse since previous. Patient perineum examined in presence of chaparone, improving erythema and induration, no obvious pocket of pus noted, lesion draining well, Infectious disease consult has been requesting Incision and drainage of this lesion, I reviewed this with Dr Goodman who will reassess today to determine if any surgical drainage is warranted. Pt feels great and at baseline, has 1-2 episodes of diarrhea x ray chest is negative. 12/23 pt seen examined no acute overnight issues, tolerating po diet well diarrhea resolved, perineal pain improved, wbc unfortunately is still trending up, procalcitonin is down, compared to yesterday. Clinically the patient feels great, and is anxious to be discharged I reviewed with ID and nephrology, a CT chest abdo and pelvis to be done. Nephrology ok use of Ct, will dialyze patient if any e/o fluid overload. Pertinent ROS: Denies headache, dizziness Denies chest pain, palpitations Denies cough or shortness of breath Denies abdominal pain, nausea or vomiting. - Constitutional Vitals: Vital Signs Temp Pulse Resp BP Pulse Ox 97.6 F 84 12 124/62 99 12/23/18 12:00 12/23/18 04:09 12/23/18 12:00 12/23/18 12:00 12/23/18 12:00 Period Temp Pulse Resp BP Sys/Barnard Pulse Ox Last 24 Hr 96.5 F-98.3 F 60-85 12-16 112-155/42-94 91-99 Intake and Output 12/22/18 12/23/18 12/23/18 21:59 05:59 13:59 Intake Total 360 720 Output Total 1000 Balance -1000 360 720 Weight 179 lb 8 oz Intake & Output: Intake & Output 12/22/18 12/23/18 12/23/18 21:59 05:59 13:59 Intake Total 360 720 Output Total 1000 Balance -1000 360 720 Weight 179 lb 8 oz Intake: IV 250 Vancomycin 1,000 mg In Sodium 250 Chloride 0.9% 250 ml @ 250 mls/ hr IV ONCE ONE Rx#:[id number] Oral 360 470 Output: Hemodialysis UF 1000 Other: Meal Breakfast Percent of Meal Consumed 25% Stool Size Small Moderate Stool Color Brown Brown Stool Consistency Formed Soft Formed # Voids 1 # Bowel Movements 1 1 Exam: Constitutional; Afebrile, cooperative, alert, not in distress. Eyes- No icterus, , No periorbital swelling Ears- Ext ear normal, hearing normal to conversation. Neck- Midline trachea, supple Respiratory system: Air Entry equal on both sides, No crackles or wheezing, no rhonchi. CVS- Rate rhythm regular, S1,S2 heard, no gallop, no rub. Abdomen- Soft nontender abdomen, no organomegaly, no tenderness, no guarding or rigidity, NUT FORMER- AOOx3, moving all extremities, no gross focal deficit noted. Perium examined in presence of cad drafter Left labia improving, induration and erythema continues to improve, tenderness nearly completely resolved. Medical - PN: Obj Da - Labs CBC & Chem 7: 12/23/18 04:05 12/23/18 04:05 Labs: Abnormal Lab Results 12/23/18 12/23/18 12/22/18 04:05 04:05 03:55 WBC 20.3 H RBC 2.66 L Hgb 7.9 L Hct 24.6 L RDW 15.2 H Plt Count 507 H MPV 6.7 L Gran # 13.8 H [place] # (Auto) 2.0 H Sodium 132 L Chloride 92 L Carbon Dioxide 32 H BUN 33 H Creatinine 2.2 H 4.1 H Calcium 8.2 L 7.7 L Phosphorus 1.6 L 2.3 L Total Protein 5.7 L 5.7 L Albumin 2.9 L 2.7 L Albumin/Globulin Ratio 0.9 L 12/22/18 12/21/18 12/21/18 03:55 03:50 03:50 WBC 18.5 H 18.6 H RBC 2.55 L 2.52 L Hgb 7.7 L 7.4 L Hct 23.7 L 23.3 L RDW 15.2 H 14.8 H Plt Count 459 H MPV 6.8 L 6.8 L Gran # 12.4 H 12.6 H [place] # (Auto) 1.5 H 1.7 H Sodium Chloride Carbon Dioxide BUN Creatinine 2.5 H Calcium 7.9 L Phosphorus 1.8 L Total Protein 5.7 L Albumin 2.8 L Albumin/Globulin Ratio Meds: Medications Acetaminophen (Tylenol) 650 mg PO Q4-6HP PRN PRN Reason: PAIN/FEVER > 101 Last Admin: 12/22/18 13:12 Dose: 650 mg Documented by: Albuterol Sulfate (Ventolin) 1 - 2 puff IH Q4H [facility] Last Admin: 12/23/18 11:36 Dose: Not Given Documented by: Amlodipine Besylate (Norvasc) 2.5 mg PO DAILY [facility] Last Admin: 12/23/18 09:55 Dose: 2.5 mg Documented by: Aspirin (Aspirin) 81 mg PO DAILY [facility] Last Admin: 12/23/18 09:55 Dose: 81 mg Documented by: Bacitracin (Bacitracin Topical Oint) 1 dose TOPICAL TID [facility] Last Admin: 12/23/18 09:54 Dose: 1 dose Documented by: Bisacodyl (Dulcolax) [address] DAILYP PRN PRN Reason: Constipation Calcium Carbonate/Glycine (Tums) 500 mg PO DAILY [facility] Last Admin: 12/23/18 10:41 Dose: 500 mg Documented by: Clopidogrel Bisulfate (Plavix) 75 mg PO DAILY [facility] Last Admin: 12/23/18 09:56 Dose: 75 mg Documented by: Diagnostic Test (Pha) (Accu-Chek) 1 each FS ACHS [facility] Last Admin: 12/23/18 11:37 Dose: 1 each Documented by: Docusate Sodium (Colace) 100 mg PO BID [facility] Last Admin: 12/23/18 09:58 Dose: Not Given Documented by: Fluoxetine HCl (Prozac) 20 mg PO QDAY [facility] Last Admin: 12/23/18 09:55 Dose: 20 mg Documented by: Furosemide (Lasix) 40 mg PO QDAY [facility] Last Admin: 12/23/18 09:56 Dose: 40 mg Documented by: Heparin Sodium (Porcine) (Heparin) 5,000 unit SQ Q12 [facility] Last Admin: 12/23/18 09:56 Dose: 5,000 unit Documented by: Iron Carb/Multivit/[place]/Folic Acid (Multivitamin W/Minerals) 1 tab PO DAILY [facility] Last Admin: 12/23/18 09:56 Dose: 1 tab Documented by: Ketoconazole (Nizoral 2% Top Crm) 1 dose TOPICAL DAILY [facility] Last Admin: 12/23/18 10:41 Dose: Not Given Documented by: Loperamide HCl (Imodium) 2 mg PO Q2-4HP PRN PRN Reason: Diarrhea Metoprolol Tartrate (Lopressor) 12.5 mg PO BID [facility] Last Admin: 12/23/18 09:55 Dose: 12.5 mg Documented by: Metronidazole (Flagyl) 500 mg PO Q8 [facility] Last Admin: 12/23/18 05:54 Dose: 500 mg Documented by: Multivit/Ca Carb/B Cmplx/FA/Prenat (Diatx) 1 tab PO DAILY [facility] Last Admin: 12/23/18 09:55 Dose: 1 tab Documented by: Mupirocin (Bactroban Oint 2%) 1 dose TOPICAL BID [facility] Stop: 12/27/18 20:59 Last Admin: 12/23/18 09:57 Dose: 1 dose Documented by: Niacin (Niacin) 500 mg PO [facility] Last Admin: 12/22/18 21:25 Dose: 500 mg Documented by: Ondansetron HCl (Zofran) 4 mg IV Q4-6HP PRN PRN Reason: Nausea And Vomiting Ondansetron HCl (Zofran Odt) 4 mg SL Q6HP PRN PRN Reason: Nausea Last Admin: 12/22/18 13:12 Dose: 4 mg Documented by: Senna/Docusate Sodium (Senna Plus Tablet) 1 tab PO [facility] Last Admin: 12/22/18 21:26 Dose: 1 tab Documented by: Simvastatin (Zocor) 20 mg PO [facility] Last Admin: 12/22/18 21:26 Dose: 20 mg Documented by: Sodium Chloride (Saline Flush) 10 ml IV Q8 [facility] Last Admin: 12/23/18 05:56 Dose: 10 ml Documented by: Vancomycin HCl (Vancomycin Oral Brenna) 250 mg PO Q6 [facility] Last Admin: 12/23/18 11:36 Dose: 250 mg Documented by: Vancomycin HCl (Vancomycin Per Pharmacy) 1 order IV UD [facility] Medical - PN: A/P - Time Spent With Patient Total time spent is greater than 50% in coordination of care (as documented) at patient's floor/unit and/or counseling patient: - Narrative A/P Narrative: A/P Severe sepsis -sepsis syndrome improving, bp stable, wbc trending up, clinically pt is st able. -procalcitonin is elevated, trending down now, but clinically pt appears stable Perineal cellulitis/ abscess -much improved, -on ABX per ID IV vanco Leucocytosis -this has been an intermittent chr issue for the patient based on trending her wbc -Repeat CT for chest and abdomen done after consultations with nephrology, Cdiff enterocolitis -Po vancomycin, diarrhea improving/ resolved Tachycardia/ narrow complex -Resolved on BB -Xfer to med surg status ESRD on HD -Followed by Dr Rae -will dialyze if any e/o fluid overload after CT HTN -Stable, continue home meds Anxiety -Stable on fluoxetine CAD -on plavix / asa/statin, no complaints reported DVT -hep sq Full code Medical - PN: Qual - VTE Deep Vein Thrombosis/Pulmonary Embolism Present on Admission: No
--- NOTE | 2018-12-23 13:50 | Cat Scan Report ---
History: Fever, elevated white count, diarrhea and perineal abscess TECHNIQUE: The patient was imaged without intravenous contrast but following oral contrast scanning from the thoracic inlet through the upper thigh. Delayed images of the lower pelvis were acquired. Sagittal and coronal reformats were created. Radiation exposure was limited using dose reduction technology. FINDINGS: CHEST: The heart is moderately enlarged. There is a tiny pericardial effusion. There are scattered calcified plaques in the coronary arteries as well as aortic arch. The aorta is normal in caliber. There are several small bands of scar or discoid atelectasis in both lung bases and with minor involvement in the lingula and left lower lobe. There is no evidence of pneumonia, pulmonary mass or pleural effusion. No abnormally enlarged lymph nodes are present. A small hiatus hernia is noted. Abdomen and pelvis: Evaluation the abdominal organs without contrast is somewhat limited. The liver is normal in size and homogeneous. The spleen also appears normal and homogeneous. On the prior abdomen CT done on 12/15/18 small cystic structures are seen in the uncinate process of the pancreas and neck of the pancreas. The 6 mm cyst in the neck is unchanged. The structure in the uncinate process is not identified on today's nonenhanced CT. There is no evidence of pancreatitis. There are couple small stones in the neck of the gallbladder. The gregory not thickened or inflamed and the bile ducts are nondilated. Left kidney is surgically absent. There is atrophy of the right kidney. An exophytic 1.1 cm cyst is present laterally in the upper half of the right kidney. There is no hydronephrosis. Oral contrast has passed through stomach and normal small intestine to the upper rectum without obstruction. There is no evidence of inflammatory bowel disease, diverticulitis or bowel obstruction. The appendix is noninflamed. There is induration of the skin in the left lung BX with inflammation of the adjacent subcutaneous fat. There is no abscess or mass in this region. The issue rectal fossa is normal. No intrapelvic abscess is present and there is no ascites. There are few benign-appearing reactive lymph nodes in the groin. IMPRESSION: Cellulitis in the left labia majora but without evidence of a perineal abscess No abdominal or pelvic abscess Cholelithiasis, without inflammation of the gallbladder wall Cardiomegaly with an associated small pericardial effusion Small bands of scar or discoid atelectasis in both lung bases Interpreted and Authenticated by: Michael Orosco 12/23/18
[2018-12-23] MEDS: NIACIN 250 MG CAP.SR.12H PO SCH (20:37)
[2018-12-23] MEDS: SIMVASTATIN 20 MG TABLET PO SCH (20:37)
[2018-12-23] MEDS: SENNOSIDES/DOCUSATE SODIUM 1 TAB TABLET PO SCH (20:39)
[2018-12-24] MEDS: ALBUTEROL SULFATE 1 PUFF INHALER IH SCH ×3 (01:40→09:32)
[2018-12-24 05:01] LABS: Basophils # (Auto) 0.1 K/mcL (0.0-0.3); Basophils % (Auto) 0.3 % (0.0-2.0); Eosinophils # (Auto) 0.5 K/mcL (0.0-0.7); Eosinophils % (Auto) 2.4 % (0.0-7.0); Granulocytes % (Auto) 66.8 % (38.0-78.0); Lymphocytes # (Auto) 4.3 K/mcL (1.5-4.8); Lymphocytes % (Auto) 22.4 % (15.5-49.0); Mean Cell Volume 93.2 fL (80.0-100.0); Monocytes # (Auto) 1.6 K/mcL (0.1-0.9); Monocytes % (Auto) 8.1 % (1.0-12.0); Platelet Count 567 K/mcL (140-440); RBC 2.57 M/mcL (4.00-5.20)
[2018-12-24 05:42] LABS: ALT/SGPT 14 U/l (0-40); Albumin 2.8 gm/dL (3.2-5.2); Alkaline Phosphatase 86 U/L (39-117); Bilirubin,Direct < 0.2 mg/dL (0.0-0.3); Blood Urea Nitrogen 25 mg/dl (8-23); Gamma Glutamyl Transpeptidase 12 U/L (5-36); Uric Acid 4.4 mg/dL (2.5-8.0)
[2018-12-24] MEDS: metroNIDAZOLE 500 MG TABLET PO SCH (06:08)
[2018-12-24] MEDS: VANCOMYCIN ORAL SOL 1,000 MG/10 ML BOTTLE PO SCH ×2 (06:09→11:27)
[2018-12-24] MEDS: 0.9 % SODIUM CHLORIDE 10 ML SYRINGE IV SCH (06:09)
[2018-12-24] MEDS: amLODIPine 5 MG TABLET PO SCH (09:30)
[2018-12-24] MEDS: ASPIRIN 81 MG TAB.CHEW PO SCH (09:30)
[2018-12-24] MEDS: CLOPIDOGREL 75 MG TABLET PO SCH (09:30)
[2018-12-24] MEDS: FLUoxetine HCL 20 MG CAPSULE PO SCH (09:30)
[2018-12-24] MEDS: METOPROLOL TARTRATE 25 MG TABLET PO SCH (09:30)
[2018-12-24] MEDS: MULTIVIT,THER IRON,CA,FA & MIN 1 TABLET PO SCH (09:31)
[2018-12-24] MEDS: CALCIUM CARBONATE 500 MG TAB.CHEW PO SCH (09:31)
[2018-12-24] MEDS: FOLIC ACID/VITAMIN B COMP W-C 1 TAB TABLET PO SCH (09:31)
[2018-12-24] MEDS: BACITRACIN TOPICAL OINT 15 GM TUBE TOPICAL SCH (09:31)
[2018-12-24] MEDS: FUROSEMIDE 40 MG TABLET PO SCH (09:31)
[2018-12-24] MEDS: HEPARIN 5,000 UNIT/ML VIAL SQ SCH (09:31)
[2018-12-24] MEDS: DOCUSATE SODIUM 100 MG CAPSULE PO SCH (09:31)
[2018-12-24] MEDS: MUPIROCIN OINT 2% 22GM TOPICAL SCH (09:32)
[2018-12-24] MEDS: KETOCONAZOLE 2% TOP CRM 15GM TUBE TOPICAL SCH (09:32)
--- NOTE | 2018-12-24 11:19 | Discharge Summary ---
Medical - DS: Prov Patient information: Note initiated : 12/24/18 at 11:15 am Service Date, if different from initiated Date: [] Patient: Teri Olson 68 y/o F admitted on 12/15/18 for Nausea, Diarrhea, Fever. Chief Complaint: [] Date of admission: 12/15/18 19:11 Discharge date: 12/24/18 Primary care physician: Apolonia Fernando Consults: 12/15/18 Consult to Physician [CONS] Stat Comment: Consulting Provider: Jakob Campos Reason For Exam: Physician to Consult Consult to Physician [CONS] Stat Comment: Consulting Provider: Charli Camarillo Reason For Exam: Physician to Consult 12/15/18 14:22 Consult to Physician [CONS] Stat Comment: Consulting Provider: Michell Wiley Reason For Exam: Physician to Consult 12/16/18 10:50 Consult to Physician [CONS] Routine Comment: Consulting Provider: Chai Gann Reason For Exam: Physician to Consult 12/18/18 19:59 Consult to Physician [CONS] Routine Comment: Consulting Provider: Karl Goodman Reason For Exam: Physician to Consult 12/20/18 09:13 Consult to Physician [CONS] Routine Comment: Consulting Provider: Lamont Aldridge Reason For Exam: Physician to Consult Discharging clinician: Jealyn Naylor Medical - DS: Meds - Discharge Medications Prescriptions: Bacitracin Topical Oint 1 dose TOPICAL TID #1 tube Vancomycin HCl 250 mg PO QID #24 cap Vancomycin Per Pharmacy 1 order IV ONCE #3 miscell Active and Home Medications: Home Medications fluoxetine 20 mg capsule 20 mg PO QDAY 11/19/15 [History Confirmed 12/15/18 Last Taken 08/27/18 08:00] acetaminophen 325 mg tablet 650 mg PO Q6HP PRN tab 08/02/18 [History Confirmed 12/15/18 Last Taken 08/26/18 07:00] amlodipine 2.5 mg tablet 2.5 mg PO QDAY 08/02/18 [History Confirmed 12/15/18 Last Taken 08/27/18 08:00] calcium carbonate 200 mg calcium (500 mg) chewable tablet 200 mg PO ONCE tab 08/02/18 [History Confirmed 12/15/18 Last Taken Unknown] loperamide 2 mg tablet 2 mg PO Q2-4H PRN 08/02/18 [History Confirmed 12/15/18 Last Taken Unknown] losartan 25 mg tablet 25 mg PO QDAY 08/02/18 [History Confirmed 12/15/18 Last Taken 08/27/18 08:00] Aspirin [Elias Chewable Aspirin] 81 mg PO DAILY 08/28/18 [History Confirmed 12/15/18 Last Taken 08/27/18 08:00] Ketoconazole 2% Top Crm [Nizoral 2% Top Crm] 1 dose TOPICAL DAILY #1 tube 08/30/18 [Rx Confirmed 12/15/18 Last Taken Unknown] furosemide 40 mg tablet 40 mg PO QDAY #30 tab 11/20/18 [Rx Confirmed 12/15/18 Last Taken Unknown] Albuterol Sulfate [Proair Hfa] 1 - 2 puff IH Q4H 12/15/18 [History Confirmed 12/15/18 Last Taken Unknown] Bisacodyl [Laxative Suppository] 10 mg RC PRN PRN 12/15/18 [History Confirmed 12/15/18 Last Taken Unknown] Clopidogrel Bisulfate [Plavix] 75 mg PO DAILY 12/15/18 [History Confirmed Last Taken Unknown] Folic Acid/Vit Bcomp,C [Nephro-Milagro Tablet] 0.8 mg PO DAILY 12/15/18 [History Confirmed 12/15/18 Last Taken Unknown] Niacinamide [Niacin] 500 mg PO DAILY 12/15/18 [History Confirmed 12/15/18 Last Taken Unknown] Ondansetron [Zofran ODT] 4 mg SL Q6HP PRN 12/15/18 [History Confirmed 12/15/18 Last Taken Unknown] Pravastatin [Pravachol] 40 mg PO DAILY 12/15/18 [History Confirmed 12/15/18 Last Taken Unknown] Sennosides/Docusate Sodium [Cvs Stool Softener-Stim Lax Tb] 1 each PO PRN PRN 12/15/18 [History Confirmed 12/15/18 Last Taken Unknown] Medical - DS: Hosp Hospital course: Ms. Olson is a 68 year old F with a history of diabetes/ESRD on hemodialysis who presents to the ER with profound weakness involving over the last week, fever, loss of appetite and not feeling well. She has had few episodes of diarrhea in the last 48 hours and also noted a boil at her bottom which has gradually increased in size with increasing tenderness and swelling. She complains of associated chills however denies body aches/nausea. Initial workup was consistent with severe sepsis with white count 31,300 on examination (area revealed induration with a central opening that started oozing pus when probed with a Q-tip) She underwent CT with contrast abdomen and pelvis did not show a definite abscesses. 3/- patient doing well. However white count around 40,000, C. difficile positive, on vancomycin 500 every 6, diarrhea improved, underwent hemodialysis. De-escalate antibiotics. Perineal swelling and tenderness improving 3/3-patient clinically improving. White count 32.6. Wound surgeon consulted. Wound care recommendations discontinue antibiotics. On oral vancomycin for C. difficile. Clinically improving. Tolerating diet. Ongoing physical therapy. Ongoing hemodialysis. No concerns per staff. No overnight events 12/18-MAXIMUM TEMPERATURE 103, overnight intermittent atrial tachycardia started on beta blu, white count downtrending from 39.9-19.7. IV antibiotics continue. Surgery on board. Improved perineal cellulitis. Resolved. Tolerating diet. Ongoing hemodialysis per nephrology. 12/19-patient doing well. MAXIMUM TEMPERATURE 102, white count 17.1, surgery consulted for perineal cellulitis/possible abscess after wound care teams concerns. Patient started on IV vancomycin as staph aureus on cultures. Tolerating diet, hemodialysis 12/20-white count now at 19,000 despite treatment. Case discussed with surgery. Operative drainage not indicated per surgery advised to continue antibiotics. Patient clinically feels better. 2 episodes of diarrhea but denies abdominal pain fever or shortness of breath, ongoing hemodialysis. 12/21 pt seen examined, pain still there, wbc count improved, slightly no new complaints or concerns pt did have small opening in the labial region, yellowish pus expressed around 1cc. no obvious fluctuant lesion noted. 12/22 Pt seen examined no acute overnight issues, wbc still in 18K, Reviewed previous WBC values, have been high, for quite a while with few normal readings in between Procalcitonin is 2.48 worse since previous. Patient perineum examined in presence of chaparone, improving erythema and induration, no obvious pocket of pus noted, lesion draining well, Infectious disease consult has been requesting Incision and drainage of this lesion, I reviewed this with Dr Goodman who will reassess today to determine if any surgical drainage is warranted. Pt feels great and at baseline, has 1-2 episodes of diarrhea x ray chest is negative. 12/23 pt seen examined no acute overnight issues, tolerating po diet well diarrhea resolved, perineal pain improved, wbc unfortunately is still trending up, procalcitonin is down, compared to yesterday. Clinically the patient feels great, and is anxious to be discharged I reviewed with ID and nephrology, a CT chest abdo and pelvis to be done. Nephrology ok use of Ct, will dialyze patient if any e/o fluid overload. 12/24 Pt seen examined, no acute issues tolerating po diet well, no sob, no fever, no c hills, no abdominal pain, no diarrhea CT neg except labial cellulitis which is improving clinically. WBC at 19K better than yesterday patient does have chr elevation of WBC, I dont see any other obvious etiology for the leucocytosis, Repeat cultures are prelim neg from yesterday, and previous blood cultures are negative. I do not see any clinical evidence of ongoing infection. Patient will be discharge back to her facility, she will complete her course of abx and repeat her labs. Further evaluation as outpatient. In summary This is a 68-year-old female with history of end-stage renal disease admitted to the hospital with symptoms of diarrhea, as well as erythema and induration in the perineal region. Microbiology was negative in the blood. She had C. difficile positive, and cellulitis in the pelvic region. Patient was treated with IV antibiotics vancomycin, for the cellulitis with good response. She also received p.o. vancomycin for C. difficile diarrhea. at the time of discharge patient cellulitis is improving, she was evaluated by surgery and deemed not to need surgical intervention. Patient at the time of discharge is tolerating p.o. diet well, has no diarrhea. the patient had elevated WBC, which is chronic it seems based on her previous readings. At the time of discharge the patient's WBC count is 19,000, no obvious source of acute infection has been noted multiple cultures and scans have been negative Plan is to have the patient complete a course of antibiotics, and repeat labs after that if the leukocytosis is persistent she can be referred to a specialist infectious disease and/or hematology as an outpatient by the PCP Discharge diagnosis: Labial Cellulitis, Cdiff Diarrhea - Time Spent with Patient Total time spent providing and/or coordinating discharge services: Greater than 30 minutes Medical - DS: Exam - Constitutional Vitals: Vital Signs Temp Pulse Resp BP BP Pulse Ox 12/24/18 08:00 98.2 F 12 132/68 92 12/24/18 03:59 97.3 F 74 16 113/53 93 12/23/18 23:44 97.6 F 66 16 105/49 92 12/23/18 20:31 97.8 F 65 12 121/61 97 12/23/18 16:00 97.1 F 16 138/64 95 12/23/18 12:00 97.6 F 12 124/62 99 Intake and Output 12/23/18 12/24/18 12/24/18 20:59 05:59 13:59 Intake Total 240 Output Total Balance 240 Intake: Oral 240 Output: Void Amount Other: Meal Breakfast Percent of Meal Consumed 0% Feeding Ability Stool Size Stool Color Stool Consistency # Voids # Bowel Movements # of times incontinent of Bowels Weight 170 lb 9.6 oz Patient Weight 12/25/18 05:59 Weight 170 lb 9.6 oz Additional comments: Constitutional; Afebrile, cooperative, alert, not in distress. Respiratory system: Air Entry equal on both sides, No crackles or wheezing, no rhonchi. CVS- Rate rhythm regular, S1,S2 heard, no gallop, no rub. Abdomen- Soft nontender abdomen, no organomegaly, no tenderness, no guarding or rigidity, CIRCUS SUPER[employer]OR- AOOx3, moving all extremities, no gross focal deficit noted. Medical - DS: Data Labs on day of discharge: Labs from last 24 hours 12/24/18 12/24/18 04:15 04:15 WBC 19.1 H RBC 2.57 L Hgb 7.7 L Hct 24.0 L MCV 93.2 MCH 29.8 MCHC 32.0 RDW 15.0 H Plt Count 567 H MPV 6.3 L Gran % 66.8 Lymph % (Auto) 22.4 Teller % (Auto) 8.1 Eos % (Auto) 2.4 Baso % (Auto) 0.3 Gran # 12.8 H Lymph # (Auto) 4.3 Teller # (Auto) 1.6 H Eos # (Auto) 0.5 Baso # (Auto) 0.1 Sodium 134 Potassium 3.5 Chloride 94 L Carbon Dioxide 27 Anion Gap 13.0 BUN 25 H Creatinine 3.9 H GFR Calculation 11 Glucose 84 Uric Acid 4.4 Calcium 8.0 L Phosphorus 2.4 L Magnesium 2.0 Total Bilirubin 0.2 Direct Bilirubin < 0.2 GGT 12 AST 26 ALT 14 Alkaline Phosphatase 86 Lactate Dehydrogenase 186 Total Protein 5.5 L Albumin 2.8 L Globulin 2.7 Albumin/Globulin Ratio 1.0 Triglycerides 41 Medical - DS: A/P - Patient/Caregiver Discharge Instructions Activity: increase activity as tolerated Diet: Renal/Consistent Carbs Additional Instructions: You are scheduled for Out Patient IV Vancomycin at 11:00am on 12-25, 12-27 and after dialysis. Please take vancomycin orally one capsule four times a day for another 6 days. Please follow up with your hemodialysis sessions as previously scheduled follow up with PCP in 1 week, make sure your PCP checks your labs in 1 week, if you white blood cell count is still elevated, you may benefit from further evaluation by a specialist. Your PCP can make that referral. Use mupirocin 2% ointment intranasally twice daily for 5 days, use chlorhexidine wipes daily from neck down x 5 days. Prescriptions: Bacitracin Topical Oint 1 dose TOPICAL TID #1 tube Vancomycin HCl 250 mg PO QID #24 cap Vancomycin Per Pharmacy 1 order IV ONCE #3 miscell - Follow up Plan Follow up with: Michell Wiley MD [Physician] - (Continue with your current dialysis schedule) Apolonia Fernando ARNP [Primary Care Provider] - 12/27/18 10:00 am Disposition: Home, Self-Care Prognosis: Fair Rehab Potential: Fair I certify that the patient requires SNF services: No Overall status at discharge: patient is progressing back to baseline Medical - DS: Qual - VTE Deep Vein Thrombosis/Pulmonary Embolism Present on Admission: No
== END 2018-12-24 13:15 | disposition home or self-care (01) | DRG 871 ==
LOC: ED 11:45 → ICU 19:10 → MEDSUR 12-22 17:20
PROVIDERS: ADMIT Internal Medicine; ATTEND Internal Medicine

== ENCOUNTER 2019-05-07 10:57 | Inpatient (IN) ==
--- NOTE | 2019-05-07 11:34 | XRay Report ---
HISTORY: Increased weakness FINDINGS: The heart is mildly enlarged. There is no congestive heart failure or pleural effusion. Thin linear band of scar tissue is seen adjacent to the cardiac apex. The lungs are otherwise clear. There is no apparent adenopathy. Comparison with the prior CT done on 12/23/18 shows little change. IMPRESSION: Mild cardiomegaly, without congestive heart failure Interpreted and Authenticated by: Michael Orosco 05/07/19
[2019-05-07 11:44] LABS: POC Blood Urea Nitrogen 13 mg/dl (8-23); POC CO2 32 mmol/L (22-30); POC Calcium, Ionized 0.99 mmol/L (1.16-1.32); POC Chloride 93 mmol/L (96-108); POC Creatinine 2.1 mg/dl (0.6-1.1); POC Glucose, Random 109 mg/dL (70-105); POC Potassium 4.2 mmol/L (3.3-5.1); POC Sodium 136 mmol/L (133-145)
[2019-05-07 12:05] LABS: Hematocrit 32.9 % (36.0-48.0); Hemoglobin 11.1 g/dL (12.0-15.0); Mean Cell Volume 88.6 fL (80.0-100.0); Mean Corpuscular HGB Conc 33.8 g/dL (31.0-36.0); Mean Platelet Volume 7.3 fL (7.4-10.4); Platelet Count 450 K/mcL (140-440); RBC 3.72 M/mcL (4.00-5.20); WBC 16.1 K/mcL (4.5-11.0)
[2019-05-07] MEDS ORDERED: PIPERACILLIN SODIUM/TAZOBACTAM 3.375 GM in DEXTROSE 5% IN WATER 50 ML IV ONE (12:14)
[2019-05-07 12:29] LABS: ALT/SGPT 14 U/l (0-40); AST/SGOT 22 U/l (0-37); Albumin 3.7 gm/dL (3.2-5.2); Albumin/Globulin Ratio 1.1 (1.0-2.3); Alkaline Phosphatase 137 U/L (39-117); Bilirubin,Total 0.3 mg/dL (0.0-1.0); Blood Urea Nitrogen 12 mg/dl (8-23); Calcium 8.4 mg/dl (8.6-10.4); Carbon Dioxide 30 mmol/L (22-30); Chloride 92 mmol/L (96-108); Globulin 3.4 gm/dL (2.2-3.7); Glomerular Filtration Rate 25; Glucose 109 mg/dL (70-105)
[2019-05-07] MEDS ORDERED: PIPERACILLIN SODIUM/TAZOBACTAM 3.375 GM VIAL IV ONE (12:33)
[2019-05-07 12:45] LABS: Band Neutrophils % 8 % (0-10); Eosinophils % (Manual) 5 % (0-7); Lymphocytes % 14 % (15-49); Monocytes % (Manual) 1 % (1-12); Platelet Estimate INCREASED (NORMAL); RBC Morphology NORMAL (NORMAL); Segmented Neutrophils % 72 % (38-78)
--- NOTE | 2019-05-07 12:52 | Emergency Department Note ---
Dizziness HPI - General Chief Complaint: Syncope Stated Complaint: near syncope, chills Time Seen by Provider: 05/07/19 11:23 Source: patient Mode of arrival: ambulatory Limitations: no limitations - History of Present Illness HPI Narrative: 69-year-old female presents with generally feeling poor. Onset Tuesday and has gotten worse since Tuesday. States this all started after they took off too much fluid and dialysis on Tuesday. She also had dialysis this morning and her blood pressure was low and she was still feeling horrible so they sent her over to the ER. No nausea, vomiting, or diarrhea. Denies any pain. States she just feels extremely weak and extremely poor and it is hard to describe. She does still make urine, no dysuria or frequency. No cough. No sore throat or ear pain. No other cold symptoms. Does have decreased appetite and general malaise. No home treatments. - Related Data Home Medications Medication Instructions Recorded Confirmed fluoxetine 20 mg capsule 20 mg PO QDAY 11/19/15 12/25/18 acetaminophen 325 mg tablet 650 mg PO Q6HP PRN tab 08/02/18 12/25/18 amlodipine 2.5 mg tablet 2.5 mg PO QDAY 08/02/18 12/25/18 calcium carbonate 200 mg calcium 200 mg PO ONCE tab 08/02/18 12/25/18 (500 mg) chewable tablet loperamide 2 mg tablet 2 mg PO Q2-4H PRN 08/02/18 12/25/18 losartan 25 mg tablet 25 mg PO QDAY 08/02/18 12/25/18 Aspirin [Elias Chewable Aspirin] 81 mg PO DAILY 08/28/18 12/25/18 Albuterol Sulfate [Proair Hfa] 1 - 2 puff IH Q4H 12/15/18 12/25/18 Bisacodyl [Laxative Suppository] 10 mg RC PRN PRN 12/15/18 12/25/18 Clopidogrel Bisulfate [Plavix] 75 mg PO DAILY 12/15/18 12/25/18 Folic Acid/Vit Bcomp,C 0.8 mg PO DAILY 12/15/18 12/25/18 [Nephro-Milagro Tablet] Niacinamide [Niacin] 500 mg PO DAILY 12/15/18 12/25/18 Ondansetron [Zofran ODT] 4 mg SL Q6HP PRN 12/15/18 12/25/18 Pravastatin [Pravachol] 40 mg PO DAILY 12/15/18 12/25/18 Sennosides/Docusate Sodium [Cvs 1 each PO PRN PRN 12/15/18 12/25/18 Stool Softener-Stim Lax Tb] Previous Rx's Medication Instructions Recorded Ketoconazole 2% Top Crm [Nizoral 1 dose TOPICAL DAILY #1 tube 08/30/18 2% Top Crm] furosemide 40 mg tablet 40 mg PO QDAY #30 tab 11/20/18 Bacitracin Topical Oint 1 dose TOPICAL TID #1 tube 12/24/18 Vancomycin HCl 250 mg PO QID #24 cap 12/24/18 Vancomycin Per Pharmacy 1 order IV ONCE #3 miscell 12/24/18 sevelamer carbonate 800 mg tablet 800 mg PO TID #90 tab 04/02/19 lidocaine-prilocaine 2.5 %-2.5 % 1 applic TOPICAL DIRECTED #5 g 04/30/19 topical cream Allergies Allergy/AdvReac Type Severity Reaction Status Date / Time codeine Allergy Intermediate Hives Verified 05/07/19 11:01 meperidine [From Demerol] Allergy Intermediate Hives Verified 05/07/19 11:01 gemfibrozil [From Lopid] AdvReac Intermediate Muscle Pain Verified 05/07/19 11:01 ciprofloxacin [From Cipro] AdvReac Mild Nausea Verified 05/07/19 11:01 Review of Systems All systems ED: reviewed and negative except as stated. Past Medical History - Past Medical History [facility] Narrative: Medical History (Last Updated 12/15/18 @ 11:57 by Raffi Gonzalez DO) Type 2 diabetes mellitus (Chronic) Hypertension, essential (Chronic) Anemia, chronic renal failure (Chronic) ESRD (end stage renal disease) on dialysis (Chronic) Renal osteodystrophy (Chronic) History of fracture (Resolved) Obesity (BMI 30-39.9) (Chronic) Self-care deficit for bathing and hygiene (Chronic) Asthma, chronic (Chronic) Anxiety, generalized (Chronic) History of gout (Chronic) Encounter for adjustment or management of vascular access device (Acute) Anxiety and depression (Chronic) Asthma (Chronic) CHF (congestive heart failure) (Chronic) Cellulitis, leg (Chronic) DM (diabetes mellitus), type 2 with peripheral vascular complications (Chronic) Gout (Chronic) Hallux valgus, acquired (Chronic) Hypercholesterolemia (Chronic) Hypertension (Chronic) Hypertensive heart and chronic kidney disease with heart failure and stage 1 through stage 4 chronic kidney disease, or chronic kidney disease (Chronic) Iron deficiency anemia (Chronic) Obesity (Chronic) Onychomycosis (Chronic) Open wound of right buttock (Chronic) Ovarian dysfunction, unspecified (Chronic) PVD (peripheral vascular disease) (Chronic) Paresthesia of both feet (Chronic) Peripheral edema (Chronic) Pneumonia due to other specified infectious organisms (Chronic) Pulmonary hypostasis (Chronic) RLS (restless legs syndrome) (Chronic) Renal failure (Chronic) Tinea pedis (Chronic) Pressure ulcer, buttock (Resolved) Past Surgical History (Last Reviewed 05/16/17 @ 13:21 by Karl Goodman MD) H/O kidney removal (Acute) S/P bilateral breast reduction (Acute) Status post cataract extraction (Acute) Medical history: Reports: DM, hypertension, peripheral artery disease, renal disease, other Psychiatric history: Reports: anxiety. Denies: depression Surgical history ED: Reports: cataract, other (Breast reduction, dialysis catheter, nephrectomy) - Social History smoking status: Never smoker Alcohol use: Reports: None Drug use: Reports: none. Denies: marijuana Physical Exam Limitations: no limitations General appearance: alert Head: atraumatic, normocephalic, normal inspection Eye: Present: normal appearance. Absent: conjunctival injection ENT: normal exam, normal oropharynx, mucous membranes moist, TM's normal bilaterally, normal external ear exam Neck: Present: normal inspection, trachea midline. Absent: tenderness, lymphadenopathy Chest: Present: symmetric chest wall rise Respiratory: Present: normal lung sounds bilaterally, other (Diminished in bases bilaterally otherwise clear). Absent: respiratory distress, rales/crackles, wheezes, accessory muscle use Cardiovascular: Present: regular rate, normal heart sounds Abdominal: Present: soft, normal bowel sounds. Absent: distention, tenderness, guarding, rebound, mass Extremities: Present: normal capillary refill, pedal edema (1+). Absent: tenderness, joint swelling, cyanosis Neurological: Present: alert, oriented X3 Psychiatric: Present: normal affect, normal mood Skin: Present: warm, dry, intact, normal color. Absent: rash, cyanosis, diaphoresis, erythema Course Course Narrative: Tylenol given for temp greater than 102. At 1400 I did speak with the heating element winder, Dr. Pham about admission of this patient due to elevated white count, fever, elevated lactic acid, and generally feeling poor. He agrees to consult on this patient would like the hospitalist to admit. @[address] Naylor who agrees to accept this patient Vital Signs Temperature 98.9 F 05/07/19 10:58 Pulse Rate 78 05/07/19 10:58 Respiratory Rate 23 H 05/07/19 10:58 Blood Pressure 192/62 05/07/19 10:58 Pulse Oximetry (%) 100 05/07/19 10:58 Temperature 102.2 F H 05/07/19 14:10 Pulse Rate 74 05/07/19 13:44 Respiratory Rate 14 05/07/19 13:44 Blood Pressure 149/55 05/07/19 13:42 Pulse Oximetry (%) 95 05/07/19 13:44 Dizziness - Lab Data Result diagrams: 05/07/19 11:16 05/07/19 11:16 Lab Results 05/07/19 05/07/19 05/07/19 Range/Units 11:14 11:16 11:16 WBC 16.1 H (4.5-11.0) K/mcL RBC 3.72 L (4.00-5.20) M/mcL Hgb 11.1 L (12.0-15.0) g/dL Hct 32.9 L (36.0-48.0) % POC Hct 33.0 L (36.0-48.0) % MCV 88.6 (80.0-100.0) fL MCH 29.9 (26.0-34.0) pg MCHC 33.8 (31.0-36.0) g/dL RDW 13.0 (11.5-14.5) % Plt Count 450 H (140-440) K/mcL MPV 7.3 L (7.4-10.4) fL Total Counted 100 Seg Neutrophils % 72 (38-78) % Band Neutrophils % 8 (0-10) % Lymphocytes % 14 L (15-49) % Monocytes % (Manual) 1 (1-12) % Eosinophils % (Manual) 5 (0-7) % Platelet Estimate Increased (NORMAL) RBC Morphology Normal (NORMAL) VBG Lactic Acid (0.5-2.0) mmol/L POC Sodium 136 (133-145) mmol/L Sodium 134 (133-145) mmol/L POC Potassium 4.2 (3.3-5.1) mmol/L Potassium 4.2 (3.3-5.1) mmol/L POC Chloride 93 L (96-108) mmol/L Chloride 92 L (96-108) mmol/L Carbon Dioxide 30 (22-30) mmol/L POC Total CO2 32 H (22-30) mmol/L Anion Gap 12.0 (8-16) POC BUN 13 (8-23) mg/dl BUN 12 (8-23) mg/dl Creatinine 2.0 H (0.6-1.1) mg/dl POC Creatinine 2.1 H (0.6-1.1) mg/dl GFR Calculation 25 Glucose 109 H (70-105) mg/dL POC Glucose 109 H (70-105) mg/dL Calcium 8.4 L (8.6-10.4) mg/dl POC WB Ioniz Calcium 0.99 L (1.16-1.32) mmol/L Total Bilirubin 0.3 (0.0-1.0) mg/dL AST 22 (0-37) U/l ALT 14 (0-40) U/l Alkaline Phosphatase 137 H (39-117) U/L Total Protein 7.1 (5.9-8.4) gm/dL Albumin 3.7 (3.2-5.2) gm/dL Globulin 3.4 (2.2-3.7) gm/dL Albumin/Globulin Ratio 1.1 (1.0-2.3) Urine Color Urine Appearance Urine pH (5.0-9.0) Ur Specific [place] (1.000-1.035) Urine Protein (NEG) mg/dL Urine Glucose (UA) (NEG) mg/dL Urine Ketones (NEG) mg/dL Urine Occult Blood (<0.03) mg/dL Urine Nitrate (NEG) Urine Bilirubin (NEG) mg/dL Urine Urobilinogen (NEG) mg/dL Ur Leukocyte Esterase (NEG) /uL Urine RBC (0-1) /hpf Urine WBC (0-4) /hpf Ur Squamous Epith Cells (0-4) /hpf Ur Transition Epith Cell (0-2) /hpf Urine Bacteria (0) /hpf Ur Culture Indicated? 05/07/19 05/07/19 Range/Units 11:16 13:41 WBC (4.5-11.0) K/mcL RBC (4.00-5.20) M/mcL Hgb (12.0-15.0) g/dL Hct (36.0-48.0) % POC Hct (36.0-48.0) % MCV (80.0-100.0) fL MCH (26.0-34.0) pg MCHC (31.0-36.0) g/dL RDW (11.5-14.5) % Plt Count (140-440) K/mcL MPV (7.4-10.4) fL Total Counted Seg Neutrophils % (38-78) % Band Neutrophils % (0-10) % Lymphocytes % (15-49) % Monocytes % (Manual) (1-12) % Eosinophils % (Manual) (0-7) % Platelet Estimate (NORMAL) RBC Morphology (NORMAL) VBG Lactic Acid 2.9 H (0.5-2.0) mmol/L POC Sodium (133-145) mmol/L Sodium (133-145) mmol/L POC Potassium (3.3-5.1) mmol/L Potassium (3.3-5.1) mmol/L POC Chloride (96-108) mmol/L Chloride (96-108) mmol/L Carbon Dioxide (22-30) mmol/L POC Total CO2 (22-30) mmol/L Anion Gap (8-16) POC BUN (8-23) mg/dl BUN (8-23) mg/dl Creatinine (0.6-1.1) mg/dl POC Creatinine (0.6-1.1) mg/dl GFR Calculation Glucose (70-105) mg/dL POC Glucose (70-105) mg/dL Calcium (8.6-10.4) mg/dl POC WB Ioniz Calcium (1.16-1.32) mmol/L Total Bilirubin (0.0-1.0) mg/dL AST (0-37) U/l ALT (0-40) U/l Alkaline Phosphatase (39-117) U/L Total Protein (5.9-8.4) gm/dL Albumin (3.2-5.2) gm/dL Globulin (2.2-3.7) gm/dL Albumin/Globulin Ratio (1.0-2.3) Urine Color Yellow Urine Appearance Hazy Urine pH 7.0 (5.0-9.0) Ur Specific [place] 1.015 (1.000-1.035) Urine Protein >=500 A (NEG) mg/dL Urine Glucose (UA) Negative (NEG) mg/dL Urine Ketones Neg (NEG) mg/dL Urine Occult Blood Neg (<0.03) mg/dL Urine Nitrate Neg (NEG) Urine Bilirubin Neg (NEG) mg/dL Urine Urobilinogen Neg (NEG) mg/dL Ur Leukocyte Esterase 25 A (NEG) /uL Urine RBC 0 (0-1) /hpf Urine WBC 49 H (0-4) /hpf Ur Squamous Epith Cells 0 (0-4) /hpf Ur Transition Epith Cell 1 (0-2) /hpf Urine Bacteria Many A (0) /hpf Ur Culture Indicated? Yes Disposition Pt seen by SALES PLANNER/PA only: Yes Clinical Impression: Elevated lactic acid level, Chronic kidney disease (CKD) UTI (urinary tract infection) Qualifiers: Urinary tract infection type: site unspecified Hematuria presence: without hematuria Qualified Code(s): N39.0 - Urinary tract infection, site not specified Fever Qualifiers: Fever type: due to other condition Qualified Code(s): R50.81 - Fever presenting with conditions classified elsewhere Elevated WBC count Qualifiers: Leukocytosis type: leukemoid reaction Qualified Code(s): D72.823 - Leukemoid reaction Disposition: Xfer As Outpt/Obs ([facility]) Condition: Fair Referrals: Apolonia Fernando ARNP [Primary Care Provider] - Time of Disposition: 15:05
[2019-05-07] MEDS: 0.9 % SODIUM CHLORIDE 1,000 ML IV SCH (13:00)
[2019-05-07] MEDS ORDERED: ACETAMINOPHEN 325 MG TABLET PO ONE (14:03)
--- NOTE | 2019-05-07 14:16 | Nephrology Consult Note ---
History of Present Illness - Reason for Consult Patient information: Note initiated : 05/07/19 at 2:14 pm Patient: Teri Olson 69 y/o F admitted on for Near Syncope, Chills. Chief Complaint: Weakness Consult date: 05/07/19 end stage renal disease Requesting physician: Jaelyn Naylor - Chief Complaint Weakness - History of Present Illness Teri Olson is a 69-year-old female with end-stage renal disease on chronic hemodialysis (at [facility], on MWF), sent to ED after hemodialysis today for fever and being admitted. The has been generally feeling poor with weakness, decreased appetite and general malaise for 3 days. She denied nausea, vomiting, diarrhea, pain, dysuria, cough, ssore throat or ear pain. No other cold symptoms. Does have. No home treatments. Review of Systems Constitutional: anorexia, fever(s), lethargy Nose, mouth and throat: no nasal congestion, no sore throat Cardiovascular: no chest pain, no palpatations Respiratory: no cough, no dyspnea Gastrointestinal: no abdominal pain, no diarrhea Genitourinary: no dysuria, no hematuria Musculoskeletal: back pain, no joint swelling Integumentary: no rash, no wounds Neurological: no confusion, no focal weakness Psychiatric: no anxiety, no panic attacks Endocrine: no cold intolerance, no heat intolerance Hematologic/Lymphatic: no easy bleeding, no easy bruising Allergic/Immunologic: no tongue swelling, no uticaria Past History Past medical history: Medical History (Last Updated 12/15/18 @ 11:57 by Raffi Gonzalez DO) Type 2 diabetes mellitus (Chronic) Hypertension, essential (Chronic) Anemia, chronic renal failure (Chronic) ESRD (end stage renal disease) on dialysis (Chronic) Renal osteodystrophy (Chronic) History of fracture (Resolved) Obesity (BMI 30-39.9) (Chronic) Self-care deficit for bathing and hygiene (Chronic) Asthma, chronic (Chronic) Anxiety, generalized (Chronic) History of gout (Chronic) Encounter for adjustment or management of vascular access device (Acute) Anxiety and depression (Chronic) Asthma (Chronic) CHF (congestive heart failure) (Chronic) Cellulitis, leg (Chronic) DM (diabetes mellitus), type 2 with peripheral vascular complications (Chronic) Gout (Chronic) Hallux valgus, acquired (Chronic) Hypercholesterolemia (Chronic) Hypertension (Chronic) Hypertensive heart and chronic kidney disease with heart failure and stage 1 through stage 4 chronic kidney disease, or chronic kidney disease (Chronic) Iron deficiency anemia (Chronic) Obesity (Chronic) Onychomycosis (Chronic) Open wound of right buttock (Chronic) Ovarian dysfunction, unspecified (Chronic) PVD (peripheral vascular disease) (Chronic) Paresthesia of both feet (Chronic) Peripheral edema (Chronic) Pneumonia due to other specified infectious organisms (Chronic) Pulmonary hypostasis (Chronic) RLS (restless legs syndrome) (Chronic) Renal failure (Chronic) Tinea pedis (Chronic) Pressure ulcer, buttock (Resolved) Past surgical history: Past Surgical History (Last Reviewed 05/16/17 @ 13:21 by Karl Goodman MD) H/O kidney removal (Acute) S/P bilateral breast reduction (Acute) Status post cataract extraction (Acute) Past family history: Family History (Last Reviewed 06/07/17 @ 11:46 by Rebekah Zaidi CMA) Mother Alzheimer's disease Father Malignant neoplasm of lung Glaucoma Medications and Allergies Home Medications Medication Instructions Recorded Confirmed Type fluoxetine 20 mg capsule 20 mg PO QDAY 11/19/15 12/25/18 History acetaminophen 325 mg tablet 650 mg PO Q6HP PRN tab 08/02/18 12/25/18 History amlodipine 2.5 mg tablet 2.5 mg PO QDAY 08/02/18 12/25/18 History calcium carbonate 200 mg calcium 200 mg PO ONCE tab 08/02/18 12/25/18 History (500 mg) chewable tablet loperamide 2 mg tablet 2 mg PO Q2-4H PRN 08/02/18 12/25/18 History losartan 25 mg tablet 25 mg PO QDAY 08/02/18 12/25/18 History Aspirin [Elias Chewable Aspirin] 81 mg PO DAILY 08/28/18 12/25/18 History Ketoconazole 2% Top Crm [Nizoral 1 dose TOPICAL DAILY #1 tube 08/30/18 12/25/18 Rx 2% Top Crm] furosemide 40 mg tablet 40 mg PO QDAY #30 tab 11/20/18 12/25/18 Rx Albuterol Sulfate [Proair Hfa] 1 - 2 puff IH Q4H 12/15/18 12/25/18 History Bisacodyl [Laxative Suppository] 10 mg RC PRN PRN 12/15/18 12/25/18 History Clopidogrel Bisulfate [Plavix] 75 mg PO DAILY 12/15/18 12/25/18 History Folic Acid/Vit Bcomp,C 0.8 mg PO DAILY 12/15/18 12/25/18 History [Nephro-Milagro Tablet] Niacinamide [Niacin] 500 mg PO DAILY 12/15/18 12/25/18 History Ondansetron [Zofran ODT] 4 mg SL Q6HP PRN 12/15/18 12/25/18 History Pravastatin [Pravachol] 40 mg PO DAILY 12/15/18 12/25/18 History Sennosides/Docusate Sodium [Cvs 1 each PO PRN PRN 12/15/18 12/25/18 History Stool Softener-Stim Lax Tb] Bacitracin Topical Oint 1 dose TOPICAL TID #1 tube 12/24/18 12/25/18 Rx Vancomycin HCl 250 mg PO QID #24 cap 12/24/18 12/25/18 Rx Vancomycin Per Pharmacy 1 order IV ONCE #3 miscell 12/24/18 12/25/18 Rx sevelamer carbonate 800 mg tablet 800 mg PO TID #90 tab 04/02/19 Rx lidocaine-prilocaine 2.5 %-2.5 % 1 applic TOPICAL DIRECTED #5 g 04/30/19 Rx topical cream Allergies Allergy/AdvReac Type Severity Reaction Status Date / Time codeine Allergy Intermediate Hives Verified 05/07/19 11:01 meperidine [From Demerol] Allergy Intermediate Hives Verified 05/07/19 11:01 gemfibrozil [From Lopid] AdvReac Intermediate Muscle Pain Verified 05/07/19 11:0 1 ciprofloxacin [From Cipro] AdvReac Mild Nausea Verified 05/07/19 11:01 Exam - Vital Signs Vital signs: Temp Pulse Resp BP Pulse Ox 102.2 F H 74 14 149/55 95 05/07/19 14:10 05/07/19 13:44 05/07/19 13:44 05/07/19 13:42 05/07/19 13:44 - General Appearance General appearance: chronically ill, fatigue EENT: mucous membranes dry Neck: supple Respiratory: clear Cardiology: no edema Gastrointestinal: no tenderness Integumentary: warm and dry Neurologic: no focal deficit, alert and oriented x3 Musculoskeletal: no deformities Psychiatric: mood/affect appropriate, cooperative Results - Lab Results 05/07/19 11:16 05/07/19 11:16 Most recent lab results Calcium 8.4 mg/dl (8.6-10.4) L 05/07/19 11:16 Assessment and Plan (1) ESRD (end stage renal disease) on dialysis Teri Olson is a 69-year-old female with end-stage renal disease on chronic hemodialysis (at [facility], on MWF), sent to ED after hemodialysis today for fever and being admitted for suspected sepsis from urinary tract. End-stage renal disease on chronic hemodialysis Anemia due to ESRD. Plan: Continue hemodialysis MWF. Status: Chronic Priority: Medium (2) Anemia in end-stage renal disease Please see above Status: Chronic Priority: Medium
[2019-05-07 14:32] LABS: Appearance,Urine HAZY; Bacteria,Urine MANY /hpf (0); Bilirubin,Urine NEG (NEG); Color,Urine YELLOW; Culture Indicated,Urine YES; Glucose,Urine (UA) NEGATIVE (NEG); Ketones,Urine NEG (NEG); Leukocyte Esterase,Urine 25 /uL (NEG); Nitrate,Urine NEG (NEG); Protein,Urine >=500 mg/dL (NEG); Specific Gravity,Urine 1.015 (1.000-1.035); Urine Blood NEG mg/dL (<0.03); Urine RBC 0 /hpf (0-1); Urine Squamous Epithelial Cell 0 /hpf (0-4); Urine Transitional Epi Cells 1 /hpf (0-2); Urine WBC 49 /hpf (0-4); Urobilinogen,Urine NEG (NEG)
--- NOTE | 2019-05-07 15:34 | Internal Med History&Physical ---
Medical - H&P: HPI Patient information: Note initiated : 05/07/19 at 3:29 pm Service Date, if different from initiated Date: [] Patient: Teri Olson 69 y/o F admitted on for Near Syncope, Chills. Chief Complaint: [] History of present illness: 69-year-old female with a history of diabetes presents to the emergency room for evaluation of presyncope not feeling well since Tuesday. The patient notes that she was doing well up till Tuesday and since then has not been feeling well she attributes this to excess fluid removal during her dialysis session on Tuesday. She noticed that she nearly passed out then, and has been weak and lethargic since then. Today when she was seen in the emergency room she was lethargic nearly passed out had a high-grade fever appeared confused and therefore was sent to the emergency room for further evaluation. The patient has some chronic shortness of breath but denies any other acute complaints or concerns. She denies any headache changes in vision difficulty in swallowing she denies any cough chest pain, she denies any nausea vomiting, she did have one episode of diarrhea this morning. She denies any new joint pains or skin rashes. Last admission was for perineal cellulitis, she denies any pain in the perineal region at this time. In the emergency room patient was febrile, on presentation, she had a white count of 16,000 hemoglobin 11.1 platelets 450 chemistries show sodium 134 potassium 4.2 bicarbonate 30 creatinine 2 lactic acid 2.9 urine has 25 leukocyte Estrace and many bacteria. Patient goes to the bathroom to pee once a day, denies any burning sensation or pelvic pain. Chest x-ray shows mild cardiomegaly no acute findings. Given the fact that the patient has fever leukocytosis and elevated lactate she was admitted to the hospital for further management further work-up is pending She denies any pain redness at the site of dialysis access which is her left arm All systems: reviewed and no additional remarkable complaints except as stated (As per HPI rest negative) Medical - H&P: PMH Medical history: Medical History (Last Updated 12/15/18 @ 11:57 by Raffi Gonzalez DO) Type 2 diabetes mellitus (Chronic) Hypertension, essential (Chronic) Anemia, chronic renal failure (Chronic) ESRD (end stage renal disease) on dialysis (Chronic) Renal osteodystrophy (Chronic) History of fracture (Resolved) Obesity (BMI 30-39.9) (Chronic) Self-care deficit for bathing and hygiene (Chronic) Asthma, chronic (Chronic) Anxiety, generalized (Chronic) History of gout (Chronic) Encounter for adjustment or management of vascular access device (Acute) Anxiety and depression (Chronic) Asthma (Chronic) CHF (congestive heart failure) (Chronic) Cellulitis, leg (Chronic) DM (diabetes mellitus), type 2 with peripheral vascular complications (Chronic) Gout (Chronic) Hallux valgus, acquired (Chronic) Hypercholesterolemia (Chronic) Hypertension (Chronic) Hypertensive heart and chronic kidney disease with heart failure and stage 1 through stage 4 chronic kidney disease, or chronic kidney disease (Chronic) Iron deficiency anemia (Chronic) Obesity (Chronic) Onychomycosis (Chronic) Open wound of right buttock (Chronic) Ovarian dysfunction, unspecified (Chronic) PVD (peripheral vascular disease) (Chronic) Paresthesia of both feet (Chronic) Peripheral edema (Chronic) Pneumonia due to other specified infectious organisms (Chronic) Pulmonary hypostasis (Chronic) RLS (restless legs syndrome) (Chronic) Renal failure (Chronic) Tinea pedis (Chronic) Pressure ulcer, buttock (Resolved) Surgical history: Past Surgical History (Last Reviewed 05/16/17 @ 13:21 by Karl Goodman MD) H/O kidney removal (Acute) S/P bilateral breast reduction (Acute) Status post cataract extraction (Acute) Family history: reviewed and not pertinent Medical - H&P: Meds Home Medications Medication Instructions Recorded Confirmed Type fluoxetine 20 mg capsule 20 mg PO QDAY 11/19/15 12/25/18 History acetaminophen 325 mg tablet 650 mg PO Q6HP PRN tab 08/02/18 12/25/18 History amlodipine 2.5 mg tablet 2.5 mg PO QDAY 08/02/18 12/25/18 History calcium carbonate 200 mg calcium 200 mg PO ONCE tab 08/02/18 12/25/18 History (500 mg) chewable tablet loperamide 2 mg tablet 2 mg PO Q2-4H PRN 08/02/18 12/25/18 History losartan 25 mg tablet 25 mg PO QDAY 08/02/18 12/25/18 History Aspirin [Elias Chewable Aspirin] 81 mg PO DAILY 08/28/18 12/25/18 History Ketoconazole 2% Top Crm [Nizoral 1 dose TOPICAL DAILY #1 tube 08/30/18 12/25/18 Rx 2% Top Crm] furosemide 40 mg tablet 40 mg PO QDAY #30 tab 11/20/18 12/25/18 Rx Albuterol Sulfate [Proair Hfa] 1 - 2 puff IH Q4H 12/15/18 12/25/18 History Bisacodyl [Laxative Suppository] 10 mg RC PRN PRN 12/15/18 12/25/18 History Clopidogrel Bisulfate [Plavix] 75 mg PO DAILY 12/15/18 12/25/18 History Folic Acid/Vit Bcomp,C 0.8 mg PO DAILY 12/15/18 12/25/18 History [Nephro-Milagro Tablet] Niacinamide [Niacin] 500 mg PO DAILY 12/15/18 12/25/18 History Ondansetron [Zofran ODT] 4 mg SL Q6HP PRN 12/15/18 12/25/18 History Pravastatin [Pravachol] 40 mg PO DAILY 12/15/18 12/25/18 History Sennosides/Docusate Sodium [Cvs 1 each PO PRN PRN 12/15/18 12/25/18 History Stool Softener-Stim Lax Tb] Bacitracin Topical Oint 1 dose TOPICAL TID #1 tube 12/24/18 12/25/18 Rx Vancomycin HCl 250 mg PO QID #24 cap 12/24/18 12/25/18 Rx Vancomycin Per Pharmacy 1 order IV ONCE #3 miscell 12/24/18 12/25/18 Rx sevelamer carbonate 800 mg tablet 800 mg PO TID #90 tab 04/02/19 Rx lidocaine-prilocaine 2.5 %-2.5 % 1 applic TOPICAL DIRECTED #5 g 04/30/19 Rx topical cream Allergies Allergy/AdvReac Type Severity Reaction Status Date / Time codeine Allergy Intermediate Hives Verified 05/07/19 11:01 meperidine [From Demerol] Allergy Intermediate Hives Verified 05/07/19 11:01 gemfibrozil [From Lopid] AdvReac Intermediate Muscle Pain Verified 05/07/19 11:01 ciprofloxacin [From Cipro] AdvReac Mild Nausea Verified 05/07/19 11:01 Medical - H&P: Exam - Constitutional Vitals: Temp Pulse Resp BP Pulse Ox 101.4 F H 86 16 155/68 98 05/07/19 15:01 05/07/19 15:01 05/07/19 15:01 05/07/19 15:01 05/07/19 15:01 Exam: GENERAL: The patient is a well-developed, well-nourished in no apparent distress. Is alert and oriented x3. VITAL SIGNS: Reviewed and as noted elsewhere. HEENT: Head is normocephalic and atraumatic. Extraocular muscles are intact. Pupils are equal, round, and reactive to light. Nares appeared normal. Mouth appears any without lesions. Mucous membranes are moist. NECK: Normal to inspection, Supple, No lymphadenopathy or thyromegaly. LUNGS: Air entry equal on both sides, no wheezing, crackles or rhonchi noted. No accessory muscles of respiration HEART: Regular rate and rhythm normal, S1 and S2 heard, no Gallop, S3 or Rub Noted, No Gross murmur heard. ABDOMEN: Soft, nontender, and nondistended. Positive bowel sounds. No hepatosplenomegaly was noted. obese lady, no perineal erythema noted. (pernial exam done in front of a chaparone) EXTREMITIES: No cyanosis, clubbing, rash, lesions or edema. NEUROLOGIC: Cranial nerves II through XII are grossly intact. Motor and Sensory System Grossly Intact PSYCHIATRIC: Normal affect, Normal Mood. Appropriate Behavior. SKIN: No ulceration or wounds noted, No jaundice, No rash noted. Medical - H&P: Reslt - Labs CBC & Chem 7: 05/07/19 11:16 05/07/19 11:16 Labs: Short CBC 05/07/19 Range/Units 11:16 WBC 16.1 H (4.5-11.0) K/mcL Hgb 11.1 L (12.0-15.0) g/dL Hct 32.9 L (36.0-48.0) % Plt Count 450 H (140-440) K/mcL BMP 05/07/19 11:16 Sodium 134 Potassium 4.2 Chloride 92 L Carbon Dioxide 30 BUN 12 Creatinine 2.0 H Glucose 109 H Calcium 8.4 L Liver Function 05/07/19 Range/Units 11:16 Total Bilirubin 0.3 (0.0-1.0) mg/dL AST 22 (0-37) U/l ALT 14 (0-40) U/l Alkaline Phosphatase 137 H (39-117) U/L Albumin 3.7 (3.2-5.2) gm/dL Urine 05/07/19 Range/Units 13:41 Urine Color Yellow Urine Appearance Hazy Urine pH 7.0 (5.0-9.0) Ur Specific [place] 1.015 (1.000-1.035) Urine Protein >=500 A (NEG) mg/dL Urine Glucose (UA) Negative (NEG) mg/dL Medical - H&P: A/P - Narrative A/P Narrative: A/P SIRS ESRD on HD, Pre syncope Weakness Septic Encephalopathy Diarrhea Diabetes Mellitus, HTN Obesity, BMI 35.9 Bacteruria Lactic Acidosis Anemia of chr renal disease Hypertensin ASthma Gout h/o Congestive heart failure Plan Admit to tele status Get CT abdomen and pelvis with contrast Start on broad-spectrum antibiotics vancomycin and Zosyn for now Blood culture sent No evidence of infection in the lungs, Patient does have a history of C. difficile, did have diarrhea this morning. If diarrhea persist will send for C. difficile testing Resume home medications once verified IV fluids for lactic acidosis nephrology has been consulted for management of end-stage renal disease, and hemodialysis Monitor in telemetry for now given the patient had 2 episodes of near syncope DVT-heparin subcu Full code Cardiac renal and consistent carb diet Social History - Social History caregiver/support person: Yes household members: caregiver marital status: single occupational status: employed - Tobacco smoking status: Never smoker - Alcohol alcohol intake frequency: does not drink - Substance use substance use type: does not use
--- NOTE | 2019-05-07 16:40 | Cat Scan Report ---
History: Fever, possible infection, new onset weakness and status post left nephrectomy. TECHNIQUE: The patient was imaged following oral but no intravenous contrast scanning from the thoracic inlet to the symphysis pubis. Sagittal and coronal reformats were created. Axial MIPS images of the chest were also created. Radiation exposure was limited using dose reduction technology. FINDINGS: CHEST: There is no bronchitis in both lower lobes, left worse than right. Bronchial gregory are thickened. Some of the third order bronchi medially in the left lower lobe are occluded. Adjacent to this there are bands of discoid atelectasis in the left lower lobe. There is no lobar consolidation or suspicious pulmonary mass. There is a subtle low-grade groundglass alveolar infiltrate in the left upper lobe lingula and superior segment left lower lobe. The heart is mild to moderately enlarged. No pericardial effusion is present. There is mild plaque formation in the coronary arteries as well as aortic arch. No enlarged lymph nodes are seen in the mediastinum or antonietta. There is no pleural effusion. Abdomen and pelvis: The liver and spleen are normal in size and homogeneous. There is a cluster of small stones in the neck of the gallbladder. Gallbladder wall is not thickened or inflamed and bile ducts are nondilated. Gallstones are chronic stable finding, unchanged from 12/23/18. The pancreas and right adrenal are normal. There is loss of renal parenchyma in the right kidney and there are couple small exophytic cysts. Largest is located posteriorly in the lower pole measures 1.3 cm. There is a 3 mm calcification in the capsule of the upper pole the right kidney. No hydronephrosis or solid mass are seen in the right kidney on this nonenhanced study. The left kidney and left adrenal have been removed. There is no evidence of mass in the left renal fossa. The oral contrast is passed through stomach and normal small intestine to the proximal ileum without obstruction. The colon appears normal without evidence of inflammation or diverticulitis. The appendix is noninflamed. The urinary bladder is decompressed by Ceron catheter. A 3 cm umbilical hernia is noted. There is no entrapment of bowel. No ascites or adenopathy are present within the abdomen or pelvis. Uterus and ovaries are atrophic. There is advanced degenerative disc disease and arthritis in the lower lumbar spine. IMPRESSION: Mild pneumonia in the left upper lobe and lingula Bronchitis in both lower lobes, left worse than right No intra-abdominal or pelvic abscess are present. Chronic cholelithiasis Verenice Engledow was called with the results Interpreted and Authenticated by: Michael Orosco 05/07/19
[2019-05-07] MEDS ORDERED: NALOXONE HCL 0.4 MG/ML VIAL IV PRN (16:44)
[2019-05-07] MEDS ORDERED: ONDANSETRON 4 MG/2 ML VIAL IV PRN (16:44)
[2019-05-07] MEDS ORDERED: 0.9 % SODIUM CHLORIDE 1,000 ML IV SCH (16:44)
[2019-05-07] MEDS ORDERED: ACETAMINOPHEN 325 MG TABLET PO PRN (16:44)
[2019-05-07] MEDS ORDERED: DEXTROSE 50% 50 ML VIAL IV PRN (16:44)
[2019-05-07] MEDS ORDERED: VANCOMYCIN PER PHARMACY IV SCH (16:44)
[2019-05-07] MEDS ORDERED: DEXTROSE 31 GM ORAL.SUSP PO PRN (16:44)
[2019-05-07] MEDS ORDERED: ALBUTEROL SULFATE 2.5 MG/3 ML NEBULIZER NEB PRN (16:44)
[2019-05-07] MEDS ORDERED: VANCOMYCIN 1,000 MG in 0.9 % SODIUM CHLORIDE 250 ML IV ONE (17:00)
[2019-05-07] MEDS: INSULIN LISPRO 1 UNIT/0.01 ML UNIT SQ SCH ×2 (17:22→21:24)
[2019-05-07] MEDS ORDERED: SIMVASTATIN 20 MG TABLET PO SCH (21:00)
[2019-05-07] MEDS: HEPARIN 5,000 UNIT/ML VIAL SQ SCH (21:19)
[2019-05-07] MEDS: METOPROLOL TARTRATE 25 MG TABLET PO SCH (21:20)
[2019-05-07] MEDS: PIPERACILLIN SODIUM/TAZOBACTAM 2.25 GM in DEXTROSE 5% IN WATER 50 ML IV SCH (21:23)
[2019-05-07] MEDS: 0.9 % SODIUM CHLORIDE 10 ML SYRINGE IV SCH (21:25)
[2019-05-08] MEDS: 0.9 % SODIUM CHLORIDE 1,000 ML IV SCH (00:24)
[2019-05-08] MEDS: 0.9 % SODIUM CHLORIDE 10 ML SYRINGE IV SCH ×3 (05:50→21:11)
[2019-05-08 06:46] LABS: Basophils # (Auto) 0 K/mcL (0.0-0.3); Basophils % (Auto) 0.2 % (0.0-2.0); Eosinophils # (Auto) 0.8 K/mcL (0.0-0.7); Eosinophils % (Auto) 6.2 % (0.0-7.0); Granulocytes % (Auto) 71.2 % (38.0-78.0); Hemoglobin 8.6 g/dL (12.0-15.0); Lymphocytes # (Auto) 1.8 K/mcL (1.5-4.8); Lymphocytes % (Auto) 13.6 % (15.5-49.0); Mean Cell Volume 91.3 fL (80.0-100.0); Mean Platelet Volume 7.2 fL (7.4-10.4); Monocytes # (Auto) 1.2 K/mcL (0.1-0.9); Monocytes % (Auto) 8.8 % (1.0-12.0); Platelet Count 300 K/mcL (140-440); RBC 2.85 M/mcL (4.00-5.20); Red Cell Distribution Width 13.8 % (11.5-14.5); WBC 13.3 K/mcL (4.5-11.0)
[2019-05-08 06:49] LABS: ALT/SGPT 14 U/l (0-40); AST/SGOT 18 U/l (0-37); Albumin 2.5 gm/dL (3.2-5.2); Albumin/Globulin Ratio 0.9 (1.0-2.3); Alkaline Phosphatase 94 U/L (39-117); Bilirubin,Direct < 0.2 mg/dL (0.0-0.3); Bilirubin,Total 0.3 mg/dL (0.0-1.0); Blood Urea Nitrogen 23 mg/dl (8-23); Calcium 7.1 mg/dl (8.6-10.4); Carbon Dioxide 23 mmol/L (22-30); Chloride 99 mmol/L (96-108); Globulin 2.7 gm/dL (2.2-3.7); Glomerular Filtration Rate 14; Glucose 78 mg/dL (70-105); Lactate Dehydrogenase 182 U/L (94-250); Phosphorous 4.6 mg/dL (2.7-4.5); Triglycerides 107 mg/dl (<150); Uric Acid 2.7 mg/dL (2.5-8.0)
--- NOTE | 2019-05-08 07:10 | Nephrology Progress Note ---
Subjective Patient information: Note initiated : 05/08/19 at 7:08 am Patient: Teri Olson 69 y/o F admitted on 05/07/19 for Near Syncope, Chills. Chief Complaint: Weakness Pertinent ROS: Weakness Feels better Objective - Vital Signs Vital signs: Vital Signs Temp Pulse Pulse Pulse Resp BP BP 05/08/19 04:00 97.4 F 54 L 18 116/40 05/08/19 00:00 97.1 F 55 L 16 122/42 05/07/19 21:15 70 18 127/47 05/07/19 20:59 71 18 05/07/19 20:58 71 18 05/07/19 20:00 98.1 F 68 20 128/59 05/07/19 16:43 98.1 F 65 18 130/55 05/07/19 16:25 100.5 F H 86 13 155/68 05/07/19 16:12 05/07/19 15:50 100.5 F H 13 05/07/19 15:01 101.4 F H 86 16 155/68 05/07/19 14:55 100.7 F H 05/07/19 14:41 101.8 F H 88 17 152/68 05/07/19 14:22 102.0 F H 84 14 140/58 05/07/19 14:10 102.2 F H 05/07/19 14:02 102.2 F H 75 16 134/49 05/07/19 13:44 101.9 F H 74 14 05/07/19 13:42 101.8 F H 74 11 L 149/55 05/07/19 13:22 88 160/71 05/07/19 13:02 79 13 148/43 05/07/19 12:42 78 19 144/58 05/07/19 12:22 81 17 146/45 05/07/19 12:02 19 173/65 05/07/19 11:42 81 20 192/69 05/07/19 11:22 79 21 192/62 05/07/19 11:14 24 H 177/62 05/07/19 11:09 86 20 181/84 05/07/19 10:58 98.9 F 78 23 H 192/62 Pulse Ox 05/08/19 04:00 96 05/08/19 00:00 96 05/07/19 21:15 07/22/19 20:59 92 05/07/19 20:58 05/07/19 20:00 96 05/07/19 16:43 93 05/07/19 16:25 98 05/07/19 16:12 94 05/07/19 15:50 05/07/19 15:01 98 05/07/19 14:55 05/07/19 14:41 97 05/07/19 14:22 98 05/07/19 14:10 05/07/19 14:02 95 05/07/19 13:44 95 05/07/19 13:42 95 05/07/19 13:22 92 05/07/19 13:02 96 05/07/19 12:42 96 05/07/19 12:22 100 05/07/19 12:02 05/07/19 11:42 90 05/07/19 11:22 95 05/07/19 11:14 05/07/19 11:09 97 05/07/19 10:58 100 Intake and Output 05/07/19 05/08/19 05/08/19 21:59 05:59 13:59 Intake Total 2039 Output Total 75 Balance 1964 Intake: IV 1800 Sodium Chloride 0.9% 1,000 ml @ 500 500 mls/hr IV .Q2H LIANA Rx#: [id number] Zosyn 2.25 gm In Dextrose 5% in 50 Water 50 ml @ 100 mls/hr IV Q12H LIANA Rx#:[id number] Oral 240 Output: Urine Catheter Amount 75 Other: Meal Dinner Percent of Meal Consumed 100% Feeding Ability Assist with Tray Set Up Urine Appearance Temp-Probe Ceron Clear Urine Color Dark Yuly Temp-Probe Ceron Pale Urine Odor Normal Weight 181 lb 8 oz Intake & Output: Intake & Output 05/07/19 05/08/19 05/08/19 21:59 05:59 13:59 Intake Total 2039 Output Total 75 Balance 1965 Weight 181 lb 8 oz Intake: IV 1800 Sodium Chloride 0.9% 1,000 ml @ 500 500 mls/hr IV .Q2H LIANA Rx#: [id number] Zosyn 2.25 gm In Dextrose 5% in 50 Water 50 ml @ 100 mls/hr IV Q12H LIANA Rx#:[id number] Oral 240 Output: Urine Catheter Amount 75 Other: Meal Dinner Percent of Meal Consumed 100% Feeding Ability Assist with Tray Set Up Urine Appearance Temp-Probe Ceron Clear Urine Color Dark Yuly Temp-Probe Ceron Pale Urine Odor Normal - General Appearance General appearance: chronically ill, fatigue EENT: mucous membranes moist Neck: supple Respiratory: clear Cardiology: edema Gastrointestinal: no tenderness Integumentary: warm and dry Neurologic: no focal deficit, alert and oriented x3 Musculoskeletal: no deformities Psychiatric: mood/affect appropriate, cooperative - Lab 05/08/19 03:40 05/08/19 03:40 Most recent lab results Calcium 7.1 mg/dl (8.6-10.4) L 05/08/19 03:40 Phosphorus 4.6 mg/dL (2.7-4.5) H 05/08/19 03:40 Magnesium 2.0 mg/dL (1.6-2.5) 05/08/19 03:40 Assessment and Plan (1) ESRD (end stage renal disease) on dialysis Teri Olson is a 69-year-old female with end-stage renal disease on chronic hemodialysis (at [facility], on MWF), sent to ED after hemodialysis for fever and admitted for suspected sepsis from urinary tract. End-stage renal disease on chronic hemodialysis Anemia due to ESRD. Plan: Continue hemodialysis MWF. Status: Chronic Priority: Medium (2) Anemia in end-stage renal disease Status: Chronic Priority: Medium
[2019-05-08] MEDS ORDERED: CINACALCET 30 MG TABLET PO SCH (08:00)
[2019-05-08] MEDS ORDERED: SEVELAMER 800 MG TABLET PO SCH (08:00)
[2019-05-08] MEDS ORDERED: CLOPIDOGREL 75 MG TABLET PO SCH (09:00)
[2019-05-08] MEDS ORDERED: FUROSEMIDE 40 MG TABLET PO SCH (09:00)
[2019-05-08] MEDS ORDERED: FLUoxetine HCL 20 MG CAPSULE PO SCH (09:00)
[2019-05-08] MEDS ORDERED: ASPIRIN 81 MG TAB.CHEW PO SCH (09:00)
[2019-05-08] MEDS ORDERED: amLODIPine 5 MG TABLET PO SCH (09:00)
[2019-05-08] MEDS: PIPERACILLIN SODIUM/TAZOBACTAM 2.25 GM in DEXTROSE 5% IN WATER 50 ML IV SCH (09:00)
[2019-05-08] MEDS ORDERED: FOLIC ACID/VITAMIN B COMP W-C 1 TAB TABLET PO SCH (09:00)
[2019-05-08] MEDS ORDERED: PRAVASTATIN 40 MG TABLET PO SCH (09:00)
[2019-05-08] MEDS: INSULIN LISPRO 1 UNIT/0.01 ML UNIT SQ SCH ×4 (09:25→21:06)
[2019-05-08] MEDS: METOPROLOL TARTRATE 25 MG TABLET PO SCH ×2 (10:12→21:02)
[2019-05-08] MEDS: HEPARIN 5,000 UNIT/ML VIAL SQ SCH ×2 (10:13→21:06)
--- NOTE | 2019-05-08 10:14 | Internal Med Progress Note ---
Medical - PN: Subj Patient information: Note initiated : 05/08/19 at 10:09 am Service Date, if different from initiated Date: [] Patient: Teri Olson 69 y/o F admitted on 05/07/19 for Near Syncope, Chills. Chief Complaint: [] Interval history: 69-year-old female with a history of diabetes presents to the emergency room for evaluation of presyncope not feeling well since Tuesday. The patient notes that she was doing well up till Tuesday and since then has not been feeling well she attributes this to excess fluid removal during her dialysis session on Tuesday. She noticed that she nearly passed out then, and has been weak and lethargic since then. Today when she was seen in the emergency room she was lethargic nearly passed out had a high-grade fever appeared confused and therefore was sent to the emergency room for further evaluation. The patient has some chronic shortness of breath but denies any other acute complaints or concerns. She denies any headache changes in vision difficulty in swallowing she denies any cough chest pain, she denies any nausea vomiting, she did have one episode of diarrhea this morning. She denies any new joint pains or skin rashes. Last admission was for perineal cellulitis, she denies any pain in the perineal region at this time. In the emergency room patient was febrile, on presentation, she had a white count of 16,000 hemoglobin 11.1 platelets 450 chemistries show sodium 134 potassium 4.2 bicarbonate 30 creatinine 2 lactic acid 2.9 urine has 25 leukocyte Estrace and many bacteria. Patient goes to the bathroom to pee once a day, denies any burning sensation or pelvic pain. Chest x-ray shows mild cardiomegaly no acute findings. Given the fact that the patient has fever leukocytosis and elevated lactate she was admitted to the hospital for further management further work-up is pending She denies any pain redness at the site of dialysis access which is her left arm 05/08 Patient seen and examined, no acute overnight events doing well. Has no new complaints or concerns. Blood culture and urine culture is positive for gram-negative bacteria. The blood culture gene analysis is negative for common pathogens. We will await for further isolation and sensitivity. Transfer the patient to [facility] status Labs are stable Pertinent ROS: Denies headache, dizziness Denies chest pain, palpitations Denies cough or shortness of breath Denies abdominal pain, nausea or vomiting. - Constitutional Vitals: Vital Signs Temp Pulse Resp BP Pulse Ox 98.0 F 58 L 16 138/64 96 05/08/19 07:28 05/08/19 07:28 05/08/19 07:28 05/08/19 07:28 05/08/19 07:28 Period Temp Pulse Resp BP Sys/Barnard Pulse Ox Last 24 Hr 97.1 F-102.2 F 54-88 11-24 116-192/40-84 90-100 Intake and Output 05/07/19 05/08/19 05/08/19 21:59 05:59 13:59 Intake Total 2040 360 Output Total 75 100 Balance 1965 260 Weight 181 lb 8 oz Intake & Output: Intake & Output 05/07/19 05/08/19 05/08/19 21:59 05:59 13:59 Intake Total 2040 360 Output Total 75 100 Balance 1965 260 Weight 181 lb 8 oz Intake: IV 1800 Sodium Chloride 0.9% 1,000 ml @ 500 500 mls/hr IV .Q2H LIANA Rx#: [id number] Zosyn 2.25 gm In Dextrose 5% in 50 Water 50 ml @ 100 mls/hr IV Q12H LIANA Rx#:[id number] Oral 240 360 Output: Urine Catheter Amount 75 Void Amount 100 Other: Meal Dinner Breakfast Percent of Meal Consumed 100% 100% Feeding Ability Assist with Tray Set Up Assist with Tray Set Up Urine Appearance Cloudy Temp-Probe Ceron Clear Urine Color Dark Yuly Pale Temp-Probe Ceron Pale Urine Odor Normal Exam: Constitutional; Afebrile, cooperative, alert, not in distress. Eyes- No icterus, , No periorbital swelling Ears- Ext ear normal, hearing normal to conversation. Neck- Midline trachea, supple Respiratory system: Air Entry equal on both sides, No crackles or wheezing, no rhonchi. CVS- Rate rhythm regular, S1,S2 heard, no gallop, no rub. Abdomen- Soft nontender abdomen, no organomegaly, no tenderness, no guarding or rigidity, CARDIOLOGY TECHNOLOGIST- AOOx3, moving all extremities, no gross focal deficit noted. Medical - PN: Obj Da - Labs CBC & Chem 7: 05/08/19 03:40 05/08/19 03:40 Labs: Abnormal Lab Results 05/08/19 05/08/19 05/07/19 03:40 03:40 13:41 WBC 13.3 H RBC 2.85 L Hgb 8.6 L Hct 26.0 L POC Hct Plt Count MPV 7.2 L Lymph % (Auto) 13.6 L Gran # 9.5 H Mcminn # (Auto) 1.2 H Eos # (Auto) 0.8 H Lymphocytes % VBG Lactic Acid POC Chloride Chloride POC Total CO2 Creatinine 3.2 H POC Creatinine Glucose POC Glucose Calcium 7.1 L POC WB Ioniz Calcium Phosphorus 4.6 H Alkaline Phosphatase Total Protein 5.2 L Albumin 2.5 L Albumin/Globulin Ratio 0.9 L Urine Protein >=500 A Ur Leukocyte Esterase 25 A Urine WBC 49 H Urine Bacteria Many A 05/07/19 05/07/19 05/07/19 11:16 11:16 11:16 WBC 16.1 H RBC 3.72 L Hgb 11.1 L Hct 32.9 L POC Hct Plt Count 450 H MPV 7.3 L Lymph % (Auto) Gran # Mcminn # (Auto) Eos # (Auto) Lymphocytes % 14 L VBG Lactic Acid 2.9 H POC Chloride Chloride 92 L POC Total CO2 Creatinine 2.0 H POC Creatinine Glucose 109 H POC Glucose Calcium 8.4 L POC WB Ioniz Calcium Phosphorus Alkaline Phosphatase 137 H Total Protein Albumin Albumin/Globulin Ratio Urine Protein Ur Leukocyte Esterase Urine WBC Urine Bacteria 05/07/19 11:14 WBC RBC Hgb Hct POC Hct 33.0 L Plt Count MPV Lymph % (Auto) Gran # Mcminn # (Auto) Eos # (Auto) Lymphocytes % VBG Lactic Acid POC Chloride 93 L Chloride POC Total CO2 32 H Creatinine POC Creatinine 2.1 H Glucose POC Glucose 109 H Calcium POC WB Ioniz Calcium 0.99 L Phosphorus Alkaline Phosphatase Total Protein Albumin Albumin/Globulin Ratio Urine Protein Ur Leukocyte Esterase Urine WBC Urine Bacteria Meds: Medications Acetaminophen (Tylenol) 650 mg PO Q6HP PRN PRN Reason: PAIN/FEVER > 101 Albuterol Sulfate (Ventolin) 2.5 mg NEB Q4HRT PRN PRN Reason: Shortness Of Breath Or Wheezing Amlodipine Besylate (Norvasc) 2.5 mg PO QDAY [facility] Aspirin (Aspirin) 81 mg PO DAILY [facility] Cinacalcet (Sensipar) 60 mg PO QAMCC [facility] Clopidogrel Bisulfate (Plavix) 75 mg PO DAILY [facility] Dextrose (Dextrose 50%) 0 ml IV UD PRN PRN Reason: Hypoglycemia Diagnostic Test (Pha) (Accu-Chek) 1 each [facility] Last Admin: 05/08/19 10:08 Dose: 1 each Documented by: Fluoxetine HCl (Prozac) 20 mg PO QDAY [facility] Furosemide (Lasix) 40 mg PO QDAY [facility] Glucose (Insta-Glucose) 15 gm PO PRN PRN PRN Reason: Hypoglycemia Heparin Sodium (Porcine) (Heparin) 5,000 unit SQ Q12 [facility] Last Admin: 05/07/19 21:19 Dose: 5,000 unit Documented by: Piperacillin Sod/Tazobactam (Sod 2.25 gm/ Dextrose) 50 mls @ 100 mls/hr IV Q12H [facility]; Protocol Last Infusion: 05/07/19 21:53 Dose: Infused Documented by: Insulin Human Lispro (Humalog) 0 unit SQ [facility]; Protocol Last Admin: 05/08/19 09:25 Dose: Not Given Documented by: Metoprolol Tartrate (Lopressor) 12.5 mg PO BID [facility] Last Admin: 05/07/19 21:20 Dose: 12.5 mg Documented by: Multivit/Ca Carb/B Cmplx/FA/Prenat (Diatx) 0.8 tab PO DAILY [facility] Naloxone HCl (Narcan) 0.1 mg IV Q2MIN PRN PRN Reason: Opiate Reversal Ondansetron HCl (Zofran) 4 mg IV Q4HP PRN PRN Reason: Nausea And Vomiting Sevelamer Carbonate (Renvela) 800 mg PO TIDCC [facility] Simvastatin (Zocor) 20 mg PO HS [facility] Last Admin: 05/07/19 21:20 Dose: 20 mg Documented by: Sodium Chloride (Saline Flush) 10 ml IV Q8 [facility] Last Admin: 05/08/19 05:50 Dose: 10 ml Documented by: Vancomycin HCl (Vancomycin Per Pharmacy) 1 order IV [facility] Protocol Medical - PN: A/P - Time Spent With Patient Total time spent is greater than 50% in coordination of care (as documented) at patient's floor/unit and/or counseling patient: - Narrative A/P Narrative: A/P Sepsis by SIRS criteria, now resolved ESRD on HD, Urinary tract infection, gram neg Pre syncope Weakness Septic Encephalopathy Diarrhea Diabetes Mellitus, HTN Obesity, BMI 35.9 Bacteruria Lactic Acidosis Anemia of chr renal disease Hypertensin ASthma Gout h/o Congestive heart failure Gram neg bactermia Healthcare associated pneumonia Plan xfer to med surg, patient is clinically much improved CT abdomen and pelvis with contrast, does not show any intra-abdominal pathology, mild pneumonia noted Start on broad-spectrum antibiotics vancomycin and Zosyn for now Blood culture sent, given gram-negative bacteria positive we will consult infectious disease Patient does have a history of C. difficile, did have diarrhea this morning. If diarrhea persist will send for C. difficile testing Resume home medications once verified IV fluids for lactic acidosis nephrology has been consulted for management of end-stage renal disease, and hemodialysis DVT-heparin subcu Full code Cardiac renal and consistent carb diet Medical - PN: Qual - VTE Deep Vein Thrombosis/Pulmonary Embolism Present on Admission: No
[2019-05-08] MEDS ORDERED: ALBUTEROL SULFATE 2.5 MG/3 ML NEBULIZER NEB PRN (10:42)
[2019-05-08] MEDS ORDERED: NALOXONE HCL 0.4 MG/ML VIAL IV PRN (10:42)
[2019-05-08] MEDS ORDERED: DEXTROSE 50% 50 ML VIAL IV PRN (10:42)
[2019-05-08] MEDS ORDERED: DEXTROSE 31 GM ORAL.SUSP PO PRN (10:42)
[2019-05-08] MEDS ORDERED: ACETAMINOPHEN 325 MG TABLET PO PRN (10:42)
[2019-05-08] MEDS ORDERED: ONDANSETRON 4 MG/2 ML VIAL IV PRN (10:42)
[2019-05-08] MEDS ORDERED: VANCOMYCIN PER PHARMACY IV SCH (10:42)
[2019-05-08] MEDS: SEVELAMER 800 MG TABLET PO SCH ×2 (12:03→16:45)
[2019-05-08] MEDS ORDERED: CEFEPIME 1 GM VIAL IV SCH (18:00)
--- NOTE | 2019-05-08 18:48 | Infectious Disease Consult ---
History of Present Illness Patient information: Note initiated : 05/08/19 at 6:33 pm Service Date, if different from initiated Date: [] Patient: Teri Olson 69 y/o F admitted on 05/07/19 for Near Syncope, Chills. Chief Complaint: [] Consult date: 05/08/19 Requesting Physician: Jaelyn Naylor Reason for Consult: bacteremia Chief complaint: I was feeling tired, and had fevers History of present illness: 69-year-old lady well known to me from prior hospitalization. She has PMHx of: - ESRD on HD through left arm AVF - pressure sores on buttock - DM2 Pt was sent to [facility] ER from dialysis on 05/07 after being found to have fever, dizziness and confused. Pt denied any fever, chills, cough, chest pain, worsenin g of SOB, n/v, diarrhea. Denied any other symptoms. Per her family, pt was confused since last weekend. In the emergency room patient was febrile, on presentation, she had a white count of 16,000 hemoglobin 11.1 platelets 450 chemistries show sodium 134 potassium 4.2 bicarbonate 30 creatinine 2 lactic acid 2.9 urine has 25 leukocyte Estrace and many bacteria. Patient goes to the bathroom to pee once a day, denies any burning sensation or pelvic pain. Chest x-ray shows mild cardiomegaly no acute findings. Blood and urine cultures were sent, pt was started on IV Vanc and IV Zosyn (renally adjusted). Pt;s blood Cx and urine Cx showed GNR on gram stain and culture growth. She felt much better and back to baseline today. Denied any symptoms. Review of Systems All systems PM: reviewed and no additional remarkable complaints except as stated Past History Past family history: not pertinent to current presentation, as pt lives in an assisted living Past social history: No sick contacts lives in assisted living Medications and Allergies Home Medications Medication Instructions Recorded Confirmed Type fluoxetine 20 mg capsule 20 mg PO QDAY 11/19/15 05/07/19 History amlodipine 2.5 mg tablet 2.5 mg PO QDAY 08/02/18 05/07/19 History loperamide 2 mg tablet 2 mg PO Q2-4H PRN 08/02/18 05/07/19 History Aspirin [Elias Chewable Aspirin] 81 mg PO DAILY 08/28/18 05/07/19 History furosemide 40 mg tablet 40 mg PO QDAY #30 tab 11/20/18 05/07/19 Rx Clopidogrel Bisulfate [Plavix] 75 mg PO DAILY 12/15/18 05/07/19 History Folic Acid/Vit Bcomp,C 0.8 mg PO DAILY 12/15/18 05/07/19 History [Nephro-Milagro Tablet] Ondansetron [Zofran ODT] 4 mg SL Q6HP PRN 12/15/18 05/07/19 History Pravastatin [Pravachol] 40 mg PO DAILY 12/15/18 05/07/19 History Sennosides/Docusate Sodium [Cvs 1 each PO PRN PRN 12/15/18 05/07/19 History Stool Softener-Stim Lax Tb] sevelamer carbonate 800 mg tablet 800 mg PO TID #90 tab 04/02/19 05/07/19 Rx Cinacalcet [Sensipar] 60 mg PO QAMCC 05/07/19 05/07/19 History Metoprolol Tartrate [Lopressor] 12.5 mg PO BID 05/07/19 05/07/19 History Allergies Allergy/AdvReac Type Severity Reaction Status Date / Time codeine Allergy Intermediate Hives Verified 05/07/19 11:01 meperidine [From Demerol] Allergy Intermediate Hives Verified 05/07/19 11:01 gemfibrozil [From Lopid] AdvReac Intermediate Muscle Pain Verified 05/07/19 1 1:01 ciprofloxacin [From Cipro] AdvReac Mild Nausea Verified 05/07/19 11:01 Physical Examination Vital signs: Temp Pulse Resp BP Pulse Ox 36.7 C 58 L 16 131/69 98 05/08/19 16:33 05/08/19 16:33 05/08/19 16:33 05/08/19 16:33 05/08/19 16:33 General appearance: no acute distress Eyes pulmonary: nonicteric ENT: oropharynx moist Effort: normal Auscultation: bilateral: clear Cardiovascular: other (s1 s2 normal, no m/r/g) Gastrointestinal: normoactive bowel sounds, soft, non-tender Extremities: other (mild edema. Lt arm AVF with good thrill, non tender) Results - Laboratory Findings CBC and BMP: 05/08/19 03:40 05/08/19 03:40 Abnormal lab findings: Abnormal Labs 05/07/19 05/07/19 05/07/19 11:14 11:16 11:16 WBC 16.1 H RBC 3.72 L Hgb 11.1 L Hct 32.9 L POC Hct 33.0 L Plt Count 450 H MPV 7.3 L Lymph % (Auto) Gran # Bulloch # (Auto) Eos # (Auto) Lymphocytes % 14 L VBG Lactic Acid POC Chloride 93 L Chloride 92 L POC Total CO2 32 H Creatinine 2.0 H POC Creatinine 2.1 H Glucose 109 H POC Glucose 109 H Calcium 8.4 L POC WB Ioniz Calcium 0.99 L Phosphorus Alkaline Phosphatase 137 H Total Protein Albumin Albumin/Globulin Ratio Urine Protein Ur Leukocyte Esterase Urine WBC Urine Bacteria 05/07/19 05/07/19 05/08/19 11:16 13:41 03:40 WBC 13.3 H RBC 2.85 L Hgb 8.6 L Hct 26.0 L POC Hct Plt Count MPV 7.2 L Lymph % (Auto) 13.6 L Gran # 9.5 H Bulloch # (Auto) 1.2 H Eos # (Auto) 0.8 H Lymphocytes % VBG Lactic Acid 2.9 H POC Chloride Chloride POC Total CO2 Creatinine POC Creatinine Glucose POC Glucose Calcium POC WB Ioniz Calcium Phosphorus Alkaline Phosphatase Total Protein Albumin Albumin/Globulin Ratio Urine Protein >=500 A Ur Leukocyte Esterase 25 A Urine WBC 49 H Urine Bacteria Many A 05/08/19 03:40 WBC RBC Hgb Hct POC Hct Plt Count MPV Lymph % (Auto) Gran # Bulloch # (Auto) Eos # (Auto) Lymphocytes % VBG Lactic Acid POC Chloride Chloride POC Total CO2 Creatinine 3.2 H POC Creatinine Glucose POC Glucose Calcium 7.1 L POC WB Ioniz Calcium Phosphorus 4.6 H Alkaline Phosphatase Total Protein 5.2 L Albumin 2.5 L Albumin/Globulin Ratio 0.9 L Urine Protein Ur Leukocyte Esterase Urine WBC Urine Bacteria Microbiology: Microbiology 05/07/19 14:31 Urine - Catheterized Urine Culture - Preliminary Gram negative bacillus 05/07/19 16:25 Nose - Both Right and Left MRSA (PCR) - Final Assessment and Plan - Narrative A/P Narrative: A: 1. Gram-negative bacteremia: preliminary cultures show growth of a non-lactose impregnator and drier [PCR panel negative for E. coli, Citrobacter, Pseudomonas, Klebsiella, Enterobacter, Acinetobacter] - As of now: likely source seems urine, as urine cultures are also positive for gram-negative bacteria. Other possible site could be pressure sore on the buttocks which could get contamination from feces and might lead to translocation to bloodstream ---> bacteremia - clinically, no concerns for pneumonia based on symptoms, exam - clinically improved 2. ESRD, on HD through left arm AVF: no concerns for infection 3. Decubitus ulcer near sacral area Recommendations: - Stop IV Vanc and IV Zosyn - Start IV Cefepime 1 gm q24 [renally adjusted dose] to be given in evening daily. will await ID and sensi for further modification of therapy - wound care for pressure sore will follow Lamont Aldridge MD Infectious diseases
[2019-05-08] MEDS ORDERED: PIPERACILLIN SODIUM/TAZOBACTAM 2.25 GM in DEXTROSE 5% IN WATER 50 ML IV SCH (21:00)
[2019-05-08] MEDS: SIMVASTATIN 20 MG TABLET PO SCH (21:03)
[2019-05-09 06:09] LABS: Basophils # (Auto) 0 K/mcL (0.0-0.3); Basophils % (Auto) 0.3 % (0.0-2.0); Eosinophils # (Auto) 1.3 K/mcL (0.0-0.7); Eosinophils % (Auto) 9.5 % (0.0-7.0); Granulocytes % (Auto) 64.5 % (38.0-78.0); Hematocrit 24.8 % (36.0-48.0); Hemoglobin 8.1 g/dL (12.0-15.0); Lymphocytes # (Auto) 2.4 K/mcL (1.5-4.8); Lymphocytes % (Auto) 17.3 % (15.5-49.0); Mean Corpuscular HGB Conc 32.7 g/dL (31.0-36.0); Mean Platelet Volume 7.5 fL (7.4-10.4); Monocytes # (Auto) 1.1 K/mcL (0.1-0.9); Monocytes % (Auto) 8.4 % (1.0-12.0); Platelet Count 301 K/mcL (140-440); RBC 2.69 M/mcL (4.00-5.20); WBC 13.7 K/mcL (4.5-11.0)
[2019-05-09 06:27] LABS: ALT/SGPT 13 U/l (0-40); AST/SGOT 17 U/l (0-37); Albumin 2.9 gm/dL (3.2-5.2); Albumin/Globulin Ratio 1.1 (1.0-2.3); Alkaline Phosphatase 101 U/L (39-117); Bilirubin,Direct < 0.2 mg/dL (0.0-0.3); Bilirubin,Total 0.2 mg/dL (0.0-1.0); Blood Urea Nitrogen 37 mg/dl (8-23); Calcium 6.9 mg/dl (8.6-10.4); Carbon Dioxide 25 mmol/L (22-30); Chloride 93 mmol/L (96-108); Globulin 2.6 gm/dL (2.2-3.7); Glomerular Filtration Rate 9; Glucose 70 mg/dL (70-105); Lactate Dehydrogenase 217 U/L (94-250); Phosphorous 5.8 mg/dL (2.7-4.5); Triglycerides 154 mg/dl (<150); Uric Acid 3.9 mg/dL (2.5-8.0)
--- NOTE | 2019-05-09 07:05 | Nephrology Progress Note ---
Subjective Patient information: Note initiated : 05/09/19 at 7:03 am Patient: Teri Olson 69 y/o F admitted on 05/07/19 for Near Syncope, Chills. Chief Complaint: Weakness Pertinent ROS: Weakness Feels better Objective - Vital Signs Vital signs: Vital Signs Temp Pulse Pulse Resp BP BP Pulse Ox 05/09/19 04:27 97.5 F 54 L 16 136/60 05/08/19 23:56 97.4 F 62 18 118/51 05/08/19 18:41 97.7 F 54 L 12 136/63 97 05/08/19 16:33 98.1 F 58 L 16 131/69 98 05/08/19 11:48 98.1 F 60 16 128/60 96 05/08/19 08:00 62 16 94 05/08/19 07:28 98.0 F 58 L 16 138/64 96 Intake and Output 05/08/19 05/09/19 05/09/19 21:59 05:59 13:59 Intake Total 20 Balance 20 Intake: Oral 20 Other: # Voids 1 Weight 182 lb Intake & Output: Intake & Output 05/08/19 05/09/19 05/09/19 21:59 05:59 13:59 Intake Total 20 Balance 20 Weight 182 lb Intake: Oral 20 Other: # Voids 1 - General Appearance General appearance: chronically ill, fatigue EENT: mucous membranes moist Neck: supple Respiratory: clear Cardiology: edema Gastrointestinal: no tenderness Integumentary: warm and dry Neurologic: no focal deficit, alert and oriented x3 Musculoskeletal: no deformities Psychiatric: mood/affect appropriate, cooperative - Lab 05/09/19 04:00 05/09/19 04:00 Most recent lab results Calcium 6.9 mg/dl (8.6-10.4) L 05/09/19 04:00 Phosphorus 5.8 mg/dL (2.7-4.5) H 05/09/19 04:00 Magnesium 2.0 mg/dL (1.6-2.5) 05/09/19 04:00 Assessment and Plan (1) ESRD (end stage renal disease) on dialysis Teri Olson is a 69-year-old female with end-stage renal disease on chronic hemodialysis (at [facility], on MWF), sent to ED after hemodialysis for fever and admitted for suspected sepsis from urinary tract. End-stage renal disease on chronic hemodialysis Anemia due to ESRD. Plan: Hemodialysis today with F250 dialyzer for 4 hours, QB/QD 400/800, dialysate (Potassium 3, Bicarbonate 30, Calcium 2.5, Sodium 138), UF target 4000 ml, Heparin 1500 unit bolus, 800 unit per hour, off last hour. Status: Chronic Priority: Medium (2) Anemia in end-stage renal disease Status: Chronic Priority: Medium
[2019-05-09] MEDS: 0.9 % SODIUM CHLORIDE 10 ML SYRINGE IV SCH ×3 (07:40→21:16)
[2019-05-09] MEDS: INSULIN LISPRO 1 UNIT/0.01 ML UNIT SQ SCH ×4 (07:40→19:44)
[2019-05-09] MEDS: CINACALCET 30 MG TABLET PO SCH (08:09)
[2019-05-09] MEDS: SEVELAMER 800 MG TABLET PO SCH ×3 (08:09→17:26)
--- NOTE | 2019-05-09 08:13 | Internal Med Progress Note ---
Medical - PN: Subj Patient information: Note initiated : 05/09/19 at 8:11 am Service Date, if different from initiated Date: [] Patient: Teri Olson 69 y/o F admitted on 05/07/19 for Near Syncope, Chills. Chief Complaint: [] Interval history: 69-year-old female with a history of diabetes presents to the emergency room for evaluation of presyncope not feeling well since Tuesday. The patient notes that she was doing well up till Tuesday and since then has not been feeling well she attributes this to excess fluid removal during her dialysis session on Tuesday. She noticed that she nearly passed out then, and has been weak and lethargic since then. Today when she was seen in the emergency room she was lethargic nearly passed out had a high-grade fever appeared confused and therefore was sent to the emergency room for further evaluation. The patient has some chronic shortness of breath but denies any other acute complaints or concerns. She denies any headache changes in vision difficulty in swallowing she denies any cough chest pain, she denies any nausea vomiting, she did have one episode of diarrhea this morning. She denies any new joint pains or skin rashes. Last admission was for perineal cellulitis, she denies any pain in the perineal region at this time. In the emergency room patient was febrile, on presentation, she had a white count of 16,000 hemoglobin 11.1 platelets 450 chemistries show sodium 134 potassium 4.2 bicarbonate 30 creatinine 2 lactic acid 2.9 urine has 25 leukocyte Estrace and many bacteria. Patient goes to the bathroom to pee once a day, denies any burning sensation or pelvic pain. Chest x-ray shows mild cardiomegaly no acute findings. Given the fact that the patient has fever leukocytosis and elevated lactate she was admitted to the hospital for further management further work-up is pending She denies any pain redness at the site of dialysis access which is her left arm 05/08 Patient seen and examined, no acute overnight events doing well. Has no new complaints or concerns. Blood culture and urine culture is positive for gram-negative bacteria. The blood culture gene analysis is negative for common pathogens. We will await for further isolation and sensitivity. Transfer the patient to [facility] status Labs are stable 05/09 Patient seen and examined, no acute overnight events no new complaints or concerns. Eating comfortably in chair enjoying her breakfast Labs are stable white count slightly worse today than yesterday Patient is afebrile hemodynamically stable Urine culture is growing Enterobacter cloaca K sensitive to fluoroquinolones cefepime Rocephin Pertinent ROS: Denies headache, dizziness Denies chest pain, palpitations Denies cough or shortness of breath Denies abdominal pain, nausea or vomiting. - Constitutional Vitals: Vital Signs Temp Pulse Resp BP Pulse Ox 97.1 F 62 16 117/55 96 05/09/19 07:43 05/09/19 07:43 05/09/19 07:43 05/09/19 07:43 05/09/19 07:43 Period Temp Pulse Resp BP Sys/Barnard Pulse Ox Last 24 Hr 97.1 F-98.1 F 54-62 12-18 117-136/51-69 96-98 Intake and Output 05/08/19 05/09/19 05/09/19 21:59 05:59 13:59 Intake Total 20 Balance 20 Weight 182 lb Intake & Output: Intake & Output 05/08/19 05/09/19 05/09/19 21:59 05:59 13:59 Intake Total 20 Balance 20 Weight 182 lb Intake: Oral 20 Other: # Voids 1 Exam: Constitutional; Afebrile, cooperative, alert, not in distress. Eyes- No icterus, , No periorbital swelling Ears- Ext ear normal, hearing normal to conversation. Neck- Midline trachea, supple Respiratory system: Air Entry equal on both sides, No crackles or wheezing, no rhonchi. CVS- Rate rhythm regular, S1,S2 heard, no gallop, no rub. Abdomen- Soft nontender abdomen, no organomegaly, no tenderness, no guarding or rigidity, GEOSPATIAL DEVELOPER- AOOx3, moving all extremities, no gross focal deficit noted. Medical - PN: Obj Da - Labs CBC & Chem 7: 05/09/19 04:00 05/09/19 04:00 Labs: Abnormal Lab Results 05/09/19 05/09/19 05/08/19 04:00 04:00 03:40 WBC 13.7 H RBC 2.69 L Hgb 8.1 L Hct 24.8 L POC Hct Plt Count MPV Lymph % (Auto) Eos % (Auto) 9.5 H Gran # 8.8 H [place] # (Auto) 1.1 H Eos # (Auto) 1.3 H Lymphocytes % VBG Lactic Acid Sodium 132 L POC Chloride Chloride 93 L POC Total CO2 BUN 37 H Creatinine 4.5 H 3.2 H POC Creatinine Glucose POC Glucose Calcium 6.9 L 7.1 L POC WB Ioniz Calcium Phosphorus 5.8 H 4.6 H Alkaline Phosphatase Total Protein 5.5 L 5.2 L Albumin 2.9 L 2.5 L Albumin/Globulin Ratio 0.9 L Triglycerides 154 H Urine Protein Ur Leukocyte Esterase Urine WBC Urine Bacteria 05/08/19 05/07/19 05/07/19 03:40 13:41 11:16 WBC 13.3 H RBC 2.85 L Hgb 8.6 L Hct 26.0 L POC Hct Plt Count MPV 7.2 L Lymph % (Auto) 13.6 L Eos % (Auto) Gran # 9.5 H [place] # (Auto) 1.2 H Eos # (Auto) 0.8 H Lymphocytes % VBG Lactic Acid 2.9 H Sodium POC Chloride Chloride POC Total CO2 BUN Creatinine POC Creatinine Glucose POC Glucose Calcium POC WB Ioniz Calcium Phosphorus Alkaline Phosphatase Total Protein Albumin Albumin/Globulin Ratio Triglycerides Urine Protein >=500 A Ur Leukocyte Esterase 25 A Urine WBC 49 H Urine Bacteria Many A 05/07/19 05/07/19 05/07/19 11:16 11:16 11:14 WBC 16.1 H RBC 3.72 L Hgb 11.1 L Hct 32.9 L POC Hct 33.0 L Plt Count 450 H MPV 7.3 L Lymph % (Auto) Eos % (Auto) Gran # [place] # (Auto) Eos # (Auto) Lymphocytes % 14 L VBG Lactic Acid Sodium POC Chloride 93 L Chloride 92 L POC Total CO2 32 H BUN Creatinine 2.0 H POC Creatinine 2.1 H Glucose 109 H POC Glucose 109 H Calcium 8.4 L POC WB Ioniz Calcium 0.99 L Phosphorus Alkaline Phosphatase 137 H Total Protein Albumin Albumin/Globulin Ratio Triglycerides Urine Protein Ur Leukocyte Esterase Urine WBC Urine Bacteria Meds: Medications Acetaminophen (Tylenol) 650 mg PO Q6HP PRN PRN Reason: PAIN/FEVER > 101 Albuterol Sulfate (Ventolin) 2.5 mg NEB Q4HP PRN PRN Reason: Shortness Of Breath Or Wheezin Amlodipine Besylate (Norvasc) 2.5 mg PO QDAY [facility] Aspirin (Aspirin) 81 mg PO DAILY [facility] Cefepime HCl (Maxipime) 1 gm IV Q24 [facility]; Protocol Cinacalcet (Sensipar) 60 mg PO QAMCC [facility] Last Admin: 05/09/19 08:09 Dose: 60 mg Documented by: Clopidogrel Bisulfate (Plavix) 75 mg PO DAILY [facility] Dextrose (Dextrose 50%) 0 ml IV UD PRN PRN Reason: Hypoglycemia Diagnostic Test (Pha) (Accu-Chek) 1 each FS [facility] Last Admin: 05/09/19 07:40 Dose: 1 each Documented by: Fluoxetine HCl (Prozac) 20 mg PO QDAY [facility] Furosemide (Lasix) 40 mg PO QDAY [facility] Glucose (Insta-Glucose) 15 gm PO PRN PRN PRN Reason: Hypoglycemia Heparin Sodium (Porcine) (Heparin) 5,000 unit SQ Q12 [facility] Last Admin: 05/08/19 21:06 Dose: 5,000 unit Documented by: Insulin Human Lispro (Humalog) 0 unit SQ [facility]; Protocol Last Admin: 05/09/19 07:40 Dose: Not Given Documented by: Metoprolol Tartrate (Lopressor) 12.5 mg PO BID [facility] Last Admin: 05/08/19 21:02 Dose: 12.5 mg Documented by: Multivit/Ca Carb/B Cmplx/FA/Prenat (Diatx) 0.8 tab PO DAILY [facility] Naloxone HCl (Narcan) 0.1 mg IV Q2MIN PRN PRN Reason: Opiate Reversal Ondansetron HCl (Zofran) 4 mg IV Q4HP PRN PRN Reason: Nausea And Vomiting Sevelamer Carbonate (Renvela) 800 mg PO TIDCC [facility] Last Admin: 05/09/19 08:09 Dose: 800 mg Documented by: Simvastatin (Zocor) 20 mg PO HS [facility] Last Admin: 05/08/19 21:03 Dose: 20 mg Documented by: Sodium Chloride (Saline Flush) 10 ml IV Q8 [facility] Last Admin: 05/09/19 07:40 Dose: 10 ml Documented by: Medical - PN: A/P - Time Spent With Patient Total time spent is greater than 50% in coordination of care (as documented) at patient's floor/unit and/or counseling patient: - Narrative A/P Narrative: A/P Sepsis by SIRS criteria, now resolved ESRD on HD, Urinary tract infection, gram neg Pre syncope Weakness Septic Encephalopathy Diarrhea Diabetes Mellitus, HTN Obesity, BMI 35.9 Bacteruria Lactic Acidosis Anemia of chr renal disease Hypertensin ASthma Gout h/o Congestive heart failure Gram neg bactermia Healthcare associated pneumonia Plan Urine cultures growing Enterobacter plicae Blood culture sensitivity and isolation pending Patient is on IV cefepime as per infectious disease recommendation CT chest abdomen pelvis, shows mild pneumonia no obvious intra-abdominal pathology Patient is scheduled for hemodialysis today If sensitivities are known by tomorrow white count is stable patient remains stable can be discharged home with antibiotics DVT-heparin subcu Full code Cardiac renal and consistent carb diet Medical - PN: Qual - VTE Deep Vein Thrombosis/Pulmonary Embolism Present on Admission: No
[2019-05-09] MEDS: HEPARIN 5,000 UNIT/ML VIAL SQ SCH ×2 (08:45→21:15)
[2019-05-09] MEDS: FOLIC ACID/VITAMIN B COMP W-C 1 TAB TABLET PO SCH (08:46)
[2019-05-09] MEDS: FLUoxetine HCL 20 MG CAPSULE PO SCH (08:46)
[2019-05-09] MEDS: CLOPIDOGREL 75 MG TABLET PO SCH (08:46)
[2019-05-09] MEDS: FUROSEMIDE 40 MG TABLET PO SCH (08:46)
[2019-05-09] MEDS: amLODIPine 5 MG TABLET PO SCH ×2 (08:47→15:03)
[2019-05-09] MEDS: ASPIRIN 81 MG TAB.CHEW PO SCH ×2 (09:25→15:03)
[2019-05-09] MEDS: METOPROLOL TARTRATE 25 MG TABLET PO SCH ×2 (09:26→21:15)
[2019-05-09] MEDS: metroNIDAZOLE 500 MG TABLET PO SCH ×3 (10:12→21:15)
--- NOTE | 2019-05-09 12:53 | Infectious Disease Prog Note ---
Subjective Patient information: Note initiated : 05/09/19 at 12:42 pm Service Date, if different from initiated Date: [] Patient: Teri Olson 69 y/o F admitted on 05/07/19 for Near Syncope, Chills. Chief Complaint: [] Interval history: Pt doing fine. Feels tired and wanted to take a nap. Denied any fever, chills, n /v/diarrhea, cough, SOB. Is changing her posture frequently with help of nursing. Objective Objective Narrative: ao x 3, in nad no thrush chest cta s1 s2 normal, no m/r/g bs ++, nttd single pressure sore on right buttock, some redness and swellling around it, no active drainage - Vital Signs Vital signs: Vital Signs Temp Pulse Pulse Resp BP BP Pulse Ox 05/09/19 12:30 59 L 160/75 05/09/19 12:15 60 151/73 05/09/19 12:00 36.4 C 61 61 16 171/76 171/76 96 05/09/19 11:45 78 159/82 05/09/19 11:30 72 162/81 05/09/19 11:15 61 179/74 05/09/19 11:00 59 L 164/84 05/09/19 10:30 52 L 142/68 05/09/19 10:15 37.1 C 54 L 148/74 05/09/19 07:43 36.2 C 62 16 117/55 96 05/09/19 04:27 36.4 C 54 L 16 136/60 05/08/19 23:56 36.3 C 62 18 118/51 05/08/19 18:41 36.5 C 54 L 12 136/63 97 05/08/19 16:33 36.7 C 58 L 16 131/69 98 Intake and Output 05/08/19 05/09/19 05/09/19 21:59 05:59 13:59 Intake Total 20 360 Balance 20 360 Intake: Oral 20 360 Other: Meal Breakfast Percent of Meal Consumed 90 Feeding Ability Independent # Voids 1 1 Weight 82.554 kg Intake & Output: Intake & Output 05/08/19 05/09/19 05/09/19 21:59 05:59 13:59 Intake Total 20 360 Balance 20 360 Weight 82.554 kg Intake: Oral 20 360 Other: Meal Breakfast Percent of Meal Consumed 90 Feeding Ability Independent # Voids 1 1 - Lab 05/09/19 04:00 05/09/19 04:00 Most recent lab results Calcium 6.9 mg/dl (8.6-10.4) L 05/09/19 04:00 Phosphorus 5.8 mg/dL (2.7-4.5) H 05/09/19 04:00 Magnesium 2.0 mg/dL (1.6-2.5) 05/09/19 04:00 Microbiology 05/07/19 14:31 Urine - Catheterized Urine Culture - Final Enterobacter cloacae 05/07/19 16:25 Nose - Both Right and Left MRSA (PCR) - Final Medications Active Medications: Acetaminophen (Tylenol) 650 mg PO Q6HP PRN PRN Reason: PAIN/FEVER > 101 Albuterol Sulfate (Ventolin) 2.5 mg NEB Q4HP PRN PRN Reason: Shortness Of Breath Or Wheezin Amlodipine Besylate (Norvasc) 2.5 mg PO QDAY [facility] Last Admin: 05/09/19 08:47 Dose: Not Given Documented by: FMF Non-Admin Reason: dialysis Aspirin (Aspirin) 81 mg PO DAILY [facility] Last Admin: 05/09/19 09:25 Dose: Not Given Documented by: F Non-Admin Reason: dialysis Cefepime HCl (Maxipime) 1 gm IV Q24 [facility]; Protocol Cinacalcet (Sensipar) 60 mg PO QAC [facility] Last Admin: 05/09/19 08:09 Dose: 60 mg Documented by: F Clopidogrel Bisulfate (Plavix) 75 mg PO DAILY [facility] Last Admin: 05/09/19 08:46 Dose: 75 mg Documented by: FMF Dextrose (Dextrose 50%) 0 ml IV UD PRN PRN Reason: Hypoglycemia Diagnostic Test (Pha) (Accu-Chek) 1 each FS ACHS [facility] Last Admin: 05/09/19 11:24 Dose: 1 each Documented by: Admin: 05/09/19 07:40 Dose: 1 each Documented by: Admin: 05/08/19 21:05 Dose: 1 each Documented by: [email or web address] Admin: 05/08/19 16:43 Dose: 1 each Documented by: [email or web address] Admin: 05/08/19 12:00 Dose: 1 each Documented by: [email or web address] Fluoxetine HCl (Prozac) 20 mg PO QDAY [facility] Last Admin: 05/09/19 08:46 Dose: 20 mg Documented by: SARAH Furosemide (Lasix) 40 mg PO QDAY [facility] Last Admin: 05/09/19 08:46 Dose: 40 mg Documented by: SARAH Glucose (Insta-Glucose) 15 gm PO PRN PRN PRN Reason: Hypoglycemia Heparin Sodium (Porcine) (Heparin) 5,000 unit SQ Q12 [facility] Last Admin: 05/09/19 08:45 Dose: 5,000 unit Documented by: Admin: 05/08/19 21:06 Dose: 5,000 unit Documented by: TERRA Insulin Human Lispro (Humalog) 0 unit SQ ACHS [facility]; Protocol Last Admin: 05/09/19 11:24 Dose: Not Given Documented by: SARAH Non-Admin Reason: No Coverage Needed Admin: 05/09/19 07:40 Dose: Not Given Documented by: [email or web address] Non-Admin Reason: No Coverage Needed Admin: 05/08/19 21:06 Dose: Not Given Documented by: TERRA Non-Admin Reason: No Coverage Needed Admin: 05/08/19 16:43 Dose: Not Given Documented by: [email or web address] Non-Admin Reason: CBG 79 Admin: 05/08/19 11:59 Dose: Not Given Documented by: [email or web address] Non-Admin Reason: No Coverage Needed Metoprolol Tartrate (Lopressor) 12.5 mg PO BID [facility] Last Admin: 05/09/19 09:26 Dose: Not Given Documented by: FMF Non-Admin Reason: dialysis Admin: 05/08/19 21:02 Dose: 12.5 mg Documented by: TERRA Metronidazole (Flagyl) 500 mg PO Q8H [facility]; Protocol Last Admin: 05/09/19 10:12 Dose: Not Given Documented by: FMF Non-Admin Reason: dialysis Multivit/Ca Carb/B Cmplx/FA/Prenat (Diatx) 0.8 tab PO DAILY [facility] Last Admin: 05/09/19 08:46 Dose: 0.8 tab Documented by: SARAH Naloxone HCl (Narcan) 0.1 mg IV Q2MIN PRN PRN Reason: Opiate Reversal Ondansetron HCl (Zofran) 4 mg IV Q4HP PRN PRN Reason: Nausea And Vomiting Sevelamer Carbonate (Renvela) 800 mg PO TIDCC [facility] Last Admin: 05/09/19 12:17 Dose: Not Given Documented by: SARAH Non-Admin Reason: no lunch Admin: 05/09/19 08:09 Dose: 800 mg Documented by: Admin: 05/08/19 16:45 Dose: 800 mg Documented by: [email or web address] Admin: 05/08/19 12:03 Dose: 800 mg Documented by: [id number] Simvastatin (Zocor) 20 mg PO HS [facility] Last Admin: 05/08/19 21:03 Dose: 20 mg Documented by: TERRA Sodium Chloride (Saline Flush) 10 ml IV Q8 [facility] Last Admin: 05/09/19 07:40 Dose: 10 ml Documented by: Admin: 05/08/19 21:11 Dose: 10 ml Documented by: [email or web address] Admin: 05/08/19 12:01 Dose: 10 ml Documented by: [email or web address] Assessment and Plan - Narrative A/P Narrative: A: 1. 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 coli, Citrobacter, Pseudomonas, Klebsiella, Enterobacter, Acinetobacter] - Urine cx growing E cloacae (sens to Cefepime): likely asymptomatic bacteriuria - pressure sore on the buttocks seems the source as contamination from feces might lead to translocation of fecal bacteria [especially anerobes] to bloodstream ---> bacteremia - clinically, no concerns for pneumonia based on symptoms, exam - clinically improved 2. ESRD, on HD through left arm AVF: no concerns for infection 3. Decubitus ulcer near sacral area: seems stage 1 Recommendations: - In light of isolation of anerobic gram negative bacteria growth on blood cultures from 05/07; will start pt on PO Metronidazole 500 mg q8 hrs - Continue IV Cefepime 1 gm q24 [renally adjusted dose] to be given in evening daily - will modify antibiotic therapy per ID and sensi (likely to be available tomorrow) - anticipate a short duration of therapy [less than 2 weeks] - pressure sore precautions will follow Lamont Aldridge MD Infectious diseases
[2019-05-09 13:33] LABS: Vancomycin,Random 6.3 ug/mL
[2019-05-09] MEDS: CEFEPIME 1 GM VIAL IV SCH ×2 (15:02→17:26)
[2019-05-09] MEDS: SIMVASTATIN 20 MG TABLET PO SCH (21:15)
[2019-05-10] MEDS: 0.9 % SODIUM CHLORIDE 10 ML SYRINGE IV SCH ×3 (04:14→20:54)
[2019-05-10] MEDS: metroNIDAZOLE 500 MG TABLET PO SCH ×3 (05:59→20:53)
[2019-05-10 07:01] LABS: Basophils # (Auto) 0 K/mcL (0.0-0.3); Basophils % (Auto) 0.3 % (0.0-2.0); Eosinophils # (Auto) 1.2 K/mcL (0.0-0.7); Eosinophils % (Auto) 9.4 % (0.0-7.0); Granulocytes % (Auto) 60.5 % (38.0-78.0); Hematocrit 27.7 % (36.0-48.0); Hemoglobin 9.2 g/dL (12.0-15.0); Lymphocytes # (Auto) 2.5 K/mcL (1.5-4.8); Lymphocytes % (Auto) 19.8 % (15.5-49.0); Mean Cell Volume 91.8 fL (80.0-100.0); Mean Corpuscular HGB Conc 33.1 g/dL (31.0-36.0); Mean Platelet Volume 7.5 fL (7.4-10.4); Monocytes # (Auto) 1.2 K/mcL (0.1-0.9); Platelet Count 336 K/mcL (140-440); RBC 3.01 M/mcL (4.00-5.20); WBC 12.5 K/mcL (4.5-11.0)
[2019-05-10] MEDS: INSULIN LISPRO 1 UNIT/0.01 ML UNIT SQ SCH ×4 (07:47→20:54)
--- NOTE | 2019-05-10 07:49 | Nephrology Progress Note ---
Subjective Patient information: Note initiated : 05/10/19 at 7:47 am Patient: Teri Olson 69 y/o F admitted on 05/07/19 for Near Syncope, Chills. Chief Complaint: Weakness Pertinent ROS: Weakness Feels better Objective - Vital Signs Vital signs: Vital Signs Temp Pulse Pulse Resp BP BP Pulse Ox 05/10/19 04:00 97.6 F 57 L 17 150/64 94 05/09/19 23:12 99 F 61 18 135/62 96 05/09/19 19:42 97.8 F 62 17 146/64 97 05/09/19 16:00 98.2 F 61 16 189/70 100 05/09/19 14:15 99 F 61 167/72 05/09/19 14:00 60 156/67 05/09/19 13:45 60 164/98 05/09/19 13:30 61 167/71 05/09/19 13:15 68 165/77 05/09/19 13:00 60 156/70 05/09/19 12:45 60 151/76 05/09/19 12:30 59 L 160/75 05/09/19 12:15 60 151/73 05/09/19 12:00 97.5 F 61 61 16 171/76 171/76 96 05/09/19 11:45 78 159/82 05/09/19 11:30 72 162/81 05/09/19 11:15 61 179/74 05/09/19 11:00 59 L 164/84 05/09/19 10:30 52 L 142/68 05/09/19 10:15 98.7 F 54 L 148/74 Intake and Output 05/09/19 05/10/19 05/10/19 21:59 05:59 13:59 Intake Total 1000 100 Output Total 3600 Balance -2600 100 Intake: Nourishment/Supplement quantity 240 (ml) Oral 760 100 Output: Hemodialysis UF 3600 Other: Meal Dinner Percent of Meal Consumed 100% Feeding Ability Independent # Voids 1 1 Weight 175 lb 8 oz Intake & Output: Intake & Output 05/09/19 05/10/19 05/10/19 21:59 05:59 13:59 Intake Total 1000 100 Output Total 3600 Balance -2600 100 Weight 175 lb 8 oz Intake: Nourishment/Supplement quantity 240 (ml) Oral 760 100 Output: Hemodialysis UF 3600 Other: Meal Dinner Percent of Meal Consumed 100% Feeding Ability Independent # Voids 1 1 - General Appearance General appearance: chronically ill, fatigue EENT: mucous membranes moist Neck: supple Respiratory: clear Cardiology: edema Gastrointestinal: no tenderness Integumentary: warm and dry Neurologic: no focal deficit, alert and oriented x3 Musculoskeletal: no deformities Psychiatric: mood/affect appropriate, cooperative - Lab 05/10/19 04:13 05/09/19 04:00 Most recent lab results Calcium 6.9 mg/dl (8.6-10.4) L 05/09/19 04:00 Phosphorus 5.8 mg/dL (2.7-4.5) H 05/09/19 04:00 Magnesium 2.0 mg/dL (1.6-2.5) 05/09/19 04:00 Assessment and Plan (1) ESRD (end stage renal disease) on dialysis Teri Olson is a 69-year-old female with end-stage renal disease on chronic hemodialysis (at [facility], on MWF), sent to ED after hemodialysis for fever and admitted for suspected sepsis from urinary tract. End-stage renal disease on chronic hemodialysis Anemia due to ESRD. Progress: Hemodialysis on 05/09/19. Fluid overload improved. Plan: Continue hemodialysis on MWF. Status: Chronic Priority: Medium (2) Anemia in end-stage renal disease Status: Chronic Priority: Medium
[2019-05-10 07:54] LABS: ALT/SGPT 13 U/l (0-40); AST/SGOT 18 U/l (0-37); Albumin 3.3 gm/dL (3.2-5.2); Albumin/Globulin Ratio 1.1 (1.0-2.3); Alkaline Phosphatase 95 U/L (39-117); Bilirubin,Direct < 0.2 mg/dL (0.0-0.3); Bilirubin,Total 0.2 mg/dL (0.0-1.0); Blood Urea Nitrogen 22 mg/dl (8-23); Calcium 7.8 mg/dl (8.6-10.4); Carbon Dioxide 22 mmol/L (22-30); Chloride 98 mmol/L (96-108); Globulin 2.9 gm/dL (2.2-3.7); Glomerular Filtration Rate 17; Glucose 73 mg/dL (70-105); Lactate Dehydrogenase 207 U/L (94-250); Phosphorous 3.7 mg/dL (2.7-4.5); Triglycerides 138 mg/dl (<150); Uric Acid 2.1 mg/dL (2.5-8.0)
[2019-05-10] MEDS: amLODIPine 5 MG TABLET PO SCH (08:52)
[2019-05-10] MEDS: SEVELAMER 800 MG TABLET PO SCH ×3 (08:52→17:03)
[2019-05-10] MEDS: FOLIC ACID/VITAMIN B COMP W-C 1 TAB TABLET PO SCH (08:53)
[2019-05-10] MEDS: CINACALCET 30 MG TABLET PO SCH (08:53)
[2019-05-10] MEDS: ASPIRIN 81 MG TAB.CHEW PO SCH (08:55)
[2019-05-10] MEDS: CLOPIDOGREL 75 MG TABLET PO SCH (08:55)
[2019-05-10] MEDS: FUROSEMIDE 40 MG TABLET PO SCH (08:56)
[2019-05-10] MEDS: FLUoxetine HCL 20 MG CAPSULE PO SCH (08:56)
[2019-05-10] MEDS: METOPROLOL TARTRATE 25 MG TABLET PO SCH ×2 (08:56→20:53)
[2019-05-10] MEDS: HEPARIN 5,000 UNIT/ML VIAL SQ SCH ×2 (08:57→20:54)
--- NOTE | 2019-05-10 11:31 | Internal Med Progress Note ---
Medical - PN: Subj Patient information: Note initiated : 05/10/19 at 11:30 am Service Date, if different from initiated Date: [] Patient: Teri Olson 69 y/o F admitted on 05/07/19 for Near Syncope, Chills. Chief Complaint: [] Interval history: 69-year-old female with a history of diabetes presents to the emergency room for evaluation of presyncope not feeling well since Tuesday. The patient notes that she was doing well up till Tuesday and since then has not been feeling well she attributes this to excess fluid removal during her dialysis session on Tuesday. She noticed that she nearly passed out then, and has been weak and lethargic since then. Today when she was seen in the emergency room she was lethargic nearly passed out had a high-grade fever appeared confused and therefore was sent to the emergency room for further evaluation. The patient has some chronic shortness of breath but denies any other acute complaints or concerns. She denies any headache changes in vision difficulty in swallowing she denies any cough chest pain, she denies any nausea vomiting, she did have one episode of diarrhea this morning. She denies any new joint pains or skin rashes. Last admission was for perineal cellulitis, she denies any pain in the perineal region at this time. In the emergency room patient was febrile, on presentation, she had a white count of 16,000 hemoglobin 11.1 platelets 450 chemistries show sodium 134 potassium 4.2 bicarbonate 30 creatinine 2 lactic acid 2.9 urine has 25 leukocyte Estrace and many bacteria. Patient goes to the bathroom to pee once a day, denies any burning sensation or pelvic pain. Chest x-ray shows mild cardiomegaly no acute findings. Given the fact that the patient has fever leukocytosis and elevated lactate she was admitted to the hospital for further management further work-up is pending She denies any pain redness at the site of dialysis access which is her left arm 05/08 Patient seen and examined, no acute overnight events doing well. Has no new complaints or concerns. Blood culture and urine culture is positive for gram-negative bacteria. The blood culture gene analysis is negative for common pathogens. We will await for further isolation and sensitivity. Transfer the patient to [facility] [place] status Labs are stable 05/09 Patient seen and examined, no acute overnight events no new complaints or concerns. Eating comfortably in chair enjoying her breakfast Labs are stable white count slightly worse today than yesterday Patient is afebrile hemodynamically stable Urine culture is growing Enterobacter cloaca K sensitive to fluoroquinolones cefepime Rocephin 05/10 Patient seen and examined no acute overnight events sitting comfortably reading the newspaper. No new complaints or concerns Blood cultures are growing Clostridium species initially was gram-negative but now we believe it is gram-positive bacillus Pertinent ROS: Denies headache, dizziness Denies chest pain, palpitations Denies cough or shortness of breath Denies abdominal pain, nausea or vomiting. - Constitutional Vitals: Vital Signs Temp Pulse Resp BP Pulse Ox 98.0 F 56 L 20 136/63 93 05/10/19 07:50 05/10/19 07:50 05/10/19 07:50 05/10/19 07:50 05/10/19 07:50 Period Temp Pulse Resp BP Sys/Barnard Pulse Ox Last 24 Hr 97.5 F-99 F 56-78 16-20 135-189/62-98 93-100 Intake and Output 05/09/19 05/10/19 05/10/19 21:59 05:59 13:59 Intake Total 1000 100 240 Output Total 3600 Balance -2600 100 240 Weight 175 lb 8 oz Intake & Output: Intake & Output 05/09/19 05/10/19 05/10/19 21:59 05:59 13:59 Intake Total 1000 100 240 Output Total 3600 Balance -2600 100 240 Weight 175 lb 8 oz Intake: Nourishment/Supplement quantity 240 (ml) Oral 760 100 240 Output: Hemodialysis UF 3600 Other: Meal Dinner Percent of Meal Consumed 100% 75% Feeding Ability Independent Independent # Voids 1 1 Exam: Constitutional; Afebrile, cooperative, alert, not in distress. Eyes- No icterus, , No periorbital swelling Ears- Ext ear normal, hearing normal to conversation. Neck- Midline trachea, supple Respiratory system: Air Entry equal on both sides, No crackles or wheezing, no rhonchi. CVS- Rate rhythm regular, S1,S2 heard, no gallop, no rub. Abdomen- Soft nontender abdomen, no organomegaly, no tenderness, no guarding or rigidity, [place]- AOOx3, moving all extremities, no gross focal deficit noted. Medical - PN: Obj Da - Labs CBC & Chem 7: 05/10/19 04:13 05/10/19 04:13 Labs: Abnormal Lab Results 05/10/19 05/10/19 05/09/19 04:13 04:13 04:00 WBC 12.5 H RBC 3.01 L Hgb 9.2 L Hct 27.7 L POC Hct Plt Count MPV Lymph % (Auto) Eos % (Auto) 9.4 H Gran # [place] # (Auto) 1.2 H Eos # (Auto) 1.2 H Lymphocytes % VBG Lactic Acid Sodium 132 L POC Chloride Chloride 93 L POC Total CO2 BUN 37 H Creatinine 2.7 H 4.5 H POC Creatinine Glucose POC Glucose Uric Acid 2.1 L Calcium 7.8 L 6.9 L POC WB Ioniz Calcium Phosphorus 5.8 H Alkaline Phosphatase Total Protein 5.5 L Albumin 2.9 L Albumin/Globulin Ratio Triglycerides 154 H Urine Protein Ur Leukocyte Esterase Urine WBC Urine Bacteria 05/09/19 05/08/19 05/08/19 04:00 03:40 03:40 WBC 13.7 H 13.3 H RBC 2.69 L 2.85 L Hgb 8.1 L 8.6 L Hct 24.8 L 26.0 L POC Hct Plt Count MPV 7.2 L Lymph % (Auto) 13.6 L Eos % (Auto) 9.5 H Gran # 8.8 H 9.5 H [place] # (Auto) 1.1 H 1.2 H Eos # (Auto) 1.3 H 0.8 H Lymphocytes % VBG Lactic Acid Sodium POC Chloride Chloride POC Total CO2 BUN Creatinine 3.2 H POC Creatinine Glucose POC Glucose Uric Acid Calcium 7.1 L POC WB Ioniz Calcium Phosphorus 4.6 H Alkaline Phosphatase Total Protein 5.2 L Albumin 2.5 L Albumin/Globulin Ratio 0.9 L Triglycerides Urine Protein Ur Leukocyte Esterase Urine WBC Urine Bacteria 05/07/19 05/07/19 05/07/19 13:41 11:16 11:16 WBC RBC Hgb Hct POC Hct Plt Count MPV Lymph % (Auto) Eos % (Auto) Gran # [place] # (Auto) Eos # (Auto) Lymphocytes % VBG Lactic Acid 2.9 H Sodium POC Chloride Chloride 92 L POC Total CO2 BUN Creatinine 2.0 H POC Creatinine Glucose 109 H POC Glucose Uric Acid Calcium 8.4 L POC WB Ioniz Calcium Phosphorus Alkaline Phosphatase 137 H Total Protein Albumin Albumin/Globulin Ratio Triglycerides Urine Protein >=500 A Ur Leukocyte Esterase 25 A Urine WBC 49 H Urine Bacteria Many A 05/07/19 05/07/19 11:16 11:14 WBC 16.1 H RBC 3.72 L Hgb 11.1 L Hct 32.9 L POC Hct 33.0 L Plt Count 450 H MPV 7.3 L Lymph % (Auto) Eos % (Auto) Gran # [place] # (Auto) Eos # (Auto) Lymphocytes % 14 L VBG Lactic Acid Sodium POC Chloride 93 L Chloride POC Total CO2 32 H BUN Creatinine POC Creatinine 2.1 H Glucose POC Glucose 109 H Uric Acid Calcium POC WB Ioniz Calcium 0.99 L Phosphorus Alkaline Phosphatase Total Protein Albumin Albumin/Globulin Ratio Triglycerides Urine Protein Ur Leukocyte Esterase Urine WBC Urine Bacteria Meds: Medications Acetaminophen (Tylenol) 650 mg PO Q6HP PRN PRN Reason: PAIN/FEVER > 101 Albuterol Sulfate (Ventolin) 2.5 mg NEB Q4HP PRN PRN Reason: Shortness Of Breath Or Wheezin Amlodipine Besylate (Norvasc) 2.5 mg PO QDAY [facility] Last Admin: 05/10/19 08:52 Dose: 2.5 mg Documented by: Aspirin (Aspirin) 81 mg PO DAILY [facility] Last Admin: 05/10/19 08:55 Dose: 81 mg Documented by: Cefepime HCl (Maxipime) 1 gm IV DAILY@1800 [facility]; Protocol Last Admin: 05/09/19 17:26 Dose: Not Given Documented by: [facility]acalc[facility] ([facility]ipar) [facility] Last Admin: 05/10/19 08:53 Dose: 60 mg Documented by: Clopidogrel Bisulfate (Plavix) 75 mg PO DAILY [facility] Last Admin: 05/10/19 08:55 Dose: 75 mg Documented by: Dextrose (Dextrose 50%) 0 ml IV UD PRN PRN Reason: Hypoglycemia Diagnostic Test (Pha) (Accu-Chek) 1 each FS ACHS [facility] Last Admin: 05/10/19 07:47 Dose: 1 each Documented by: Fluoxetine HCl (Prozac) 20 mg PO QDAY [facility] Last Admin: 05/10/19 08:56 Dose: 20 mg Documented by: Furosemide (Lasix) 40 mg PO QDAY [facility] Last Admin: 05/10/19 08:56 Dose: 40 mg Documented by: Glucose (Insta-Glucose) 15 gm PO PRN PRN PRN Reason: Hypoglycemia Heparin Sodium (Porcine) (Heparin) 5,000 unit SQ Q12 [facility] Last Admin: 05/10/19 08:57 Dose: 5,000 unit Documented by: Insulin Human Lispro (Humalog) 0 unit SQ ACHS [facility]; Protocol Last Admin: 05/10/19 07:47 Dose: Not Given Documented by: Metoprolol Tartrate (Lopressor) 12.5 mg PO BID [facility] Last Admin: 05/10/19 08:56 Dose: 12.5 mg Documented by: Metronidazole (Flagyl) 500 mg PO Q8H [facility]; Protocol Last Admin: 05/10/19 05:59 Dose: 500 mg Documented by: Multivit/Ca Carb/B Cmplx/FA/Prenat (Diatx) 0.8 tab PO DAILY [facility] Last Admin: 05/10/19 08:53 Dose: 0.8 tab Documented by: Naloxone HCl (Narcan) 0.1 mg IV Q2MIN PRN PRN Reason: Opiate Reversal Ondansetron HCl (Zofran) 4 mg IV Q4HP PRN PRN Reason: Nausea And Vomiting Last Admin: 05/10/19 11:27 Dose: 4 mg Documented by: Sevelamer Carbonate (Renvela) 800 mg PO TIDCC [facility] Last Admin: 05/10/19 08:52 Dose: 800 mg Documented by: Simvastatin (Zocor) 20 mg PO HS [facility] Last Admin: 05/09/19 21:15 Dose: 20 mg Documented by: Sodium Chloride (Saline Flush) 10 ml IV Q8 [facility] Last Admin: 05/10/19 04:14 Dose: 10 ml Documented by: Medical - PN: A/P - Time Spent With Patient Total time spent is greater than 50% in coordination of care (as documented) at patient's floor/unit and/or counseling patient: - Narrative A/P Narrative: A/P Sepsis by SIRS criteria, now resolved ESRD on HD, Urinary tract infection, gram neg Pre syncope Weakness Septic Encephalopathy Diarrhea Diabetes Mellitus, HTN Obesity, BMI 35.9 Bacteruria Lactic Acidosis Anemia of chr renal disease Hypertensin ASthma Gout h/o Congestive heart failure Gram neg bactermia Healthcare associated pneumonia Plan Urine cultures growing Enterobacter plicae, Blood culture growing Clostridium species, isolation and sensitivity pending Patient is on IV cefepime as per infectious disease recommendation, Flagyl has been added CT chest abdomen pelvis, shows mild pneumonia no obvious intra-abdominal pathology Patient will benefit from a colonoscopy to be scheduled as an outpatient Patient can be discharged once sensitivity of the Clostridium is known and the speech she is is known DVT-heparin subcu Full code Cardiac renal and consistent carb diet Medical - PN: Qual - VTE Deep Vein Thrombosis/Pulmonary Embolism Present on Admission: No
--- NOTE | 2019-05-10 13:14 | Internal Med Progress Note ---
Medical - PN: Subj Patient information: Note initiated : 05/10/19 at 1:04 pm Service Date, if different from initiated Date: [] Patient: Teri Olson 69 y/o F admitted on 05/07/19 for Near Syncope, Chills. Chief Complaint: [] Interval history: 69-year-old female with a history of diabetes presents to the emergency room for evaluation of presyncope not feeling well since Tuesday. The patient notes that she was doing well up till Tuesday and since then has not been feeling well she attributes this to excess fluid removal during her dialysis session on Tuesday. She noticed that she nearly passed out then, and has been weak and lethargic since then. Today when she was seen in the emergency room she was lethargic nearly passed out had a high-grade fever appeared confused and therefore was sent to the emergency room for further evaluation. The patient has some chronic shortness of breath but denies any other acute complaints or concerns. She denies any headache changes in vision difficulty in swallowing she denies any cough chest pain, she denies any nausea vomiting, she did have one episode of diarrhea this morning. She denies any new joint pains or skin rashes. Last admission was for perineal cellulitis, she denies any pain in the perineal region at this time. In the emergency room patient was febrile, on presentation, she had a white count of 16,000 hemoglobin 11.1 platelets 450 chemistries show sodium 134 potassium 4.2 bicarbonate 30 creatinine 2 lactic acid 2.9 urine has 25 leukocyte Estrace and many bacteria. Patient goes to the bathroom to pee once a day, denies any burning sensation or pelvic pain. Chest x-ray shows mild cardiomegaly no acute findings. Given the fact that the patient has fever leukocytosis and elevated lactate she was admitted to the hospital for further management further work-up is pending She denies any pain redness at the site of dialysis access which is her left arm 05/08 Patient seen and examined, no acute overnight events doing well. Has no new complaints or concerns. Blood culture and urine culture is positive for gram-negative bacteria. The blood culture gene analysis is negative for common pathogens. We will await for further isolation and sensitivity. Transfer the patient to [facility] status Labs are stable 05/09 Patient seen and examined, no acute overnight events no new complaints or concerns. Eating comfortably in chair enjoying her breakfast Labs are stable white count slightly worse today than yesterday Patient is afebrile hemodynamically stable Urine culture is growing Enterobacter cloaca K sensitive to fluoroquinolones cefepime Rocephin 05/10 Patient seen and examined no acute overnight events sitting comfortably reading the newspaper. No new complaints or concerns Blood cultures are growing Clostridium species initially was gram-negative but now we believe it is gram-positive bacillus 05/11 - Constitutional Vitals: Vital Signs Temp Pulse Resp BP Pulse Ox 98.0 F 56 L 20 136/63 93 05/10/19 07:50 05/10/19 07:50 05/10/19 07:50 05/10/19 07:50 05/10/19 07:50 Period Temp Pulse Resp BP Sys/Barnard Pulse Ox Last 24 Hr 97.6 F-99 F 56-68 16-20 135-189/62-98 93-100 Intake and Output 05/09/19 05/10/19 05/10/19 21:59 05:59 13:59 Intake Total 1000 100 240 Output Total 3600 Balance -2600 100 240 Weight 79.605 kg Intake & Output: Intake & Output 05/09/19 05/10/19 05/10/19 21:59 05:59 13:59 Intake Total 1000 100 240 Output Total 3600 Balance -2600 100 240 Weight 79.605 kg Intake: Nourishment/Supplement quantity 240 (ml) Oral 760 100 240 Output: Hemodialysis UF 3600 Other: Meal Dinner Percent of Meal Consumed 100% 75% Feeding Ability Independent Independent # Voids 1 1 Exam: General: Alert, Awake, No acute Distress Eyes/N/T: EOMI, Head/Neck: neck supple, CV: RRR, No murmurs, Pulm: Clear b/l, no wheezing/rhonchi/rales Abd: soft, nontender, +BS x4 Ext: no clubbing/cyanosis/edema Neuro: Alert, no focal deficits, moves all extremities, Skin: warm/dry Medical - PN: Obj Da - Labs CBC & Chem 7: 05/10/19 04:13 05/10/19 04:13 Labs: Abnormal Lab Results 05/10/19 05/10/19 05/09/19 04:13 04:13 04:00 WBC 12.5 H RBC 3.01 L Hgb 9.2 L Hct 27.7 L MPV Lymph % (Auto) Eos % (Auto) 9.4 H Gran # [place] # (Auto) 1.2 H Eos # (Auto) 1.2 H Sodium 132 L Chloride 93 L BUN 37 H Creatinine 2.7 H 4.5 H Uric Acid 2.1 L Calcium 7.8 L 6.9 L Phosphorus 5.8 H Total Protein 5.5 L Albumin 2.9 L Albumin/Globulin Ratio Triglycerides 154 H Urine Protein Ur Leukocyte Esterase Urine WBC Urine Bacteria 05/09/19 05/08/19 05/08/19 04:00 03:40 03:40 WBC 13.7 H 13.3 H RBC 2.69 L 2.85 L Hgb 8.1 L 8.6 L Hct 24.8 L 26.0 L MPV 7.2 L Lymph % (Auto) 13.6 L Eos % (Auto) 9.5 H Gran # 8.8 H 9.5 H [place] # (Auto) 1.1 H 1.2 H Eos # (Auto) 1.3 H 0.8 H Sodium Chloride BUN Creatinine 3.2 H Uric Acid Calcium 7.1 L Phosphorus 4.6 H Total Protein 5.2 L Albumin 2.5 L Albumin/Globulin Ratio 0.9 L Triglycerides Urine Protein Ur Leukocyte Esterase Urine WBC Urine Bacteria 05/07/19 13:41 WBC RBC Hgb Hct MPV Lymph % (Auto) Eos % (Auto) Gran # [place] # (Auto) Eos # (Auto) Sodium Chloride BUN Creatinine Uric Acid Calcium Phosphorus Total Protein Albumin Albumin/Globulin Ratio Triglycerides Urine Protein >=500 A Ur Leukocyte Esterase 25 A Urine WBC 49 H Urine Bacteria Many A Meds: Medications Acetaminophen (Tylenol) 650 mg PO Q6HP PRN PRN Reason: PAIN/FEVER > 101 Albuterol Sulfate (Ventolin) 2.5 mg NEB Q4HP PRN PRN Reason: Shortness Of Breath Or Wheezin Amlodipine Besylate (Norvasc) 2.5 mg PO QDAY [facility] Last Admin: 05/10/19 08:52 Dose: 2.5 mg Documented by: Aspirin (Aspirin) 81 mg PO DAILY [facility] Last Admin: 05/10/19 08:55 Dose: 81 mg Documented by: Cefepime HCl (Maxipime) 1 gm IV DAILY@1800 [facility]; Protocol Last Admin: 05/09/19 17:26 Dose: Not Given Documented by: Cinacalcet (Sensipar) 60 mg PO QAMCC [facility] Last Admin: 05/10/19 08:53 Dose: 60 mg Documented by: Clopidogrel Bisulfate (Plavix) 75 mg PO DAILY [facility] Last Admin: 05/10/19 08:55 Dose: 75 mg Documented by: Dextrose (Dextrose 50%) 0 ml IV UD PRN PRN Reason: Hypoglycemia Diagnostic Test (Pha) (Accu-Chek) 1 each FS [facility] Last Admin: 05/10/19 12:00 Dose: 1 each Documented by: Fluoxetine HCl (Prozac) 20 mg PO QDAY [facility] Last Admin: 05/10/19 08:56 Dose: 20 mg Documented by: Furosemide (Lasix) 40 mg PO QDAY [facility] Last Admin: 05/10/19 08:56 Dose: 40 mg Documented by: Glucose (Insta-Glucose) 15 gm PO PRN PRN PRN Reason: Hypoglycemia Heparin Sodium (Porcine) (Heparin) 5,000 unit SQ Q12 [facility] Last Admin: 05/10/19 08:57 Dose: 5,000 unit Documented by: Insulin Human Lispro (Humalog) 0 unit SQ [facility]; Protocol Last Admin: 05/10/19 12:53 Dose: Not Given Documented by: Metoprolol Tartrate (Lopressor) 12.5 mg PO BID [facility] Last Admin: 05/10/19 08:56 Dose: 12.5 mg Documented by: Metronidazole (Flagyl) 500 mg PO Q8H [facility]; Protocol Last Admin: 05/10/19 05:59 Dose: 500 mg Documented by: Multivit/Ca Carb/B Cmplx/FA/Prenat (Diatx) 0.8 tab PO DAILY [facility] Last Admin: 05/10/19 08:53 Dose: 0.8 tab Documented by: Naloxone HCl (Narcan) 0.1 mg IV Q2MIN PRN PRN Reason: Opiate Reversal Ondansetron HCl (Zofran) 4 mg IV Q4HP PRN PRN Reason: Nausea And Vomiting Last Admin: 05/10/19 11:27 Dose: 4 mg Documented by: Sevelamer Carbonate (Renvela) 800 mg PO TIDCC [facility] Last Admin: 05/10/19 12:56 Dose: 800 mg Documented by: Simvastatin (Zocor) [address] [facility] Last Admin: 05/09/19 21:15 Dose: 20 mg Documented by: Sodium Chloride (Saline Flush) 10 ml IV Q8 [facility] Last Admin: 05/10/19 04:14 Dose: 10 ml Documented by: Medical - PN: A/P - Time Spent With Patient Total time spent is greater than 50% in coordination of care (as documented) at patient's floor/unit and/or counseling patient: - Narrative A/P Narrative: A: *Sepsis: now resolved *Septic Encephalopathy: *ESRD: *UTI(Enterobacter): *Bactermia(Clostridium) -CT c/a/p showing infiltrate REBECCA/bronchitis, no other abnormalities/signs of infection *Decubitus ulcer: possible source of infection *HCAP: *Pre-syncope: *Gen Weakness: *Diarrhea: *DM: *HTN *Obesity, BMI 35.9 *Anemia of chr renal disease *h/o Asthma/Gout: *h/o systolic (45-50%)/diastolic (II) CHF: Plan: -pending final BC -cont cefepime/flagyl -ID following -Patient will benefit from a colonoscopy to be scheduled as an outpatient -Patient can be discharged once sensitivity of the Clostridium is known -HD per Nephro -ppx: Heparin full code Medical - PN: Qual - VTE Deep Vein Thrombosis/Pulmonary Embolism Present on Admission: No
--- NOTE | 2019-05-10 14:36 | Discharge Summary ---
Medical - DS: Prov Patient information: Note initiated : 05/10/19 at 2:34 pm Service Date, if different from initiated Date: [] Patient: Teri Olson 69 y/o F admitted on 05/07/19 for Near Syncope, Chills. Chief Complaint: [] Date of admission: 05/07/19 16:12 Discharge date: 05/11/19 Primary care physician: Apolonia Fernando Consults: 05/07/19 Consult to Physician [CONS] Stat Comment: Consulting Provider: Marshal De La Cruz Reason For Exam: Physician to Consult Consult to Physician [CONS] Stat Comment: Consulting Provider: Jaelyn Naylor Reason For Exam: Physician to Consult 05/08/19 09:18 Consult to Infectious Disease [CONS] Routine Comment: bactermia Consulting Provider: Lamont Aldridge Reason For Exam: Physician to Consult Medical - DS: Meds - Discharge Medications Prescriptions: metroNIDAZOLE [Flagyl] 500 mg PO Q8H #36 tab Active and Home Medications: Home Medications fluoxetine 20 mg capsule 20 mg PO QDAY 11/19/15 [History Confirmed 05/07/19 Last Taken 05/06/19 14:00] amlodipine 2.5 mg tablet 2.5 mg PO QDAY 08/02/18 [History Confirmed 05/07/19 Last Taken 05/06/19 14:00] loperamide 2 mg tablet 2 mg PO Q2-4H PRN 08/02/18 [History Confirmed 05/07/19 Last Taken Unknown] Aspirin [Elias Chewable Aspirin] 81 mg PO DAILY 08/28/18 [History Confirmed 05/07/19 Last Taken 05/06/19 14:00] furosemide 40 mg tablet 40 mg PO QDAY #30 tab 11/20/18 [Rx Confirmed 05/07/19 Last Taken 05/06/19 14:00] Clopidogrel Bisulfate [Plavix] 75 mg PO DAILY 12/15/18 [History Confirmed 05/07/19 Last Taken 05/06/19 18:00] Folic Acid/Vit Bcomp,C [Nephro-Milagro Tablet] 0.8 mg PO DAILY 12/15/18 [History Confirmed 05/07/19 Last Taken 05/06/19 14:00] Ondansetron [Zofran ODT] 4 mg SL Q6HP PRN 12/15/18 [History Confirmed 05/07/19 Last Taken Unknown] Pravastatin [Pravachol] 40 mg PO DAILY 12/15/18 [History Confirmed 05/07/19 Last Taken 05/06/19 14:00] Sennosides/Docusate Sodium [Cvs Stool Softener-Stim Lax Tb] 1 each PO PRN PRN 12/15/18 [History Confirmed 05/07/19 Last Taken Unknown] sevelamer carbonate 800 mg tablet 800 mg PO TID #90 tab 04/02/19 [Rx Confirmed 05/07/19 Last Taken 05/07/19 06:00] Cinacalcet [Sensipar] 60 mg PO QAMCC 05/07/19 [History Confirmed 05/07/19 Last Taken 05/06/19 14:00] Metoprolol Tartrate [Lopressor] 12.5 mg PO BID 05/07/19 [History Confirmed 05/07/19 Last Taken 05/07/19 06:00] Medical - DS: Hosp Hospital course: Mr. Olson is a 69 year old F 69-year-old female with a history of diabetes presents to the emergency room for evaluation of presyncope not feeling well since Tuesday. The patient notes that she was doing well up till Tuesday and since then has not been feeling well she attributes this to excess fluid removal during her dialysis session on Tuesday. She noticed that she nearly passed out then, and has been weak and lethargic since then. Today when she was seen in the emergency room she was lethargic nearly passed out had a high-grade fever luis eared confused and therefore was sent to the emergency room for further evaluation. The patient has some chronic shortness of breath but denies any other acute complaints or concerns. She denies any headache changes in vision difficulty in swallowing she denies any cough chest pain, she denies any nausea vomiting, she did have one episode of diarrhea this morning. She denies any new joint pains or skin rashes. Last admission was for perineal cellulitis, she denies any pain in the perineal region at this time. In the emergency room patient was febrile, on presentation, she had a white count of 16,000 hemoglobin 11.1 platelets 450 chemistries show sodium 134 potassium 4.2 bicarbonate 30 creatinine 2 lactic acid 2.9 urine has 25 leukocyte Estrace and many bacteria. Patient goes to the bathroom to pee once a day, denies any burning sensation or pelvic pain. Chest x-ray shows mild cardiomegaly no acute findings. Given the fact that the patient has fever leukocytosis and elevated lactate she was admitted to the hospital for further management further work-up is pending She denies any pain redness at the site of dialysis access which is her left arm 05/08 Patient seen and examined, no acute overnight events doing well. Has no new complaints or concerns. Blood culture and urine culture is positive for gram-negative bacteria. The blood culture gene analysis is negative for common pathogens. We will await for further isolation and sensitivity. Transfer the patient to [facility] Labs are stable 05/09 Patient seen and examined, no acute overnight events no new complaints or concerns. Eating comfortably in chair enjoying her breakfast Labs are stable white count slightly worse today than yesterday Patient is afebrile hemodynamically stable Urine culture is growing Enterobacter cloaca K sensitive to fluoroquinolones cefepime Rocephin 05/10 Patient seen and examined no acute overnight events sitting comfortably reading the newspaper. No new complaints or concerns Blood cultures are growing Clostridium species initially was gram-negative but now we believe it is gram-positive bacillus 05/11 No overnight events. Patient stable doing well. Stable for discharge Discharge diagnosis: Clostridium bacteremia with source likely decubitus ulcer Secondary discharge diagnosis: Sepsis septic encephalopathy end-stage renal disease Enterobacter UTI generalized weakness diarrhea diabetes hypertension obesity anemia of chronic disease history of heart failure - Time Spent with Patient Total time spent providing and/or coordinating discharge services: Greater than 30 minutes Medical - DS: Exam - Constitutional Vitals: Vital Signs Temp Pulse Resp BP Pulse Ox 05/10/19 12:35 97.8 F 55 L 20 155/66 96 05/10/19 07:50 98.0 F 56 L 20 136/63 93 05/10/19 04:00 97.6 F 57 L 17 150/64 94 05/09/19 23:12 99 F 61 18 135/62 96 05/09/19 19:42 97.8 F 62 17 146/64 97 05/09/19 16:00 98.2 F 61 16 189/70 100 Intake and Output 05/10/19 05/10/19 05/10/19 05:59 13:59 21:59 Intake Total 100 240 Balance 100 240 Intake: Oral 100 240 Other: Percent of Meal Consumed 75% Feeding Ability Independent # Voids 1 Medical - DS: Data Labs on day of discharge: Labs from last 24 hours 05/10/19 05/10/19 04:13 04:13 WBC 12.5 H RBC 3.01 L Hgb 9.2 L Hct 27.7 L MCV 91.8 MCH 30.4 MCHC 33.1 RDW 14.0 Plt Count 336 MPV 7.5 Gran % 60.5 Lymph % (Auto) 19.8 [place] % (Auto) 10.0 Eos % (Auto) 9.4 H Baso % (Auto) 0.3 Gran # 7.5 Lymph # (Auto) 2.5 [place] # (Auto) 1.2 H Eos # (Auto) 1.2 H Baso # (Auto) 0 Sodium 134 Potassium 4.7 Chloride 98 Carbon Dioxide 22 Anion Gap 14.0 BUN 22 Creatinine 2.7 H GFR Calculation 17 Glucose 73 Uric Acid 2.1 L Calcium 7.8 L Phosphorus 3.7 Magnesium 2.1 Total Bilirubin 0.2 Direct Bilirubin < 0.2 GGT 19 AST 18 ALT 13 Alkaline Phosphatase 95 Lactate Dehydrogenase 207 Total Protein 6.2 Albumin 3.3 Globulin 2.9 Albumin/Globulin Ratio 1.1 Triglycerides 138 Medical - DS: A/P - Patient/Caregiver Discharge Instructions Activity: increase activity as tolerated Diet: Consistent Carbohydrate Additional Instructions: f/u with PCP/GI for possible colonoscopy given absence of source identified Prescriptions: metroNIDAZOLE [Flagyl] 500 mg PO Q8H #36 tab - Follow up Plan Follow up with: Apolonia Fernando ARNP [Primary Care Provider] - Marshal De La Cruz MD [Physician] - Disposition: Xfer Assisted Living Facility Prognosis: Fair Rehab Potential: Fair Overall status at discharge: patient is progressing back to baseline Medical - DS: Qual - VTE Deep Vein Thrombosis/Pulmonary Embolism Present on Admission: No
--- NOTE | 2019-05-10 18:29 | Infectious Disease Prog Note ---
Subjective Patient information: Note initiated : 05/10/19 at 6:06 pm Service Date, if different from initiated Date: [] Patient: Teri Olson 69 y/o F admitted on 05/07/19 for Near Syncope, Chills. Chief Complaint: [] Interval history: Pt feeling well. Denied any symptoms, inc fever, chills, n/v, diarrhea. Discussed the bacteria growing from the blood and plan of treatment. Objective Objective Narrative: ao x 3, in nad no thrush chest cta s1 s2 normal, no m/r/g bs ++, nttd - Vital Signs Vital signs: Vital Signs Temp Pulse Resp BP Pulse Ox 05/10/19 15:35 36.8 C 60 18 140/62 96 05/10/19 12:35 36.6 C 55 L 20 155/66 96 05/10/19 07:50 36.7 C 56 L 20 136/63 93 05/10/19 04:00 36.4 C 57 L 17 150/64 94 05/09/19 23:12 37.2 C 61 18 135/62 96 05/09/19 19:42 36.6 C 62 17 146/64 97 Intake and Output 05/10/19 05/10/19 05/10/19 05:59 13:59 21:59 Intake Total 100 240 440 Balance 100 240 440 Intake: Nourishment/Supplement quantity 240 (ml) Oral 100 240 200 Other: Meal Dinner Percent of Meal Consumed 75% 100% Feeding Ability Independent Independent Nourishment/Supplement name uchero # Voids 1 Intake & Output: Intake & Output 05/10/19 05/10/19 05/10/19 05:59 13:59 21:59 Intake Total 100 240 440 Balance 100 240 440 Intake: Nourishment/Supplement quantity 240 (ml) Oral 100 240 200 Other: Meal Dinner Percent of Meal Consumed 75% 100% Feeding Ability Independent Independent Nourishment/Supplement name sanchez # Voids 1 - Lab 05/10/19 04:13 05/10/19 04:13 Most recent lab results Calcium 7.8 mg/dl (8.6-10.4) L 05/10/19 04:13 Phosphorus 3.7 mg/dL (2.7-4.5) 05/10/19 04:13 Magnesium 2.1 mg/dL (1.6-2.5) 05/10/19 04:13 Microbiology 05/07/19 14:31 Urine - Catheterized Urine Culture - Final Enterobacter cloacae 05/07/19 16:25 Nose - Both Right and Left MRSA (PCR) - Final Medications Active Medications: Acetaminophen (Tylenol) 650 mg PO Q6HP PRN PRN Reason: PAIN/FEVER > 101 Albuterol Sulfate (Ventolin) 2.5 mg NEB Q4HP PRN PRN Reason: Shortness Of Breath Or Wheezin Amlodipine Besylate (Norvasc) 2.5 mg PO QDAY [facility] Admin: 05/10/19 08:52 Dose: 2.5 mg Documented by: Admin: 05/09/19 15:03 Dose: 2.5 mg Documented by: [facility] Admin: 05/09/19 08:47 Dose: Not Given Documented by: [facility] Non-Admin Reason: dialysis Aspirin (Aspirin) 81 mg PO DAILY [facility] Admin: 05/10/19 08:55 Dose: 81 mg Documented by: Admin: 05/09/19 15:03 Dose: 81 mg Documented by: [facility] Admin: 05/09/19 09:25 Dose: Not Given Documented by: [facility] Non-Admin Reason: dialysis [facility] 05/10/19 08:53 Dose: 60 mg Documented by: Admin: 05/09/19 08:09 Dose: 60 mg Documented by: [facility] Clopidogrel Bisulfate (Plavix) 75 mg PO DAILY [facility] Admin: 05/10/19 08:55 Dose: 75 mg Documented by: Admin: 05/09/19 08:46 Dose: 75 mg Documented by: [facility] Dextrose (Dextrose 50%) 0 ml IV UD PRN PRN Reason: Hypoglycemia Diagnostic Test (Pha) (Accu-Chek) 1 each FS ACHS [facility] Admin: 05/10/19 16:56 Dose: 1 each Documented by: Admin: 05/10/19 12:00 Dose: 1 each Documented by: Admin: 05/10/19 07:47 Dose: 1 each Documented by: Admin: 05/09/19 19:43 Dose: 1 each Documented by: Admin: 05/09/19 16:48 Dose: 1 each Documented by: Admin: 05/09/19 11:24 Dose: 1 each Documented by: Admin: 05/09/19 07:40 Dose: 1 each Documented by: Admin: 05/08/19 21:05 Dose: 1 each Documented by: Admin: 05/08/19 16:43 Dose: 1 each Documented by: [email or web address] Admin: 05/08/19 12:00 Dose: 1 each Documented by: [email or web address] Fluoxetine HCl (Prozac) 20 mg PO QDAY [facility] Last Admin: 05/10/19 08:56 Dose: 20 mg Documented by: Admin: 05/09/19 08:46 Dose: 20 mg Documented by: SARAH Furosemide (Lasix) 40 mg PO QDAY [facility] Last Admin: 05/10/19 08:56 Dose: 40 mg Documented by: Admin: 05/09/19 08:46 Dose: 40 mg Documented by: SARAH Glucose (Insta-Glucose) 15 gm PO PRN PRN PRN Reason: Hypoglycemia Heparin Sodium (Porcine) (Heparin) 5,000 unit SQ Q12 [facility] Last Admin: 05/10/19 08:57 Dose: 5,000 unit Documented by: Admin: 05/09/19 21:15 Dose: 5,000 unit Documented by: Admin: 05/09/19 08:45 Dose: 5,000 unit Documented by: Admin: 05/08/19 21:06 Dose: 5,000 unit Documented by: TERRA Insulin Human Lispro (Humalog) 0 unit SQ ACHS [facility]; Protocol Last Admin: 05/10/19 16:56 Dose: Not Given Documented by: KANE Non-Admin Reason: No Coverage Needed Admin: 05/10/19 12:53 Dose: Not Given Documented by: KANE Non-Admin Reason: No Coverage Needed Admin: 05/10/19 07:47 Dose: Not Given Documented by: KANE Non-Admin Reason: No Coverage Needed Admin: 05/09/19 19:44 Dose: Not Given Documented by: JUAN Non-Admin Reason: No Coverage Needed Admin: 05/09/19 16:50 Dose: Not Given Documented by: [email or web address] Non-Admin Reason: No Coverage Needed Admin: 05/09/19 11:24 Dose: Not Given Documented by: SARAH Non-Admin Reason: No Coverage Needed Admin: 05/09/19 07:40 Dose: Not Given Documented by: SARAH Non-Admin Reason: No Coverage Needed Admin: 05/08/19 21:06 Dose: Not Given Documented by: TERRA Non-Admin Reason: No Coverage Needed Admin: 05/08/19 16:43 Dose: Not Given Documented by: [email or web address] Non-Admin Reason: CBG 79 Admin: 05/08/19 11:59 Dose: Not Given Documented by: [id number] Non-Admin Reason: No Coverage Needed Metoprolol Tartrate (Lopressor) 12.5 mg PO BID [facility] Last Admin: 05/10/19 08:56 Dose: 12.5 mg Documented by: Admin: 05/09/19 21:15 Dose: 12.5 mg Documented by: Admin: 05/09/19 09:26 Dose: Not Given Documented by: SARAH Non-Admin Reason: dialysis Admin: 05/08/19 21:02 Dose: 12.5 mg Documented by: TERRA Metronidazole (Flagyl) 500 mg PO Q8H [facility]; Protocol Last Admin: 05/10/19 15:32 Dose: 500 mg Documented by: Admin: 05/10/19 05:59 Dose: 500 mg Documented by: Admin: 05/09/19 21:15 Dose: 500 mg Documented by: Admin: 05/09/19 15:04 Dose: 500 mg Documented by: Admin: 05/09/19 10:12 Dose: Not Given Documented by: SARAH Non-Admin Reason: dialysis Multivit/Ca Carb/B Cmplx/FA/Prenat (Diatx) 0.8 tab PO DAILY [facility] Last Admin: 05/10/19 08:53 Dose: 0.8 tab Documented by: Admin: 05/09/19 08:46 Dose: 0.8 tab Documented by: SARAH Naloxone HCl (Narcan) 0.1 mg IV Q2MIN PRN PRN Reason: Opiate Reversal Ondansetron HCl (Zofran) 4 mg IV Q4HP PRN PRN Reason: Nausea And Vomiting Last Admin: 05/10/19 11:27 Dose: 4 mg Documented by: [email or web address] Sevelamer Carbonate (Renvela) 800 mg PO TIDCC [facility] Last Admin: 05/10/19 17:03 Dose: 800 mg Documented by: Admin: 05/10/19 12:56 Dose: 800 mg Documented by: Admin: 05/10/19 08:52 Dose: 800 mg Documented by: Admin: 05/09/19 17:26 Dose: 800 mg Documented by: Admin: 05/09/19 12:17 Dose: Not Given Documented by: SARAH Non-Admin Reason: no lunch Admin: 05/09/19 08:09 Dose: 800 mg Documented by: Admin: 05/08/19 16:45 Dose: 800 mg Documented by: [email or web address] Admin: 05/08/19 12:03 Dose: 800 mg Documented by: [id number] Simvastatin (Zocor) 20 mg PO HS [facility] Last Admin: 05/09/19 21:15 Dose: 20 mg Documented by: Admin: 05/08/19 21:03 Dose: 20 mg Documented by: [email or web address] Sodium Chloride (Saline Flush) 10 ml IV Q8 [facility] Last Admin: 05/10/19 15:32 Dose: 10 ml Documented by: Admin: 05/10/19 04:14 Dose: 10 ml Documented by: Admin: 05/09/19 21:16 Dose: 10 ml Documented by: Admin: 05/09/19 15:03 Dose: 10 ml Documented by: Admin: 05/09/19 07:40 Dose: 10 ml Documented by: Admin: 05/08/19 21:11 Dose: 10 ml Documented by: [email or web address] Admin: 05/08/19 12:01 Dose: 10 ml Documented by: [email or web address] Assessment and Plan - Narrative A/P Narrative: A: 1. Clostridium ramosum bacteremia: likely source colon (? tumor) or pressure sore on the buttocks. Although the pressure sore is too small to explain bacterial translocation to bloodstream. CT abd/pelvis neg for any suspicious lesion, although colonoscopy is a better diagnostic modality - clinically, no concerns for pneumonia based on symptoms, exam - clinically improved 2. ESRD, on HD through left arm AVF: no concerns for infection 3. Decubitus ulcer near sacral area: seems stage 1 4. Asymptomatic bacteriuria: - Urine cx growing E cloacae Recommendations: - Continue PO Metronidazole 500 mg q8 hrs, day 2. Stop date: 05/23/2019 - Stop IV Cefepime - pressure sore precautions - IN absence of a clear source and neg CT abd/pelvis, consider colonoscopy as outpatient will follow Lamont Aldridge MD Infectious diseases
[2019-05-10] MEDS: SIMVASTATIN 20 MG TABLET PO SCH (20:54)
[2019-05-11] MEDS: 0.9 % SODIUM CHLORIDE 10 ML SYRINGE IV SCH (05:17)
[2019-05-11] MEDS: metroNIDAZOLE 500 MG TABLET PO SCH (05:17)
[2019-05-11] MEDS: INSULIN LISPRO 1 UNIT/0.01 ML UNIT SQ SCH ×2 (07:03→11:40)
[2019-05-11 07:17] LABS: Basophils # (Auto) 0 K/mcL (0.0-0.3); Basophils % (Auto) 0.2 % (0.0-2.0); Eosinophils % (Auto) 8.8 % (0.0-7.0); Hemoglobin 8.6 g/dL (12.0-15.0); Lymphocytes # (Auto) 2.3 K/mcL (1.5-4.8); Lymphocytes % (Auto) 19.4 % (15.5-49.0); Mean Cell Volume 91.1 fL (80.0-100.0); Mean Corpuscular HGB Conc 32.9 g/dL (31.0-36.0); Mean Platelet Volume 7.7 fL (7.4-10.4); Monocytes # (Auto) 1.4 K/mcL (0.1-0.9); Monocytes % (Auto) 11.6 % (1.0-12.0); Platelet Count 321 K/mcL (140-440); RBC 2.86 M/mcL (4.00-5.20); Red Cell Distribution Width 13.8 % (11.5-14.5); WBC 11.8 K/mcL (4.5-11.0)
[2019-05-11 08:14] LABS: ALT/SGPT 12 U/l (0-40); AST/SGOT 18 U/l (0-37); Alkaline Phosphatase 91 U/L (39-117); Bilirubin,Direct < 0.2 mg/dL (0.0-0.3); Bilirubin,Total 0.2 mg/dL (0.0-1.0); Blood Urea Nitrogen 44 mg/dl (8-23); Calcium 7.6 mg/dl (8.6-10.4); Carbon Dioxide 21 mmol/L (22-30); Chloride 96 mmol/L (96-108); Glomerular Filtration Rate 11; Glucose 70 mg/dL (70-105); Lactate Dehydrogenase 211 U/L (94-250); Phosphorous 5.4 mg/dL (2.7-4.5); Triglycerides 96 mg/dl (<150); Uric Acid 3.7 mg/dL (2.5-8.0)
[2019-05-11] MEDS: SEVELAMER 800 MG TABLET PO SCH ×2 (09:57→11:40)
[2019-05-11] MEDS: ASPIRIN 81 MG TAB.CHEW PO SCH (09:58)
[2019-05-11] MEDS: FUROSEMIDE 40 MG TABLET PO SCH (09:58)
[2019-05-11] MEDS: FLUoxetine HCL 20 MG CAPSULE PO SCH (09:58)
[2019-05-11] MEDS: FOLIC ACID/VITAMIN B COMP W-C 1 TAB TABLET PO SCH (09:58)
[2019-05-11] MEDS: CLOPIDOGREL 75 MG TABLET PO SCH (09:58)
[2019-05-11] MEDS: CINACALCET 30 MG TABLET PO SCH (09:59)
[2019-05-11] MEDS: HEPARIN 5,000 UNIT/ML VIAL SQ SCH (09:59)
[2019-05-11] MEDS: amLODIPine 5 MG TABLET PO SCH (09:59)
[2019-05-11] MEDS: METOPROLOL TARTRATE 25 MG TABLET PO SCH (09:59)
--- NOTE | 2019-05-11 17:09 | Infectious Disease Prog Note ---
Subjective Patient information: Note initiated : 05/11/19 at 5:08 pm Service Date, if different from initiated Date: [] Patient: Teri Olson 69 y/o F admitted on 05/07/19 for Near Syncope, Chills. Chief Complaint: [] Interval history: Pt feels fine. Denied any symptoms, inc fever, chills, n/v, diarrhea. Discussed the plan of treatment with 12 more days of PO Metronidazole Objective Objective Narrative: ao x 3, in nad no thrush chest cta s1 s2 normal, no m/r/g bs ++, nttd - Vital Signs Vital signs: Vital Signs Temp Pulse Resp BP Pulse Ox 05/11/19 12:00 37.1 C 53 L 20 147/54 97 05/11/19 07:20 36.8 C 20 123/47 93 05/11/19 07:13 59 L 18 96 05/11/19 04:00 36.7 C 58 L 18 129/60 96 05/11/19 00:00 36.3 C 54 L 20 134/58 96 05/10/19 18:38 37.1 C 62 20 128/57 98 Intake and Output 05/11/19 05/11/19 05/11/19 05:59 13:59 21:59 Intake Total 100 320 Balance 100 320 Intake: Nourishment/Supplement quantity 200 (ml) Oral 100 120 Other: Meal Lunch Percent of Meal Consumed 75% Feeding Ability Independent # Voids 1 Intake & Output: Intake & Output 05/11/19 05/11/19 05/11/19 05:59 13:59 21:59 Intake Total 100 320 Balance 100 320 Intake: Nourishment/Supplement quantity 200 (ml) Oral 100 120 Other: Meal Lunch Percent of Meal Consumed 75% Feeding Ability Independent # Voids 1 - Lab 05/11/19 04:10 05/11/19 04:10 Most recent lab results Calcium 7.6 mg/dl (8.6-10.4) L 05/11/19 04:10 Phosphorus 5.4 mg/dL (2.7-4.5) H 05/11/19 04:10 Magnesium 2.2 mg/dL (1.6-2.5) 05/11/19 04:10 Microbiology 05/07/19 14:31 Urine - Catheterized Urine Culture - Final Enterobacter cloacae 05/07/19 16:25 Nose - Both Right and Left MRSA (PCR) - Final Assessment and Plan - Narrative A/P Narrative: A: 1. Clostridium ramosum and Clostridium butyricum bacteremia: likely source colon (? tumor) or pressure sore on the buttocks. Although the pressure sore is too small to explain bacterial translocation to bloodstream. CT abd/pelvis neg for any suspicious lesion, although colonoscopy is a better diagnostic modality - clinically, no concerns for pneumonia based on symptoms, exam - repeat blood Cx negative - clinically improved 2. ESRD, on HD through left arm AVF: no concerns for infection 3. Decubitus ulcer near sacral area: seems stage 1 4. Asymptomatic bacteriuria: - Urine cx growing E cloacae Recommendations: - Continue PO Metronidazole 500 mg q8 hrs, day 12/28. Stop date: 05/23/2019 - pressure sore precautions - consider colonoscopy as outpatient Lamont Aldridge MD Infectious diseases
== END 2019-05-11 11:50 | DRG 871 ==
LOC: ED 10:57 → ICU 16:12 → ED 16:20 → MEDSUR 05-08 11:43
PROVIDERS: ADMIT Internal Medicine; ATTEND Internal Medicine

== ENCOUNTER 2022-01-07 17:18 | Inpatient (IN) ==
--- NOTE | 2022-01-07 17:20 | Emergency Department Note ---
HPI General Chief complaint: Back Pain/Injury Stated complaint: Back Pain Time Seen by Provider: 01/07/22 17:20 Source: patient Mode of arrival: ambulatory Limitations: no limitations History of Present Illness HPI Narrative: 71-year-old female with past medical history of diabetes and end-stage renal disease on dialysis presenting with persistent mid back pain. Patient was admitted and transferred to [place] in October of this year after being diagnosed with discitis at T3-T6. She was reportedly treated with antibiotics and discharged. She followed up with Dr. Wise of orthopedics last week and had a repeat MRI which still showed some inflammatory changes at T4/T5 concerning for persistent discitis. Patient presents to the ED today for further evaluation. She denies recent falls, fever, numbness, paresthesias, or incontinence. She states she has been compliant with her dialysis and last went yesterday. She is not on anticoagulation. No other complaints at this time. Related Data Home Medications Medication Instructions Recorded Confirmed fluoxetine 20 mg capsule (Prozac) 20 mg PO QDAY 11/19/15 01/08/22 aspirin 81 mg chewable tablet 81 mg PO DAILY 08/28/18 01/08/22 (Elias Chewable Low Dose Aspirin) clopidogrel 75 mg tablet 75 mg PO DAILY 12/15/18 01/08/22 pravastatin 40 mg tablet 40 mg PO DAILY 12/15/18 01/08/22 vitamin B complex-vitamin C-folic 0.8 mg PO HS 12/15/18 01/08/22 acid 0.8 mg tablet acetaminophen 325 mg capsule 650 mg PO Q6HP PRN 05/14/20 01/08/22 miconazole nitrate 2 % topical 1 applic TOPICAL BID 05/14/20 01/08/22 powder albuterol sulfate 90 mcg/actuation 1 - 2 puff CONTINUOUS INHALATION 01/08/22 01/08/22 aerosol inhaler (ProAir HFA) Q4HP PRN amlodipine 5 mg tablet 5 mg PO QDAY 01/08/22 01/08/22 lansoprazole 30 mg capsule,delayed 1 cap PO QDAY 01/08/22 01/08/22 release metoprolol tartrate 25 mg tablet 12.5 mg PO BID 01/08/22 01/08/22 nystatin 100,000 unit/gram topical 1 applic TOPICAL BID 01/08/22 01/08/22 cream Previous Rx's Medication Instructions Recorded sucroferric oxyhydroxide 500 mg 1,000 mg PO TID #180 tab 10/05/21 chewable tablet (Velphoro) Allergies Allergy/AdvReac Type Severity Reaction Status Date / Time codeine Allergy Intermediate Hives Verified 10/21/21 14:53 meperidine [From Demerol] Allergy Intermediate Hives Verified 10/21/21 14:53 gemfibrozil [From Lopid] AdvReac Intermediate Muscle Pain Verified 10/21/21 14:53 ciprofloxacin [From Cipro] AdvReac Mild Nausea Verified 10/21/21 14:53 Review of Systems ROS ROS Narrative: Narrative: Constitutional: Denies fever or chills Eyes: Denies vision change ENT ED: Denies throat pain Cardiovascular: Denies chest pain Respiratory: Denies shortness of breath or cough Gastrointestinal: Denies abdominal pain, nausea, vomiting or diarrhea Genitourinary: Denies incontinence Musculoskeletal: Reports back pain; Denies joint swelling Integumentary: Denies rash Neurological: Denies headache, weakness, numbness, paresthesias or dizziness Psychiatric: Denies anxiety Endocrine: Denies fatigue Hematological/Lymphatic: Denies easy bleeding PFSH Narrative Patient History Narrative: Narrative: Medical/Surgical/Family History All Active Problems (Updated 01/08/22 @ 06:04 by Case Henning MD) Discitis of thoracic region (Acute) Osteomyelitis (Acute) Thoracic discitis (Acute) Vitamin D deficiency (Acute) UTI (urinary tract infection), bacterial (Acute) UTI (urinary tract infection) (Acute) 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 (Acute) Status post insertion of hemodialysis catheter (Acute) SOB (shortness of breath) (Acute) Severe sepsis (Acute) Mechanical complication of arteriovenous fistula surgically created (Acute) Leukocytosis, unspecified (Acute) Fever (Acute) Elevated lactic acid level (Acute) Elevated beta-hydroxybutyrate (Acute) Congestive heart failure (Acute) Compression fracture of body of thoracic vertebra (Acute) Community acquired pneumonia, bilateral (Acute) Clotted dialysis access (Acute) Clostridium difficile infection (Acute) Chronic kidney disease (CKD) (Acute) Change of dressing (Acute) Cellulitis of perineum (Acute) Bilateral pneumonia (Acute) Bartholinitis (Acute) Bacteremia due to coagulase-negative Staphylococcus (Acute) A-V fistula (Acute) Compression fracture of T4 vertebra (Acute) Type 2 diabetes mellitus (Chronic) Renal osteodystrophy (Chronic) Self-care deficit for bathing and hygiene (Chronic) ESRD (end stage renal disease) on dialysis (Chronic) Obesity (BMI 30-39.9) (Chronic) Anemia, chronic renal failure (Chronic) Hypertension, essential (Chronic) Anxiety, generalized (Chronic) Asthma, chronic (Chronic) History of gout (Chronic) Anemia in end-stage renal disease (Chronic) Medical History A-V fistula left upper extremity; for DIALYSIS. Anemia, chronic renal failure Anxiety and depression Anxiety, generalized Asthma Asthma, chronic Bacteremia due to coagulase-negative Staphylococcus Bartholinitis See wound care ordeers Bilateral pneumonia Cellulitis of perineum Cellulitis, leg Change of dressing CHF (congestive heart failure) Chronic kidney disease (CKD) Clostridium difficile infection Clotted dialysis access Community acquired pneumonia, bilateral Compression fracture of body of thoracic vertebra Compression fracture of T4 vertebra T4-T5 Congestive heart failure DM (diabetes mellitus), type 2 with peripheral vascular complications Elevated beta-hydroxybutyrate Elevated lactic acid level Encounter for adjustment or management of vascular access device 05/18/2017-removal of tunneled dialysis catheter. ESRD (end stage renal disease) on dialysis Fever Gout TINEA PEDIS Hallux valgus, acquired History of fracture History of gout Hypercholesterolemia Hypertension Hypertension, essential Hypertensive heart and chronic kidney disease with heart failure and stage 1 through stage 4 chronic kidney disease, or chronic kidney disease Iron deficiency anemia Leukocytosis, unspecified Mechanical complication of arteriovenous fistula surgically created Obesity Obesity (BMI 30-39.9) Onychomycosis PVD Open wound of right buttock Ovarian dysfunction, unspecified Paresthesia of both feet Peripheral edema Pneumonia due to other specified infectious organisms Pressure ulcer, buttock Pulmonary hypostasis PVD (peripheral vascular disease) Renal failure Renal osteodystrophy PTH elevated to 741 vitamin D is 6.52 started on cholecalciferol and calcitriol will monitor the levels RLS (restless legs syndrome) Self-care deficit for bathing and hygiene Severe sepsis SOB (shortness of breath) Tinea pedis Type 2 diabetes mellitus stop metformin given current egfr keep blood glucose log will start meds if indicated last A1C is 5.1 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 UTI (urinary tract infection) UTI (urinary tract infection), bacterial Vitamin D deficiency Surgical History H/O kidney removal Left 2011 S/P bilateral breast reduction 2001 Status post cataract extraction Status post insertion of hemodialysis catheter Family History Mother Alzheimer's disease Father Malignant neoplasm of lung Glaucoma Social History Smoking Status: Never smoker Alcohol Intake Frequency: does not drink Substance Use: does not use Exam Narrative Narrative: Narrative: General Limitations: no limitations General appearance: Present alert and in no apparent distress Head Head: Present atraumatic and normocephalic Eye Eye: Present normal appearance, PERRL and EOMI; Absent scleral icterus or conjunctival injection ENT ENT: Present mucous membranes moist Neck Neck: Present normal inspection, full ROM and trachea midline; Absent tenderness or lymphadenopathy Chest Chest: Present symmetric chest wall rise Respiratory Respiratory: Present normal lung sounds bilaterally; Absent respiratory distress, wheezes, stridor, accessory muscle use or prolonged expiratory phase Cardiovascular Cardiovascular: Present regular rate and normal rhythm; Absent systolic murmur or diastolic murmur Adbominal Abdominal: Present soft; Absent distention, tenderness, guarding, rebound, rigidity, organomegaly or mass Extremities Extremities: Present other (Right upper extremity fistula present); Absent pretibial edema Back Back: Present other (Mild thoracic midline tenderness to palpation without deformity or step-off. No lumbar tenderness.) Neurological Neurological: Present alert, oriented X3 and CN II-XII intact; Absent motor s ensory deficit Expanded Neurological Patient oriented to: Present person, place and time Speech: Present fluid speech; Absent expressive aphasia or dysarthria CRANIAL NERVES: EOM function (II, III, IV, ): Normal, facial sensation (V): Normal, facial palsy (VII): Normal, gag reflex (IX): Normal, spinal accessory function (XI): Normal and tongue deviation (XII): Normal CEREBELLAR FUNCTION: finger to nose: Normal Motor strength - LUE: 5/5 Motor strength - RUE: 5/5 Motor strength - LLE: 5/5 Motor strength - RLE: 5/5 UPPER MOTOR NEURON EXAM: edd neglect: Normal SENSORY EXAM UPPER EXTREMITY: Normal: light touch SENSORY EXAM LOWER EXTREMITY: Normal: light touch Coma Scale Eye Opening: Spontaneous Coma Scale Motor Response: Obeys Commands Coma Scale Verbal Response: Oriented Coma Scale Total: 15 Psychiatric Psychiatric: Present normal affect and normal mood Skin Skin: Present warm (WNL) and dry Course Consultations Consultation #1: Dr. Wise, orthopedics Time: 22:00 Consultation #2: Dr. Lopez, hospitalist Time: 22:45 Vital Signs Vital signs: Vital Signs Temperature 97.2 F 01/07/22 17:18 Pulse Rate 60 01/07/22 17:18 Respiratory Rate 18 01/07/22 17:18 Blood Pressure 123/44 01/07/22 17:18 Pulse Oximetry (%) 100 01/07/22 17:18 Temperature 98.2 F 01/08/22 05:30 Pulse Rate 67 01/08/22 05:30 Respiratory Rate 16 01/08/22 05:30 Blood Pressure 137/55 01/08/22 05:30 Pulse Oximetry (%) 97 01/08/22 05:30 MDM MDM Narrative Medical decision making narrative: 71-year-old female presenting with acute on chronic back pain. Vital signs are stable. Concern for persistent discitis given her MRI last week. No neurologic deficits noted on exam. Labs obtained today which show an elevated CRP to 8.9 and an ESR of 85. Lactate is normal. X-rays of the thoracic spine obtained which show no acute abnormality, per my interpretation. I spoke with Dr. Neal collins of orthopedics who states he cannot rule out continuing discitis. Blood cultures obtained, IV vancomycin and cefepime ordered. Will admit for antibiotics, patient endorsed to Dr. Lopez for admission. Lab Data Lab results reviewed: Yes I reviewed the patient's lab results. Result diagrams: 01/07/22 18:22 01/07/22 18:22 Labs: Lab Results 01/07/22 01/07/22 01/07/22 Range/Units 18:22 18:22 23:30 WBC 17.9 H (4.5-11.0) K/mcL RBC 3.17 L (3.59-5.38) M/mcL Hgb 9.3 L (11.2-15.7) g/dL Hct 30.8 L (34.1-44.9) % MCV 97.2 (80.0-100.0) fL MCH 29.3 (26.0-34.0) pg MCHC 30.2 L (31.0-36.0) g/dL RDW 13.8 (11.5-14.5) % Plt Count 424 (140-440) K/mcL MPV 8.6 (7.4-10.4) fL Neut % (Auto) 61.4 (38.0-78.0) % Lymph % (Auto) 13.0 L (15.5-49.0) % [place] % (Auto) 11.2 (1.0-12.0) % Eos % (Auto) 14.0 H (0.0-7.0) % Baso % (Auto) 0.4 (0.0-2.0) % Lymph # (Auto) 2.32 (1.50-4.80) K/mcL [place] # (Auto) 2.00 H (0.10-0.90) K/mcL Eos # (Auto) 2.50 H (0.00-0.70) K/mcL Baso # (Auto) 0.08 (0.00-0.30) K/mcL Absolute Neutrophils 10.96 H (1.80-8.00) K/mcL ESR 85 H (0-30) mm/hr VBG Lactic Acid 0.6 (0.5-2.0) mmol/L Sodium 136 (133-145) mmol/L Potassium 3.7 (3.3-5.1) mmol/L Chloride 95 L (96-108) mmol/L Carbon Dioxide 29 (22-30) mmol/L Anion Gap 12.0 (8.0-16.0) BUN 15 (8-23) mg/dL Creatinine 3.5 H (0.6-1.1) mg/dL GFR Calculation 12 Glucose 77 (70-105) mg/dL Calcium 10.0 (8.6-10.4) mg/dL Total Bilirubin 0.2 (0.1-1.0) mg/dL AST 15 (<32) U/L ALT 9 (<40) U/L Alkaline Phosphatase 123 H (39-117) U/L C-Reactive Protein 8.90 H (0.03-0.80) mg/dL Total Protein 6.3 (5.9-8.4) gm/dL Albumin 3.2 (3.2-5.2) gm/dL Globulin 3.1 (2.2-3.7) gm/dL Albumin/Globulin Ratio 1.0 (1.0-2.3) Radiology Data Radiology results reviewed: Yes I reviewed the patient's radiology results. Radiology results narrative: X-ray thoracic spine: No acute abnormality, per my interpretation. Discharge Plan Patient/Caregiver Discharge Instructions Pt seen by SYSTEMS PROGRAMMER/PA only: No Clinical Impression: Thoracic discitis Patient Disposition: Xfer As Inpt ([facility]) Condition: Good Discharge Date/Time: 01/08/22 00:42 Discharge Location: [facility] Inpatient Discharge Comment: to [facility].
[2022-01-07 18:58] LABS: Basophils # (Auto) 0.08 K/mcL (0.00-0.30); Basophils % (Auto) 0.4 % (0.0-2.0); Hematocrit 30.8 % (34.1-44.9); Hemoglobin 9.3 g/dL (11.2-15.7); Lymphocytes # (Auto) 2.32 K/mcL (1.50-4.80); Mean Cell Volume 97.2 fL (80.0-100.0); Mean Corpuscular HGB Conc 30.2 g/dL (31.0-36.0); Mean Platelet Volume 8.6 fL (7.4-10.4); Monocytes % (Auto) 11.2 % (1.0-12.0); Neutrophils % (Auto) 61.4 % (38.0-78.0); Platelet Count 424 K/mcL (140-440); RBC 3.17 M/mcL (3.59-5.38); Red Cell Distribution Width 13.8 % (11.5-14.5); WBC 17.9 K/mcL (4.5-11.0)
[2022-01-07 19:08] LABS: ALT/SGPT 9 U/L (<40); AST/SGOT 15 U/L (<32); Albumin 3.2 gm/dL (3.2-5.2); Alkaline Phosphatase 123 U/L (39-117); Bilirubin,Total 0.2 mg/dL (0.1-1.0); Blood Urea Nitrogen 15 mg/dL (8-23); Carbon Dioxide 29 mmol/L (22-30); Chloride 95 mmol/L (96-108); Globulin 3.1 gm/dL (2.2-3.7); Glomerular Filtration Rate 12; Glucose 77 mg/dL (70-105)
[2022-01-07 19:15] LABS: Erythrocyte Sedimentation Rate 85 mm/hr (0-30)
[2022-01-07] MEDS ORDERED: VANCOMYCIN 1,000 MG in 0.9 % SODIUM CHLORIDE 250 ML IV ONE (22:07)
[2022-01-07] MEDS ORDERED: CEFEPIME 1 GM VIAL IV ONE (22:07)
[2022-01-07] MEDS ORDERED: oxyCODONE HCL 5 MG TABLET PO PRN (22:45)
[2022-01-07] MEDS ORDERED: ONDANSETRON 4 MG/2 ML VIAL IV PRN (22:45)
[2022-01-07] MEDS ORDERED: NON FORMULARY MEDICATION 1 DOSE MISCELL (Acetaminophen 325 mg capsule) PO PRN (22:50)
[2022-01-07] MEDS ORDERED: CALCITRIOL 0.25 MCG CAPSULE PO SCH (23:00)
[2022-01-08] MEDS: 0.9 % SODIUM CHLORIDE 10 ML SYRINGE IV SCH ×3 (05:16→21:26)
[2022-01-08 07:03] LABS: Blood Urea Nitrogen 19 mg/dL (8-23); Carbon Dioxide 27 mmol/L (22-30); Chloride 96 mmol/L (96-108); Glomerular Filtration Rate 11; Glucose 66 mg/dL (70-105)
[2022-01-08 07:07] LABS: Basophils # (Auto) 0.07 K/mcL (0.00-0.30); Basophils % (Auto) 0.4 % (0.0-2.0); Eosinophils # (Auto) 2.94 K/mcL (0.00-0.70); Eosinophils % (Auto) 17.1 % (0.0-7.0); Hematocrit 28.1 % (34.1-44.9); Hemoglobin 8.6 g/dL (11.2-15.7); Lymphocytes % (Auto) 13.3 % (15.5-49.0); Mean Cell Volume 94.9 fL (80.0-100.0); Mean Corpuscular HGB Conc 30.6 g/dL (31.0-36.0); Mean Platelet Volume 8.7 fL (7.4-10.4); Monocytes # (Auto) 1.91 K/mcL (0.10-0.90); Monocytes % (Auto) 11.1 % (1.0-12.0); Neutrophils % (Auto) 58.1 % (38.0-78.0); Platelet Count 431 K/mcL (140-440); RBC 2.96 M/mcL (3.59-5.38); Red Cell Distribution Width 13.8 % (11.5-14.5); WBC 17.2 K/mcL (4.5-11.0)
--- NOTE | 2022-01-08 07:46 | XRay Report ---
HISTORY: Fell with new back pain, recently diagnosed discitis and compression fractures at T4-5 FINDINGS: A severe biconcave wedge compression fracture is present at T4 and there is a moderate compression fracture involving the superior endplate of T5. These have remained stable since the recent MRI done on 01/01/22. No new fracture has developed. There is arthritis throughout the mid and lower thoracic spine with disc space narrowing and spur formation at all levels. IMPRESSION: Stable compression fractures at T4 and T5 No change since 01/01/22 Interpreted and Authenticated by: Michael Orosco 01/08/22
[2022-01-08] MEDS ORDERED: ALBUTEROL SULFATE 200 PUFF INHALER INH PRN (08:18)
--- NOTE | 2022-01-08 08:55 | Internal Med History&Physical ---
HPI History of Present Illness Patient information: Note initiated : 01/08/22 at 8:22 am Service Date, if different from initiated Date: [] Patient: Teri Olson a 71 y/o F admitted on 01/08/22 for Back Pain. Chief Complaint: [] Chief complaint: Chronic back pain History of present illness: Ms. Olson is a 71 year old F with past medical history of discitis in T3-6 region, for which she was treated in [place], [place] from October to November 2021. Her other history consists of end-stage renal disease on hemodialysis (Tuesday schedule), type 2 diabetes, congestive heart failure, chronic respiratory failure (2 to 3 L of oxygen per minute at home) hypertension. For her discitis, patient recalls being treated with 8 weeks of IV antibiotics, 1 of which was IV vancomycin. She does not remember the name of the second antibiotic. She recalls that the orthopedic surgeons debated whether or not to intervene at that time. Ultimately, it seemed that they chose to opt for nonsurgical intervention. She followed up with Dr. Wise, orthopedic surgeon a week ago. MRI of her thoracic spine showed persistent disc osteomyelitis of T4-T5 vertebrae. There is also localized paraspinal phlegmon at this level. This is a delayed note entry. I saw the patient on January 07 around 11 PM in the emergency room. Unable to write H&P due to gravity meter observer update. She denied any new symptoms. Compared to her previous back pain ((around Oct 2021) currently she felt at ease and did not endorse any significant back pain. No tingling or numbness in the lower extremities. No changes to her bowel or bladder movements. She is able to move effortlessly. No fevers, chills, night sweats. Constitutional Constitutional: Absent anorexia, chills, fatigue, fever(s), headache(s), lethargy, malaise or night sweats Cardiovascular Cardiovascular: Absent chest pain, chest pain at rest, diaphoresis, irregular h eart rhythm or lightheadedness Respiratory Respiratory: Absent hemoptysis, wheezing or excessive phlegm production Gastrointestinal Gastrointestinal: Absent diarrhea, hematemesis, melena, nausea or vomiting Genitourinary Genitourinary: Absent dysuria Neurological Neurological: Absent abnormal gait, abnormal speech, confusion, dizziness or headache(s) PFSH PFSH All Active Problems (Updated 01/08/22 @ 08:54 by Vanesa Lopez MD) Chronic respiratory failure (Acute) Discitis of thoracic region (Acute) Osteomyelitis (Acute) Thoracic discitis (Acute) Vitamin D deficiency (Acute) UTI (urinary tract infection), bacterial (Acute) UTI (urinary tract infection) (Acute) 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 (Acute) Status post insertion of hemodialysis catheter (Acute) SOB (shortness of breath) (Acute) Severe sepsis (Acute) Mechanical complication of arteriovenous fistula surgically created (Acute) Leukocytosis, unspecified (Acute) Fever (Acute) Elevated lactic acid level (Acute) Elevated beta-hydroxybutyrate (Acute) Congestive heart failure (Acute) Compression fracture of body of thoracic vertebra (Acute) Community acquired pneumonia, bilateral (Acute) Clotted dialysis access (Acute) Clostridium difficile infection (Acute) Chronic kidney disease (CKD) (Acute) Change of dressing (Acute) Cellulitis of perineum (Acute) Bilateral pneumonia (Acute) Bartholinitis (Acute) Bacteremia due to coagulase-negative Staphylococcus (Acute) A-V fistula (Acute) Compression fracture of T4 vertebra (Acute) Type 2 diabetes mellitus (Chronic) Renal osteodystrophy (Chronic) Self-care deficit for bathing and hygiene (Chronic) ESRD (end stage renal disease) on dialysis (Chronic) Obesity (BMI 30-39.9) (Chronic) Anemia, chronic renal failure (Chronic) Hypertension, essential (Chronic) Anxiety, generalized (Chronic) Asthma, chronic (Chronic) History of gout (Chronic) Anemia in end-stage renal disease (Chronic) Medical History A-V fistula left upper extremity; for DIALYSIS. Anemia, chronic renal failure Anxiety and depression Anxiety, generalized Asthma Asthma, chronic Bacteremia due to coagulase-negative Staphylococcus Bartholinitis See wound care ordeers Bilateral pneumonia Cellulitis of perineum Cellulitis, leg Change of dressing CHF (congestive heart failure) Chronic kidney disease (CKD) Clostridium difficile infection Clotted dialysis access Community acquired pneumonia, bilateral Compression fracture of body of thoracic vertebra Compression fracture of T4 vertebra T4-T5 Congestive heart failure DM (diabetes mellitus), type 2 with peripheral vascular complications Elevated beta-hydroxybutyrate Elevated lactic acid level Encounter for adjustment or management of vascular access device 05/18/2017-removal of tunneled dialysis catheter. ESRD (end stage renal disease) on dialysis Fever Gout TINEA PEDIS Hallux valgus, acquired History of fracture History of gout Hypercholesterolemia Hypertension Hypertension, essential Hypertensive heart and chronic kidney disease with heart failure and stage 1 through stage 4 chronic kidney disease, or chronic kidney disease Iron deficiency anemia Leukocytosis, unspecified Mechanical complication of arteriovenous fistula surgically created Obesity Obesity (BMI 30-39.9) Onychomycosis PVD Open wound of right buttock Ovarian dysfunction, unspecified Paresthesia of both feet Peripheral edema Pneumonia due to other specified infectious organisms Pressure ulcer, buttock Pulmonary hypostasis PVD (peripheral vascular disease) Renal failure Renal osteodystrophy PTH elevated to 741 vitamin D is 6.52 started on cholecalciferol and calcitriol will monitor the levels RLS (restless legs syndrome) Self-care deficit for bathing and hygiene Severe sepsis SOB (shortness of breath) Tinea pedis Type 2 diabetes mellitus stop metformin given current egfr keep blood glucose log will start meds if indicated last A1C is 5.1 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 UTI (urinary tract infection) UTI (urinary tract infection), bacterial Vitamin D deficiency Surgical History H/O kidney removal Left 2011 S/P bilateral breast reduction 2000 Status post cataract extraction Status post insertion of hemodialysis catheter Family History Mother Alzheimer's disease Father Malignant neoplasm of lung Glaucoma Social History caregiver/support person: Yes household members: caregiver marital status: single occupational status: employed alcohol intake frequency: does not drink substance use type: does not use MEDS/ALLERGIES Home Medications and Allergies Home Medications Medication Instructions Recorded Confirmed Type fluoxetine 20 mg capsule (Prozac) 20 mg PO QDAY 11/19/15 01/08/22 History aspirin 81 mg chewable tablet 81 mg PO DAILY 08/28/18 01/08/22 History (Elias Chewable Low Dose Aspirin) clopidogrel 75 mg tablet 75 mg PO DAILY 12/15/18 01/08/22 History pravastatin 40 mg tablet 40 mg PO DAILY 12/15/18 01/08/22 History vitamin B complex-vitamin C-folic 0.8 mg PO HS 12/15/18 01/08/22 History acid 0.8 mg tablet acetaminophen 325 mg capsule 650 mg PO Q6HP PRN 05/14/20 01/08/22 History miconazole nitrate 2 % topical 1 applic TOPICAL BID 05/14/20 01/08/22 History powder sucroferric oxyhydroxide 500 mg 1,000 mg PO TID #180 tab 10/05/21 01/08/22 Rx chewable tablet (Velphoro) albuterol sulfate 90 mcg/actuation 1 - 2 puff CONTINUOUS INHALATION 01/08/22 01/08/22 History aerosol inhaler (ProAir HFA) Q4HP PRN amlodipine 5 mg tablet 5 mg PO QDAY 01/08/22 01/08/22 History lansoprazole 30 mg capsule,delayed 1 cap PO QDAY 01/08/22 01/08/22 History release metoprolol tartrate 25 mg tablet 12.5 mg PO BID 01/08/22 01/08/22 History nystatin 100,000 unit/gram topical 1 applic TOPICAL BID 01/08/22 01/08/22 History cream Allergies Allergy/AdvReac Type Severity Reaction Status Date / Time codeine Allergy Intermediate Hives Verified 10/21/21 14:53 meperidine [From Demerol] Allergy Intermediate Hives Verified 10/21/21 14:53 gemfibrozil [From Lopid] AdvReac Intermediate Muscle Pain Verified 10/21/21 14:53 ciprofloxacin [From Cipro] AdvReac Mild Nausea Verified 10/21/21 14:53 EXAM Constitutional Vitals: Temp Pulse Resp BP Pulse Ox 98.2 F 67 16 137/55 97 01/08/22 05:30 01/08/22 05:30 01/08/22 05:30 01/08/22 05:30 01/08/22 05:30 General appearance: average body habitus, cooperative and no acute distress Head Head exam: Present atraumatic and normocephalic Eye Eye exam: Present normal appearance ENT ENT exam: Present mucous membranes moist Respiratory Respiratory exam: Present normal respiratory exam and CTAB; Absent accessory muscle use, rales, respiratory distress, stridor or wheezes Cardiovascular Cardiovascular exam: Present normal rate and rhythm and RRR; Absent bradycardia, diastolic murmur, gallop, irregular rhythm or rubs GI/Abdominal GI/Abdominal exam: Present normal bowel sounds and soft; Absent distended, guarding or rebound Expanded Lower Extremity Exam Hip exam: Present normal inspection; Absent swelling Back Exam Back exam: Present normal inspection; Absent CVA tenderness (L), CVA tenderness (R), paraspinal tenderness or vertebral tenderness Neurological Exam Neurological exam: Present alert and oriented X3; Absent abnormal gait or motor sensory deficit DATA Data Completed and Pending Labs: Labs from last 24 hours 01/08/22 01/08/22 01/07/22 05:23 05:23 23:30 WBC 17.2 H RBC 2.96 L Hgb 8.6 L Hct 28.1 L MCV 94.9 MCH 29.1 MCHC 30.6 L RDW 13.8 Plt Count 431 MPV 8.7 Neut % (Auto) 58.1 Lymph % (Auto) 13.3 L Yell % (Auto) 11.1 Eos % (Auto) 17.1 H Baso % (Auto) 0.4 Lymph # (Auto) 2.30 Yell # (Auto) 1.91 H Eos # (Auto) 2.94 H Baso # (Auto) 0.07 Absolute Neutrophils 10.02 H ESR VBG Lactic Acid 0.6 Sodium 135 Potassium 3.5 Chloride 96 Carbon Dioxide 27 Anion Gap 12.0 BUN 19 Creatinine 3.9 H GFR Calculation 11 Glucose 66 L Calcium 10.0 Total Bilirubin AST ALT Alkaline Phosphatase C-Reactive Protein Total Protein Albumin Globulin Albumin/Globulin Ratio 01/07/22 01/07/22 18:22 18:22 WBC 17.9 H RBC 3.17 L Hgb 9.3 L Hct 30.8 L MCV 97.2 MCH 29.3 MCHC 30.2 L RDW 13.8 Plt Count 424 MPV 8.6 Neut % (Auto) 61.4 Lymph % (Auto) 13.0 L Yell % (Auto) 11.2 Eos % (Auto) 14.0 H Baso % (Auto) 0.4 Lymph # (Auto) 2.32 Yell # (Auto) 2.00 H Eos # (Auto) 2.50 H Baso # (Auto) 0.08 Absolute Neutrophils 10.96 H ESR 85 H VBG Lactic Acid Sodium 136 Potassium 3.7 Chloride 95 L Carbon Dioxide 29 Anion Gap 12.0 BUN 15 Creatinine 3.5 H GFR Calculation 12 Glucose 77 Calcium 10.0 Total Bilirubin 0.2 AST 15 ALT 9 Alkaline Phosphatase 123 H C-Reactive Protein 8.90 H Total Protein 6.3 Albumin 3.2 Globulin 3.1 Albumin/Globulin Ratio 1.0 A/P Assessment and plan (1) Discitis of thoracic region: Assessment and plan: Based on MRI a week ago, she seems to be having some persistent discitis and T4- 5 area. She has completed 8 weeks of IV antibiotics (1 of which was IV vancomycin, she does not recall the name of the other antibiotic) she does not recall the name of the hospital that she received treatment in [place], [place]. I called the facility and requested medical records. ([facility]) We obtained 2 sets of blood cultures in the emergency room. She has some elev ation of ESR and CRP. Consulted Dr. Wise for further recommendations Started on IV vancomycin and cefepime. Status: Acute (2) 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: Status: Acute Comment: Her last 2 hemoglobin A1c's were 4.7 in 2019 and 5.3 in 2018. Repeat A1c ordered for tomorrow morning. (3) Chronic respiratory failure: Assessment and plan: Wears home oxygen 2 to 3 L/min. Currently at baseline. Ordered chest x-ray. Status: Acute (4) Hypertension, essential: Assessment and plan: Resume amlodipine 5 mg daily and metoprolol 12.5 milligrams twice daily. Blood pressure at goal at this time. Status: Chronic (5) ESRD (end stage renal disease) on dialysis: Assessment and plan: Discussed with lan/wan engineer and we have resumed inpatient hemodialysis at this time. Resumed VELPHORO and calcitriol Resume multivitamin Resumed cinacalcet 30 mg daily Resumed Lasix 40 mg daily Resumed vitamin D3 avoid nephrotoxic agents. Status: Chronic Time Spent With Patient Time: Total time spent is greater than 50% in coordination of care (as documented) at patient's floor/unit and/or counseling patient: Total time spent with greater than 50% in coordination of care (as documented) at patient's floor/unit and/or counseling patient:: 50 - 70 minutes Critical Care Time: No QUALITY VTE Deep Vein Thrombosis/Pulmonary Embolism Present on Admission: No
[2022-01-08] MEDS ORDERED: ENOXAPARIN 40 MG/0.4 ML SYRINGE SQ SCH (09:00)
--- NOTE | 2022-01-08 09:08 | Internal Med Progress Note ---
SUBJECTIVE Subjective Patient information: Note initiated : 01/08/22 at 9:02 am Service Date, if different from initiated Date: [] Patient: Teri Olson a 71 y/o F admitted on 01/08/22 for Back Pain. Chief Complaint: [] Principal diagnosis: Discitis of T4-T5 vertebra. Interval history: Ms. Olson is a 71 year old F with past medical history of discitis in T3-6 region, for which she was treated in [place], [place] from October to November 2021. Her other history consists of end-stage renal disease on hemodialysis (Tuesday schedule), type 2 diabetes, congestive heart failure, chronic respiratory failure (2 to 3 L of oxygen per minute at home) hypertension. For her discitis, patient recalls being treated with 8 weeks of IV antibiotics, 1 of which was IV vancomycin. She does not remember the name of the second antibiotic. She recalls that the orthopedic surgeons debated whether or not to intervene at that time. Ultimately, it seemed that they chose to opt for nonsurgical intervention. She followed up with Dr. Wise, orthopedic surgeon a week ago. MRI of her thoracic spine showed persistent disc osteomyelitis of T4-T5 vertebrae. There is also localized paraspinal phlegmon at this level. 01/08-she continues to do well. Endorses no new symptoms or complaints. No new back pain. Comfortable and getting dialysis. Constitutional Vitals: Vital Signs Temp Pulse Resp BP Pulse Ox 98.2 F 67 16 137/55 97 01/08/22 05:30 01/08/22 05:30 01/08/22 05:30 01/08/22 05:30 01/08/22 05:30 Period Temp Pulse Resp BP Sys/Barnard Pulse Ox Last 24 Hr 97.2 F-98.8 F 50-101 16-19 112-139/43-63 90-100 Intake and Output 01/07/22 01/08/22 01/08/22 21:59 05:59 13:59 Intake Total 250 Balance 250 Weight 69.853 kg 74.707 kg Intake & Output: Intake & Output 01/07/22 01/08/22 01/08/22 21:59 05:59 13:59 Intake Total 250 Balance 250 Weight 69.853 kg 74.707 kg Intake: IV 250 Vancomycin 1,000 mg In Sodium 250 Chloride 0.9% 250 ml @ 250 mls/ hr IV ONCE ONE Rx#:[id number] General appearance: average body habitus, cooperative and no acute distress Head Head exam: Present atraumatic and normocephalic Eye Eye exam: Present normal appearance Respiratory Respiratory exam: Present normal respiratory exam and CTAB; Absent accessory muscle use, decreased breath sounds or respiratory distress Cardiovascular Cardiovascular exam: Present normal rate and rhythm and RRR; Absent bradycardia, gallop, systolic murmur or tachycardia GI/Abdominal GI/Abdominal exam: Present soft Neurological Exam Neurological exam: Present alert and oriented X3; Absent altered or motor sens ory deficit OBJ DATA Labs CBC & Chem 7: 01/08/22 05:23 01/08/22 05:23 Labs: Abnormal Lab Results 01/08/22 01/08/22 01/07/22 05:23 05:23 18:22 WBC 17.2 H RBC 2.96 L Hgb 8.6 L Hct 28.1 L MCHC 30.6 L Lymph % (Auto) 13.3 L Eos % (Auto) 17.1 H [place] # (Auto) 1.91 H Eos # (Auto) 2.94 H Absolute Neutrophils 10.02 H ESR Chloride 95 L Creatinine 3.9 H 3.5 H Glucose 66 L Alkaline Phosphatase 123 H C-Reactive Protein 8.90 H 01/07/22 18:22 WBC 17.9 H RBC 3.17 L Hgb 9.3 L Hct 30.8 L MCHC 30.2 L Lymph % (Auto) 13.0 L Eos % (Auto) 14.0 H [place] # (Auto) 2.00 H Eos # (Auto) 2.50 H Absolute Neutrophils 10.96 H ESR 85 H Chloride Creatinine Glucose Alkaline Phosphatase C-Reactive Protein Meds: Medications Acetaminophen (Acetaminophen 325 Mg Tablet) 650 mg PO Q6HP PRN; Protocol PRN Reason: Per Pain Protocol/Fever > 101 Albuterol Sulfate (Albuterol Sulfate 200 Puff Inhaler) 1 - 2 puff INH Q4HP PRN PRN Reason: Shortness Of Breath Or Wheezing Amlodipine Besylate (Amlodipine 10 Mg Tablet) 5 mg PO BID [facility] Aspirin (Aspirin 81 Mg Tab.Chew) 81 mg PO DAILY [facility] Atorvastatin Calcium (Atorvastatin 10 Mg Tablet) 10 mg PO DAILY [facility] Calcitriol (Calcitriol 0.25 Mcg Capsule) 0.75 mcg PO MoWeFr@1200 [facility] Clopidogrel Bisulfate (Clopidogrel 75 Mg Tablet) 75 mg PO DAILY [facility] Docusate Sodium (Docusate Sodium 100 Mg Capsule) 100 mg PO BID [facility] Fluoxetine HCl (Fluoxetine Hcl 20 Mg Capsule) 20 mg PO QDAY [facility] Heparin Sodium (Porcine) (Heparin 5,000 Unit/Ml Vial) 5,000 unit SQ Q12 [facility] Metoprolol Tartrate (Metoprolol Tartrate 25 Mg Tablet) 12.5 mg PO BID [facility] Nystatin (Nystatin Crm 1 Dose Tube) 1 dose TOPICAL BID [facility] Ondansetron HCl (Ondansetron 4 Mg/2 Ml Vial) 4 mg IV Q6HP PRN PRN Reason: Nausea And Vomiting Oxycodone HCl (Oxycodone Hcl 5 Mg Tablet) 5 mg PO Q4HP PRN; Protocol PRN Reason: Per Pain Protocol Pantoprazole Sodium (Pantoprazole 40 Mg Tablet) 40 mg PO QAMAC [facility] Sucroferric Oxyhydroxide [ Velphoro] 500 Mg Tablet 1 dose PO TIDCC [facility] Senna (Sennosides 1 Tablet) 2 tab PO HS [facility] Sodium Chloride (0.9 % Sodium Chloride 10 Ml Syringe) 10 ml IV Q8 [facility] Last Admin: 01/08/22 05:16 Dose: Not Given Documented by: Vitamin B Complex (Vitamin B Complex 1 Capsule) 1 cap PO DAILY [facility] A/P Assessment and plan (1) Discitis of thoracic region: Assessment and plan: Based on MRI a week ago, she seems to be having some persistent discitis and T4- 5 area. She has completed 8 weeks of IV antibiotics (1 of which was IV vancomycin, she does not recall the name of the other antibiotic) she does not recall the name of the hospital that she received treatment in [place], [place]. I called the facility and requested medical records. ([facility]) We obtained 2 sets of blood cultures in the emergency room. She has some elevation of ESR and CRP. Consulted Dr. Wise for further recommendations Started on IV vancomycin and cefepime.-Day 1 (started on 2021) Status: Acute (2) 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: Status: Acute Comment: Her last 2 hemoglobin A1c's were 4.7 in 2019 and 5.3 in 2018. Repeat A1c ordered for tomorrow morning. (3) Chronic respiratory failure: Assessment and plan: Wears home oxygen 2 to 3 L/min. Currently at baseline. Ordered chest x-ray. Status: Acute (4) Hypertension, essential: Assessment and plan: Resume amlodipine 5 mg daily and metoprolol 12.5 milligrams twice daily. Blood pressure at goal at this time. Status: Chronic (5) ESRD (end stage renal disease) on dialysis: Assessment and plan: Discussed with press machine operator and we have resumed inpatient hemodialysis at this t carly. Resumed VELPHORO and calcitriol Resume multivitamin Resumed cinacalcet 30 mg daily Resumed Lasix 40 mg daily Resumed vitamin D3 avoid nephrotoxic agents. Status: Chronic Narrative A/P Narrative: Resume her home medications of aspirin 81 mg daily and Plavix 75 mg daily. Resume fluoxetine. Resumed pantoprazole and as needed albuterol. VTE prophylaxis-on subcutaneous heparin twice daily. Time Spent With Patient Time: Total time spent is greater than 50% in coordination of care (as documented) at patient's floor/unit and/or counseling patient: Total time spent with greater than 50% in coordination of care (as documented) at patient's floor/unit and/or counseling patient:: 15 - 24 minutes Critical Care Time: No QUALITY VTE Deep Vein Thrombosis/Pulmonary Embolism Present on Admission: No
--- NOTE | 2022-01-08 09:15 | Nephrology Consult Note ---
HPI Data of Consult Patient: known to practice within the last 3 years Consult date: 01/08/22 Requesting physician: Vanesa Lopez Primary Care Provider: Apolonia Fernando Consult Narrative Chief complaint: Back pain Reason for consult: End stage renal disease on hemodialysis History of present illness: Teri Olson is a 71-year-old female with end stage renal disease on hemodialysis, chronic anemia due to ESRD, hypertension, diabetes mellitus type 2 admitted on 01/08/22. She was presented to ED for back pain. She was diagnosed with discitis at T3- T6. In ED, her workup was significant for ESR 85 and WBC 17.2, She was admitted for further management. Nephrology consultation was requested for end stage renal disease. cc:: CC: Vanesa Lopez MD Constitutional Constitutional: Present weakness; Absent fever(s) EENT Nose, mouth and throat: Absent nasal congestion or sore throat Cardiovascular Cardiovascular: Absent chest pain or palpatations Respiratory Respiratory: Absent cough or dyspnea Gastrointestinal Gastrointestinal: Absent abdominal pain or diarrhea Genitourinary Genitourinary: Absent dysuria or hematuria Musculoskeletal Musculoskeletal: Present back pain Integumentary Integumentary: Absent rash or wounds Neurological Neurological: Absent confusion or headache(s) Psychiatric Psychiatric: Absent anxiety or panic attacks Hematologic/Lymphatic Hematologic/Lymphatic: Absent easy bleeding Allergic/Immunologic Allergic/Immunologic: Absent tongue swelling or uticaria PFSH PFSH All Active Problems (Updated 01/08/22 @ 08:54 by Vanesa Lopez MD) Chronic respiratory failure (Acute) Discitis of thoracic region (Acute) Osteomyelitis (Acute) Thoracic discitis (Acute) Vitamin D deficiency (Acute) UTI (urinary tract infection), bacterial (Acute) UTI (urinary tract infection) (Acute) 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 (Acute) Status post insertion of hemodialysis catheter (Acute) SOB (shortness of breath) (Acute) Severe sepsis (Acute) Mechanical complication of arteriovenous fistula surgically created (Acute) Leukocytosis, unspecified (Acute) Fever (Acute) Elevated lactic acid level (Acute) Elevated beta-hydroxybutyrate (Acute) Congestive heart failure (Acute) Compression fracture of body of thoracic vertebra (Acute) Community acquired pneumonia, bilateral (Acute) Clotted dialysis access (Acute) Clostridium difficile infection (Acute) Chronic kidney disease (CKD) (Acute) Change of dressing (Acute) Cellulitis of perineum (Acute) Bilateral pneumonia (Acute) Bartholinitis (Acute) Bacteremia due to coagulase-negative Staphylococcus (Acute) A-V fistula (Acute) Compression fracture of T4 vertebra (Acute) Type 2 diabetes mellitus (Chronic) Renal osteodystrophy (Chronic) Self-care deficit for bathing and hygiene (Chronic) ESRD (end stage renal disease) on dialysis (Chronic) Obesity (BMI 30-39.9) (Chronic) Anemia, chronic renal failure (Chronic) Hypertension, essential (Chronic) Anxiety, generalized (Chronic) Asthma, chronic (Chronic) History of gout (Chronic) Anemia in end-stage renal disease (Chronic) Medical History A-V fistula left upper extremity; for DIALYSIS. Anemia, chronic renal failure Anxiety and depression Anxiety, generalized Asthma Asthma, chronic Bacteremia due to coagulase-negative Staphylococcus Bartholinitis See wound care ordeers Bilateral pneumonia Cellulitis of perineum Cellulitis, leg Change of dressing CHF (congestive heart failure) Chronic kidney disease (CKD) Clostridium difficile infection Clotted dialysis access Community acquired pneumonia, bilateral Compression fracture of body of thoracic vertebra Compression fracture of T4 vertebra T4-T5 Congestive heart failure DM (diabetes mellitus), type 2 with peripheral vascular complications Elevated beta-hydroxybutyrate Elevated lactic acid level Encounter for adjustment or management of vascular access device 05/18/2017-removal of tunneled dialysis catheter. ESRD (end stage renal disease) on dialysis Fever Gout TINEA PEDIS Hallux valgus, acquired History of fracture History of gout Hypercholesterolemia Hypertension Hypertension, essential Hypertensive heart and chronic kidney disease with heart failure and stage 1 through stage 4 chronic kidney disease, or chronic kidney disease Iron deficiency anemia Leukocytosis, unspecified Mechanical complication of arteriovenous fistula surgically created Obesity Obesity (BMI 30-39.9) Onychomycosis PVD Open wound of right buttock Ovarian dysfunction, unspecified Paresthesia of both feet Peripheral edema Pneumonia due to other specified infectious organisms Pressure ulcer, buttock Pulmonary hypostasis PVD (peripheral vascular disease) Renal failure Renal osteodystrophy PTH elevated to 741 vitamin D is 6.52 started on cholecalciferol and calcitriol will monitor the levels RLS (restless legs syndrome) Self-care deficit for bathing and hygiene Severe sepsis SOB (shortness of breath) Tinea pedis Type 2 diabetes mellitus stop metformin given current egfr keep blood glucose log will start meds if indicated last A1C is 5.1 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 UTI (urinary tract infection) UTI (urinary tract infection), bacterial Vitamin D deficiency Surgical History H/O kidney removal Left 2011 S/P bilateral breast reduction 2000 Status post cataract extraction Status post insertion of hemodialysis catheter Family History Mother Alzheimer's disease Father Malignant neoplasm of lung Glaucoma Social History caregiver/support person: Yes household members: caregiver marital status: single occupational status: employed alcohol intake frequency: does not drink substance use type: does not use MEDS/ALLERGIES Home Medications and Allergies Home Medications Medication Instructions Recorded Confirmed Type fluoxetine 20 mg capsule (Prozac) 20 mg PO QDAY 11/19/15 01/08/22 History aspirin 81 mg chewable tablet 81 mg PO DAILY 08/28/18 01/08/22 History (Elias Chewable Low Dose Aspirin) clopidogrel 75 mg tablet 75 mg PO DAILY 12/15/18 01/08/22 History pravastatin 40 mg tablet 40 mg PO DAILY 12/15/18 01/08/22 History vitamin B complex-vitamin C-folic 0.8 mg PO HS 12/15/18 01/08/22 History acid 0.8 mg tablet acetaminophen 325 mg capsule 650 mg PO Q6HP PRN 05/14/20 01/08/22 History miconazole nitrate 2 % topical 1 applic TOPICAL BID 05/14/20 01/08/22 History powder sucroferric oxyhydroxide 500 mg 1,000 mg PO TID #180 tab 10/05/21 01/08/22 Rx chewable tablet (Velphoro) albuterol sulfate 90 mcg/actuation 1 - 2 puff CONTINUOUS INHALATION 01/08/22 01/08/22 History aerosol inhaler (ProAir HFA) Q4HP PRN amlodipine 5 mg tablet 5 mg PO QDAY 01/08/22 01/08/22 History lansoprazole 30 mg capsule,delayed 1 cap PO QDAY 01/08/22 01/08/22 History release metoprolol tartrate 25 mg tablet 12.5 mg PO BID 01/08/22 01/08/22 History nystatin 100,000 unit/gram topical 1 applic TOPICAL BID 01/08/22 01/08/22 Hi story cream Allergies Allergy/AdvReac Type Severity Reaction Status Date / Time codeine Allergy Intermediate Hives Verified 10/21/21 14:53 meperidine [From Demerol] Allergy Intermediate Hives Verified 10/21/21 14:53 gemfibrozil [From Lopid] AdvReac Intermediate Muscle Pain Verified 10/21/21 14:53 ciprofloxacin [From Cipro] AdvReac Mild Nausea Verified 10/21/21 14:53 Physical Examination Vital Signs Vital signs: Temp Pulse Resp BP Pulse Ox 98.2 F 67 16 137/55 97 01/08/22 05:30 01/08/22 05:30 01/08/22 05:30 01/08/22 05:30 01/08/22 05:30 General Appearance General appearance: appears started age and chronically ill EENT EENT: mucous membranes moist Respiratory Respiratory: clear Cardiovascular Cardiology: edema and regular rhythm Gastrointestinal Gastrointestinal: obese Integumentary Integumentary: no rash Neurologic Neurologic: alert and oriented x3 Psychiatric Psychiatric: mood/affect appropriate and cooperative Results Lab Results Result Diagrams: 01/08/22 05:23 01/08/22 05:23 Lab results: Most recent lab results Calcium 10.0 mg/dL (8.6-10.4) 01/08/22 05:23 A/P Assessment and plan (1) ESRD (end stage renal disease) on dialysis: Assessment and plan: Teri Olson is a 71-year-old female with end stage renal disease on hemodialysis, chronic anemia due to ESRD, hypertension, diabetes mellitus type 2 admitted on 01/08/22. She was presented to ED for back pain. She was diagnosed with discitis at T3- T6. In ED, her workup was significant for ESR 85 and WBC 17.2, She was admitted for further management. End stage renal disease on hemodialysis on MWF. Chronic anemia due to ESRD. Right arm AV fistula. Recommendations/Plan: Hemodialysis today then on MWF. The patient seen and evaluated during hemodialysis at 10:11. Blood flow is poor. Duplex US for AV fistula ordered. Status: Chronic Time Spent With Patient Time: Total time spent is greater than 50% in coordination of care (as documented) at patient's floor/unit and/or counseling patient:
[2022-01-08] MEDS: ACETAMINOPHEN 325 MG TABLET PO PRN (12:15)
[2022-01-08] MEDS: DOCUSATE SODIUM 100 MG CAPSULE PO SCH ×2 (13:45→21:25)
[2022-01-08] MEDS: VITAMIN B COMPLEX 1 CAPSULE PO SCH (13:45)
[2022-01-08] MEDS: HEPARIN 5,000 UNIT/ML VIAL SQ SCH ×2 (14:12→21:26)
[2022-01-08] MEDS: amLODIPine 10 MG TABLET PO SCH ×2 (14:13→21:25)
[2022-01-08] MEDS: METOPROLOL TARTRATE 25 MG TABLET PO SCH ×2 (14:13→21:25)
[2022-01-08] MEDS: FLUoxetine HCL 20 MG CAPSULE PO SCH (14:22)
[2022-01-08] MEDS: ASPIRIN 81 MG TAB.CHEW PO SCH (14:22)
[2022-01-08] MEDS: PANTOPRAZOLE 40 MG TABLET PO SCH (14:23)
[2022-01-08] MEDS: CLOPIDOGREL 75 MG TABLET PO SCH (14:23)
[2022-01-08] MEDS: ATORVASTATIN 10 MG TABLET PO SCH (14:23)
[2022-01-08] MEDS: NYSTATIN CRM 1 DOSE TUBE TOPICAL SCH ×2 (14:33→21:26)
[2022-01-08] MEDS: SENNOSIDES 1 TABLET PO SCH (21:25)
[2022-01-09] MEDS: 0.9 % SODIUM CHLORIDE 10 ML SYRINGE IV SCH ×3 (06:00→22:12)
[2022-01-09 06:28] LABS: Basophils # (Auto) 0.06 K/mcL (0.00-0.30); Basophils % (Auto) 0.4 % (0.0-2.0); Eosinophils # (Auto) 3.35 K/mcL (0.00-0.70); Eosinophils % (Auto) 19.7 % (0.0-7.0); Hematocrit 29.7 % (34.1-44.9); Lymphocytes # (Auto) 2.14 K/mcL (1.50-4.80); Lymphocytes % (Auto) 12.6 % (15.5-49.0); Mean Cell Volume 94.6 fL (80.0-100.0); Mean Corpuscular HGB Conc 30.3 g/dL (31.0-36.0); Mean Platelet Volume 8.9 fL (7.4-10.4); Monocytes # (Auto) 1.88 K/mcL (0.10-0.90); Monocytes % (Auto) 11.1 % (1.0-12.0); Neutrophils % (Auto) 56.2 % (38.0-78.0); Platelet Count 435 K/mcL (140-440); RBC 3.14 M/mcL (3.59-5.38)
[2022-01-09 06:44] LABS: Blood Urea Nitrogen 24 mg/dL (8-23); Carbon Dioxide 27 mmol/L (22-30); Chloride 97 mmol/L (96-108); Glomerular Filtration Rate 16; Glucose 78 mg/dL (70-105)
[2022-01-09 06:49] LABS: Estimated Average Glucose(eAG) 82 mg/dL; Hemoglobin A1C 4.5 % Hgb (4.0-6.0)
[2022-01-09] MEDS: PANTOPRAZOLE 40 MG TABLET PO SCH (07:20)
[2022-01-09] MEDS: DOCUSATE SODIUM 100 MG CAPSULE PO SCH ×2 (08:34→22:10)
--- NOTE | 2022-01-09 08:44 | XRay Report ---
HISTORY: Chronic respiratory failure, asthma and pneumonia FINDINGS: The heart is mildly enlarged. There are generalized alveolar infiltrates in both lungs. These have become worse since the prior exam done on 09/08/21. There is blunting of left costophrenic sulcus which could be tiny pleural effusion or scar. There is a stent in the right axillary artery. Mild arthritis is present in both shoulders. IMPRESSION: Bilateral infiltrates. This is probably due to pneumonia. However, superimposed congestive heart failure cannot be excluded. Stable cardiomegaly Interpreted and Authenticated by: Michael Orosco 01/09/22
[2022-01-09] MEDS: ATORVASTATIN 10 MG TABLET PO SCH (09:39)
[2022-01-09] MEDS: METOPROLOL TARTRATE 25 MG TABLET PO SCH ×2 (09:39→22:09)
[2022-01-09] MEDS: VITAMIN B COMPLEX 1 CAPSULE PO SCH (09:39)
[2022-01-09] MEDS: ASPIRIN 81 MG TAB.CHEW PO SCH (09:39)
[2022-01-09] MEDS: CLOPIDOGREL 75 MG TABLET PO SCH (09:41)
[2022-01-09] MEDS: amLODIPine 10 MG TABLET PO SCH ×2 (09:41→22:10)
[2022-01-09] MEDS: FLUoxetine HCL 20 MG CAPSULE PO SCH (09:42)
[2022-01-09] MEDS: HEPARIN 5,000 UNIT/ML VIAL SQ SCH ×2 (09:53→22:11)
[2022-01-09] MEDS: NYSTATIN CRM 1 DOSE TUBE TOPICAL SCH ×2 (09:54→22:12)
--- NOTE | 2022-01-09 11:08 | Internal Med Progress Note ---
SUBJECTIVE Subjective Patient information: Note initiated : 01/09/22 at 11:01 am Service Date, if different from initiated Date: [] Patient: Teri Olson a 71 y/o F admitted on 01/08/22 for Back Pain. Chief Complaint: [] Principal diagnosis: Discitis of T4-T5 vertebra. Interval history: Ms. Olson is a 71 year old F with past medical history of discitis in T3-6 region, for which she was treated in [place], [place] from October to November 2021. Her other history consists of end-stage renal disease on hemodialysis (Tuesday schedule), type 2 diabetes, congestive heart failure, chronic respiratory failure (2 to 3 L of oxygen per minute at home) hypertension. For her discitis, patient recalls being treated with 8 weeks of IV antibiotics, 1 of which was IV vancomycin. She does not remember the name of the second antibiotic. She recalls that the orthopedic surgeons debated whether or not to intervene at that time. Ultimately, it seemed that they chose to opt for nonsurgical intervention. She followed up with Dr. Wise, orthopedic surgeon a week ago. MRI of her thoracic spine showed persistent disc osteomyelitis of T4-T5 vertebrae. There is also localized paraspinal phlegmon at this level. 01/08-she continues to do well. Endorses no new symptoms or complaints. No new back pain. Comfortable and getting dialysis. 01/09- No new sx. Discussed with Dr. Wise who will see her today and offer recommendations. She is agreeable to return to [place] for follow up of her Diskitis. Will start PO Antibiotics until she is seen at [place]. Constitutional Vitals: Vital Signs Temp Pulse Resp BP Pulse Ox 98.3 F 66 16 126/55 94 01/09/22 07:37 01/09/22 07:37 01/09/22 07:37 01/09/22 07:37 01/09/22 07:37 Period Temp Pulse Resp BP Sys/Barnard Pulse Ox Last 24 Hr 97.1 F-98.9 F 65-114 15-16 109-133/43-74 93-97 Intake and Output 01/08/22 01/09/22 01/09/22 21:59 05:59 13:59 Intake Total 0 480 Balance 0 480 Weight 74.026 kg Intake & Output: Intake & Output 01/08/22 01/09/22 01/09/22 21:59 05:59 13:59 Intake Total 0 480 Balance 0 480 Weight 74.026 kg Intake: Oral 0 480 Other: Meal snack Percent of Meal Consumed 100% Feeding Ability Independent Stool Size Smear Stool Color Brown Stool Consistency Liquid Loose General appearance: average body habitus, cooperative and no acute distress Head Head exam: Present atraumatic and normocephalic Eye Eye exam: Present normal appearance Respiratory Respiratory exam: Present normal respiratory exam and CTAB; Absent accessory muscle use, decreased breath sounds or respiratory distress Cardiovascular Cardiovascular exam: Present normal rate and rhythm and RRR; Absent bradycardia, gallop, systolic murmur or tachycardia GI/Abdominal GI/Abdominal exam: Present soft Back Exam Back exam: Absent CVA tenderness (R), paraspinal tenderness, tenderness or vertebral tenderness Neurological Exam Neurological exam: Present alert and oriented X3; Absent altered or motor sensory deficit OBJ DATA Labs CBC & Chem 7: 01/09/22 05:23 01/09/22 05:23 Labs: Abnormal Lab Results 01/09/22 01/09/22 01/08/22 05:23 05:23 05:23 WBC 17.0 H RBC 3.14 L Hgb 9.0 L Hct 29.7 L MCHC 30.3 L Lymph % (Auto) 12.6 L Eos % (Auto) 19.7 H [place] # (Auto) 1.88 H Eos # (Auto) 3.35 H Absolute Neutrophils 9.55 H ESR Chloride BUN 24 H Creatinine 2.9 H 3.9 H Glucose 66 L Alkaline Phosphatase C-Reactive Protein 01/08/22 01/07/22 01/07/22 05:23 18:22 18:22 WBC 17.2 H 17.9 H RBC 2.96 L 3.17 L Hgb 8.6 L 9.3 L Hct 28.1 L 30.8 L MCHC 30.6 L 30.2 L Lymph % (Auto) 13.3 L 13.0 L Eos % (Auto) 17.1 H 14.0 H [place] # (Auto) 1.91 H 2.00 H Eos # (Auto) 2.94 H 2.50 H Absolute Neutrophils 10.02 H 10.96 H ESR 85 H Chloride 95 L BUN Creatinine 3.5 H Glucose Alkaline Phosphatase 123 H C-Reactive Protein 8.90 H Meds: Medications Acetaminophen (Acetaminophen 325 Mg Tablet) 650 mg PO Q6HP PRN; Protocol PRN Reason: Per Pain Protocol/Fever > 101 Last Admin: 01/08/22 12:15 Dose: 650 mg Documented by: Albuterol Sulfate (Albuterol Sulfate 200 Puff Inhaler) 1 - 2 puff INH Q4HP PRN PRN Reason: Shortness Of Breath Or Wheezing Amlodipine Besylate (Amlodipine 10 Mg Tablet) 5 mg PO BID [facility] Last Admin: 01/09/22 09:41 Dose: 5 mg Documented by: Aspirin (Aspirin 81 Mg Tab.Chew) 81 mg PO DAILY [facility] Last Admin: 01/09/22 09:39 Dose: 81 mg Documented by: Atorvastatin Calcium (Atorvastatin 10 Mg Tablet) 10 mg PO DAILY [facility] Last Admin: 01/09/22 09:39 Dose: 10 mg Documented by: Calcitriol (Calcitriol 0.25 Mcg Capsule) 0.75 mcg PO MoWeFr@1200 [facility] Last Admin: 01/08/22 13:45 Dose: Not Given Documented by: Clopidogrel Bisulfate (Clopidogrel 75 Mg Tablet) 75 mg PO DAILY [facility] Last Admin: 01/09/22 09:41 Dose: 75 mg Documented by: Diagnostic Test (Pha) (Accu-Chek 1 Each Strip) 1 each FS TIDAC [facility] Last Admin: 01/09/22 07:21 Dose: 1 each Documented by: Docusate Sodium (Docusate Sodium 100 Mg Capsule) 100 mg PO BID [facility] Last Admin: 01/09/22 08:34 Dose: Not Given Documented by: Fluoxetine HCl (Fluoxetine Hcl 20 Mg Capsule) 20 mg PO QDAY [facility] Last Admin: 01/09/22 09:42 Dose: 20 mg Documented by: Heparin Sodium (Porcine) (Heparin 5,000 Unit/Ml Vial) 5,000 unit SQ Q12 [facility] Last Admin: 01/09/22 09:53 Dose: 5,000 unit Documented by: Metoprolol Tartrate (Metoprolol Tartrate 25 Mg Tablet) 12.5 mg PO BID [facility] Last Admin: 01/09/22 09:39 Dose: 12.5 mg Documented by: Nystatin (Nystatin Crm 1 Dose Tube) 1 dose TOPICAL BID [facility] Last Admin: 01/09/22 09:54 Dose: 1 dose Documented by: Ondansetron HCl (Ondansetron 4 Mg/2 Ml Vial) 4 mg IV Q6HP PRN PRN Reason: Nausea And Vomiting Oxycodone HCl (Oxycodone Hcl 5 Mg Tablet) 5 mg PO Q4HP PRN; Protocol PRN Reason: Per Pain Protocol Pantoprazole Sodium (Pantoprazole 40 Mg Tablet) 40 mg PO QAMAC [facility] Last Admin: 01/09/22 07:20 Dose: 40 mg Documented by: Sucroferric Oxyhydroxide [ Velphoro] 500 Mg Tablet 1 dose PO TIDCC [facility] Last Admin: 01/09/22 07:04 Dose: Not Given Documented by: Senna (Sennosides 1 Tablet) 2 tab PO HS [facility] Last Admin: 01/08/22 21:25 Dose: 2 tab Documented by: Sodium Chloride (0.9 % Sodium Chloride 10 Ml Syringe) 10 ml IV Q8 [facility] Last Admin: 01/09/22 06:00 Dose: 10 ml Documented by: Vitamin B Complex (Vitamin B Complex 1 Capsule) 1 cap PO DAILY [facility] Last Admin: 01/09/22 09:39 Dose: 1 cap Documented by: A/P Narrative A/P Narrative: (1) Discitis of thoracic region: Assessment and plan: Based on MRI a week ago, she seems to be having some persistent discitis and T4- 5 area. She has completed 8 weeks of IV antibiotics (1 of which was IV vancomycin, she does not recall the name of the other antibiotic) she does not recall the name of the hospital that she received treatment in [facility]. I I obtained medical records from [facility] in [facility]. She was treated with 6 weeks of IV antibiotics (vancomycin/ceftazidime). Orthopedics had reviewed patient at that time and felt she did not need surgical intervention. She was asked to wear TLSO till December 18. Blood cultures obtained during this admission show no growth to date. She has some elevation of ESR and CRP. Started on IV vancomycin and cefepime.-Day 1 (started on 2021) holding antibiotics since then. If she chooses to return to [place] for further care, I can cover her with p.o. Augmentin. This should help cover her until she gets her follow-up care at [place]. (2) 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: Her last 2 hemoglobin A1c's were 4.7 in 2019 and 5.3 in 2018. Repeat A1c 4.5. So it appears that she does not have diabetes mellitus. (3) Chronic respiratory failure: Assessment and plan: Wears home oxygen 2 to 3 L/min. Currently at baseline. Chest x-ray shows bilateral infiltrates. I reviewed the chest x-ray images. I believe the infiltrates are from some mild pulmonary edema from ESRD rather than pneumonia. In any case, Augmentin will help cover pneumonia pathogens. Most likely this presentation is from heart failure with preserved ejection fraction. Status:Acute (4) Hypertension, essential: Assessment and plan: Resume amlodipine 5 mg daily and metoprolol 12.5 milligrams twice daily. Blood pressure at goal at this time. Status:Chronic (5) ESRD (end stage renal disease) on dialysis: Assessment and plan: Discussed with charger and we have resumed inpatient hemodialysis at this time. Resumed VELPHORO and calcitriol Resume multivitamin Resumed cinacalcet 30 mg daily Resumed Lasix 40 mg daily Resumed vitamin D3 avoid nephrotoxic agents. Resume her home medications of aspirin 81 mg daily and Plavix 75 mg daily. Resume fluoxetine. Resumed pantoprazole and as needed albuterol. Time Spent With Patient Time: Total time spent is greater than 50% in coordination of care (as documented) at patient's floor/unit and/or counseling patient: Total time spent with greater than 50% in coordination of care (as documented) at patient's floor/unit and/or counseling patient:: 25 - 35 minutes QUALITY VTE Deep Vein Thrombosis/Pulmonary Embolism Present on Admission: No
--- NOTE | 2022-01-09 11:37 | Nephrology Progress Note ---
SUBJECTIVE Subjective Patient information: Note initiated : 01/09/22 at 11:36 am Patient: Teri Olson 71 y/o F admitted on 01/08/22 for Back Pain. Chief Complaint: Back pain Principal diagnosis: Discitis of T4-T5 vertebra. Pertinent ROS: Weakness Constitutional Vitals: Vital Signs Temp Pulse Resp BP Pulse Ox 98.3 F 66 16 126/55 94 01/09/22 07:37 01/09/22 07:37 01/09/22 07:37 01/09/22 07:37 01/09/22 07:37 Period Temp Pulse Resp BP Sys/Barnard Pulse Ox Last 24 Hr 97.1 F-98.9 F 66-114 15-16 109-133/43-74 93-97 Intake and Output 01/08/22 01/09/22 01/09/22 21:59 05:59 13:59 Intake Total 0 480 Balance 0 480 Weight 163 lb 3.2 oz Intake & Output: Intake & Output 01/08/22 01/09/22 01/09/22 21:59 05:59 13:59 Intake Total 0 480 Balance 0 480 Weight 163 lb 3.2 oz Intake: Oral 0 480 Other: Meal snack Percent of Meal Consumed 100% Feeding Ability Independent Stool Size Smear Stool Color Brown Stool Consistency Liquid Loose General appearance: cooperative and no acute distress Head Head exam: Present normal inspection Eye Eye exam: Present normal appearance ENT ENT exam: Present mucous membranes moist Respiratory Respiratory exam: Absent respiratory distress Cardiovascular Cardiovascular exam: Present normal rate and rhythm GI/Abdominal GI/Abdominal exam: Present soft; Absent tenderness Extremities Exam Extremities exam: Absent joint swelling or pedal edema Neurological Exam Neurological exam: Present alert and oriented X3 Psychiatric Psychiatric exam: Present normal affect and normal mood Skin Skin exam: Present warm; Absent rash A/P Assessment and plan (1) ESRD (end stage renal disease) on dialysis: Assessment and plan: Teri Olson is a 71-year-old female with end stage renal disease on hemodialysis, chronic anemia due to ESRD, hypertension, diabetes mellitus type 2 admitted on 01/08/22.She was presented to ED for back pain. She was diagnosed with discitis at T3-T6. In ED, her workup was significant for ESR 85 and WBC 17.2, She was admitted for further management. End stage renal disease on hemodialysis on MWF. Chronic anemia due to ESRD. Right arm AV fistula. Poor blood flow. Duplex US report pending. Recommendations/Plan: Next hemodialysis on Tuesday then on . Status: Chronic Time Spent With Patient Time: Total time spent is greater than 50% in coordination of care (as documented) at patient's floor/unit and/or counseling patient:
--- NOTE | 2022-01-09 15:21 | Ultrasound Report ---
History: Renal dialysis fistula in the right arm with fistula dysfunction. FINDINGS: Patient has a surgically created arteriovenous fistula in the distal portion of the right arm between the brachial artery and cephalic vein. The inflow in the the brachial artery is normal. At the anastomosis there is high peak systolic flow velocity on the arterial side measuring 662 cm/s. On the venous side the peak systolic flow velocity is 505 cm/s. The vessel lumen measures 5 mm in diameter at the anastomosis. In the midportion of the upper arm the cephalic vein is a peak systolic flow velocity is 459 cm/s. There is a stent in the cephalic vein close to the insertion into the axillary vein. The stent is patent and there is no stenosis. Axillary and subclavian veins are normal. There is no venous thrombosis or aneurysm. IMPRESSION: Normal arterial venous fistula in the right arm Interpreted and Authenticated by: Michael Orosoc 01/09/22
[2022-01-09] MEDS ORDERED: BENZOCAINE/MENTHOL 1 LOZENGE PO PRN (16:52)
[2022-01-09] MEDS ORDERED: AMOXICILLIN/POTASSIUM CLAV 500 MG TABLET PO SCH (17:30)
[2022-01-09] MEDS ORDERED: BENZOCAINE/MENTHOL 1 LOZENGE PO ONE (17:40)
[2022-01-09] MEDS: SENNOSIDES 1 TABLET PO SCH (22:09)
[2022-01-09] MEDS: CEFEPIME 1 GM VIAL IV SCH (22:11)
[2022-01-10] MEDS: 0.9 % SODIUM CHLORIDE 10 ML SYRINGE IV SCH ×3 (04:19→22:26)
[2022-01-10 06:26] LABS: Blood Urea Nitrogen 36 mg/dL (8-23); Calcium 10.4 mg/dL (8.6-10.4); Carbon Dioxide 26 mmol/L (22-30); Chloride 94 mmol/L (96-108); Glomerular Filtration Rate 10; Glucose 80 mg/dL (70-105)
[2022-01-10 06:43] LABS: Basophils # (Auto) 0.08 K/mcL (0.00-0.30); Basophils % (Auto) 0.5 % (0.0-2.0); Eosinophils # (Auto) 3.67 K/mcL (0.00-0.70); Eosinophils % (Auto) 22.3 % (0.0-7.0); Hematocrit 29.1 % (34.1-44.9); Lymphocytes % (Auto) 15.2 % (15.5-49.0); Mean Cell Volume 92.7 fL (80.0-100.0); Mean Corpuscular HGB Conc 30.9 g/dL (31.0-36.0); Monocytes # (Auto) 1.78 K/mcL (0.10-0.90); Monocytes % (Auto) 10.8 % (1.0-12.0); Neutrophils % (Auto) 51.2 % (38.0-78.0); Platelet Count 465 K/mcL (140-440); RBC 3.14 M/mcL (3.59-5.38); Red Cell Distribution Width 14.1 % (11.5-14.5); WBC 16.5 K/mcL (4.5-11.0)
[2022-01-10] MEDS: PANTOPRAZOLE 40 MG TABLET PO SCH (06:57)
[2022-01-10] MEDS: DOCUSATE SODIUM 100 MG CAPSULE PO SCH ×2 (08:27→22:24)
[2022-01-10] MEDS: amLODIPine 10 MG TABLET PO SCH ×2 (08:35→22:25)
[2022-01-10] MEDS: CLOPIDOGREL 75 MG TABLET PO SCH (08:35)
[2022-01-10] MEDS: ASPIRIN 81 MG TAB.CHEW PO SCH (08:35)
[2022-01-10] MEDS: ATORVASTATIN 10 MG TABLET PO SCH (08:36)
[2022-01-10] MEDS: METOPROLOL TARTRATE 25 MG TABLET PO SCH ×2 (08:37→22:25)
[2022-01-10] MEDS: FLUoxetine HCL 20 MG CAPSULE PO SCH (08:37)
[2022-01-10] MEDS: VITAMIN B COMPLEX 1 CAPSULE PO SCH (08:37)
[2022-01-10] MEDS: HEPARIN 5,000 UNIT/ML VIAL SQ SCH ×2 (08:39→22:25)
[2022-01-10] MEDS: CEFEPIME 1 GM VIAL IV SCH (08:46)
[2022-01-10] MEDS: NYSTATIN CRM 1 DOSE TUBE TOPICAL SCH ×2 (08:52→22:26)
--- NOTE | 2022-01-10 09:48 | Internal Med Progress Note ---
SUBJECTIVE Subjective Patient information: Note initiated : 01/10/22 at 9:43 am Service Date, if different from initiated Date: [] Patient: Teri Olson a 71 y/o F admitted on 01/08/22 for Back Pain. Chief Complaint: [] Principal diagnosis: Discitis of T4-T5 vertebra. Interval history: Ms. Olson is a 71 year old F with past medical history of discitis in T3-6 region, for which she was treated in [place], [place] from October to November 2021. Her other history consists of end-stage renal disease on hemodialysis (Tuesday schedule), type 2 diabetes, congestive heart failure, chronic respiratory failure (2 to 3 L of oxygen per minute at home) hypertension. For her discitis, patient recalls being treated with 8 weeks of IV antibiotics, 1 of which was IV vancomycin. She does not remember the name of the second antibiotic. She recalls that the orthopedic surgeons debated whether or not to intervene at that time. Ultimately, it seemed that they chose to opt for nonsurgical intervention. She followed up with Dr. Wise, orthopedic surgeon a week ago. MRI of her thoracic spine showed persistent disc osteomyelitis of T4-T5 vertebrae. There is also localized paraspinal phlegmon at this level. 01/08-she continues to do well. Endorses no new symptoms or complaints. No new back pain. Comfortable and getting dialysis. 01/09- No new sx. Discussed with Dr. Wise who will see her today and offer recommendations. She is agreeable to return to [place] for follow up of her Diskitis. Will start PO Antibiotics until she is seen at [place]. 01/10- Discussed with a facility, they did not have a spine surgeon and refused to take Ms. Dietrich. Overall supervisor insecticide has been in contact with her few other facilities as well.She continues to do well with no new symptoms. No spine tenderness. No lower extremity weakness or numbness. Constitutional Vitals: Vital Signs Temp Pulse Resp BP Pulse Ox 98.3 F 57 L 20 148/67 97 01/10/22 06:57 01/10/22 04:00 01/10/22 06:57 01/10/22 06:57 01/10/22 07:00 Period Temp Pulse Resp BP Sys/Barnard Pulse Ox Last 24 Hr 97.8 F-98.4 F 57-71 18-20 110-148/62-67 95-97 Intake and Output 01/09/22 01/10/22 01/10/22 21:59 05:59 13:59 Intake Total 830 400 100 Balance 830 400 100 Weight 74.505 kg Intake & Output: Intake & Output 01/09/22 01/10/22 01/10/22 21:59 05:59 13:59 Intake Total 830 400 100 Balance 830 400 100 Weight 74.505 kg Intake: Oral 830 400 100 Other: Meal Dinner Breakfast Percent of Meal Consumed 100% 100% Feeding Ability Independent Independent General appearance: average body habitus, cooperative and no acute distress Head Head exam: Present atraumatic and normocephalic Eye Eye exam: Present normal appearance Respiratory Respiratory exam: Present normal respiratory exam and CTAB; Absent accessory muscle use, decreased breath sounds or respiratory distress Cardiovascular Cardiovascular exam: Present normal rate and rhythm and RRR; Absent bradycardia, gallop, systolic murmur or tachycardia GI/Abdominal GI/Abdominal exam: Present soft Neurological Exam Neurological exam: Present alert and oriented X3; Absent altered or motor sensory deficit OBJ DATA Labs CBC & Chem 7: 01/10/22 05:23 01/10/22 05:23 Labs: Abnormal Lab Results 01/10/22 01/10/22 01/09/22 05:23 05:23 05:23 WBC 16.5 H RBC 3.14 L Hgb 9.0 L Hct 29.1 L MCHC 30.9 L Plt Count 465 H Lymph % (Auto) 15.2 L Eos % (Auto) 22.3 H Ashley # (Auto) 1.78 H Eos # (Auto) 3.67 H Absolute Neutrophils 8.42 H ESR Sodium 132 L Chloride 94 L BUN 36 H 24 H Creatinine 4.3 H 2.9 H Glucose Alkaline Phosphatase C-Reactive Protein 01/09/22 01/08/22 01/08/22 05:23 05:23 05:23 WBC 17.0 H 17.2 H RBC 3.14 L 2.96 L Hgb 9.0 L 8.6 L Hct 29.7 L 28.1 L MCHC 30.3 L 30.6 L Plt Count Lymph % (Auto) 12.6 L 13.3 L Eos % (Auto) 19.7 H 17.1 H Ashley # (Auto) 1.88 H 1.91 H Eos # (Auto) 3.35 H 2.94 H Absolute Neutrophils 9.55 H 10.02 H ESR Sodium Chloride BUN Creatinine 3.9 H Glucose 66 L Alkaline Phosphatase C-Reactive Protein 01/07/22 01/07/22 18:22 18:22 WBC 17.9 H RBC 3.17 L Hgb 9.3 L Hct 30.8 L MCHC 30.2 L Plt Count Lymph % (Auto) 13.0 L Eos % (Auto) 14.0 H Ashley # (Auto) 2.00 H Eos # (Auto) 2.50 H Absolute Neutrophils 10.96 H ESR 85 H Sodium Chloride 95 L BUN Creatinine 3.5 H Glucose Alkaline Phosphatase 123 H C-Reactive Protein 8.90 H Meds: Medications Acetaminophen (Acetaminophen 325 Mg Tablet) 650 mg PO Q6HP PRN; Protocol PRN Reason: Per Pain Protocol/Fever > 101 Last Admin: 01/08/22 12:15 Dose: 650 mg Documented by: Albuterol Sulfate (Albuterol Sulfate 200 Puff Inhaler) 1 - 2 puff INH Q4HP PRN PRN Reason: Shortness Of Breath Or Wheezing Amlodipine Besylate (Amlodipine 10 Mg Tablet) 5 mg PO BID [facility] Last Admin: 01/10/22 08:35 Dose: 5 mg Documented by: Aspirin (Aspirin 81 Mg Tab.Chew) 81 mg PO DAILY [facility] Last Admin: 01/10/22 08:35 Dose: 81 mg Documented by: Atorvastatin Calcium (Atorvastatin 10 Mg Tablet) 10 mg PO DAILY [facility] Last Admin: 01/10/22 08:36 Dose: 10 mg Documented by: Calcitriol (Calcitriol 0.25 Mcg Capsule) 0.75 mcg PO MoWeFr@1200 [facility] Last Admin: 01/08/22 13:45 Dose: Not Given Documented by: Cefepime HCl (Cefepime 1 Gm Vial) 1 gm IV Q24H [facility]; Protocol Last Admin: 01/10/22 08:46 Dose: 1 gm Documented by: Clopidogrel Bisulfate (Clopidogrel 75 Mg Tablet) 75 mg PO DAILY [facility] Last Admin: 01/10/22 08:35 Dose: 75 mg Documented by: Diagnostic Test (Pha) (Accu-Chek 1 Each Strip) 1 each FS TIDAC [facility] Last Admin: 01/10/22 06:54 Dose: 1 each Documented by: Docusate Sodium (Docusate Sodium 100 Mg Capsule) 100 mg PO BID [facility] Last Admin: 01/10/22 08:27 Dose: Not Given Documented by: Fluoxetine HCl (Fluoxetine Hcl 20 Mg Capsule) 20 mg PO QDAY [facility] Last Admin: 01/10/22 08:37 Dose: 20 mg Documented by: Heparin Sodium (Porcine) (Heparin 5,000 Unit/Ml Vial) 5,000 unit SQ Q12 [facility] Last Admin: 01/10/22 08:39 Dose: 5,000 unit Documented by: Metoprolol Tartrate (Metoprolol Tartrate 25 Mg Tablet) 12.5 mg PO BID [facility] Last Admin: 01/10/22 08:37 Dose: 12.5 mg Documented by: Nystatin (Nystatin Crm 1 Dose Tube) 1 dose TOPICAL BID [facility] Last Admin: 01/10/22 08:52 Dose: 1 dose Documented by: Ondansetron HCl (Ondansetron 4 Mg/2 Ml Vial) 4 mg IV Q6HP PRN PRN Reason: Nausea And Vomiting Oxycodone HCl (Oxycodone Hcl 5 Mg Tablet) 5 mg PO Q4HP PRN; Protocol PRN Reason: Per Pain Protocol Pantoprazole Sodium (Pantoprazole 40 Mg Tablet) 40 mg PO QAMAC [facility] Last Admin: 01/10/22 06:57 Dose: 40 mg Documented by: Sucroferric Oxyhydroxide [ Velphoro] 500 Mg Tablet 1 dose PO TIDCC [facility] Last Admin: 01/10/22 07:00 Dose: Not Given Documented by: Senna (Sennosides 1 Tablet) 2 tab PO HS [facility] Last Admin: 01/09/22 22:09 Dose: 2 tab Documented by: Sodium Chloride (0.9 % Sodium Chloride 10 Ml Syringe) 10 ml IV Q8 [facility] Last Admin: 01/10/22 04:19 Dose: 10 ml Documented by: Throat Lozenges (Benzocaine/Menthol 1 Lozenge) 1 lozenge PO PRN PRN PRN Reason: Sore Throat Last Admin: 01/09/22 17:33 Dose: 1 lozenge Documented by: Vitamin B Complex (Vitamin B Complex 1 Capsule) 1 cap PO DAILY [facility] Last Admin: 01/10/22 08:37 Dose: 1 cap Documented by: A/P Assessment and plan (1) Discitis of thoracic region: Assessment and plan: Based on MRI a week ago, she seems to be having some persistent discitis and T4- 5 area. She has completed 6 weeks of IV antibiotics With vancomycin and ceftazidime. I got the records from [facility]. She underwent a needle biopsy of the discitis, however the cultures did not grow anything . Orthopedics had reviewed patient at that time and felt she did not need surgical intervention. She was asked to wear TLSO till December 18. We obtained 2 sets of blood cultures in the emergency room. She has some elevation of ESR and CRP. Started on IV vancomycin and cefepime.-Day 1 (started on 2021). Started re taniya dosed cefepime at this time. Stop vancomycin Status: Acute (2) 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: Plan: Her last 2 hemoglobin A1c's were 4.7 in 2019 and 5.3 in 2018. Repeat A1c 4.5. So it appears that she does not have diabetes mellitus. Status: Acute (3) Chronic respiratory failure: Assessment and plan: I reviewed the chest x-ray images. I believe the infiltrates are from some mild pulmonary edema from ESRD rather than pneumonia. In any case, cefepime will help cover pneumonia pathogens. Most likely this presentation is from heart failure with preserved ejection fraction. Status: Acute (4) Hypertension, essential: Assessment and plan: Resume amlodipine 5 mg daily and metoprolol 12.5 milligrams twice daily. Blood pressure at goal at this time. Status: Chronic (5) ESRD (end stage renal disease) on dialysis: Assessment and plan: Discussed with self rising flour mixer and we have resumed inpatient hemodialysis at this time. Resumed VELPHORO and calcitriol Resume multivitamin Resumed cinacalcet 30 mg daily Resumed Lasix 40 mg daily Resumed vitamin D3 avoid nephrotoxic agents. Status: Chronic Time Spent With Patient Time: Total time spent is greater than 50% in coordination of care (as documented) at patient's floor/unit and/or counseling patient: Total time spent with greater than 50% in coordination of care (as documented) at patient's floor/unit and/or counseling patient:: 25 - 35 minutes QUALITY VTE Deep Vein Thrombosis/Pulmonary Embolism Present on Admission: No
--- NOTE | 2022-01-10 13:34 | Nephrology Progress Note ---
SUBJECTIVE Subjective Patient information: Note initiated : 01/10/22 at 1:33 pm Patient: Teri Olson 71 y/o F admitted on 01/08/22 for Back Pain. Chief Complaint: Back pain Principal diagnosis: Discitis of T4-T5 vertebra. Pertinent ROS: Weakness Sleeping Constitutional Vitals: Vital Signs Temp Pulse Resp BP Pulse Ox 97.3 F 57 L 16 134/53 95 01/10/22 12:00 01/10/22 04:00 01/10/22 12:00 01/10/22 12:00 01/10/22 12:00 Period Temp Pulse Resp BP Sys/Barnard Pulse Ox Last 24 Hr 97.3 F-98.4 F 57-71 16-20 110-148/53-67 95-97 Intake and Output 01/09/22 01/10/22 01/10/22 21:59 05:59 13:59 Intake Total 830 400 100 Balance 830 400 100 Weight 164 lb 4.1 oz Intake & Output: Intake & Output 01/09/22 01/10/22 01/10/22 21:59 05:59 13:59 Intake Total 830 400 100 Balance 830 400 100 Weight 164 lb 4.1 oz Intake: Oral 830 400 100 Other: Meal Dinner Lunch Percent of Meal Consumed 100% 100% Feeding Ability Independent Independent Stool Size Large Stool Color Brown Stool Consistency Soft Formed # of times incontinent of 1 Bowels General appearance: cooperative and no acute distress Head Head exam: Present normal inspection Eye Eye exam: Present normal appearance ENT ENT exam: Present mucous membranes moist Respiratory Respiratory exam: Absent respiratory distress Cardiovascular Cardiovascular exam: Present normal rate and rhythm GI/Abdominal GI/Abdominal exam: Present soft; Absent tenderness Extremities Exam Extremities exam: Absent joint swelling or pedal edema Neurological Exam Neurological exam: Present alert and oriented X3 Psychiatric Psychiatric exam: Present normal affect and normal mood Skin Skin exam: Present warm; Absent rash A/P Assessment and plan (1) ESRD (end stage renal disease) on dialysis: Assessment and plan: Teri Olson is a 71-year-old female with end stage renal disease on hemodialysis, chronic anemia due to ESRD, hypertension, diabetes mellitus type 2 admitted on 01/08/22.She was presented to ED for back pain. She was diagnosed with discitis at T3-T6. In ED, her workup was significant for ESR 85 and WBC 17.2, She was admitted for further management. End stage renal disease on hemodialysis on MWF. Chronic anemia due to ESRD. Right arm AV fistula. Poor blood flow. Duplex US reported as normal. Recommendations/Plan: Next hemodialysis on Tuesday then on MWF. Status: Chronic Time Spent With Patient Time: Total time spent is greater than 50% in coordination of care (as documented) at patient's floor/unit and/or counseling patient:
[2022-01-10] MEDS: SENNOSIDES 1 TABLET PO SCH (22:24)
[2022-01-10] MEDS: ACETAMINOPHEN 325 MG TABLET PO PRN (23:37)
[2022-01-11] MEDS: 0.9 % SODIUM CHLORIDE 10 ML SYRINGE IV SCH (04:41)
[2022-01-11 07:08] LABS: Blood Urea Nitrogen 52 mg/dL (8-23); Calcium 10.1 mg/dL (8.6-10.4); Carbon Dioxide 24 mmol/L (22-30); Chloride 96 mmol/L (96-108); Glomerular Filtration Rate 8; Glucose 75 mg/dL (70-105)
--- NOTE | 2022-01-11 07:15 | History and Physical Report ---
DATE OF ADMISSION: 01/08/2022 IDENTIFICATION: Ms. Olson is a 71-year-old female. CHIEF COMPLAINT: Diskitis, T4-T5. HISTORY: Ms. Olson presented in early October to [facility] with increased back pain and suggestion of a upper thoracic diskitis. She was ultimately transferred to [facility] where she was managed by infectious disease with IV antibiotics. I am uncertain of what the organism was that was identified. She apparently defervesced and appeared to be improving appropriately. Ultimately, her antibiotics were stopped and she was returned to the [facility] and was asked that I see her in followup and she was seen in my clinic about 10 days ago. At that point, she seemed to be not having excess symptoms, although she presented in a wheelchair, she was able to stand to take a few steps with a walker and was without any real focal neurologic deficit without chord finding. In an effort to follow up infection, a CBC, sed, C-reactive protein were obtained which showed elevated white count, elevated other markers. I did speak with infectious disease who questioned from [place]. It was a general discussion and he suggested that the labs were probably had little ____ because of her dialysis and other medical problems. As such, a followup MRI scan was obtained and I repeated the same labs a week later which demonstrated elevated markers again with a significantly elevated white count. At that point, my recommendation for her facility was that she represent to [facility] with the idea that she would probably need to be transferred back to [place] or the facility that managed her diskitis. Apparently, there was some confusion in the messages that she was admitted to the floor and IV antibiotics were started. The patient today is complaining of minimal pain. She was up, she was showered, reports that she has been able to stand and take a few steps with a walker and help transfer and so certainly does not seem to have developed any acute neurologic deficit. She again is not complaining of excess pain. PAST MEDICAL HISTORY: COPD, diskitis, osteomyelitis, diabetes, renal failure, obesity, anxiety disorder, asthma. PAST SURGICAL HISTORY: Nonspecifically contributory to this present problem. She has had a previous breast reduction, cataract surgery, a previous nephrectomy. MEDICATIONS: Fluoxetine, aspirin, Plavix, Velphoro, albuterol inhaler, amlodipine, lansoprazole, metoprolol, nystatin. ALLERGIES: CODEINE, DEMEROL, GEMFIBROZIL, CIPROFLOXACIN. PHYSICAL EXAMINATION: GENERAL: Again, she is awake and alert. She is resting comfortably. MUSCULOSKELETAL: She does have some increased thoracic kyphosis of the cervicothoracic junction. She has some mild tenderness. She has no superficial findings or localizing findings on inspection. She is without focal neurologic deficit in her upper or lower extremities. She does not have clonus or hyperreflexia. IMAGING: Her MRI scan done a week ago at [facility] demonstrates marked collapse of the vertebral bodies of upper thoracic spine, and while I am not viewing this study at present, I believe it was T4, T5 but she showed significant destruction at the disk space with kyphosis. Did not have excess chord compression. She has a markedly elevated white count. Sed rate, C-reactive protein are also significantly elevated. These are increased compared to labs a week prior. IMPRESSION: History of infectious diskitis with the suggestion that potentially she has ongoing and active infection. Certainly with the increase in her lab values week to week, it would make me concerned that she has active infection. I think the MRI findings were also consistent with such. My initial discussion with the emergency room I recommended that she be transferred back to the care of a infectious disease physician and place where if she was going to required surgical intervention that potentially there would be additional assets available. With the patient now managed, it may well be reasonable to continue her IV antibiotics but if she was to develop neurologic dysfunction and need a surgical reconstruction, this would be a complicated procedure and would recommend that it would be done in a facility that had additional assets such [place]. GDD:dionte Job ID: [id number] Doc ID: [id number] Seferino Wise MD
[2022-01-11 07:20] LABS: Basophils # (Auto) 0.08 K/mcL (0.00-0.30); Basophils % (Auto) 0.5 % (0.0-2.0); Eosinophils # (Auto) 3.44 K/mcL (0.00-0.70); Eosinophils % (Auto) 22.4 % (0.0-7.0); Hemoglobin 8.6 g/dL (11.2-15.7); Lymphocytes # (Auto) 2.82 K/mcL (1.50-4.80); Lymphocytes % (Auto) 18.3 % (15.5-49.0); Mean Cell Volume 93.3 fL (80.0-100.0); Mean Corpuscular HGB Conc 30.7 g/dL (31.0-36.0); Monocytes # (Auto) 1.74 K/mcL (0.10-0.90); Monocytes % (Auto) 11.3 % (1.0-12.0); Neutrophils % (Auto) 47.5 % (38.0-78.0); Platelet Count 443 K/mcL (140-440); Red Cell Distribution Width 14.2 % (11.5-14.5); WBC 15.4 K/mcL (4.5-11.0)
[2022-01-11] MEDS: VITAMIN B COMPLEX 1 CAPSULE PO SCH (08:24)
[2022-01-11] MEDS: FLUoxetine HCL 20 MG CAPSULE PO SCH (08:24)
[2022-01-11] MEDS: ASPIRIN 81 MG TAB.CHEW PO SCH (08:24)
[2022-01-11] MEDS: CLOPIDOGREL 75 MG TABLET PO SCH (08:24)
[2022-01-11] MEDS: amLODIPine 10 MG TABLET PO SCH (08:24)
[2022-01-11] MEDS: METOPROLOL TARTRATE 25 MG TABLET PO SCH (08:24)
[2022-01-11] MEDS: PANTOPRAZOLE 40 MG TABLET PO SCH (08:24)
[2022-01-11] MEDS: ATORVASTATIN 10 MG TABLET PO SCH (08:24)
[2022-01-11] MEDS: DOCUSATE SODIUM 100 MG CAPSULE PO SCH (08:25)
[2022-01-11] MEDS: HEPARIN 5,000 UNIT/ML VIAL SQ SCH (08:25)
[2022-01-11] MEDS: CEFEPIME 1 GM VIAL IV SCH (09:50)
[2022-01-11] MEDS: NYSTATIN CRM 1 DOSE TUBE TOPICAL SCH (09:50)
--- NOTE | 2022-01-11 10:41 | Discharge Summary ---
Discharge Provider Provider Patient information: Note initiated : 01/11/22 at 10:34 am Service Date, if different from initiated Date: [] Patient: Teri Olson 71 y/o F admitted on 01/08/22 for Back Pain. Chief Complaint: [] Date of admission: 01/08/22 00:42 Discharge date: 01/11/22 Primary care physician: Apolonia Fernando Admitting clinician: Vanesa Lopez Attending physician on admission: Vanesa Lopez Consults: 01/07/22 Consult to Physician [CONS] Stat Comment: Consulting Provider: Vanesa Lopez Reason For Exam: Physician to Consult 01/08/22 07:26 Consult to Physician [CONS] Routine Comment: Consulting Provider: Marshal De La Cruz Reason For Exam: Physician to Consult 01/08/22 08:00 Consult to Physician [CONS] Routine Comment: for T4-5 diskitis Consulting Provider: Seferino Wise Reason For Exam: Physician to Consult Attending physician on discharge: Vanesa Lopez Discharging clinician: Vanesa Lopez Discharge Meds Discharge Medications Home Medications fluoxetine 20 mg capsule (Prozac) 20 mg PO QDAY 11/19/15 [History Confirmed 01/08/22 Last Taken 05/06/19 14:00] aspirin 81 mg chewable tablet (Elias Chewable Low Dose Aspirin) 81 mg PO DAILY 08/28/18 [History Confirmed 01/08/22 Last Taken 05/06/19 14:00] clopidogrel 75 mg tablet 75 mg PO DAILY 12/15/18 [History Confirmed 01/08/22 Last Taken 05/06/19 18:00] pravastatin 40 mg tablet 40 mg PO DAILY 12/15/18 [History Confirmed 01/08/22 Last Taken 05/06/19 14:00] vitamin B complex-vitamin C-folic acid 0.8 mg tablet 0.8 mg PO HS 12/15/18 [History Confirmed 01/08/22 Last Taken 05/06/19 14:00] acetaminophen 325 mg capsule 650 mg PO Q6HP PRN 05/14/20 [History Confirmed 01/08/22 Last Taken Unknown] miconazole nitrate 2 % topical powder 1 applic TOPICAL BID 05/14/20 [History Confirmed 01/08/22 Last Taken Unknown] sucroferric oxyhydroxide 500 mg chewable tablet (Velphoro) 1,000 mg PO TID #180 tab 10/05/21 [Rx Confirmed 01/08/22 Last Taken Unknown] albuterol sulfate 90 mcg/actuation aerosol inhaler (ProAir HFA) 1 - 2 puff CONTINUOUS INHALATION Q4HP PRN 01/08/22 [History Confirmed 01/08/22 Last Taken Unknown] amlodipine 5 mg tablet 5 mg PO QDAY 01/08/22 [History Confirmed 01/08/22 Last Taken Unknown] lansoprazole 30 mg capsule,delayed release 1 cap PO QDAY 01/08/22 [History Confirmed 01/08/22 Last Taken Unknown] metoprolol tartrate 25 mg tablet 12.5 mg PO BID 01/08/22 [History Confirmed 01/08/22 Last Taken Unknown] nystatin 100,000 unit/gram topical cream 1 applic TOPICAL BID 01/08/22 [History Confirmed 01/08/22 Last Taken Unknown] amoxicillin 500 mg-potassium clavulanate 125 mg tablet (Augmentin) 1 tab PO BID #90 tab 01/11/22 [Rx Last Taken Unknown] COURSE Hospital Course Hospital course: Ms. Olson is a 71 year old F with past medical history of discitis in T3-6 region, for which she was treated in [place], [place] from October to November 2021. Her other history consists of end-stage renal disease on hemodialysis (Tuesday schedule), type 2 diabetes, congestive heart failure, chronic respiratory failure (2 to 3 L of oxygen per minute at home) hypertension. For her discitis, patient recalls being treated with 8 weeks of IV antibiotics, 1 of which was IV vancomycin. She does not remember the name of the second antibiotic. She recalls that the orthopedic surgeons debated whether or not to intervene at that time. Ultimately, it seemed that they chose to opt for nonsurgical intervention. She followed up with Dr. Wise, orthopedic surgeon a week ago. MRI of her thoracic spine showed persistent disc osteomyelitis of T4-T5 vertebrae. There is also localized paraspinal phlegmon at this level. 01/08-she continues to do well. Endorses no new symptoms or complaints. No new back pain. Comfortable and getting dialysis. 01/09- No new sx. Discussed with Dr. Wise who will see her today and offer recommendations. She is agreeable to return to [place] for follow up of her Diskitis. Will start PO Antibiotics until she is seen at [place]. 01/10- Discussed with a facility, they did not have a spine surgeon and refused to take Ms. Coombs. Overall tar distillation supervisor has been in contact with her few other facilities as well.She continues to do well with no new symptoms. No spine tenderness. No lower extremity weakness or numbness. On 01/10-I had a Long discussion with Dr. Sandoval from [facility] in [facility]. He had discussed patient's MRI results with his spine surgeon as well as the infectious disease physicians there. Our whole tar distillation supervisor had facilitated transfer of MRI images. Upon their review of Ms. Olson's case, the spine surgeon in the hospital did not feel any need for surgical intervention. Infectious disease specialist, actually felt that her MRI findings show improvement compared to prior. He felt it was not uncommon for patients to have such findings after completion of IV antibiotic therapy. Infectious disease specialist felt that this does not indicate active/persistent infection. Most of the times, clinical improvement precedes radio logical improvement, and patients with osteomyelitis/pneumonia and such. Final recommendation from the ID department was to stop all the antibiotics and repeat MRI in 4 to 6 weeks. I chose to continue p.o. Augmentin twice daily for 6 weeks and repeating MRI in 4 to 5 weeks. Explained the treatment to patient who understands and agrees. She does not have any spine tenderness or lower extremity numbness/weakness. Completely afebrile during this admission. Discussed with Dr. Wise who agrees to follow her up as an outpatient. Repeat MRI in 6 weeks. I educated her about concerning findings such as plantar numbness and lower extremity numbness or weakness and requested her to seek urgent medical attention if she were to develop such symptoms. Discharge diagnosis: History of discitis Time Spent with Patient Time attestation: Total time spent providing and/or coordinating discharge services: Time spent: Greater than 30 minutes EXAM Constitutional Vitals: Temp Pulse Resp BP Pulse Ox 96.8 F L 50 L 16 143/58 93 01/11/22 06:59 01/11/22 06:59 01/11/22 06:59 01/11/22 06:59 01/11/22 06:59 General appearance: average body habitus, cooperative and no acute distress Head Head exam: Present atraumatic and normocephalic Eye Eye exam: Present normal appearance ENT ENT exam: Present mucous membranes moist Respiratory Respiratory exam: Present normal respiratory exam and CTAB; Absent accessory muscle use, rales, respiratory distress, stridor or wheezes Cardiovascular Cardiovascular exam: Present normal rate and rhythm and RRR; Absent bradycardia, diastolic murmur, gallop, irregular rhythm or rubs GI/Abdominal GI/Abdominal exam: Present normal bowel sounds and soft; Absent distended, guarding or rebound Expanded Lower Extremity Exam Hip exam: Present normal inspection; Absent swelling Back Exam Back exam: Present normal inspection; Absent CVA tenderness (L), CVA tenderness (R), paraspinal tenderness or vertebral tenderness Neurological Exam Neurological exam: Present alert and oriented X3; Absent abnormal gait or motor sensory deficit Additional findings Additional findings: No spine tenderness. Discharge Data Data Completed and Pending Labs on day of discharge: Labs from last 24 hours 01/11/22 01/11/22 05:26 05:25 WBC 15.4 H RBC 3.00 L Hgb 8.6 L Hct 28.0 L MCV 93.3 MCH 28.7 MCHC 30.7 L RDW 14.2 Plt Count 443 H MPV 9.0 Neut % (Auto) 47.5 Lymph % (Auto) 18.3 [place] % (Auto) 11.3 Eos % (Auto) 22.4 H Baso % (Auto) 0.5 Lymph # (Auto) 2.82 [place] # (Auto) 1.74 H Eos # (Auto) 3.44 H Baso # (Auto) 0.08 Absolute Neutrophils 7.29 Sodium 132 L Potassium 4.4 Chloride 96 Carbon Dioxide 24 Anion Gap 12.0 BUN 52 H Creatinine 5.2 H* GFR Calculation 8 Glucose 75 Calcium 10.1 Preliminary micro results at discharge 01/07/22 22:38 Blood Culture - Preliminary Blood 01/07/22 22:30 Blood Culture - Preliminary Blood Discharge Plan Patient/Caregiver Discharge Instructions Activity: increase activity as tolerated Diet: Renal Activity Restrictions/Additional Instructions: Should you ever have moderate to severe back pain or lower extremity numbness or weakness, please return to ER immediately. Prescriptions: New amoxicillin-pot clavulanate [Augmentin] 500-125 mg tablet 1 tab PO BID Qty: 90 0RF Continued fluoxetine [Prozac] 20 mg capsule 20 mg PO QDAY 0RF acetaminophen 325 mg capsule 650 mg PO Q6HP PRN (Reason: Pain) 0RF miconazole nitrate 2 % powder 1 applic TOPICAL BID 0RF Velphoro 500 mg tablet,chewable 1,000 mg PO TID Qty: 180 11RF Rx Instructions: Replaces renvela and or phosLo. New dose aspirin [Elias Chewable Aspirin] 81 MG tablet,chewable 81 mg PO DAILY 0RF clopidogrel 75 MG tablet 75 mg PO DAILY 0RF B complex-vitamin C-folic acid 0.8 MG tablet 0.8 mg PO HS 0RF pravastatin 40 MG tablet 40 mg PO DAILY 0RF albuterol sulfate [ProAir HFA] 90 mcg/actuation HFA aerosol inhaler 1 - 2 puff continuous inhalation Q4HP PRN (Reason: Shortness Of Breath Or Wheezing) 0RF amlodipine 5 mg tablet 5 mg PO QDAY 0RF metoprolol tartrate 25 mg tablet 12.5 mg PO BID 0RF lansoprazole 30 mg capsule,delayed release(DR/EC) 1 cap PO QDAY 0RF nystatin 100,000 unit/gram cream 1 applic topical BID 0RF Other Ambulatory Orders: MR lumbar spine w con (Routine) Timeframe: 5 Weeks Facility: [facility] - Location: Radiology Ordered By: Vanesa Lopez MR thoracic spine w con (Routine) Timeframe: 5 Weeks Facility: [facility] - Location: Radiology Ordered By: Vanesa Lopez Follow Up Plan Follow up with: Seferino Wise MD [Physician] - (Please schedule a follow-up appointment in 6 weeks for follow-up of discitis/osteomyelitis) Apolonia Fernando, BASKET GRADER [Primary Care Provider] - Patient Disposition: [facility] Prognosis: Good Rehab Potential: Good Overall status at discharge: patient is back to baseline Discharge Orders: Discharge Order (Routine); Ordered 01/11/22 Ordered By: Vanesa Lopez QUALITY VTE Deep Vein Thrombosis/Pulmonary Embolism Present on Admission: No
== END 2022-01-11 11:40 | DRG 539 ==
LOC: ED 17:18 → MEDSUR 01-08 00:42
PROVIDERS: ADMIT Internal Medicine Medical Oncology; ATTEND Internal Medicine Medical Oncology